=== PATIENT | male | born 1960 | race Caucasian/White ===

== ENCOUNTER 2019-09-11 11:49 | Inpatient (IN) | payer OTHER ==
[~2019-09-11] VITALS: Ht 182.9 cm; Wt 83.2 kg
--- NOTE | 2019-09-11 12:09 | NUR ---
Wound Care Wound Type/Assessment: Pt was new to the W[facility] today, referred from Dr. Abebe's office. Pt walked in using roller walker, sock only covering forefoot, wound visualized and open to air. Manual FELICIANO obtained, showing 0.61, palpable pedal pulse, foot slightly reddened and swollen. Pt stated wound has been present for 1.5 months, after applying lotion to calluses on his feet, and has progressively worsened. Dr. Abebe placed pt on Augmentin on 09/06/19, labs drawn, showing HA1C of 11.2, pt stating this is the first he knew he was Diabetic. Left heel wound is soft eschar and slough covered, wet gangrene, foul odor, small amount of brown, purulent material expressed from below eschar covering, culture obtained after cleaning. Dr. Walton assessed, spoke with pt about hospital admission for IV Abx and surgical debridement, pt agreeable. Wound dressed with 1/4 strength Dakins soaked gauze, covered with ABD and kerlix. After speaking with Dr. Ruffin to admit, pt was transferred to ED for Registration via wheelchair, spoke with pt and mother re: POC. Treatment Recommendations/Plan: Hospital admission for antibiotics and surgical debridement, vascular workup as pt is a 40 year smoker, and 0.6 FELICIANO. Education provided: to pt and mother re: POC and surgical/treatment expectations, both v/u. Spoke with JERALD Rodrigez re: POC. Offloading surface/device: defer weight-bearing status to Vascular Surgeon. Recommended Referrals/Tests: Vascular, ID, Arterial U/S Discharge Recommendations for dressings: pending
--- NOTE | 2019-09-11 12:15 | NUR ---
Arrived to unit by w/c from Wound clinic. Alert and oriented x's 4. Left heel dressing intact with foul smell. Elevated left foot elevated on pillow. Oriented to room and controls. Side rails up x's 2 with call light in reach.
[2019-09-11] MEDS ORDERED: METF500T16 PO (13:58)
[2019-09-11] MEDS ORDERED: AMOX1TAB61 PO (13:58)
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
[2019-09-11 15:00] VITALS: BP 173/92
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
[2019-09-11] MEDS ORDERED: ACETAMINOPHEN 325 MG TABLET. PO PRN (15:30)
[2019-09-11] MEDS ORDERED: LORazepam 0.5 MG TABLET PO PRN (15:30)
[2019-09-11] MEDS ORDERED: DEXTROSE 50% 25 GM / 50ML DISP.SYRIN. IV PRN (15:30)
[2019-09-11] MEDS ORDERED: HYDROmorphone 2 MG/ML VIAL IV PRN (15:30)
[2019-09-11] MEDS ORDERED: DOCUSATE SODIUM 100 MG CAPSULE. PO PRN (15:30)
[2019-09-11] MEDS ORDERED: ZOLPIDEM 5 MG TABLET. PO PRN (15:30)
[2019-09-11] MEDS ORDERED: guaiFENesin ORAL 200 MG/10 ML LIQUID. PO PRN (15:30)
[2019-09-11] MEDS ORDERED: ONDANSETRON PF 4 MG/2 ML VIAL. IV PRN (15:30)
[2019-09-11] MEDS ORDERED: ALBUTEROL SULFATE 2.5 MG/3 ML NEBU. NEB PRN (15:30)
[2019-09-11] MEDS ORDERED: VANCOMYCIN 1 GM in IV DEXTROSE 5% 250 ML IV ONE (15:30)
[2019-09-11 15:45] LABS: BASO # 0.1 x10^3/uL (0.0-0.2); BASO % 1 % (0-3); EOS # 0.3 x10^3/uL (0.0-0.7); EOS % 3 % (0-3); HEMATOCRIT 44.9 % (39.0-53.0); HEMOGLOBIN 15.2 g/dL (13.0-17.5); LYMPH # 2.1 x10^3/uL (1.0-4.8); LYMPH % 21 % (24-48); MEAN CORPUSCULAR HEMOGLOBIN 29 pg (25-35); MEAN CORPUSCULAR HGB CONC 34 g/dL (31-37); MEAN CORPUSCULAR VOLUME 85 fL (79-100); MONO # 0.7 x10^3/uL (0.0-1.1); MONO % 7 % (0-9); NEUT # 6.7 x10^3/uL (1.8-7.7); NEUT % 68 % (31-73); PLATELET COUNT 329 x10^3/uL (140-400); RED BLOOD COUNT 5.26 x10^6/uL (4.30-5.70); RED CELL DISTRIBUTION WIDTH 14.2 % (11.5-14.5); WHITE BLOOD COUNT 9.8 x10^3/uL (4.0-11.0)
[2019-09-11 15:56] LABS: PROTHROMBIN TIME PATIENT 13.1 SEC (11.7-14.0)
[2019-09-11 16:07] LABS: ALBUMIN/GLOBULIN RATIO 0.9 (1.0-1.7); CALCIUM 9.3 mg/dL (8.5-10.1); GFR 76.5; POTASSIUM 4.9 mmol/L (3.5-5.1); TOTAL BILIRUBIN 0.2 mg/dL (0.2-1.0); TOTAL PROTEIN 6.4 g/dL (6.4-8.2)
--- NOTE | 2019-09-11 16:51 | RAD ---
DUPLEX LOWER EXT ARTERIAL LEFT Indication: Gangrene left heel. Pain. Comparison: None. Procedure: Real-time grayscale, color flow Doppler, and Doppler spectral waveform analysis of the arterial system of the lower extremity is performed. Findings: Moderate atheromatous plaque throughout the left lower extremity. Monophasic waveform within the left common femoral and deep femoral arteries. 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 Reconstitution of the distal superficial femoral artery with monophasic waveform. Monophasic waveform within the left popliteal, posterior tibial, anterior tibial and dorsalis pedis arteries. Lower velocity within the left popliteal and posterior tibial arteries. Left peroneal artery not well seen, may relate to technique, slow flow or occlusion. IMPRESSION: 1. 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 CT angiogram can further assess as clinically warranted. 2. Monophasic waveform throughout the left lower extremity, may indicate proximal stenosis. 3. Moderate atheromatous plaque throughout the left lower extremity. Electronically signed by: Vignesh Man DO (09/11/2019 4:47 PM) KEMAL
--- NOTE | 2019-09-11 16:53 | RAD ---
VEIN MAPPING LOWER EXT BILAT History: Preoperative evaluation for bypass. Comparison: None. Discussion: Multiple longitudinal and transverse high resolution real-time images of the superficial venous system of bilateral lower extremity were obtained with color and Doppler sampling. Postoperative changes bilateral greater saphenous veins not well seen. Right lesser saphenous vein proximal measures 2.2 mm, mid 2.7 mm and distal 2.4 mm. Left lesser saphenous vein proximal measures 2.5 mm, mid 2.60 m and distal 2.4 mm. Impression: 1. Preoperative evaluation with measurements of the lesser saphenous veins, as described. 2. Postoperative changes bilateral greater saphenous veins. Electronically signed by: Vignesh Man DO (09/11/2019 4:50 PM) [facility]
[2019-09-11] MEDS: PIPERACILLIN/TAZOBACTAM 3.375 GM in IV NORMAL SALINE 50ML 50 ML IV SCH (16:56)
--- NOTE | 2019-09-11 16:56 | RAD ---
VEIN MAP UPPER EXT BILATERAL History: Preoperative evaluation for bypass Comparison: None. Procedure: Color flow Doppler, Doppler spectral analysis, and 2D images are obtained of the superficial venous system. Findings: Right proximal basilic vein upper arm measures 2.7 mm, mid 2.2 mm and distal 3.3 mm. Right basilic vein at the proximal forearm measures 1.5 mm, mid 0.9 mm and distal 0.9 mm. Right cephalic vein proximal upper arm measures 2 mm, mid 2.1 mm and distal 1.4 mm. Right cephalic vein at the forearm proximally measures 2 mm, mid 1.5 mm and distal 1.7 mm. Left basilic vein upper arm proximally measures 4.4 mm, mid 4.1 mm and distal 3.8 mm. Left basilic vein at the forearm measures 1.6 mm, mid 2.5 mm and distal 2.6 mm. Left cephalic vein proximal upper arm measures 2.9 mm, mid 2.4 mm and distal 2.3 mm. Left cephalic vein at the forearm proximally measures 2.9 mm, mid 3.1 mm and distal 3.2 mm. IMPRESSION: 1. Preoperative evaluation upper extremity superficial venous system with measurements, as described. Electronically signed by: Vignesh Man DO (09/11/2019 4:53 PM) [facility]
[2019-09-11] MEDS: INSULIN LISPRO 300 UNITS/3 ML VIAL. SQ SCH (17:08)
[2019-09-11] MEDS: ENOXAPARIN 40 MG/0.4 ML SYRINGE. SQ SCH (17:49)
[2019-09-11] MEDS: VANCOMYCIN PER PHARMACY MC PRN ×3 (17:51→18:11)
[2019-09-11] MEDS ORDERED: VANCOMYCIN 2 GM in IV NORMAL SALINE 500ML BAG 500 ML IV ONE (18:00)
--- NOTE | 2019-09-11 18:12 | NUR ---
Pharmacy Vancomycin Dosing Note S:Consulted to monitor and dose vancomycin started 09/11/19. O:CHASIDY HUTSON is a 59 year old M with Cellulitis . Height: 6 feet, 0 inches Weight: 76.0 kg [place] Body Weight: Adjusted Body Weight: Dosing Weight: Actual Other Antibiotics: LABS: Last BUN: Last Creatinine: 1.0 Creatinine Clearance: 86 mL/min Last WBC: 9.8 Last Procalcitonin: Tmax (past 24 hours): 98.2 Microbiology: I/O: Drug Levels: Last level: on at Last dose given 09/11/19 at 1800 Vancomycin Dosing: Loading Dose: 2000 mg x1 Dosing Weight: Actual Target Trough: 10-20 A: Based on: WEIGHT AND RENAL FUNCTION, 2GM IV BOLUS GIVEN, P: 1. Begin Vancomycin 1000 mg IV q12h IN THE MORNING 2. Follow up Trough level on 09/13/19 at 0530 3. Pharmacy will continue to monitor, follow and adjust therapy as needed. BETHEL MONIQUE [facility], 09/11/19 0917
[2019-09-11 19:48] VITALS: BP 134/75
[2019-09-11 22:30] VITALS: BP 143/79
[2019-09-12] MEDS: PIPERACILLIN/TAZOBACTAM 3.375 GM in IV NORMAL SALINE 50ML 50 ML IV SCH ×4 (00:20→17:26)
[2019-09-12 02:56] VITALS: BP 143/72
[2019-09-12] MEDS: VANCOMYCIN 1 GM in IV NORMAL SALINE 250ML 250 ML IV SCH ×2 (06:12→17:26)
[2019-09-12] MEDS: INSULIN LISPRO 300 UNITS/3 ML VIAL. SQ SCH ×3 (07:51→17:00)
[2019-09-12 07:55] VITALS: BP 156/86
--- NOTE | 2019-09-12 09:36 | PDOC1 ---
History and Physical Date of Admission Date of Admission DATE: 09/12/19 TIME: 09:35 Identification/Chief Complaint Chief Complaint direct admit from wound clinic left heel wound, nonhealing new diagnosis of diabetes with a hemoglobin A1c of 11.2. vascular studies c/w severe PVD HIGH RISK of limb loss Past Medical History Cardiovascular: HTN, Hyperlipidemia Endocrine: Diabetes Family History Family History Past Medical History Past Medical History Diabetes mellitus Cardiovascular: HTN Past Surgical History Past Surgical History Left lower extremity arterial injury repair at many years ago Current Problem List Problem List Left heel eschar Family History: High Cholestrol, Hypertension Social History Smoke: Quit ALCOHOL: occassional Drugs: None Current Medications Current Medications Current Medications Ondansetron HCl (Zofran) 4 mg PRN Q4HRS PRN IV NAUSEA/VOMITING; Start 09/11/19 at 15:30 Zolpidem Tartrate (Ambien) 5 mg PRN QHS PRN PO INSOMNIA; Start 09/11/19 at 15:30 Acetaminophen (Tylenol) 650 mg PRN Q4HRS PRN PO TEMP OVER 100.4F OR MILD PAIN; Start 09/11/19 at 15:30 Docusate Sodium (Colace) 100 mg PRN BID PRN PO HARD STOOLS; Start 09/11/19 at 15:30 Albuterol Sulfate (Ventolin Neb Soln) 2.5 mg PRN Q4HRS PRN NEB SHORTNESS OF BREATH; Start 09/11/19 at 15:30 Guaifenesin (Robitussin) 200 mg PRN Q4HRS PRN PO COUGH; Start 09/11/19 at 15:30 Lorazepam (Ativan) 0.5 mg PRN Q4HRS PRN PO ANXIETY / AGITATION; Start 09/11/19 at 15:30 Hydromorphone HCl (Dilaudid) 1 mg PRN Q2HRS PRN IV SEVERE PAIN 7-10; Start 09/11/19 at 15:30 Enoxaparin Sodium (Lovenox 40mg Syringe) 40 mg Q24H SQ Last administered on 09/11/19at 17:49; Start 09/11/19 at 17:00 Vancomycin HCl 1 gm/Dextrose 250 ml @ 250 mls/hr 1X ONCE IV ; Start 09/11/19 at 15:30; Stop 09/11/19 at 16:29; Status UNV Vancomycin HCl (Vanco Per Pharmacy) 1 each PRN DAILY PRN MC SEE COMMENTS Last administered on 09/11/19at 18:11; Start 09/11/19 at 15:30 Piperacillin Sod/ Tazobactam Sod 3.375 gm/Sodium Chloride 50 ml @ 100 mls/hr Q6HRS IV Last administered on 09/12/19at 05:13; Start 09/11/19 at 16:00 Insulin Human Lispro (HumaLOG) 0-7 UNITS TIDWMEALS SQ Last administered on 09/11/19at 17:08; Start 09/11/19 at 17:00 Dextrose (Dextrose 50%-Water Syringe) 12.5 gm PRN Q15MIN PRN IV SEE COMMENTS; Start 09/11/19 at 15:30 Vancomycin HCl 2 gm/Sodium Chloride 500 ml @ 250 mls/hr 1X ONCE IV Last administered on 09/11/19at 17:49; Start 09/11/19 at 18:00; Stop 09/11/19 at 19:59; Status DC Vancomycin HCl 1 gm/Sodium Chloride 250 ml @ 250 mls/hr Q12H IV Last administered on 09/12/19at 06:12; Start 09/12/19 at 06:00 Vancomycin HCl (Vancomycin Trough Level) 1 each 1X ONCE MC ; Start 09/13/19 at 05:30; Stop 09/13/19 at 05:31 Active Scripts Active Reported Augmentin 875-125 Tablet (Amoxicillin/Potassium Clav) 1 Each Tablet 1 Tab PO BID 10 Days Metformin Hcl 500 Mg Tablet 500 Mg PO DAILY Allergies Allergies: Coded Allergies: No Known Allergies (Verified Allergy, Unknown, 09/11/19) ROS Review of System 14 PT ROS OTHERWISE WNL General: YES: Fatigue PSYCHOLOGICAL ROS: YES: Anxiety; No: Behavioral Disorder, Concentration difficultie, Decreased libido, Depression, Disorientation, Hallucinations, Hostility, Irritablity, Memory difficulties, Mood Swings, Obsessive thoughts, Physical abuse, Sexual abuse, Sleep disturbances, Suicidal ideation, Other Eyes: Yes Blurry vision; No Decreased vision, No Double vision, No Dry eyes, No Excessive tearing, No Eye Pain, No Itchy Eyes, No Loss of vision, No Photophobia, No Scotomata, No Uses contacts, No Uses glasses, No Other HEENT: No: Heacaches, Visual Changes, Hearing change, Nasal congestion, Nasal discharge, Oral lesions, Sinus pain, Sore Throat, Epistaxis, Sneezing, Snoring, Tinnitus, Vertigo, Vocal changes, Other ALLERGY AND IMMUNOLOGY: No: Hives, Insect Bite Sensitivity, Itchy/Watery Eyes, Nasal Congestion, Post Nasal Drip, Seasonal Allergies, Other Hematological and Lymphatic: No: Bleeding Problems, Blood Clots, Blood Transfusions, Brusing, Night Sweats, Pallor, Swollen Lymph Nodes, Other Breast: No New/Changing Breast Lumps, No Nipple changes, No Nipple discharge, No Other Respiratory: No: Cough, Hemoptysis, Orthopnea, Pleuritic Pain, Shortness of breath, SOB with excertion, Sputum Changes, Stridor, Tachypnea, Wheezing, Other Cardiovascular: No Chest Pain, No Palpitations, No Orthopnea, No Paroxysmal Noc. Dyspnea, No Edema, No Lt Headedness, No Other Gastrointestinal: No Nausea, No Vomiting, No Abdominal Pain, No Diarrhea, No Constipation, No Melena, No Hematochezia, No Other Genitourinary: YES Frequency; No Dysuria, No Incontinence, No Hematuria, No Retention, No Discharge, No Ur gency, No Pain, No Flank Pain, No Other, No , No , No , No , No , No , No Musculoskeletal: Yes Gait Disturbance, Yes Joint Stiffness Neurological: Yes Gait Disturbance; No Behavorial Changes, No Bowel/Bladder ControlChng, No Confusion, No Dizziness, No Headaches, No Impaired Coord/balance, No Memory Loss, No Numbness/Tingling, No Seizures, No Speech Problems, No Tremors, No Visual Changes, No Weakness, No Other Skin: Yes Skin Lesion Changes Physical Exam Physical Exam left Heel ulceration with the greatest degree of soft tissue irregularity extending approximately 9 mm deep to the skin surface. Lungs: Clear to auscultation Heart: Regular rate, Abdomen: Normal bowel sounds, Soft Extremities: No clubbing, No cyanosis Neuro: Normal speech, Strength at 5/5 X4 ext, Normal tone, Cranial nerves 3-12 NL Psych/Mental Status: Mental status NL, Mood NL MUSCULOSKELETAL: No joint tenderness, Abnormal exam of left as above General: Alert, Oriented X3, Cooperative, No acute distress HEENT: Atraumatic, PERRLA, EOMI, Mucous membr. moist/pink Lungs: Clear to auscultation, Normal air movement Heart: RRR, no thrills, no rubs, no gallops Breasts: Not examined Abdomen: Normal bowel sounds, Soft, No tenderness Rectal Exam: not examined PELVIC: Examination not indicated Extremities: No cyanosis Neuro: Normal speech, Sensation intact, Cranial nerves 3-12 NL Psych/Mental Status: Mental status NL, Mood NL Vitals Vitals Vital Signs Date Time Temp Pulse Resp B/P (MAP) Pulse Ox O2 Delivery O2 Flow Rate FiO2 09/12/19 07:55 97.9 63 18 156/86 (109) 97 Nasal Cannula 97.9 Labs Labs Laboratory Tests Test 09/11/19 15:00 09/11/19 16:58 09/11/19 21:00 09/12/19 07:35 White Blood Count 9.8 x10^3/uL (4.0-11.0) Red Blood Count 5.26 x10^6/uL (4.30-5.70) Hemoglobin 15.2 g/dL (13.0-17.5) Hematocrit 44.9 % (39.0-53.0) Mean Corpuscular Volume 85 fL (79-100) Mean Corpuscular Hemoglobin 29 pg (25-35) Mean Corpuscular Hemoglobin Concent 34 g/dL (31-37) Red Cell Distribution Width 14.2 % (11.5-14.5) Platelet Count 329 x10^3/uL (140-400) Neutrophils (%) (Auto) 68 % (31-73) Lymphocytes (%) (Auto) 21 % (24-48) Monocytes (%) (Auto) 7 % (0-9) Eosinophils (%) (Auto) 3 % (0-3) Basophils (%) (Auto) 1 % (0-3) Neutrophils # (Auto) 6.7 x10^3/uL (1.8-7.7) Lymphocytes # (Auto) 2.1 x10^3/uL (1.0-4.8) Monocytes # (Auto) 0.7 x10^3/uL (0.0-1.1) Eosinophils # (Auto) 0.3 x10^3/uL (0.0-0.7) Basophils # (Auto) 0.1 x10^3/uL (0.0-0.2) Erythrocyte Sedimentation Rate 53 (0-15) Prothrombin Time 13.1 SEC (11.7-14.0) Prothromb Time International Ratio 1.0 (0.8-1.1) Activated Partial Thromboplast Time 29 SEC (24-38) Sodium Level 138 mmol/L (136-145) Potassium Level 4.9 mmol/L (3.5-5.1) Chloride Level 102 mmol/L (98-107) Carbon Dioxide Level 27 mmol/L (21-32) Anion Gap 9 (6-14) Blood Urea Nitrogen 21 mg/dL (8-26) Creatinine 1.0 mg/dL (0.7-1.3) Estimated GFR (Cockcroft-Gault) 76.5 BUN/Creatinine Ratio 21 (6-20) Glucose Level 235 mg/dL (70-99) Calcium Level 9.3 mg/dL (8.5-10.1) Total Bilirubin 0.2 mg/dL (0.2-1.0) Aspartate Amino Transf (AST/SGOT) 11 U/L (15-37) Alanine Aminotransferase (ALT/SGPT) 15 U/L (16-63) Alkaline Phosphatase 129 U/L (46-116) Total Protein 6.4 g/dL (6.4-8.2) Albumin 3.0 g/dL (3.4-5.0) Albumin/Globulin Ratio 0.9 (1.0-1.7) Glucose (Fingerstick) 200 mg/dL (70-99) 207 mg/dL (70-99) 195 mg/dL (70-99) Laboratory Tests Test 09/11/19 15:00 09/11/19 16:58 09/11/19 21:00 09/12/19 07:35 White Blood Count 9.8 x10^3/uL (4.0-11.0) Red Blood Count 5.26 x10^6/uL (4.30-5.70) Hemoglobin 15.2 g/dL (13.0-17.5) Hematocrit 44.9 % (39.0-53.0) Mean Corpuscular Volume 85 fL (79-100) Mean Corpuscular Hemoglobin 29 pg (25-35) Mean Corpuscular Hemoglobin Concent 34 g/dL (31-37) Red Cell Distribution Width 14.2 % (11.5-14.5) Platelet Count 329 x10^3/uL (140-400) Neutrophils (%) (Auto) 68 % (31-73) Lymphocytes (%) (Auto) 21 % (24-48) Monocytes (%) (Auto) 7 % (0-9) Eosinophils (%) (Auto) 3 % (0-3) Basophils (%) (Auto) 1 % (0-3) Neutrophils # (Auto) 6.7 x10^3/uL (1.8-7.7) Lymphocytes # (Auto) 2.1 x10^3/uL (1.0-4.8) Monocytes # (Auto) 0.7 x10^3/uL (0.0-1.1) Eosinophils # (Auto) 0.3 x10^3/uL (0.0-0.7) Basophils # (Auto) 0.1 x10^3/uL (0.0-0.2) Erythrocyte Sedimentation Rate 53 (0-15) Prothrombin Time 13.1 SEC (11.7-14.0) Prothromb Time International Ratio 1.0 (0.8-1.1) Activated Partial Thromboplast Time 29 SEC (24-38) Sodium Level 138 mmol/L (136-145) Potassium Level 4.9 mmol/L (3.5-5.1) Chloride Level 102 mmol/L (98-107) Carbon Dioxide Level 27 mmol/L (21-32) Anion Gap 9 (6-14) Blood Urea Nitrogen 21 mg/dL (8-26) Creatinine 1.0 mg/dL (0.7-1.3) Estimated GFR (Cockcroft-Gault) 76.5 BUN/Creatinine Ratio 21 (6-20) Glucose Level 235 mg/dL (70-99) Calcium Level 9.3 mg/dL (8.5-10.1) Total Bilirubin 0.2 mg/dL (0.2-1.0) Aspartate Amino Transf (AST/SGOT) 11 U/L (15-37) Alanine Aminotransferase (ALT/SGPT) 15 U/L (16-63) Alkaline Phosphatase 129 U/L (46-116) Total Protein 6.4 g/dL (6.4-8.2) Albumin 3.0 g/dL (3.4-5.0) Albumin/Globulin Ratio 0.9 (1.0-1.7) Glucose (Fingerstick) 200 mg/dL (70-99) 207 mg/dL (70-99) 195 mg/dL (70-99) Images Images PA and lateral chest. HISTORY: R 23.4, eschar of heel, wheezing, patient states he is a smoker PA and lateral views the chest show the lungs are clear. Heart is normal in size. There is no effusion. There is mild hypertrophic change in the spine. IMPRESSION: 1. No acute chest disease. Electronically signed by: Troy Dao MD (09/11/2019 9:44 AM) [id number] DICTATED and SIGNED BY: TROY DAO MD DATE: 09/11/19 0944 Study: 1. CR FOOT LEFT 3V 2. CR CALCANEUS LEFT Indication: Eschar of heel. Comparison: None. Findings: Calcaneus: Ulceration at the heel with the greatest degree of soft tissue irregularity extending approximately 9 mm deep to the skin surface. The subjacent subcutaneous tissues are increased in density approaching the calcaneus. At the plantar calcaneus along the base of a spur there is mild localized demineralization. No periostitis seen at this location. Foot: Noting the absence of weightbearing, presumed hallux valgus deformity. No acute fracture or aggressive osseous process. Small focus of increased density within the soft tissues plantar and lateral to the second ray proximal phalanx. Somewhat edematous appearance of the dorsal forefoot soft tissues. Impression: 1. Heel ulceration with the greatest degree of soft tissue irregularity extending approximately 9 mm deep to the skin surface. At the base of a plantar calcaneal spur, mild localized demineralization without periostitis. This demineralization is nonspecific but if there is concern for osteomyelitis MRI would be more sensitive. 2. No acute fracture or radiographic findings of osteomyelitis throughout the midfoot or forefoot. 3. Punctate focus of increased density plantar and lateral to the second ray proximal phalanx which could represent a retained radiopaque foreign body. Recommend correlation with direct inspection. 4. Hallux valgus alignment. Electronically signed by: JEWEL GARCIA MD (09/11/2019 9:44 AM) [id number] REASON: gangrene left heel PROCEDURE: DUPLEX LOWER EXT ARTERIAL LEFT DUPLEX LOWER EXT ARTERIAL LEFT Indication: Gangrene left heel. Pain. Comparison: None. Procedure: Real-time grayscale, color flow Doppler, and Doppler spectral waveform analysis of the arterial system of the lower extremity is performed. Findings: Moderate atheromatous plaque throughout the left lower extremity. Monophasic waveform within the left common femoral and deep femoral arteries. 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 Reconstitution of the distal superficial femoral artery with monophasic waveform. Monophasic waveform within the left popliteal, posterior tibial, anterior tibial and dorsalis pedis arteries. Lower velocity within the left popliteal and posterior tibial arteries. Left peroneal artery not well seen, may relate to technique, slow flow or occlusion. IMPRESSION: 1. 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 CT angiogram can further assess as clinically warranted. 2. Monophasic waveform throughout the left lower extremity, may indicate proximal stenosis. 3. Moderate atheromatous plaque throughout the left lower extremity. Electronically signed by: Vignesh Man DO (09/11/2019 4:47 PM) [facility]ERSONOn[facility]ignCHIQUITA DICTATED and SIGNED BY: VIGNESH MAN DO DATE: 09/11/19 1647 VEIN MAPPING LOWER EXT BILAT History: Preoperative evaluation for bypass. Comparison: None. Discussion: Multiple longitudinal and transverse high resolution real-time images of the superficial venous system of bilateral lower extremity were obtained with color and Doppler sampling. Postoperative changes bilateral greater saphenous veins not well seen. Right lesser saphenous vein proximal measures 2.2 mm, mid 2.7 mm and distal 2.4 mm. Left lesser saphenous vein proximal measures 2.5 mm, mid 2.60 m and distal 2.4 mm. Impression: 1. Preoperative evaluation with measurements of the lesser saphenous veins, as described. 2. Postoperative changes bilateral greater saphenous veins. Electronically signed by: Vignesh Man DO (09/11/2019 4:50 PM) [facility]-OriginCHIQUITA DICTATED and SIGNED BY: VIGNESH MAN DO DATE: 09/11/19 1650 VTE Prophylaxis Ordered VTE Prophylaxis Devices: Contraindicated VTE Pharmacological Prophylaxi: Yes Assessment/Plan Assessment/Plan IMPRESSION 1. 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 CT angiogram can further assess as clinically warranted. 2. Monophasic waveform throughout the left lower extremity, may indicate proximal stenosis. 3. 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 Heel ulceration with the greatest degree of soft tissue irregularity extending approximately 9 mm deep to the skin surface. 4. morbid obesity 5. hypertension 6. Diabetes 7. Punctate focus of increased density plantar and lateral to the second ray proximal phalanx which could represent a retained radiopaque foreign body. PLAN ADMIT Vascular surgery consult consult wound care team accuchecks IV VANC, ZOSYN ID consult SS INSULIN DVT prophylaxis EKG at high risk of limb loss 77 MIN pt exam, chart review, > 50% of time spent with exam, chart review, pt care coordination MONICO LEUNG MD September 12, 2019 09:36
[2019-09-12 11:18] VITALS: BP 133/70
--- NOTE | 2019-09-12 12:05 | EKG ---
[facility] [address] [place] [address] Test Date: 2019-09-12 Test Time: 11:53:54 Pat Name: CHASIDY HUTSON Department: Room: [facility] Gender: M Campaign Consultant: : 1960 Requested By: MONICO LEUNG Order Number: [id number] Reading MD: Tien Barahona Measurements Intervals [place] Rate: 58 P: 39 GA: 238 QRS: -75 QRSD: 138 T: 103 QT: 432 QTc: 424 Interpretive Statements SINUS RHYTHM PROLONGED GA INTERVAL ABNORMAL LEFT AXIS DEVIATION RIGHT BUNDLE BRANCH BLOCK ABNORMAL ECG RI6.02 No previous ECG available for comparison Electronically Signed On 09-13-2019 8:23:18 CDT by Tien Barahona
--- NOTE | 2019-09-12 12:09 | PDOC ---
Infectious Disease Note Vital Signs: Vital Signs Vital Signs Date Time Temp Pulse Resp B/P (MAP) Pulse Ox O2 Delivery O2 Flow Rate FiO2 09/12/19 11:18 98.3 56 18 133/70 (91) 97 Nasal Cannula 98.3 Medications: Inpatient Meds: Current Medications Medications (Trade) Dose Ordered Sig/Steven Start Time Stop Time Status Last Admin Dose Admin Acetaminophen (Tylenol) 650 mg PRN Q4HRS PRN 09/11/19 15:30 Albuterol Sulfate (Ventolin Neb Soln) 2.5 mg PRN Q4HRS PRN 09/11/19 15:30 Dextrose (Dextrose 50%-Water Syringe) 12.5 gm PRN Q15MIN PRN 09/11/19 15:30 Docusate Sodium (Colace) 100 mg PRN BID PRN 09/11/19 15:30 Enoxaparin Sodium (Lovenox 40mg Syringe) 40 mg Q24H 09/11/19 17:00 09/11/19 17:49 40 MG Guaifenesin (Robitussin) 200 mg PRN Q4HRS PRN 09/11/19 15:30 Hydromorphone HCl (Dilaudid) 1 mg PRN Q2HRS PRN 09/11/19 15:30 Insulin Human Lispro (HumaLOG) 0-7 UNITS TIDWMEALS 09/11/19 17:00 09/11/19 17:08 3 UNITS Lorazepam (Ativan) 0.5 mg PRN Q4HRS PRN 09/11/19 15:30 Ondansetron HCl (Zofran) 4 mg PRN Q4HRS PRN 09/11/19 15:30 Piperacillin Sod/ Tazobactam Sod 3.375 gm/Sodium Chloride 50 ml @ 100 mls/hr Q6HRS 09/11/19 16:00 09/12/19 05:13 100 MLS/HR Vancomycin HCl (Vanco Per Pharmacy) 1 each PRN DAILY PRN 09/11/19 15:30 09/11/19 18:11 1 EACH Vancomycin HCl (Vancomycin Trough Level) 1 each 1X ONCE 09/13/19 05:30 09/13/19 05:31 Vancomycin HCl 1 gm/Dextrose 250 ml @ 250 mls/hr 1X ONCE 09/11/19 15:30 09/11/19 16:29 UNV Vancomycin HCl 1 gm/Sodium Chloride 250 ml @ 250 mls/hr Q12H 09/12/19 06:00 09/12/19 06:12 250 MLS/HR Vancomycin HCl 2 gm/Sodium Chloride 500 ml @ 250 mls/hr 1X ONCE 09/11/19 18:00 09/11/19 19:59 DC 09/11/19 17:49 250 MLS/HR Zolpidem Tartrate (Ambien) 5 mg PRN QHS PRN 09/11/19 15:30 Labs: Lab Laboratory Tests Test 09/11/19 15:00 09/11/19 16:58 09/11/19 21:00 09/12/19 07:35 White Blood Count 9.8 x10^3/uL (4.0-11.0) Red Blood Count 5.26 x10^6/uL (4.30-5.70) Hemoglobin 15.2 g/dL (13.0-17.5) Hematocrit 44.9 % (39.0-53.0) Mean Corpuscular Volume 85 fL (79-100) Mean Corpuscular Hemoglobin 29 pg (25-35) Mean Corpuscular Hemoglobin Concent 34 g/dL (31-37) Red Cell Distribution Width 14.2 % (11.5-14.5) Platelet Count 329 x10^3/uL (140-400) Neutrophils (%) (Auto) 68 % (31-73) Lymphocytes (%) (Auto) 21 % (24-48) Monocytes (%) (Auto) 7 % (0-9) Eosinophils (%) (Auto) 3 % (0-3) Basophils (%) (Auto) 1 % (0-3) Neutrophils # (Auto) 6.7 x10^3/uL (1.8-7.7) Lymphocytes # (Auto) 2.1 x10^3/uL (1.0-4.8) Monocytes # (Auto) 0.7 x10^3/uL (0.0-1.1) Eosinophils # (Auto) 0.3 x10^3/uL (0.0-0.7) Basophils # (Auto) 0.1 x10^3/uL (0.0-0.2) Erythrocyte Sedimentation Rate 53 (0-15) Prothrombin Time 13.1 SEC (11.7-14.0) Prothromb Time International Ratio 1.0 (0.8-1.1) Activated Partial Thromboplast Time 29 SEC (24-38) Sodium Level 138 mmol/L (136-145) Potassium Level 4.9 mmol/L (3.5-5.1) Chloride Level 102 mmol/L (98-107) Carbon Dioxide Level 27 mmol/L (21-32) Anion Gap 9 (6-14) Blood Urea Nitrogen 21 mg/dL (8-26) Creatinine 1.0 mg/dL (0.7-1.3) Estimated GFR (Cockcroft-Gault) 76.5 BUN/Creatinine Ratio 21 (6-20) Glucose Level 235 mg/dL (70-99) Calcium Level 9.3 mg/dL (8.5-10.1) Total Bilirubin 0.2 mg/dL (0.2-1.0) Aspartate Amino Transf (AST/SGOT) 11 U/L (15-37) Alanine Aminotransferase (ALT/SGPT) 15 U/L (16-63) Alkaline Phosphatase 129 U/L (46-116) Total Protein 6.4 g/dL (6.4-8.2) Albumin 3.0 g/dL (3.4-5.0) Albumin/Globulin Ratio 0.9 (1.0-1.7) Glucose (Fingerstick) 200 mg/dL (70-99) 207 mg/dL (70-99) 195 mg/dL (70-99) Test 09/12/19 11:05 Glucose (Fingerstick) 205 mg/dL (70-99) Objective: Assessment: Pt seen and examined Plan: Plan of Care ID consult dictated [id number] Thank RO Alfonso MD September 12, 2019 12:09
[2019-09-12] MEDS ORDERED: ONDANSETRON PF 4 MG/2 ML VIAL. IVP PRN (12:45)
--- NOTE | 2019-09-12 13:01 | NUR ---
SW following. Discussed with RN, pt having an angiogram today. Pt follows here at the wound clinic, room air, IV abx. Pt's address is for a Silvia Patton (RN advised he lives in assisted living). SW referral for walker and home health. SW will continue to follow for discharge planning and plan of care.
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
[2019-09-12] MEDS ORDERED: IODIXANOL 320 MG/ML 100 ML VIAL. ONE (13:55)
[2019-09-12] MEDS ORDERED: LIDOCAINE 1% Multi-Dose 20 ML VIAL. ONE (13:55)
[2019-09-12 14:23] LABS: BILIRUBIN,URINE NEGATIVE (NEG); CLARITY,URINE CLEAR; COLOR,URINE YELLOW; NITRITE,URINE NEGATIVE (NEG); PH,URINE 5.5 (<5.0-8.0); PROTEIN,URINE 100 mg/dL (NEG-TRACE); UROBILINOGEN,URINE 0.2 mg/dL (0.2 mg/dL)
[2019-09-12] MEDS ORDERED: HEPARIN for IV BOLUS 10,000 UNIT/10 ML VIAL. ONE ×2 (14:25→18:51)
[2019-09-12] MEDS ORDERED: fentaNYL PF VIAL 250 MCG/5 ML VIAL ONE (14:25)
[2019-09-12] MEDS ORDERED: MIDAZOLAM HCL/PF 5 MG/5 ML VIAL. ONE (14:25)
[2019-09-12 14:33] LABS: BACTERIA,URINE 0 /HPF (0-FEW); RBC,URINE OCC /HPF (0-2); WBC,URINE 0 /HPF (0-4)
[2019-09-12] MEDS ORDERED: fentaNYL PF VIAL 250 MCG/5 ML VIAL IV ONE (14:45)
[2019-09-12] MEDS ORDERED: LIDOCAINE 1% Multi-Dose 20 ML VIAL. INJ ONE (14:45)
[2019-09-12] MEDS ORDERED: IODIXANOL 320 MG/ML 100 ML VIAL. IART ONE (14:45)
[2019-09-12] MEDS ORDERED: MIDAZOLAM HCL/PF 5 MG/5 ML VIAL. IV ONE (14:45)
[2019-09-12] MEDS ORDERED: HEPARIN for IV BOLUS 10,000 UNIT/10 ML VIAL. IV ONE ×2 (15:00→17:00)
[2019-09-12] MEDS: VANCOMYCIN PER PHARMACY MC PRN (15:38)
[2019-09-12] MEDS ORDERED: LIDOCAINE 2% PF 5 ML VIAL. ONE (16:20)
[2019-09-12] MEDS ORDERED: PROPOFOL 10 MG/ML (20ML) VIAL. IV ONE (16:20)
[2019-09-12] MEDS ORDERED: PHENYLEPHRINE in 0.9% NACL PF 1 MG/10 ML SYRINGE. IV ONE (16:21)
[2019-09-12] MEDS ORDERED: ONDANSETRON PF 4 MG/2 ML VIAL. ONE (16:21)
[2019-09-12] MEDS ORDERED: ePHEDrine PF IN SALINE 50 MG/10 ML SYRINGE. IV ONE (16:21)
[2019-09-12] MEDS ORDERED: DEXAMETHASONE SOD PHOS 4 MG/ML VIAL ONE (16:21)
[2019-09-12] MEDS ORDERED: IV RINGERS,LACTATED 1000ML 1,000 ML IV SCH (16:22)
[2019-09-12] MEDS ORDERED: fentaNYL PF VIAL 100 MCG/2 ML VIAL ONE ×2 (16:22→20:38)
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
[2019-09-12] MEDS ORDERED: HYDROmorphone 2 MG/ML VIAL IV PRN (16:30)
[2019-09-12] MEDS ORDERED: fentaNYL PF VIAL 100 MCG/2 ML VIAL IV PRN ×2 (16:30)
[2019-09-12] MEDS ORDERED: PROCHLORPERAZINE 10 MG/2 ML VIAL. IV PRN (16:30)
[2019-09-12] MEDS ORDERED: LIDOCAINE 1% PF 2 ML VIAL. ID PRN (16:30)
[2019-09-12] MEDS ORDERED: MORPHINE SULFATE 2 MG/ML VIAL. IV PRN (16:30)
[2019-09-12] MEDS ORDERED: ONDANSETRON PF 4 MG/2 ML VIAL. IV PRN (16:30)
[2019-09-12] MEDS: ENOXAPARIN 40 MG/0.4 ML SYRINGE. SQ SCH (17:00)
[2019-09-12] MEDS ORDERED: HEPARIN SODIUM 5,000 UNIT in IV NORMAL SALINE 500ML BAG 500 ML IRR ONE (17:00)
[2019-09-12] MEDS ORDERED: HEPARIN for SUB-Q USE 5,000 UNIT/ML VIAL. SQ ONE (17:02)
[2019-09-12] MEDS ORDERED: INSULIN LISPRO 100 UNIT/ML 3ML VIAL for OP,RR ONLY. SQ PRN (17:15)
[2019-09-12] MEDS ORDERED: SURGICEL FIBRILLAR 1X2 EACH. ONE ×2 (17:17)
[2019-09-12] MEDS ORDERED: IOHEXOL 300 MG/ML 50 ML VIAL. ONE (17:17)
[2019-09-12] MEDS ORDERED: BUPIVACAINE-EPI 0.25%-1:200000 MPF 30 ML VIAL. ONE (17:17)
[2019-09-12] MEDS ORDERED: GLYCOPYRROLATE 1 MG/5 ML VIAL. ONE (17:44)
[2019-09-12] MEDS ORDERED: ROCURONIUM 100 MG/10 ML VIAL. ONE (18:49)
[2019-09-12] MEDS ORDERED: NEOSTIGMINE METHYLSULFATE 5 MG/5 ML SYRINGE. ONE (20:04)
[2019-09-12] MEDS ORDERED: PROTAMINE 50 MG/5 ML VIAL. IV ONE (20:26)
[2019-09-12] MEDS ORDERED: SEVOFLURANE > 120 MINUTES. IH ONE (20:50)
--- NOTE | 2019-09-12 21:16 | PDOC4 ---
OPERATIVE NOTE Date: Date: September 12, 2019 Pre-Op Diagnosis: Atherosclerosis of [place] artery of left lower extremity with ulceration of the heel Chronic limb threatening ischemia with need for revascularization to prevent major amputation Acute on chronic limb threatening ischemia after angioplasty of left SFA with di ssection Post-Op Diagnosis: Same as above Procedure Performed: 1. Extensive left profunda femoral endarterectomy down to tertiary branches at least 3 cm, separate from normal requirement for lower extremity bypass #2 left femoral to anterior tibial artery bypass with ipsilateral saphenous vein graft #3 left heel debridement 5 cm x 5 cm 25 cm total down to bone excisional type Surgeon: Andry Albarran MD surgeon Montez Regalado MD Pleater Hand surgeon This was a difficult operation with multiple steps, a second attending surgeon was necessary for expediency given acute limb threatening ischemia, adequate outcome etc. Dr. Regalado assisted in vein harvest and arterial exposure working independently for me to speed up the procedure and improve outcomes. there were no residents available for assistance at this hospital Anesthesia Type: General Blood Loss: 200 cc Specimans Obtained: None Findings: High-grade profundofemoral artery stenosis with thrombus within the profunda femoris The thrombus was removed directly and profundofemoral endarterectomy was performed Excellent saphenous vein graft The saphenous vein was kept in its normal orientation and the valves were removed with a valvulotome given the size mismatch in the distal target Complications: None Operative Note: Patient was taken to the operating room placed supine the operating table. The groins were prepped and draped in usual sterile fashion. Proper timeout was performed. Attention was directed to the right groin where there was a previous sheath from angiogram. The sheath was removed over a Bentson wire and the Bentson wire was used to deliver a 6 [place] Angio-Seal device to the right femoral artery access site. This was deployed in the standard fashion with excellent hemostasis and a good pulse distally. Attention was then directed to the left leg where longitudinal incision was made at the left groin by me. This carried out with Bovie cautery and sharp dissection until the femoral sheath was identified. The femoral sheath was opened longitudinally and underlying common femoral artery profunda femoris artery and superficial femoral artery were dissected free from surrounding structures and controlled Vesseloops. While I was doing this Dr. Eric Up performed a harvest of the greater saphenous vein via a longitudinal medial thigh incision. This was done in the standard fashion with tying of branches on the vein side and clipping on the patient's side. The vein was harvested in 1 piece and flushed and prepped on the back table with excellent flow, good quality, and no bleeding from the vein. The left anterior tibial artery was identified by making a longitudinal incision in the left lateral leg just below the knee over the anterior compartment. This carried down through the fascia with the Bovie cautery and then the muscle heads were split in between these identified the anterior tibial artery. Some small overlying vein branches were ligated with clips and divided and an adequate portion of the anterior tibial artery was mobilized and controlled with Vesseloops. The vein harvest incision was now closed with interrupted deep 2 and 3-0 Vicryl sutures followed by skin padma. The patient was systemically heparinized and the common femoral artery was occluded with vascular clamp. The SFA was occluded with Vesseloops. The distal branches of the profunda femoris artery were individually controlled with Vesseloops as we had significant disease in the profunda femoris artery. The common femoral artery was opened longitudinally and then it was obvious that there was a large amount of thrombus at the origin of the profunda femoris. The psoas was removed with pickups and there was a plaque with dissection into the profundus present. A profundofemoral endarterectomy was performed by removing this large bulky plaque with a free endarterectomize Leny. This was carried down to the tertiary branches which were each I everted with excellent endpoints. Some small amount of plaque was removed from the common femoral artery but really this was a separate profunda femoris high-grade stenosis requiring endarterectomy. This is separate from the inflow for the graft for standard bypass. The vein graft was spatulated and piece of the graft was used to perform a profundofemoral patch with a running 6-0 Prolene suture and the graft was then sewn into side fashion onto the common femoral artery and onto the proximal frontal femoris artery using a running 6-0 Prolene suture. After completion of repair forward flow was returned down the profunda there was pulsatile flow through the vein graft. The profunda had an excellent signal with hand-held continuous-wave Doppler. The vein graft was tunneled in a lateral fashion to the anterior tibial artery. It was kept in appropriate orientation and had an excellent palpable pulse. Anterior tibial artery was occluded proximally distally with Vesseloops and an anterior traumas. Then of 11 scalpel and extended Christine angled scissors. I used a 2 Cora catheter to perform an embolectomy of the anterior tibial artery and remove some clot proximally. There was then good backbleeding and inflow from the ALICIA. The vein was spatulated to match the arteriotomy and a standard inside anastomosis was created between the vein and the anterior tibial artery using a running 7-0 Prolene suture. Just prior to completion of the repair the vessels are back spelt, for flushed, irrigated heparinized saline. Repair was completed normal forefoot was returned to the leg. There was an excellent dorsalis pedis signal at the ankle and in the foot. There was an excellent palpable pulse of the vein graft. Protamine was used to reverse the heparin. Excellent hemostasis was ensured to the at the operative field and the wounds were closed. The ALICIA exposure wound was closed with a running nylon suture. The groin was closed with 2 oh deep Vicryl, subdermal 3-0 Vicryl and skin padma. Attention was directed to left heel where scissors and a knife were used to cut away all of the necrotic tissue in the standard excisional debridement technique. This was 5 cm x 5 cm for 25 cm total and was taken down to the calcaneus bone. There was good bleeding at the skin edges. The leg was cleaned and dried and a sterile dressing was placed over the incision. The patient was awakened and escorted to recovery in stable condition. There were no complications, the patient tolerated well throughout, and at the end of the case all sponge, needle, and instrument counts were reported to me as correct x2. NIKKI ALBARRAN MD September 12, 2019 21:16
--- NOTE | 2019-09-12 21:40 | NUR ---
RN received report from PACU and pt. was brought to floor around 0. Pt. is alert and complaining of pain 01/31.
[2019-09-12] MEDS: LACTOBACILLUS RHAMNOSUS GG 1 CAPSULE. PO SCH (22:04)
[2019-09-12] MEDS: ATORVASTATIN CALCIUM 40 MG TABLET. PO SCH (22:04)
[2019-09-12 23:00] VITALS: BP 105/66
[2019-09-13] MEDS: PIPERACILLIN/TAZOBACTAM 3.375 GM in IV NORMAL SALINE 50ML 50 ML IV SCH ×5 (00:58→23:46)
[2019-09-13 03:00] VITALS: BP 142/78
[2019-09-13] MEDS ORDERED: MORPHINE SULFATE 2 MG/ML VIAL. IV PRN (05:30)
[2019-09-13 05:35] LABS: BASO % 0 % (0-3); EOS % 0 % (0-3); HEMOGLOBIN 13.6 g/dL (13.0-17.5); LYMPH # 0.9 x10^3/uL (1.0-4.8); LYMPH % 5 % (24-48); MEAN CORPUSCULAR HEMOGLOBIN 29 pg (25-35); MEAN CORPUSCULAR HGB CONC 33 g/dL (31-37); MEAN CORPUSCULAR VOLUME 86 fL (79-100); MONO # 0.9 x10^3/uL (0.0-1.1); MONO % 5 % (0-9); NEUT # 16.2 x10^3/uL (1.8-7.7); NEUT % 90 % (31-73); PLATELET COUNT 311 x10^3/uL (140-400); RED BLOOD COUNT 4.74 x10^6/uL (4.30-5.70); RED CELL DISTRIBUTION WIDTH 14.3 % (11.5-14.5)
[2019-09-13 06:09] LABS: ALBUMIN 2.4 g/dL (3.4-5.0); ALBUMIN/GLOBULIN RATIO 0.6 (1.0-1.7); CALCIUM 8.7 mg/dL (8.5-10.1); CREATININE 1.3 mg/dL (0.7-1.3); GFR 56.5; TOTAL BILIRUBIN 0.5 mg/dL (0.2-1.0); TOTAL PROTEIN 6.3 g/dL (6.4-8.2)
[2019-09-13 07:00] VITALS: BP 131/70
--- NOTE | 2019-09-13 08:33 | PDOC ---
Infectious Disease Note Subjective: Subjective Patient underwent surgery yesterday Postoperative pain is under control Had nausea and vomiting this a.m. but now resolved Denies fever, shortness of breath, diarrhea, abdominal pain, rash Otherwise as above Vital Signs: Vital Signs Vital Signs Date Time Temp Pulse Resp B/P (MAP) Pulse Ox O2 Delivery O2 Flow Rate FiO2 09/13/19 07:00 98.3 83 18 131/70 (90) 100 Room Air 98.3 09/12/19 22:34 2.0 Physical Exam: PHYSICAL EXAM GENERAL: Alert and oriented x 3 male, lying in bed comfortably, in no acute distress. HEENT: Normocephalic, atraumatic. Poor dentition. No thrush. Oral mucosa moist. NECK: Supple, no JVD. LUNGS: Clear bilaterally. No wheezing. HEART: S1, S2. No gallops or murmurs. ABDOMEN: Soft, nontender, nondistended, no rebound, no guarding. EXTREMITIES: Right lower extremity unremarkale, left lower extremity dressing in place intact. Medications: Inpatient Meds: Current Medications Medications (Trade) Dose Ordered Sig/Steven Start Time Stop Time Status Last Admin Dose Admin Acetaminophen (Tylenol) 650 mg PRN Q4HRS PRN 09/11/19 15:30 Acetaminophen/ Hydrocodone Bitart (Lortab 5/325) 2 tab PRN Q4HRS PRN 09/13/19 05:30 Albuterol Sulfate (Ventolin Neb Soln) 2.5 mg PRN Q4HRS PRN 09/11/19 15:30 Atorvastatin Calcium (Lipitor) 40 mg QHS 09/12/19 22:00 09/12/19 22:04 40 MG Bupivacaine HCl/ Epinephrine Bitart (Sensorcaine-Epi 0.25%-1:[id number] Mpf) 30 ml STK-MED ONCE 09/12/19 17:17 09/12/19 17:17 DC Cefazolin Sodium 1 gm/Sodium Chloride 500 ml @ 500 mls/hr 1X ONCE 09/12/19 17:00 09/12/19 17:59 DC 09/12/19 17:53 Cefazolin Sodium/ Dextrose 50 ml @ 100 mls/hr 1X PREOP ONCE 09/12/19 16:45 09/12/19 17:14 DC 09/12/19 17:23 100 MLS/HR Cellulose (Surgicel Fibrillar 1x2) 1 each STK-MED ONCE 09/12/19 17:17 09/12/19 17:18 DC Dexamethasone Sodium Phosphate (Decadron) 4 mg STK-MED ONCE 09/12/19 16:21 09/12/19 16:21 DC Dextrose (Dextrose 50%-Water Syringe) 12.5 gm PRN Q15MIN PRN 09/11/19 15:30 Docusate Sodium (Colace) 100 mg PRN BID PRN 09/11/19 15:30 Enoxaparin Sodium (Lovenox 40mg Syringe) 40 mg Q24H 09/11/19 17:00 09/11/19 17:49 40 MG Ephedrine Sulfate (ePHEDrine PF IN SALINE SYRINGE) 50 mg STK-MED ONCE 09/12/19 16:21 09/12/19 16:21 DC Fentanyl Citrate (Fentanyl 2ml Vial) 100 mcg STK-MED ONCE 09/12/19 20:38 09/12/19 20:38 DC Fentanyl Citrate (Fentanyl 5ml Vial) 250 mcg 1X ONCE 09/12/19 14:45 09/12/19 14:50 DC 09/12/19 14:45 50 MCG Glycopyrrolate (Robinul) 1 mg STK-MED ONCE 09/12/19 17:44 09/12/19 17:44 DC Guaifenesin (Robitussin) 200 mg PRN Q4HRS PRN 09/11/19 15:30 Heparin Sodium (Porcine) (Heparin Sodium) 10,000 unit STK-MED ONCE 09/12/19 18:51 09/12/19 18:52 DC Heparin Sodium (Porcine) 5000 unit/Sodium Chloride 505 ml @ 505 mls/hr 1X ONCE 09/12/19 17:00 09/12/19 17:59 DC 09/12/19 17:53 Heparin Sodium/ Sodium Chloride (HEPARIN for ARTERIAL LINE FLUSH) 1,000 unit 1X ONCE 09/12/19 16:00 09/12/19 16:01 DC Hydromorphone HCl (Dilaudid) 0.5 mg PRN Q10MIN PRN 09/12/19 16:30 09/12/19 22:00 DC Insulin Human Lispro (HumaLOG VIAL for OP,RR ONLY) 0-10 units PRN Q1HR PRN 09/12/19 17:15 09/13/19 17:14 09/12/19 17:30 4 UNIT Insulin Human Lispro (HumaLOG) 0-7 UNITS TIDWMEALS 09/11/19 17:00 09/11/19 17:08 3 UNITS Iodixanol (Visipaque 320) 100 ml 1X ONCE 09/12/19 14:45 09/12/19 14:50 DC 09/12/19 14:45 146 ML Iohexol (Omnipaque 300 Mg/ml) 50 ml STK-MED ONCE 09/12/19 17:17 09/12/19 17:17 DC Lactobacillus Rhamnosus (Culturelle) 1 cap BID 09/12/19 21:00 09/12/19 22:04 1 CAP Lidocaine HCl (Lidocaine 1% 20ml Vial) 20 ml 1X ONCE 09/12/19 14:45 09/12/19 14:50 DC 09/12/19 14:45 6 ML Lidocaine HCl (Lidocaine Pf 2% Vial) 5 ml STK-MED ONCE 09/12/19 16:20 09/12/19 16:21 DC Lidocaine HCl (Xylocaine-Mpf 1% 2ml Vial) 2 ml PRN 1X PRN 09/12/19 16:30 09/12/19 22:00 DC Lorazepam (Ativan) 0.5 mg PRN Q4HRS PRN 09/11/19 15:30 Midazolam HCl (Versed) 5 mg 1X ONCE 09/12/19 14:45 09/12/19 14:50 DC 09/12/19 14:45 1 MG Morphine Sulfate (Morphine Sulfate) 4 mg PRN Q1HR PRN 09/13/19 05:30 Neostigmine [place] (Neostigmine Methylsulfate) 5 mg STK-MED ONCE 09/12/19 20:04 09/12/19 20:04 DC Ondansetron HCl (Zofran) 4 mg PRN Q6HRS PRN 09/12/19 16:30 09/12/19 22:00 DC Phenylephrine HCl (PHENYLEPHRINE in 0.9% NACL PF) 1 mg STK-MED ONCE 09/12/19 16:21 09/12/19 16:21 DC Piperacillin Sod/ Tazobactam Sod 3.375 gm/Sodium Chloride 50 ml @ 100 mls/hr Q6HRS 09/11/19 16:00 09/13/19 06:24 100 MLS/HR Prochlorperazine Edisylate (Compazine) 5 mg PACU PRN PRN 09/12/19 16:30 09/12/19 22:00 DC Propofol (Diprivan) 200 mg STK-MED ONCE 09/12/19 16:20 09/12/19 16:21 DC Protamine Sulfate (Protamine) 50 mg STK-MED ONCE 09/12/19 20:26 09/12/19 20:27 DC Ringer's Solution 1,000 ml @ 30 mls/hr Q24H 09/12/19 16:22 09/13/19 04:21 DC 09/12/19 16:22 30 MLS/HR Rocuronium [place] (Zemuron) 100 mg STK-MED ONCE 09/12/19 18:49 09/12/19 18:50 DC Sevoflurane (Ultane) 90 ml STK-MED ONCE 09/12/19 20:50 09/12/19 20:51 DC Vancomycin HCl (Vanco Per Pharmacy) 1 each PRN DAILY PRN 09/11/19 15:30 09/12/19 15:38 1 EACH Vancomycin HCl (Vancomycin Trough Level) 1 each 1X ONCE 09/13/19 17:30 09/13/19 17:31 Vancomycin HCl 1 gm/Dextrose 250 ml @ 250 mls/hr 1X ONCE 09/11/19 15:30 09/11/19 16:29 UNV Vancomycin HCl 1 gm/Sodium Chloride 250 ml @ 250 mls/hr Q12H 09/12/19 06:00 09/12/19 06:12 250 MLS/HR Vancomycin HCl 2 gm/Sodium Chloride 500 ml @ 250 mls/hr 1X ONCE 09/11/19 18:00 09/11/19 19:59 DC 09/11/19 17:49 250 MLS/HR Zolpidem Tartrate (Ambien) 5 mg PRN QHS PRN 09/11/19 15:30 Labs: Lab Laboratory Tests Test 09/12/19 11:05 09/12/19 14:10 09/12/19 16:51 09/12/19 21:12 Glucose (Fingerstick) 205 mg/dL (70-99) 189 mg/dL (70-99) 192 mg/dL (70-99) Urine Collection Type Unknown Urine Color Yellow Urine Clarity Clear Urine pH 5.5 (<5.0-8.0) Urine Specific [place] 1.020 (1.000-1.030) Urine Protein 100 mg/dL (NEG-TRACE) Urine Glucose (UA) 500 mg/dL (NEG) Urine Ketones (Stick) Negative mg/dL (NEG) Urine Blood Trace (NEG) Urine Nitrite Negative (NEG) Urine Bilirubin Negative (NEG) Urine Urobilinogen Dipstick 0.2 mg/dL (0.2 mg/dL) Urine Leukocyte Esterase Negative (NEG) Urine RBC Occ /HPF (0-2) Urine WBC 0 /HPF (0-4) Urine Squamous Epithelial Cells None /LPF Urine Bacteria 0 /HPF (0-FEW) Urine Mucus Slight /LPF Test 09/13/19 04:55 09/13/19 04:58 09/13/19 07:42 White Blood Count 18.1 x10^3/uL (4.0-11.0) Red Blood Count 4.74 x10^6/uL (4.30-5.70) Hemoglobin 13.6 g/dL (13.0-17.5) Hematocrit 41.0 % (39.0-53.0) Mean Corpuscular Volume 86 fL (79-100) Mean Corpuscular Hemoglobin 29 pg (25-35) Mean Corpuscular Hemoglobin Concent 33 g/dL (31-37) Red Cell Distribution Width 14.3 % (11.5-14.5) Platelet Count 311 x10^3/uL (140-400) Neutrophils (%) (Auto) 90 % (31-73) Lymphocytes (%) (Auto) 5 % (24-48) Monocytes (%) (Auto) 5 % (0-9) Eosinophils (%) (Auto) 0 % (0-3) Basophils (%) (Auto) 0 % (0-3) Neutrophils # (Auto) 16.2 x10^3/uL (1.8-7.7) Lymphocytes # (Auto) 0.9 x10^3/uL (1.0-4.8) Monocytes # (Auto) 0.9 x10^3/uL (0.0-1.1) Eosinophils # (Auto) 0.0 x10^3/uL (0.0-0.7) Basophils # (Auto) 0.0 x10^3/uL (0.0-0.2) Sodium Level 139 mmol/L (136-145) Potassium Level 4.0 mmol/L (3.5-5.1) Chloride Level 102 mmol/L (98-107) Carbon Dioxide Level 23 mmol/L (21-32) Anion Gap 14 (6-14) Blood Urea Nitrogen 18 mg/dL (8-26) Creatinine 1.3 mg/dL (0.7-1.3) Estimated GFR (Cockcroft-Gault) 56.5 BUN/Creatinine Ratio 14 (6-20) Glucose Level 312 mg/dL (70-99) Calcium Level 8.7 mg/dL (8.5-10.1) Total Bilirubin 0.5 mg/dL (0.2-1.0) Aspartate Amino Transf (AST/SGOT) 15 U/L (15-37) Alanine Aminotransferase (ALT/SGPT) 11 U/L (16-63) Alkaline Phosphatase 90 U/L (46-116) Total Protein 6.3 g/dL (6.4-8.2) Albumin 2.4 g/dL (3.4-5.0) Albumin/Globulin Ratio 0.6 (1.0-1.7) Glucose (Fingerstick) 319 mg/dL (70-99) Objective: Assessment: 1. Left heel necrotic chronic wound infection. 09/11 left heel debridement 5 cm x 5 cm 25 cm total down to bone excisional type 2. Peripheral arterial disease. 09/11 #1 Extensive left profunda femoral endarterectomy down to tertiary branches at least 3 cm, separate from normal requirement for lower extremity bypass #2 left femoral to anterior tibial artery bypass with ipsilateral saphenous vein graft 3. Type 2 diabetes, uncontrolled. 4. Hypertension. 5. Tobaccoism. Plan: Plan of Care 1. Continue IV vancomycin and Zosyn.Monitor renal function Vancomycin dosing per pharmacy protocol 2. Continue supportive care. 3. Follow up labs and cultures. 4. Vascular Surgery and wound team is following. 5. Wound care as directed. Discussed with nursing staff RO VALDEZ MD September 13, 2019 08:33
[2019-09-13] MEDS: LACTOBACILLUS RHAMNOSUS GG 1 CAPSULE. PO SCH ×2 (08:48→21:57)
[2019-09-13] MEDS: HYDROcodone/APAP 5/325MG 1 TAB TABLET PO PRN ×3 (08:49→21:58)
[2019-09-13] MEDS: VANCOMYCIN 1 GM in IV NORMAL SALINE 250ML 250 ML IV SCH ×2 (08:50→18:26)
[2019-09-13] MEDS: INSULIN LISPRO 300 UNITS/3 ML VIAL. SQ SCH ×3 (08:57→17:03)
[2019-09-13 09:16] LABS: % BANDS 5 % (0-9); % LYMPHS 4 % (24-48); % MONOS 2 % (0-10); % SEGS 89 % (35-66)
[2019-09-13 09:17] LABS: PLT ESTIMATE ADEQUATE (ADEQUATE); WHITE BLOOD COUNT 18.1 x10^3/uL (4.0-11.0)
--- NOTE | 2019-09-13 09:28 | NUR ---
IP: Pt is COVID negative.
--- NOTE | 2019-09-13 10:13 | PDOC ---
PROGRESS NOTES History of Present Illness History of Present Illness VTE Prophylaxis Ordered VTE Prophylaxis Devices: Contraindicated VTE Pharmacological Prophylaxi: Yes Assessment/Plan Assessment/Plan IMPRESSION 1. 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 CT angiogram can further assess as clinically warranted. 2. Monophasic waveform throughout the left lower extremity, may indicate proximal stenosis. 3. 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 Heel ulceration with the greatest degree of soft tissue irregularity extending approximately 9 mm deep to the skin surface. 4. morbid obesity 5. hypertension 6. Diabetes 7. Punctate focus of increased density plantar and lateral to the second ray proximal phalanx which could represent a retained radiopaque foreign body. PLAN ADMIT Vascular surgery consult consult wound care team accuchecks IV VANC, ZOSYN ID consult SS INSULIN DVT prophylaxis EKG at high risk of limb loss POD #1 1. Extensive left profunda femoral endarterectomy down to tertiary branches at least 3 cm, 38 MIN pt exam, chart review, > 50% of time spent with exam, chart review, pt care coordination Vitals Vitals Vital Signs Date Time Temp Pulse Resp B/P (MAP) Pulse Ox O2 Delivery O2 Flow Rate FiO2 09/13/19 08:49 100 Room Air 09/13/19 07:00 98.3 83 18 131/70 (90) 98.3 09/12/19 22:34 2.0 Physical Exam General: Alert, Oriented X3, Cooperative, No acute distress Heart: Regular rate, No murmurs Abdomen: Normal bowel sounds, Soft, No tenderness Extremities: No cyanosis Skin: No rashes Labs LABS Images Images PA and lateral chest. HISTORY: R 23.4, eschar of heel, wheezing, patient states he is a smoker PA and lateral views the chest show the lungs are clear. Heart is normal in size. There is no effusion. There is mild hypertrophic change in the spine. IMPRESSION: 1. No acute chest disease. Electronically signed by: Troy Dao MD (09/11/2019 9:44 AM) [id number] DICTATED and SIGNED BY: TROY DAO MD DATE: 09/11/19 0944 Study: 1. CR FOOT LEFT 3V 2. CR CALCANEUS LEFT Indication: Eschar of heel. Comparison: None. Findings: Calcaneus: Ulceration at the heel with the greatest degree of soft tissue irregularity extending approximately 9 mm deep to the skin surface. The subjacent subcutaneous tissues are increased in density approaching the calcaneus. At the plantar calcaneus along the base of a spur there is mild localized demineralization. No periostitis seen at this location. Foot: Noting the absence of weightbearing, presumed hallux valgus deformity. No acute fracture or aggressive osseous process. Small focus of increased density within the soft tissues plantar and lateral to the second ray proximal phalanx. Somewhat edematous appearance of the dorsal forefoot soft tissues. Impression: 1. Heel ulceration with the greatest degree of soft tissue irregularity extending approximately 9 mm deep to the skin surface. At the base of a plantar calcaneal spur, mild localized demineralization without periostitis. This demineralization is nonspecific but if there is concern for osteomyelitis MRI would be more sensitive. 2. No acute fracture or radiographic findings of osteomyelitis throughout the midfoot or forefoot. 3. Punctate focus of increased density plantar and lateral to the second ray proximal phalanx which could represent a retained radiopaque foreign body. Recommend correlation with direct inspection. 4. Hallux valgus alignment. Electronically signed by: JEWEL GARCIA MD (09/11/2019 9:44 AM) [id number] REASON: gangrene left heel PROCEDURE: DUPLEX LOWER EXT ARTERIAL LEFT DUPLEX LOWER EXT ARTERIAL LEFT Indication: Gangrene left heel. Pain. Comparison: None. Procedure: Real-time grayscale, color flow Doppler, and Doppler spectral waveform analysis of the arterial system of the lower extremity is performed. Findings: Moderate atheromatous plaque throughout the left lower extremity. Monophasic waveform within the left common femoral and deep femoral arteries. 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 Reconstitution of the distal superficial femoral artery with monophasic waveform. Monophasic waveform within the left popliteal, posterior tibial, anterior tibial and dorsalis pedis arteries. Lower velocity within the left popliteal and posterior tibial arteries. Left peroneal artery not well seen, may relate to technique, slow flow or occlusion. IMPRESSION: 1. 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 CT angiogram can further assess as clinically warranted. 2. Monophasic waveform throughout the left lower extremity, may indicate proximal stenosis. 3. Moderate atheromatous plaque throughout the left lower extremity. Electronically signed by: Vignesh Man DO (09/11/2019 4:47 PM) [facility] DICTATED and SIGNED BY: VIGNESH MAN DO DATE: 09/11/19 1647 VEIN MAPPING LOWER EXT BILAT History: Preoperative evaluation for bypass. Comparison: None. Discussion: Multiple longitudinal and transverse high resolution real-time images of the superficial venous system of bilateral lower extremity were obtained with color and Doppler sampling. Postoperative changes bilateral greater saphenous veins not well seen. Right lesser saphenous vein proximal measures 2.2 mm, mid 2.7 mm and distal 2.4 mm. Left lesser saphenous vein proximal measures 2.5 mm, mid 2.60 m and distal 2.4 mm. Impression: 1. Preoperative evaluation with measurements of the lesser saphenous veins, as described. 2. Postoperative changes bilateral greater saphenous veins. Electronically signed by: Vignesh Man DO (09/11/2019 4:50 PM) [facility] Laboratory Tests Test 09/12/19 11:05 09/12/19 14:10 09/12/19 16:51 09/12/19 21:12 Glucose (Fingerstick) 205 mg/dL (70-99) 189 mg/dL (70-99) 192 mg/dL (70-99) Urine Collection Type Unknown Urine Color Yellow Urine Clarity Clear Urine pH 5.5 (<5.0-8.0) Urine Specific Fischer 1.020 (1.000-1.030) Urine Protein 100 mg/dL (NEG-TRACE) Urine Glucose (UA) 500 mg/dL (NEG) Urine Ketones (Stick) Negative mg/dL (NEG) Urine Blood Trace (NEG) Urine Nitrite Negative (NEG) Urine Bilirubin Negative (NEG) Urine Urobilinogen Dipstick 0.2 mg/dL (0.2 mg/dL) Urine Leukocyte Esterase Negative (NEG) Urine RBC Occ /HPF (0-2) Urine WBC 0 /HPF (0-4) Urine Squamous Epithelial Cells None /LPF Urine Bacteria 0 /HPF (0-FEW) Urine Mucus Slight /LPF Test 09/13/19 04:55 09/13/19 04:58 09/13/19 07:42 White Blood Count 18.1 x10^3/uL (4.0-11.0) Red Blood Count 4.74 x10^6/uL (4.30-5.70) Hemoglobin 13.6 g/dL (13.0-17.5) Hematocrit 41.0 % (39.0-53.0) Mean Corpuscular Volume 86 fL (79-100) Mean Corpuscular Hemoglobin 29 pg (25-35) Mean Corpuscular Hemoglobin Concent 33 g/dL (31-37) Red Cell Distribution Width 14.3 % (11.5-14.5) Platelet Count 311 x10^3/uL (140-400) Neutrophils (%) (Auto) 90 % (31-73) Lymphocytes (%) (Auto) 5 % (24-48) Monocytes (%) (Auto) 5 % (0-9) Eosinophils (%) (Auto) 0 % (0-3) Basophils (%) (Auto) 0 % (0-3) Neutrophils # (Auto) 16.2 x10^3/uL (1.8-7.7) Lymphocytes # (Auto) 0.9 x10^3/uL (1.0-4.8) Monocytes # (Auto) 0.9 x10^3/uL (0.0-1.1) Eosinophils # (Auto) 0.0 x10^3/uL (0.0-0.7) Basophils # (Auto) 0.0 x10^3/uL (0.0-0.2) Segmented Neutrophils % 89 % (35-66) Band Neutrophils % 5 % (0-9) Lymphocytes % 4 % (24-48) Monocytes % 2 % (0-10) Platelet Estimate Adequate (ADEQUATE) Sodium Level 139 mmol/L (136-145) Potassium Level 4.0 mmol/L (3.5-5.1) Chloride Level 102 mmol/L (98-107) Carbon Dioxide Level 23 mmol/L (21-32) Anion Gap 14 (6-14) Blood Urea Nitrogen 18 mg/dL (8-26) Creatinine 1.3 mg/dL (0.7-1.3) Estimated GFR (Cockcroft-Gault) 56.5 BUN/Creatinine Ratio 14 (6-20) Glucose Level 312 mg/dL (70-99) Calcium Level 8.7 mg/dL (8.5-10.1) Total Bilirubin 0.5 mg/dL (0.2-1.0) Aspartate Amino Transf (AST/SGOT) 15 U/L (15-37) Alanine Aminotransferase (ALT/SGPT) 11 U/L (16-63) Alkaline Phosphatase 90 U/L (46-116) Total Protein 6.3 g/dL (6.4-8.2) Albumin 2.4 g/dL (3.4-5.0) Albumin/Globulin Ratio 0.6 (1.0-1.7) Glucose (Fingerstick) 319 mg/dL (70-99) Comment Review of Relevant I have reviewed the following items najma (where applicable) has been applied. Labs Laboratory Tests Test 09/11/19 15:00 09/11/19 16:00 09/11/19 16:58 09/11/19 21:00 White Blood Count 9.8 x10^3/uL (4.0-11.0) Red Blood Count 5.26 x10^6/uL (4.30-5.70) Hemoglobin 15.2 g/dL (13.0-17.5) Hematocrit 44.9 % (39.0-53.0) Mean Corpuscular Volume 85 fL (79-100) Mean Corpuscular Hemoglobin 29 pg (25-35) Mean Corpuscular Hemoglobin Concent 34 g/dL (31-37) Red Cell Distribution Width 14.2 % (11.5-14.5) Platelet Count 329 x10^3/uL (140-400) Neutrophils (%) (Auto) 68 % (31-73) Lymphocytes (%) (Auto) 21 % (24-48) Monocytes (%) (Auto) 7 % (0-9) Eosinophils (%) (Auto) 3 % (0-3) Basophils (%) (Auto) 1 % (0-3) Neutrophils # (Auto) 6.7 x10^3/uL (1.8-7.7) Lymphocytes # (Auto) 2.1 x10^3/uL (1.0-4.8) Monocytes # (Auto) 0.7 x10^3/uL (0.0-1.1) Eosinophils # (Auto) 0.3 x10^3/uL (0.0-0.7) Basophils # (Auto) 0.1 x10^3/uL (0.0-0.2) Erythrocyte Sedimentation Rate 53 (0-15) Prothrombin Time 13.1 SEC (11.7-14.0) Prothromb Time International Ratio 1.0 (0.8-1.1) Activated Partial Thromboplast Time 29 SEC (24-38) Sodium Level 138 mmol/L (136-145) Potassium Level 4.9 mmol/L (3.5-5.1) Chloride Level 102 mmol/L (98-107) Carbon Dioxide Level 27 mmol/L (21-32) Anion Gap 9 (6-14) Blood Urea Nitrogen 21 mg/dL (8-26) Creatinine 1.0 mg/dL (0.7-1.3) Estimated GFR (Cockcroft-Gault) 76.5 BUN/Creatinine Ratio 21 (6-20) Glucose Level 235 mg/dL (70-99) Calcium Level 9.3 mg/dL (8.5-10.1) Total Bilirubin 0.2 mg/dL (0.2-1.0) Aspartate Amino Transf (AST/SGOT) 11 U/L (15-37) Alanine Aminotransferase (ALT/SGPT) 15 U/L (16-63) Alkaline Phosphatase 129 U/L (46-116) Total Protein 6.4 g/dL (6.4-8.2) Albumin 3.0 g/dL (3.4-5.0) Albumin/Globulin Ratio 0.9 (1.0-1.7) Coronavirus (COVID-19)(PCR) See separate report Glucose (Fingerstick) 200 mg/dL (70-99) 207 mg/dL (70-99) Test 09/12/19 07:35 09/12/19 11:05 09/12/19 14:10 09/12/19 16:51 Glucose (Fingerstick) 195 mg/dL (70-99) 205 mg/dL (70-99) 189 mg/dL (70-99) Urine Collection Type Unknown Urine Color Yellow Urine Clarity Clear Urine pH 5.5 (<5.0-8.0) Urine Specific Fischer 1.020 (1.000-1.030) Urine Protein 100 mg/dL (NEG-TRACE) Urine Glucose (UA) 500 mg/dL (NEG) Urine Ketones (Stick) Negative mg/dL (NEG) Urine Blood Trace (NEG) Urine Nitrite Negative (NEG) Urine Bilirubin Negative (NEG) Urine Urobilinogen Dipstick 0.2 mg/dL (0.2 mg/dL) Urine Leukocyte Esterase Negative (NEG) Urine RBC Occ /HPF (0-2) Urine WBC 0 /HPF (0-4) Urine Squamous Epithelial Cells None /LPF Urine Bacteria 0 /HPF (0-FEW) Urine Mucus Slight /LPF Test 09/12/19 21:12 09/13/19 04:55 09/13/19 04:58 09/13/19 07:42 Glucose (Fingerstick) 192 mg/dL (70-99) 319 mg/dL (70-99) White Blood Count 18.1 x10^3/uL (4.0-11.0) Red Blood Count 4.74 x10^6/uL (4.30-5.70) Hemoglobin 13.6 g/dL (13.0-17.5) Hematocrit 41.0 % (39.0-53.0) Mean Corpuscular Volume 86 fL (79-100) Mean Corpuscular Hemoglobin 29 pg (25-35) Mean Corpuscular Hemoglobin Concent 33 g/dL (31-37) Red Cell Distribution Width 14.3 % (11.5-14.5) Platelet Count 311 x10^3/uL (140-400) Neutrophils (%) (Auto) 90 % (31-73) Lymphocytes (%) (Auto) 5 % (24-48) Monocytes (%) (Auto) 5 % (0-9) Eosinophils (%) (Auto) 0 % (0-3) Basophils (%) (Auto) 0 % (0-3) Neutrophils # (Auto) 16.2 x10^3/uL (1.8-7.7) Lymphocytes # (Auto) 0.9 x10^3/uL (1.0-4.8) Monocytes # (Auto) 0.9 x10^3/uL (0.0-1.1) Eosinophils # (Auto) 0.0 x10^3/uL (0.0-0.7) Basophils # (Auto) 0.0 x10^3/uL (0.0-0.2) Segmented Neutrophils % 89 % (35-66) Band Neutrophils % 5 % (0-9) Lymphocytes % 4 % (24-48) Monocytes % 2 % (0-10) Platelet Estimate Adequate (ADEQUATE) Sodium Level 139 mmol/L (136-145) Potassium Level 4.0 mmol/L (3.5-5.1) Chloride Level 102 mmol/L (98-107) Carbon Dioxide Level 23 mmol/L (21-32) Anion Gap 14 (6-14) Blood Urea Nitrogen 18 mg/dL (8-26) Creatinine 1.3 mg/dL (0.7-1.3) Estimated GFR (Cockcroft-Gault) 56.5 BUN/Creatinine Ratio 14 (6-20) Glucose Level 312 mg/dL (70-99) Calcium Level 8.7 mg/dL (8.5-10.1) Total Bilirubin 0.5 mg/dL (0.2-1.0) Aspartate Amino Transf (AST/SGOT) 15 U/L (15-37) Alanine Aminotransferase (ALT/SGPT) 11 U/L (16-63) Alkaline Phosphatase 90 U/L (46-116) Total Protein 6.3 g/dL (6.4-8.2) Albumin 2.4 g/dL (3.4-5.0) Albumin/Globulin Ratio 0.6 (1.0-1.7) Laboratory Tests Test 09/12/19 11:05 09/12/19 14:10 09/12/19 16:51 09/12/19 21:12 Glucose (Fingerstick) 205 mg/dL (70-99) 189 mg/dL (70-99) 192 mg/dL (70-99) Urine Collection Type Unknown Urine Color Yellow Urine Clarity Clear Urine pH 5.5 (<5.0-8.0) Urine Specific Fischer 1.020 (1.000-1.030) Urine Protein 100 mg/dL (NEG-TRACE) Urine Glucose (UA) 500 mg/dL (NEG) Urine Ketones (Stick) Negative mg/dL (NEG) Urine Blood Trace (NEG) Urine Nitrite Negative (NEG) Urine Bilirubin Negative (NEG) Urine Urobilinogen Dipstick 0.2 mg/dL (0.2 mg/dL) Urine Leukocyte Esterase Negative (NEG) Urine RBC Occ /HPF (0-2) Urine WBC 0 /HPF (0-4) Urine Squamous Epithelial Cells None /LPF Urine Bacteria 0 /HPF (0-FEW) Urine Mucus Slight /LPF Test 09/13/19 04:55 09/13/19 04:58 09/13/19 07:42 White Blood Count 18.1 x10^3/uL (4.0-11.0) Red Blood Count 4.74 x10^6/uL (4.30-5.70) Hemoglobin 13.6 g/dL (13.0-17.5) Hematocrit 41.0 % (39.0-53.0) Mean Corpuscular Volume 86 fL (79-100) Mean Corpuscular Hemoglobin 29 pg (25-35) Mean Corpuscular Hemoglobin Concent 33 g/dL (31-37) Red Cell Distribution Width 14.3 % (11.5-14.5) Platelet Count 311 x10^3/uL (140-400) Neutrophils (%) (Auto) 90 % (31-73) Lymphocytes (%) (Auto) 5 % (24-48) Monocytes (%) (Auto) 5 % (0-9) Eosinophils (%) (Auto) 0 % (0-3) Basophils (%) (Auto) 0 % (0-3) Neutrophils # (Auto) 16.2 x10^3/uL (1.8-7.7) Lymphocytes # (Auto) 0.9 x10^3/uL (1.0-4.8) Monocytes # (Auto) 0.9 x10^3/uL (0.0-1.1) Eosinophils # (Auto) 0.0 x10^3/uL (0.0-0.7) Basophils # (Auto) 0.0 x10^3/uL (0.0-0.2) Segmented Neutrophils % 89 % (35-66) Band Neutrophils % 5 % (0-9) Lymphocytes % 4 % (24-48) Monocytes % 2 % (0-10) Platelet Estimate Adequate (ADEQUATE) Sodium Level 139 mmol/L (136-145) Potassium Level 4.0 mmol/L (3.5-5.1) Chloride Level 102 mmol/L (98-107) Carbon Dioxide Level 23 mmol/L (21-32) Anion Gap 14 (6-14) Blood Urea Nitrogen 18 mg/dL (8-26) Creatinine 1.3 mg/dL (0.7-1.3) Estimated GFR (Cockcroft-Gault) 56.5 BUN/Creatinine Ratio 14 (6-20) Glucose Level 312 mg/dL (70-99) Calcium Level 8.7 mg/dL (8.5-10.1) Total Bilirubin 0.5 mg/dL (0.2-1.0) Aspartate Amino Transf (AST/SGOT) 15 U/L (15-37) Alanine Aminotransferase (ALT/SGPT) 11 U/L (16-63) Alkaline Phosphatase 90 U/L (46-116) Total Protein 6.3 g/dL (6.4-8.2) Albumin 2.4 g/dL (3.4-5.0) Albumin/Globulin Ratio 0.6 (1.0-1.7) Glucose (Fingerstick) 319 mg/dL (70-99) Microbiology 09/11/19 Blood Culture - Preliminary, Resulted NO GROWTH AFTER 1 DAY Medications Current Medications Ondansetron HCl (Zofran) 4 mg PRN Q4HRS PRN IV NAUSEA/VOMITING; Start 09/11/19 at 15:30; Stop 09/12/19 at 15:33; Status DC Zolpidem Tartrate (Ambien) 5 mg PRN QHS PRN PO INSOMNIA; Start 09/11/19 at 15:30 Acetaminophen (Tylenol) 650 mg PRN Q4HRS PRN PO TEMP OVER 100.4F OR MILD PAIN; Start 09/11/19 at 15:30 Docusate Sodium (Colace) 100 mg PRN BID PRN PO HARD STOOLS; Start 09/11/19 at 15:30 Albuterol Sulfate (Ventolin Neb Soln) 2.5 mg PRN Q4HRS PRN NEB SHORTNESS OF BREATH; Start 09/11/19 at 15:30 Guaifenesin (Robitussin) 200 mg PRN Q4HRS PRN PO COUGH; Start 09/11/19 at 15:30 Lorazepam (Ativan) 0.5 mg PRN Q4HRS PRN PO ANXIETY / AGITATION; Start 09/11/19 at 15:30 Hydromorphone HCl (Dilaudid) 1 mg PRN Q2HRS PRN IV SEVERE PAIN 7-10 Last administered on 09/12/19at 22:04; Start 09/11/19 at 15:30 Enoxaparin Sodium (Lovenox 40mg Syringe) 40 mg Q24H SQ Last administered on 09/11/19at 17:49; Start 09/11/19 at 17:00 Vancomycin HCl 1 gm/Dextrose 250 ml @ 250 mls/hr 1X ONCE IV ; Start 09/11/19 at 15:30; Stop 09/11/19 at 16:29; Status UNV Vancomycin HCl (Vanco Per Pharmacy) 1 each PRN DAILY PRN MC SEE COMMENTS Last administered on 09/12/19at 15:38; Start 09/11/19 at 15:30 Piperacillin Sod/ Tazobactam Sod 3.375 gm/Sodium Chloride 50 ml @ 100 mls/hr Q6HRS IV Last administered on 09/13/19at 06:24; Start 09/11/19 at 16:00 Insulin Human Lispro (HumaLOG) 0-7 UNITS TIDWMEALS SQ Last administered on 09/13/19at 08:57; Start 09/11/19 at 17:00 Dextrose (Dextrose 50%-Water Syringe) 12.5 gm PRN Q15MIN PRN IV SEE COMMENTS; Start 09/11/19 at 15:30 Vancomycin HCl 2 gm/Sodium Chloride 500 ml @ 250 mls/hr 1X ONCE IV Last administered on 09/11/19at 17:49; Start 09/11/19 at 18:00; Stop 09/11/19 at 19:59; Status DC Vancomycin HCl 1 gm/Sodium Chloride 250 ml @ 250 mls/hr Q12H IV Last administered on 09/13/19at 08:50; Start 09/12/19 at 06:00 Vancomycin HCl (Vancomycin Trough Level) 1 each 1X ONCE MC ; Start 09/13/19 at 05:30; Stop 09/13/19 at 05:31; Status DC Ondansetron HCl (Zofran) 4 mg PRN Q6HRS PRN IVP NAUSEA/VOMITING; Start 09/12/19 at 12:45 Iodixanol (Visipaque 320) 100 ml STK-MED ONCE .ROUTE ; Start 09/12/19 at 13:55; Stop 09/12/19 at 13:55; Status DC Lidocaine HCl (Lidocaine 1% 20ml Vial) 20 ml STK-MED ONCE .ROUTE ; Start 09/12/19 at 13:55; Stop 09/12/19 at 13:56; Status DC Heparin Sodium/ Sodium Chloride 500 ml @ As Directed STK-MED ONCE .ROUTE ; Start 09/12/19 at 13:55; Stop 09/12/19 at 13:56; Status DC Midazolam HCl (Versed) 5 mg STK-MED ONCE .ROUTE ; Start 09/12/19 at 14:25; Stop 09/12/19 at 14:25; Status DC Fentanyl Citrate (Fentanyl 5ml Vial) 250 mcg STK-MED ONCE .ROUTE ; Start 09/12/19 at 14:25; Stop 09/12/19 at 14:25; Status DC Heparin Sodium (Porcine) (Heparin Sodium) 10,000 unit STK-MED ONCE .ROUTE ; Start 09/12/19 at 14:25; Stop 09/12/19 at 14:25; Status DC Heparin Sodium/ Sodium Chloride (HEPARIN for ARTERIAL LINE FLUSH) 1,000 unit 1X ONCE IART Last administered on 09/12/19at 14:45; Start 09/12/19 at 14:45; Stop 09/12/19 at 14:50; Status DC Heparin Sodium/ Sodium Chloride (HEPARIN for ARTERIAL LINE FLUSH) 1,000 unit 1X ONCE IART Last administered on 09/12/19at 14:45; Start 09/12/19 at 14:45; Stop 09/12/19 at 14:50; Status DC Midazolam HCl (Versed) 5 mg 1X ONCE IV Last administered on 09/12/19at 14:45; Start 09/12/19 at 14:45; Stop 09/12/19 at 14:50; Status DC Fentanyl Citrate (Fentanyl 5ml Vial) 250 mcg 1X ONCE IV Last administered on 09/12/19at 14:45; Start 09/12/19 at 14:45; Stop 09/12/19 at 14:50; Status DC Iodixanol (Visipaque 320) 100 ml 1X ONCE IART Last administered on 09/12/19at 14:45; Start 09/12/19 at 14:45; Stop 09/12/19 at 14:50; Status DC Lidocaine HCl (Lidocaine 1% 20ml Vial) 20 ml 1X ONCE INJ Last administered on 09/12/19at 14:45; Start 09/12/19 at 14:45; Stop 09/12/19 at 14:50; Status DC Heparin Sodium (Porcine) (Heparin Sodium) 5,000 unit 1X ONCE IV Last administered on 09/12/19at 15:00; Start 09/12/19 at 15:00; Stop 09/12/19 at 15:01; Status DC Lactobacillus Rhamnosus (Culturelle) 1 cap BID PO Last administered on 09/13/19at 08:48; Start 09/12/19 at 21:00 Heparin Sodium/ Sodium Chloride 500 ml @ As Directed STK-MED ONCE .ROUTE ; Start 09/12/19 at 15:43; Stop 09/12/19 at 15:43; Status DC Heparin Sodium/ Sodium Chloride (HEPARIN for ARTERIAL LINE FLUSH) 1,000 unit 1X ONCE IART ; Start 09/12/19 at 16:00; Stop 09/12/19 at 16:01; Status DC Propofol (Diprivan) 200 mg STK-MED ONCE IV ; Start 09/12/19 at 16:20; Stop 09/12/19 at 16:21; Status DC Lidocaine HCl (Lidocaine Pf 2% Vial) 5 ml STK-MED ONCE .ROUTE ; Start 09/12/19 at 16:20; Stop 09/12/19 at 16:21; Status DC Dexamethasone Sodium Phosphate (Decadron) 4 mg STK-MED ONCE .ROUTE ; Start 09/12/19 at 16:21; Stop 09/12/19 at 16:21; Status DC Ondansetron HCl (Zofran) 4 mg STK-MED ONCE .ROUTE ; Start 09/12/19 at 16:21; Stop 09/12/19 at 16:21; Status DC Phenylephrine HCl (PHENYLEPHRINE in 0.9% NACL PF) 1 mg STK-MED ONCE IV ; Start 09/12/19 at 16:21; Stop 09/12/19 at 16:21; Status DC Ephedrine Sulfate (ePHEDrine PF IN SALINE SYRINGE) 50 mg STK-MED ONCE IV ; Start 09/12/19 at 16:21; Stop 09/12/19 at 16:21; Status DC Fentanyl Citrate (Fentanyl 2ml Vial) 100 mcg STK-MED ONCE .ROUTE ; Start 09/12/19 at 16:22; Stop 09/12/19 at 16:22; Status DC Ondansetron HCl (Zofran) 4 mg PRN Q6HRS PRN IV NAUSEA/VOMITING; Start 09/12/19 at 16:30; Stop 09/12/19 at 22:00; Status DC Fentanyl Citrate (Fentanyl 2ml Vial) 25 mcg PRN Q5MIN PRN IV MILD PAIN 1-3; Start 09/12/19 at 16:30; Stop 09/12/19 at 22:00; Status DC Fentanyl Citrate (Fentanyl 2ml Vial) 50 mcg PRN Q5MIN PRN IV MODERATE TO SEVERE PAIN; Start 09/12/19 at 16:30; Stop 09/12/19 at 22:10; Status DC Morphine Sulfate (Morphine Sulfate) 1 mg PRN Q10MIN PRN IV SEVERE PAIN 7-10; Start 09/12/19 at 16:30; Stop 09/12/19 at 22:00; Status DC Ringer's Solution 1,000 ml @ 30 mls/hr Q24H IV Last administered on 09/12/19at 16:22; Start 09/12/19 at 16:22; Stop 09/13/19 at 04:21; Status DC Lidocaine HCl (Xylocaine-Mpf 1% 2ml Vial) 2 ml PRN 1X PRN ID PRIOR TO IV START; Start 09/12/19 at 16:30; Stop 09/12/19 at 22:00; Status DC Hydromorphone HCl (Dilaudid) 0.5 mg PRN Q10MIN PRN IV SEV PAIN, Second choice; Start 09/12/19 at 16:30; Stop 09/12/19 at 22:00; Status DC Prochlorperazine Edisylate (Compazine) 5 mg PACU PRN PRN IV NAUSEA, MRX1; Start 09/12/19 at 16:30; Stop 09/12/19 at 22:00; Status DC Heparin Sodium (Porcine) 5000 unit/Sodium Chloride 505 ml @ 505 mls/hr 1X ONCE IRR Last administered on 09/12/19at 17:53; Start 09/12/19 at 17:00; Stop 09/12/19 at 17:59; Status DC Cefazolin Sodium 1 gm/Sodium Chloride 500 ml @ 500 mls/hr 1X ONCE IRR Last administered on 09/12/19at 17:53; Start 09/12/19 at 17:00; Stop 09/12/19 at 17:59; Status DC Cefazolin Sodium/ Dextrose 50 ml @ 100 mls/hr 1X PREOP ONCE IV Last administered on 09/12/19at 17:23; Start 09/12/19 at 16:45; Stop 09/12/19 at 17:14; Status DC Heparin Sodium (Porcine) (Heparin Sodium) 4,000 unit 1X ONCE IV Last administered on 09/12/19at 17:05; Start 09/12/19 at 17:00; Stop 09/12/19 at 17:03; Status DC Heparin Sodium (Porcine) (Heparin Sodium) 5,000 unit STK-MED ONCE SQ ; Start 09/12/19 at 17:02; Stop 09/12/19 at 17:03; Status DC Insulin Human Lispro (HumaLOG VIAL for OP,RR ONLY) 0-10 units PRN Q1HR PRN SQ PER PROTOCOL Last administered on 09/12/19at 17:30; Start 09/12/19 at 17:15; Stop 09/13/19 at 17:14 Iohexol (Omnipaque 300 Mg/ml) 50 ml STK-MED ONCE .ROUTE ; Start 09/12/19 at 17:17; Stop 09/12/19 at 17:17; Status DC Cellulose (Surgicel Fibrillar 1x2) 1 each STK-MED ONCE .ROUTE ; Start 09/12/19 at 17:17; Stop 09/12/19 at 17:17; Status DC Bupivacaine HCl/ Epinephrine Bitart (Sensorcaine-Epi 0.25%-1:[id number] Mpf) 30 ml STK-MED ONCE .ROUTE ; Start 09/12/19 at 17:17; Stop 09/12/19 at 17:17; Status DC Cellulose (Surgicel Fibrillar 1x2) 1 each STK-MED ONCE .ROUTE ; Start 09/12/19 at 17:17; Stop 09/12/19 at 17:18; Status DC Glycopyrrolate (Robinul) 1 mg STK-MED ONCE .ROUTE ; Start 09/12/19 at 17:44; Stop 09/12/19 at 17:44; Status DC Rocuronium Sterling (Zemuron) 100 mg STK-MED ONCE .ROUTE ; Start 09/12/19 at 18:49; Stop 09/12/19 at 18:50; Status DC Heparin Sodium (Porcine) (Heparin Sodium) 10,000 unit STK-MED ONCE .ROUTE ; Start 09/12/19 at 18:51; Stop 09/12/19 at 18:52; Status DC Neostigmine Sterling (Neostigmine Methylsulfate) 5 mg STK-MED ONCE .ROUTE ; Start 09/12/19 at 20:04; Stop 09/12/19 at 20:04; Status DC Protamine Sulfate (Protamine) 50 mg STK-MED ONCE IV ; Start 09/12/19 at 20:26; Stop 09/12/19 at 20:27; Status DC Fentanyl Citrate (Fentanyl 2ml Vial) 100 mcg STK-MED ONCE .ROUTE ; Start 09/12/19 at 20:38; Stop 09/12/19 at 20:38; Status DC Sevoflurane (Ultane) 90 ml STK-MED ONCE IH ; Start 09/12/19 at 20:50; Stop 09/12/19 at 20:51; Status DC Atorvastatin Calcium (Lipitor) 40 mg QHS PO Last administered on 09/12/19at 22:04; Start 09/12/19 at 22:00 Acetaminophen/ Hydrocodone Bitart (Lortab 5/325) 1 tab PRN Q4HRS PRN PO MODERATE PAIN 4-6 Last administered on 09/13/19at 08:49; Start 09/13/19 at 05:30 Acetaminophen/ Hydrocodone Bitart (Lortab 5/325) 2 tab PRN Q4HRS PRN PO SEVERE PAIN 7-10; Start 09/13/19 at 05:30 Morphine Sulfate (Morphine Sulfate) 2 mg PRN Q1HR PRN IV MODERATE PAIN 4-6; Start 09/13/19 at 05:30 Morphine Sulfate (Morphine Sulfate) 4 mg PRN Q1HR PRN IV SEVERE PAIN 7-10; Start 09/13/19 at 05:30 Vancomycin HCl (Vancomycin Trough Level) 1 each 1X ONCE MC ; Start 09/13/19 at 17:30; Stop 09/13/19 at 17:31 Aspirin (Nevaeh Aspirin) 81 mg DAILYWBKFT PO ; Start 09/14/19 at 08:00 Active Scripts Active Reported Augmentin 875-125 Tablet (Amoxicillin/Potassium Clav) 1 Each Tablet 1 Tab PO BID 10 Days Metformin Hcl 500 Mg Tablet 500 Mg PO DAILY Vitals/I & O Vital Sign - Last 24 Hours 09/12/19 09/12/19 09/12/19 09/12/19 11:18 14:45 16:45 20:00 Temp 98.3 98.7 98.3 98.7 Pulse 56 67 Resp 18 14 20 B/P (MAP) 133/70 (91) 186/92 Pulse Ox 97 99 98 O2 Delivery Nasal Cannula Nasal Cannula Room Air Nasal Cannula O2 Flow Rate 2.0 2.0 09/12/19 09/12/19 09/12/19 09/12/19 21:07 21:07 21:20 21:35 Temp 99.0 99.0 99.0 99.0 Pulse 70 68 69 Resp 18 16 16 B/P (MAP) 118/64 125/72 115/77 Pulse Ox 98 97 96 O2 Delivery Mask Simple Mask Nasal Cannula Nasal Cannula O2 Flow Rate 8 8 2 2 09/12/19 09/12/19 09/12/19 09/12/19 21:40 22:04 22:34 23:00 Temp 97.7 97.7 Pulse 73 Resp 18 B/P (MAP) 105/66 (79) Pulse Ox 93 O2 Delivery Nasal Cannula Room Air Nasal Cannula Nasal Cannula O2 Flow Rate 2 2.0 09/13/19 09/13/19 09/13/19 09/13/19 03:00 07:00 08:00 08:49 Temp 97.9 98.3 97.9 98.3 Pulse 76 83 Resp 18 18 B/P (MAP) 142/78 (99) 131/70 (90) Pulse Ox 97 100 100 O2 Delivery Nasal Cannula Room Air Room Air Room Air Intake and Output 09/12/19 09/12/19 09/13/19 14:59 22:59 06:59 Intake Total 0 ml 1710 ml 150 ml Output Total 550 ml 1100 ml 500 ml Balance -550 ml 610 ml -350 ml MONICO LEUNG MD September 13, 2019 10:13
--- NOTE | 2019-09-13 10:22 | PDOC ---
Provider Note Provider Note Vascular S: Patient seen and examined in room with Dr. Regalado Patient resting in bed comfortably, complains of mild left leg incisional pain and left heel pain. Denies nausea or vomiting. Tolerating fluids. O: Awake and alert Vital signs stable, afebrile Heart rate regular Nonlabored respirations Right leg dressing is dry and intact. Toes are warm, capillary refill less than 3 seconds, palpable graft pulse and dorsalis pedis pulse. A/P: Atherosclerosis of [place] artery of left lower extremity with ulceration of the heel Chronic limb threatening ischemia with need for revascularization to prevent major amputation Acute on chronic limb threatening ischemia after angioplasty of left SFA with dissection Lab reviewed: WBC 18.1 Hgb 13.6 Hct 41 Cr 1.3 POD #1 1. Extensive left profunda femoral endarterectomy down to tertiary branches at least 3 cm, separate from normal requirement for lower extremity bypass #2 left femoral to anterior tibial artery bypass with ipsilateral saphenous vein graft #3 left heel debridement 5 cm x 5 cm 25 cm total down to bone excisional type Doing well. Plan for wound VAC placement to heel today. Continue to off-load heel will order rooke boot Antibiotics per infectious disease. Recommend daily Aspirin, continue statin therapy Diabetes management per IM rehabilitation services aide for discharge planning. PT/OT evaluation patient may be toe tip only left leg. BENJY [place]LANDO [employer] CREW[employer]BER September 13, 2019 10:22
[2019-09-13 11:00] VITALS: BP 116/67
--- NOTE | 2019-09-13 11:49 | NUR ---
SW following. Discussed with RN, PT/OT ordered, pt will have wound vac placed, 2 Iv abx. SW will continue to follow for discharge planning.
[2019-09-13 15:00] VITALS: BP 128/71
--- NOTE | 2019-09-13 16:08 | NUR ---
Wound Care Wound Type/Assessment: left heel dfu, pt seen in [facility] on Monday and admitted to [facility] for surgical intervention. Pt had arterial intervention and debridement in OR yesterday with Dr Vu. Heel wound has exposed fat, slough and mild odor. Treatment Recommendations/Plan: vac veraflo placed to eliminate odor, set at 10ml NS soak for 10 min every 4 hours. Will follow up on Monday for next dressing change Education provided:pt educate on vac protocol, PU prevention and POC for follow up after DC Offloading surface/device: none Recommended Referrals/Tests: none Discharge Recommendations for dressings: continue vac
[2019-09-13] MEDS: ENOXAPARIN 40 MG/0.4 ML SYRINGE. SQ SCH (16:57)
[2019-09-13 18:05] LABS: VANC TR 11.7 mcg/mL (10.0-20.0)
[2019-09-13 19:10] VITALS: BP 115/65
[2019-09-13] MEDS: VANCOMYCIN PER PHARMACY MC PRN (19:52)
--- NOTE | 2019-09-13 19:54 | NUR ---
Pharmacy Vancomycin Dosing Note S:Consulted to monitor and dose vancomycin started 09/11/19. O:CHASIDY HUTSON is a 59 year old M with Cellulitis . Height: 6 feet, 0 inches Weight: 165.6 kg [place] Body Weight: 77.60 Adjusted Body Weight: 112.80 Dosing Weight: Actual Other Antibiotics: ZOSYN LABS: Last BUN: 18 Last Creatinine: 1.3 Creatinine Clearance: 96 mL/min Last WBC: 18.1 Last Procalcitonin: Tmax (past 24 hours): 99 Microbiology: 09/12 BCX NGTD I/O: 1859/2149 Drug Levels: Last Trough level: 11.7 on 09/13/19 at 1730 Last dose given 09/13/19 at 0900 Vancomycin Dosing: Loading Dose: 2000 mg x1 Dosing Weight: Actual Target Trough: 10-20 A: Based on: UNKNOWN RELIABILITY OF CURRENT LEVEL DUE TO MISSED DOSE, P: 1. CONTINUE Vancomycin 1000 mg IV q12h 2. Follow up Trough level on 09/15/19 at 0530 3. Pharmacy will continue to monitor, follow and adjust therapy as needed. JIM WAGGONER [facility], 09/[birth year]/191953
[2019-09-13] MEDS: ATORVASTATIN CALCIUM 40 MG TABLET. PO SCH (21:57)
[2019-09-13 23:32] VITALS: BP 137/70
[2019-09-14 03:45] VITALS: BP 118/67
[2019-09-14] MEDS: PIPERACILLIN/TAZOBACTAM 3.375 GM in IV NORMAL SALINE 50ML 50 ML IV SCH ×3 (06:07→17:08)
[2019-09-14] MEDS: HYDROcodone/APAP 5/325MG 1 TAB TABLET PO PRN ×3 (06:10→17:10)
[2019-09-14] MEDS: VANCOMYCIN 1 GM in IV NORMAL SALINE 250ML 250 ML IV SCH ×2 (07:20→18:10)
[2019-09-14 07:30] LABS: CALCIUM 8.2 mg/dL (8.5-10.1); CREATININE 0.9 mg/dL (0.7-1.3); GFR 86.4; POTASSIUM 3.3 mmol/L (3.5-5.1)
[2019-09-14 07:32] LABS: BASO # 0.1 x10^3/uL (0.0-0.2); BASO % 1 % (0-3); EOS # 0.2 x10^3/uL (0.0-0.7); EOS % 2 % (0-3); HEMATOCRIT 36.5 % (39.0-53.0); HEMOGLOBIN 12.2 g/dL (13.0-17.5); LYMPH # 1.5 x10^3/uL (1.0-4.8); LYMPH % 12 % (24-48); MEAN CORPUSCULAR HEMOGLOBIN 29 pg (25-35); MEAN CORPUSCULAR HGB CONC 34 g/dL (31-37); MEAN CORPUSCULAR VOLUME 87 fL (79-100); MONO # 0.9 x10^3/uL (0.0-1.1); MONO % 7 % (0-9); NEUT # 10.1 x10^3/uL (1.8-7.7); NEUT % 79 % (31-73); PLATELET COUNT 297 x10^3/uL (140-400); RED BLOOD COUNT 4.21 x10^6/uL (4.30-5.70); RED CELL DISTRIBUTION WIDTH 14.3 % (11.5-14.5); WHITE BLOOD COUNT 12.8 x10^3/uL (4.0-11.0)
[2019-09-14 07:59] VITALS: BP 139/62
[2019-09-14] MEDS ORDERED: ASPIRIN 325 MG TABLET PO SCH (08:00)
[2019-09-14] MEDS: ASPIRIN ENTERIC COATED 81 MG TABLET.DR. PO SCH (08:19)
[2019-09-14] MEDS: LACTOBACILLUS RHAMNOSUS GG 1 CAPSULE. PO SCH ×2 (08:20→22:07)
[2019-09-14] MEDS: INSULIN LISPRO 300 UNITS/3 ML VIAL. SQ SCH ×3 (08:29→17:22)
--- NOTE | 2019-09-14 10:03 | PDOC ---
Infectious Disease Note Subjective Subjective Up to chair with physical therapy c/o pain No F/C/N/V/D/SOA ROS ROS as mentioned above Vital Sign Vital Signs Vital Signs Date Time Temp Pulse Resp B/P (MAP) Pulse Ox O2 Delivery O2 Flow Rate FiO2 09/14/19 07:59 98.5 77 18 139/62 (87) 94 Room Air 98.5 Physical Exam PHYSICAL EXAM GENERAL: Sitting in the chair, alert in NAD HEENT: Poor dentition. No thrush. Oral mucosa moist. NECK: Supple, no JVD. LUNGS: Clear bilaterally. No wheezing. HEART: S1, S2. No gallops or murmurs. ABDOMEN: Soft, nontender EXTREMITIES: Right lower extremity unremarkable. LLE dressing and Rooke boot in place. There is no discoloration of toes present. SKIN: without rash. [employer]OV[employer] WORKER: Alert and oriented PIV ok Labs Lab Laboratory Tests Test 09/13/19 11:34 09/13/19 16:24 09/13/19 17:30 09/13/19 20:53 Glucose (Fingerstick) 327 mg/dL (70-99) 237 mg/dL (70-99) 139 mg/dL (70-99) Vancomycin Level Trough 11.7 mcg/mL (10.0-20.0) Vancomycin Last Dose Date Unk Vancomycin Last Dose Time Unk Test 09/14/19 06:05 09/14/19 07:52 White Blood Count 12.8 x10^3/uL (4.0-11.0) Red Blood Count 4.21 x10^6/uL (4.30-5.70) Hemoglobin 12.2 g/dL (13.0-17.5) Hematocrit 36.5 % (39.0-53.0) Mean Corpuscular Volume 87 fL (79-100) Mean Corpuscular Hemoglobin 29 pg (25-35) Mean Corpuscular Hemoglobin Concent 34 g/dL (31-37) Red Cell Distribution Width 14.3 % (11.5-14.5) Platelet Count 297 x10^3/uL (140-400) Neutrophils (%) (Auto) 79 % (31-73) Lymphocytes (%) (Auto) 12 % (24-48) Monocytes (%) (Auto) 7 % (0-9) Eosinophils (%) (Auto) 2 % (0-3) Basophils (%) (Auto) 1 % (0-3) Neutrophils # (Auto) 10.1 x10^3/uL (1.8-7.7) Lymphocytes # (Auto) 1.5 x10^3/uL (1.0-4.8) Monocytes # (Auto) 0.9 x10^3/uL (0.0-1.1) Eosinophils # (Auto) 0.2 x10^3/uL (0.0-0.7) Basophils # (Auto) 0.1 x10^3/uL (0.0-0.2) Sodium Level 139 mmol/L (136-145) Potassium Level 3.3 mmol/L (3.5-5.1) Chloride Level 104 mmol/L (98-107) Carbon Dioxide Level 24 mmol/L (21-32) Anion Gap 11 (6-14) Blood Urea Nitrogen 16 mg/dL (8-26) Creatinine 0.9 mg/dL (0.7-1.3) Estimated GFR (Cockcroft-Gault) 86.4 Glucose Level 175 mg/dL (70-99) Calcium Level 8.2 mg/dL (8.5-10.1) Glucose (Fingerstick) 177 mg/dL (70-99) Micro Microbiology 09/11/19 Blood Culture - Preliminary, Resulted NO GROWTH AFTER 2 DAYS Objective Assessment Left heel necrotic chronic wound infection s/p debridement 5 cm x 5 cm 25 cm total down to bone excisional type on 09/11 Peripheral arterial disease. -s/p extensive left profunda femoral endarterectomy down to tertiary branches at least 3 cm, separate from normal requirement for lower extremity bypass, 09/11 -s/p left femoral to anterior tibial artery bypass with ipsilateral saphenous vein graft, 09/11 Leukocytosis - improving Type 2 diabetes, uncontrolled. Hypertension. Tobaccoism. Plan Plan of Care Continue IV vancomycin per pharmacy protocal and Zosyn. Monitor renal function. Trough 11.7 on 09/12. Probiotics Follow up labs and cultures. Vascular Surgery and wound team is following. Wound care as directed. Attending Co-Sign The patient was seen and interviewed as well as examined at the bedside. The chart was reviewed. The case was discussed. Agree with the plan of care. DAVID CHURCH APRN September 14, 2019 10:03 RO VALDEZ MD September 14, 2019 12:35
[2019-09-14] MEDS: VANCOMYCIN PER PHARMACY MC PRN (11:19)
--- NOTE | 2019-09-14 11:19 | PDOC ---
PROGRESS NOTES History of Present Illness History of Present Illness VTE Prophylaxis Ordered VTE Prophylaxis Devices: Contraindicated VTE Pharmacological Prophylaxi: Yes Assessment/Plan Assessment/Plan IMPRESSION 1. 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 CT angiogram can further assess as clinically warranted. 2. Monophasic waveform throughout the left lower extremity, may indicate proximal stenosis. 3. 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 Heel ulceration with the greatest degree of soft tissue irregularity extending approximately 9 mm deep to the skin surface. 4. morbid obesity 5. hypertension 6. Diabetes 7. Punctate focus of increased density plantar and lateral to the second ray proximal phalanx which could represent a retained radiopaque foreign body. PLAN ADMIT Vascular surgery consult consult wound care team accuchecks IV VANC, ZOSYN ID consult SS INSULIN DVT prophylaxis EKG at high risk of limb loss 09/13 incisional pain from the bypass site. POD #2 1. Extensive left profunda femoral endarterectomy down to tertiary branches at least 3 cm, 38 MIN pt exam, chart review, > 50% of time spent with exam, chart review, pt care coordination Vitals Vitals Vital Signs Date Time Temp Pulse Resp B/P (MAP) Pulse Ox O2 Delivery O2 Flow Rate FiO2 09/14/19 07:59 98.5 77 18 139/62 (87) 94 Room Air 98.5 Physical Exam Physical Exam GENERAL: Sitting in the chair, alert in NAD HEENT: Poor dentition. No thrush. Oral mucosa moist. NECK: Supple, no JVD. LUNGS: Clear bilaterally. No wheezing. HEART: S1, S2. No gallops or murmurs. ABDOMEN: Soft, nontender EXTREMITIES: Right lower extremity unremarkable. LLE dressing and Rooke boot in place. There is no discoloration of toes present. SKIN: without rash. 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: Alert and oriented PIV ok General: Alert, Oriented X3, Cooperative, No acute distress Heart: Regular rate, No murmurs Abdomen: Normal bowel sounds, Soft, No tenderness Extremities: No cyanosis Skin: No rashes Labs LABS Laboratory Tests Test 09/13/19 11:34 09/13/19 16:24 09/13/19 17:30 09/13/19 20:53 Glucose (Fingerstick) 327 mg/dL (70-99) 237 mg/dL (70-99) 139 mg/dL (70-99) Vancomycin Level Trough 11.7 mcg/mL (10.0-20.0) Vancomycin Last Dose Date Unk Vancomycin Last Dose Time Unk Test 09/14/19 06:05 09/14/19 07:52 White Blood Count 12.8 x10^3/uL (4.0-11.0) Red Blood Count 4.21 x10^6/uL (4.30-5.70) Hemoglobin 12.2 g/dL (13.0-17.5) Hematocrit 36.5 % (39.0-53.0) Mean Corpuscular Volume 87 fL (79-100) Mean Corpuscular Hemoglobin 29 pg (25-35) Mean Corpuscular Hemoglobin Concent 34 g/dL (31-37) Red Cell Distribution Width 14.3 % (11.5-14.5) Platelet Count 297 x10^3/uL (140-400) Neutrophils (%) (Auto) 79 % (31-73) Lymphocytes (%) (Auto) 12 % (24-48) Monocytes (%) (Auto) 7 % (0-9) Eosinophils (%) (Auto) 2 % (0-3) Basophils (%) (Auto) 1 % (0-3) Neutrophils # (Auto) 10.1 x10^3/uL (1.8-7.7) Lymphocytes # (Auto) 1.5 x10^3/uL (1.0-4.8) Monocytes # (Auto) 0.9 x10^3/uL (0.0-1.1) Eosinophils # (Auto) 0.2 x10^3/uL (0.0-0.7) Basophils # (Auto) 0.1 x10^3/uL (0.0-0.2) Sodium Level 139 mmol/L (136-145) Potassium Level 3.3 mmol/L (3.5-5.1) Chloride Level 104 mmol/L (98-107) Carbon Dioxide Level 24 mmol/L (21-32) Anion Gap 11 (6-14) Blood Urea Nitrogen 16 mg/dL (8-26) Creatinine 0.9 mg/dL (0.7-1.3) Estimated GFR (Cockcroft-Gault) 86.4 Glucose Level 175 mg/dL (70-99) Calcium Level 8.2 mg/dL (8.5-10.1) Glucose (Fingerstick) 177 mg/dL (70-99) Comment Review of Relevant I have reviewed the following items najma (where applicable) has been applied. Labs Laboratory Tests Test 09/12/19 14:10 09/12/19 16:51 09/12/19 21:12 09/13/19 04:55 Urine Collection Type Unknown Urine Color Yellow Urine Clarity Clear Urine pH 5.5 (<5.0-8.0) Urine Specific [place] 1.020 (1.000-1.030) Urine Protein 100 mg/dL (NEG-TRACE) Urine Glucose (UA) 500 mg/dL (NEG) Urine Ketones (Stick) Negative mg/dL (NEG) Urine Blood Trace (NEG) Urine Nitrite Negative (NEG) Urine Bilirubin Negative (NEG) Urine Urobilinogen Dipstick 0.2 mg/dL (0.2 mg/dL) Urine Leukocyte Esterase Negative (NEG) Urine RBC Occ /HPF (0-2) Urine WBC 0 /HPF (0-4) Urine Squamous Epithelial Cells None /LPF Urine Bacteria 0 /HPF (0-FEW) Urine Mucus Slight /LPF Glucose (Fingerstick) 189 mg/dL (70-99) 192 mg/dL (70-99) White Blood Count 18.1 x10^3/uL (4.0-11.0) Red Blood Count 4.74 x10^6/uL (4.30-5.70) Hemoglobin 13.6 g/dL (13.0-17.5) Hematocrit 41.0 % (39.0-53.0) Mean Corpuscular Volume 86 fL (79-100) Mean Corpuscular Hemoglobin 29 pg (25-35) Mean Corpuscular Hemoglobin Concent 33 g/dL (31-37) Red Cell Distribution Width 14.3 % (11.5-14.5) Platelet Count 311 x10^3/uL (140-400) Neutrophils (%) (Auto) 90 % (31-73) Lymphocytes (%) (Auto) 5 % (24-48) Monocytes (%) (Auto) 5 % (0-9) Eosinophils (%) (Auto) 0 % (0-3) Basophils (%) (Auto) 0 % (0-3) Neutrophils # (Auto) 16.2 x10^3/uL (1.8-7.7) Lymphocytes # (Auto) 0.9 x10^3/uL (1.0-4.8) Monocytes # (Auto) 0.9 x10^3/uL (0.0-1.1) Eosinophils # (Auto) 0.0 x10^3/uL (0.0-0.7) Basophils # (Auto) 0.0 x10^3/uL (0.0-0.2) Segmented Neutrophils % 89 % (35-66) Band Neutrophils % 5 % (0-9) Lymphocytes % 4 % (24-48) Monocytes % 2 % (0-10) Platelet Estimate Adequate (ADEQUATE) Test 09/13/19 04:58 09/13/19 07:42 09/13/19 11:34 09/13/19 16:24 Sodium Level 139 mmol/L (136-145) Potassium Level 4.0 mmol/L (3.5-5.1) Chloride Level 102 mmol/L (98-107) Carbon Dioxide Level 23 mmol/L (21-32) Anion Gap 14 (6-14) Blood Urea Nitrogen 18 mg/dL (8-26) Creatinine 1.3 mg/dL (0.7-1.3) Estimated GFR (Cockcroft-Gault) 56.5 BUN/Creatinine Ratio 14 (6-20) Glucose Level 312 mg/dL (70-99) Calcium Level 8.7 mg/dL (8.5-10.1) Total Bilirubin 0.5 mg/dL (0.2-1.0) Aspartate Amino Transf (AST/SGOT) 15 U/L (15-37) Alanine Aminotransferase (ALT/SGPT) 11 U/L (16-63) Alkaline Phosphatase 90 U/L (46-116) Total Protein 6.3 g/dL (6.4-8.2) Albumin 2.4 g/dL (3.4-5.0) Albumin/Globulin Ratio 0.6 (1.0-1.7) Glucose (Fingerstick) 319 mg/dL (70-99) 327 mg/dL (70-99) 237 mg/dL (70-99) Test 09/13/19 17:30 09/13/19 20:53 09/14/19 06:05 09/14/19 07:52 Vancomycin Level Trough 11.7 mcg/mL (10.0-20.0) Vancomycin Last Dose Date Unk Vancomycin Last Dose Time Unk Glucose (Fingerstick) 139 mg/dL (70-99) 177 mg/dL (70-99) White Blood Count 12.8 x10^3/uL (4.0-11.0) Red Blood Count 4.21 x10^6/uL (4.30-5.70) Hemoglobin 12.2 g/dL (13.0-17.5) Hematocrit 36.5 % (39.0-53.0) Mean Corpuscular Volume 87 fL (79-100) Mean Corpuscular Hemoglobin 29 pg (25-35) Mean Corpuscular Hemoglobin Concent 34 g/dL (31-37) Red Cell Distribution Width 14.3 % (11.5-14.5) Platelet Count 297 x10^3/uL (140-400) Neutrophils (%) (Auto) 79 % (31-73) Lymphocytes (%) (Auto) 12 % (24-48) Monocytes (%) (Auto) 7 % (0-9) Eosinophils (%) (Auto) 2 % (0-3) Basophils (%) (Auto) 1 % (0-3) Neutrophils # (Auto) 10.1 x10^3/uL (1.8-7.7) Lymphocytes # (Auto) 1.5 x10^3/uL (1.0-4.8) Monocytes # (Auto) 0.9 x10^3/uL (0.0-1.1) Eosinophils # (Auto) 0.2 x10^3/uL (0.0-0.7) Basophils # (Auto) 0.1 x10^3/uL (0.0-0.2) Sodium Level 139 mmol/L (136-145) Potassium Level 3.3 mmol/L (3.5-5.1) Chloride Level 104 mmol/L (98-107) Carbon Dioxide Level 24 mmol/L (21-32) Anion Gap 11 (6-14) Blood Urea Nitrogen 16 mg/dL (8-26) Creatinine 0.9 mg/dL (0.7-1.3) Estimated GFR (Cockcroft-Gault) 86.4 Glucose Level 175 mg/dL (70-99) Calcium Level 8.2 mg/dL (8.5-10.1) Laboratory Tests Test 09/13/19 11:34 09/13/19 16:24 09/13/19 17:30 09/13/19 20:53 Glucose (Fingerstick) 327 mg/dL (70-99) 237 mg/dL (70-99) 139 mg/dL (70-99) Vancomycin Level Trough 11.7 mcg/mL (10.0-20.0) Vancomycin Last Dose Date Unk Vancomycin Last Dose Time Unk Test 09/14/19 06:05 09/14/19 07:52 White Blood Count 12.8 x10^3/uL (4.0-11.0) Red Blood Count 4.21 x10^6/uL (4.30-5.70) Hemoglobin 12.2 g/dL (13.0-17.5) Hematocrit 36.5 % (39.0-53.0) Mean Corpuscular Volume 87 fL (79-100) Mean Corpuscular Hemoglobin 29 pg (25-35) Mean Corpuscular Hemoglobin Concent 34 g/dL (31-37) Red Cell Distribution Width 14.3 % (11.5-14.5) Platelet Count 297 x10^3/uL (140-400) Neutrophils (%) (Auto) 79 % (31-73) Lymphocytes (%) (Auto) 12 % (24-48) Monocytes (%) (Auto) 7 % (0-9) Eosinophils (%) (Auto) 2 % (0-3) Basophils (%) (Auto) 1 % (0-3) Neutrophils # (Auto) 10.1 x10^3/uL (1.8-7.7) Lymphocytes # (Auto) 1.5 x10^3/uL (1.0-4.8) Monocytes # (Auto) 0.9 x10^3/uL (0.0-1.1) Eosinophils # (Auto) 0.2 x10^3/uL (0.0-0.7) Basophils # (Auto) 0.1 x10^3/uL (0.0-0.2) Sodium Level 139 mmol/L (136-145) Potassium Level 3.3 mmol/L (3.5-5.1) Chloride Level 104 mmol/L (98-107) Carbon Dioxide Level 24 mmol/L (21-32) Anion Gap 11 (6-14) Blood Urea Nitrogen 16 mg/dL (8-26) Creatinine 0.9 mg/dL (0.7-1.3) Estimated GFR (Cockcroft-Gault) 86.4 Glucose Level 175 mg/dL (70-99) Calcium Level 8.2 mg/dL (8.5-10.1) Glucose (Fingerstick) 177 mg/dL (70-99) Microbiology 09/11/19 Blood Culture - Preliminary, Resulted NO GROWTH AFTER 2 DAYS Medications Current Medications Ondansetron HCl (Zofran) 4 mg PRN Q4HRS PRN IV NAUSEA/VOMITING; Start 09/11/19 at 15:30; Stop 09/12/19 at 15:33; Status DC Zolpidem Tartrate (Ambien) 5 mg PRN QHS PRN PO INSOMNIA; Start 09/11/19 at 15:30 Acetaminophen (Tylenol) 650 mg PRN Q4HRS PRN PO TEMP OVER 100.4F OR MILD PAIN; Start 09/11/19 at 15:30 Docusate Sodium (Colace) 100 mg PRN BID PRN PO HARD STOOLS; Start 09/11/19 at 15:30 Albuterol Sulfate (Ventolin Neb Soln) 2.5 mg PRN Q4HRS PRN NEB SHORTNESS OF BREATH; Start 09/11/19 at 15:30 Guaifenesin (Robitussin) 200 mg PRN Q4HRS PRN PO COUGH; Start 09/11/19 at 15:30 Lorazepam (Ativan) 0.5 mg PRN Q4HRS PRN PO ANXIETY / AGITATION; Start 09/11/19 at 15:30 Hydromorphone HCl (Dilaudid) 1 mg PRN Q2HRS PRN IV SEVERE PAIN 7-10 Last administered on 09/12/19at 22:04; Start 09/11/19 at 15:30 Enoxaparin Sodium (Lovenox 40mg Syringe) 40 mg Q24H SQ Last administered on 09/13/19at 16:57; Start 09/11/19 at 17:00 Vancomycin HCl 1 gm/Dextrose 250 ml @ 250 mls/hr 1X ONCE IV ; Start 09/11/19 at 15:30; Stop 09/11/19 at 16:29; Status UNV Vancomycin HCl (Vanco Per Pharmacy) 1 each PRN DAILY PRN MC SEE COMMENTS Last administered on 09/13/19at 19:52; Start 09/11/19 at 15:30 Piperacillin Sod/ Tazobactam Sod 3.375 gm/Sodium Chloride 50 ml @ 100 mls/hr Q6HRS IV Last administered on 09/14/19at 06:07; Start 09/11/19 at 16:00 Insulin Human Lispro (HumaLOG) 0-7 UNITS TIDWMEALS SQ Last administered on 09/14/19at 08:29; Start 09/11/19 at 17:00 Dextrose (Dextrose 50%-Water Syringe) 12.5 gm PRN Q15MIN PRN IV SEE COMMENTS; Start 09/11/19 at 15:30 Vancomycin HCl 2 gm/Sodium Chloride 500 ml @ 250 mls/hr 1X ONCE IV Last administered on 09/11/19at 17:49; Start 09/11/19 at 18:00; Stop 09/11/19 at 19:59; Status DC Vancomycin HCl 1 gm/Sodium Chloride 250 ml @ 250 mls/hr Q12H IV Last administered on 09/14/19at 07:20; Start 09/12/19 at 06:00 Vancomycin HCl (Vancomycin Trough Level) 1 each 1X ONCE MC ; Start 09/13/19 at 05:30; Stop 09/13/19 at 05:31; Status DC Ondansetron HCl (Zofran) 4 mg PRN Q6HRS PRN IVP NAUSEA/VOMITING; Start 09/12/19 at 12:45 Iodixanol (Visipaque 320) 100 ml STK-MED ONCE .ROUTE ; Start 09/12/19 at 13:55; Stop 09/12/19 at 13:55; Status DC Lidocaine HCl (Lidocaine 1% 20ml Vial) 20 ml STK-MED ONCE .ROUTE ; Start 09/12/19 at 13:55; Stop 09/12/19 at 13:56; Status DC Heparin Sodium/ Sodium Chloride 500 ml @ As Directed STK-MED ONCE .ROUTE ; Start 09/12/19 at 13:55; Stop 09/12/19 at 13:56; Status DC Midazolam HCl (Versed) 5 mg STK-MED ONCE .ROUTE ; Start 09/12/19 at 14:25; Stop 09/12/19 at 14:25; Status DC Fentanyl Citrate (Fentanyl 5ml Vial) 250 mcg STK-MED ONCE .ROUTE ; Start 09/12/19 at 14:25; Stop 09/12/19 at 14:25; Status DC Heparin Sodium (Porcine) (Heparin Sodium) 10,000 unit STK-MED ONCE .ROUTE ; Start 09/12/19 at 14:25; Stop 09/12/19 at 14:25; Status DC Heparin Sodium/ Sodium Chloride (HEPARIN for ARTERIAL LINE FLUSH) 1,000 unit 1X ONCE IART Last administered on 09/12/19at 14:45; Start 09/12/19 at 14:45; Stop 09/12/19 at 14:50; Status DC Heparin Sodium/ Sodium Chloride (HEPARIN for ARTERIAL LINE FLUSH) 1,000 unit 1X ONCE IART Last administered on 09/12/19at 14:45; Start 09/12/19 at 14:45; Stop 09/12/19 at 14:50; Status DC Midazolam HCl (Versed) 5 mg 1X ONCE IV Last administered on 09/12/19at 14:45; Start 09/12/19 at 14:45; Stop 09/12/19 at 14:50; Status DC Fentanyl Citrate (Fentanyl 5ml Vial) 250 mcg 1X ONCE IV Last administered on 09/12/19at 14:45; Start 09/12/19 at 14:45; Stop 09/12/19 at 14:50; Status DC Iodixanol (Visipaque 320) 100 ml 1X ONCE IART Last administered on 09/12/19at 14:45; Start 09/12/19 at 14:45; Stop 09/12/19 at 14:50; Status DC Lidocaine HCl (Lidocaine 1% 20ml Vial) 20 ml 1X ONCE INJ Last administered on 09/12/19at 14:45; Start 09/12/19 at 14:45; Stop 09/12/19 at 14:50; Status DC Heparin Sodium (Porcine) (Heparin Sodium) 5,000 unit 1X ONCE IV Last administered on 09/12/19at 15:00; Start 09/12/19 at 15:00; Stop 09/12/19 at 15:01; Status DC Lactobacillus Rhamnosus (Culturelle) 1 cap BID PO Last administered on 09/14/19at 08:20; Start 09/12/19 at 21:00 Heparin Sodium/ Sodium Chloride 500 ml @ As Directed STK-MED ONCE .ROUTE ; Start 09/12/19 at 15:43; Stop 09/12/19 at 15:43; Status DC Heparin Sodium/ Sodium Chloride (HEPARIN for ARTERIAL LINE FLUSH) 1,000 unit 1X ONCE IART ; Start 09/12/19 at 16:00; Stop 09/12/19 at 16:01; Status DC Propofol (Diprivan) 200 mg STK-MED ONCE IV ; Start 09/12/19 at 16:20; Stop 09/12/19 at 16:21; Status DC Lidocaine HCl (Lidocaine Pf 2% Vial) 5 ml STK-MED ONCE .ROUTE ; Start 09/12/19 at 16:20; Stop 09/12/19 at 16:21; Status DC Dexamethasone Sodium Phosphate (Decadron) 4 mg STK-MED ONCE .ROUTE ; Start 09/12/19 at 16:21; Stop 09/12/19 at 16:21; Status DC Ondansetron HCl (Zofran) 4 mg STK-MED ONCE .ROUTE ; Start 09/12/19 at 16:21; Stop 09/12/19 at 16:21; Status DC Phenylephrine HCl (PHENYLEPHRINE in 0.9% NACL PF) 1 mg STK-MED ONCE IV ; Start 09/12/19 at 16:21; Stop 09/12/19 at 16:21; Status DC Ephedrine Sulfate (ePHEDrine PF IN SALINE SYRINGE) 50 mg STK-MED ONCE IV ; Start 09/12/19 at 16:21; Stop 09/12/19 at 16:21; Status DC Fentanyl Citrate (Fentanyl 2ml Vial) 100 mcg STK-MED ONCE .ROUTE ; Start 09/12/19 at 16:22; Stop 09/12/19 at 16:22; Status DC Ondansetron HCl (Zofran) 4 mg PRN Q6HRS PRN IV NAUSEA/VOMITING; Start 09/12/19 at 16:30; Stop 09/12/19 at 22:00; Status DC Fentanyl Citrate (Fentanyl 2ml Vial) 25 mcg PRN Q5MIN PRN IV MILD PAIN 1-3; Start 09/12/19 at 16:30; Stop 09/12/19 at 22:00; Status DC Fentanyl Citrate (Fentanyl 2ml Vial) 50 mcg PRN Q5MIN PRN IV MODERATE TO SEVERE PAIN; Start 09/12/19 at 16:30; Stop 09/12/19 at 22:10; Status DC Morphine Sulfate (Morphine Sulfate) 1 mg PRN Q10MIN PRN IV SEVERE PAIN 7-10; Start 09/12/19 at 16:30; Stop 09/12/19 at 22:00; Status DC Ringer's Solution 1,000 ml @ 30 mls/hr Q24H IV Last administered on 09/12/19at 16:22; Start 09/12/19 at 16:22; Stop 09/13/19 at 04:21; Status DC Lidocaine HCl (Xylocaine-Mpf 1% 2ml Vial) 2 ml PRN 1X PRN ID PRIOR TO IV START; Start 09/12/19 at 16:30; Stop 09/12/19 at 22:00; Status DC Hydromorphone HCl (Dilaudid) 0.5 mg PRN Q10MIN PRN IV SEV PAIN, Second choice; Start 09/12/19 at 16:30; Stop 09/12/19 at 22:00; Status DC Prochlorperazine Edisylate (Compazine) 5 mg PACU PRN PRN IV NAUSEA, MRX1; Start 09/12/19 at 16:30; Stop 09/12/19 at 22:00; Status DC Heparin Sodium (Porcine) 5000 unit/Sodium Chloride 505 ml @ 505 mls/hr 1X ONCE IRR Last administered on 09/12/19at 17:53; Start 09/12/19 at 17:00; Stop 09/12/19 at 17:59; Status DC Cefazolin Sodium 1 gm/Sodium Chloride 500 ml @ 500 mls/hr 1X ONCE IRR Last administered on 09/12/19at 17:53; Start 09/12/19 at 17:00; Stop 09/12/19 at 17:59; Status DC Cefazolin Sodium/ Dextrose 50 ml @ 100 mls/hr 1X PREOP ONCE IV Last administered on 09/12/19at 17:23; Start 09/12/19 at 16:45; Stop 09/12/19 at 17:14; Status DC Heparin Sodium (Porcine) (Heparin Sodium) 4,000 unit 1X ONCE IV Last administered on 09/12/19at 17:05; Start 09/12/19 at 17:00; Stop 09/12/19 at 17:03; Status DC Heparin Sodium (Porcine) (Heparin Sodium) 5,000 unit STK-MED ONCE SQ ; Start 09/12/19 at 17:02; Stop 09/12/19 at 17:03; Status DC Insulin Human Lispro (HumaLOG VIAL for OP,RR ONLY) 0-10 units PRN Q1HR PRN SQ PER PROTOCOL Last administered on 09/12/19at 17:30; Start 09/12/19 at 17:15; Stop 09/13/19 at 17:14; Status DC Iohexol (Omnipaque 300 Mg/ml) 50 ml STK-MED ONCE .ROUTE ; Start 09/12/19 at 17:17; Stop 09/12/19 at 17:17; Status DC Cellulose (Surgicel Fibrillar 1x2) 1 each STK-MED ONCE .ROUTE ; Start 09/12/19 at 17:17; Stop 09/12/19 at 17:17; Status DC Bupivacaine HCl/ Epinephrine Bitart (Sensorcaine-Epi 0.25%-1:611961 Mpf) 30 ml STK-MED ONCE .ROUTE ; Start 09/12/19 at 17:17; Stop 09/12/19 at 17:17; Status DC Cellulose (Surgicel Fibrillar 1x2) 1 each STK-MED ONCE .ROUTE ; Start 09/12/19 at 17:17; Stop 09/12/19 at 17:18; Status DC Glycopyrrolate (Robinul) 1 mg STK-MED ONCE .ROUTE ; Start 09/12/19 at 17:44; Stop 09/12/19 at 17:44; Status DC Rocuronium Nelson (Zemuron) 100 mg STK-MED ONCE .ROUTE ; Start 09/12/19 at 18:49; Stop 09/12/19 at 18:50; Status DC Heparin Sodium (Porcine) (Heparin Sodium) 10,000 unit STK-MED ONCE .ROUTE ; Start 09/12/19 at 18:51; Stop 09/12/19 at 18:52; Status DC Neostigmine Nelson (Neostigmine Methylsulfate) 5 mg STK-MED ONCE .ROUTE ; Start 09/12/19 at 20:04; Stop 09/12/19 at 20:04; Status DC Protamine Sulfate (Protamine) 50 mg STK-MED ONCE IV ; Start 09/12/19 at 20:26; Stop 09/12/19 at 20:27; Status DC Fentanyl Citrate (Fentanyl 2ml Vial) 100 mcg STK-MED ONCE .ROUTE ; Start 09/12/19 at 20:38; Stop 09/12/19 at 20:38; Status DC Sevoflurane (Ultane) 90 ml STK-MED ONCE IH ; Start 09/12/19 at 20:50; Stop 09/12/19 at 20:51; Status DC Atorvastatin Calcium (Lipitor) 40 mg QHS PO Last administered on 09/13/19at 21:57; Start 09/12/19 at 22:00 Acetaminophen/ Hydrocodone Bitart (Lortab 5/325) 1 tab PRN Q4HRS PRN PO MODERATE PAIN 4-6 Last administered on 09/13/19at 08:49; Start 09/13/19 at 05:30 Acetaminophen/ Hydrocodone Bitart (Lortab 5/325) 2 tab PRN Q4HRS PRN PO SEVERE PAIN 7-10 Last administered on 09/14/19at 06:10; Start 09/13/19 at 05:30 Morphine Sulfate (Morphine Sulfate) 2 mg PRN Q1HR PRN IV MODERATE PAIN 4-6; Start 09/13/19 at 05:30 Morphine Sulfate (Morphine Sulfate) 4 mg PRN Q1HR PRN IV SEVERE PAIN 7-10; Start 09/13/19 at 05:30 Vancomycin HCl (Vancomycin Trough Level) 1 each 1X ONCE MC Last administered on 09/13/19at 17:30; Start 09/13/19 at 17:30; Stop 09/13/19 at 17:31; Status DC Aspirin (Nevaeh Aspirin) 81 mg DAILYWBKFT PO ; Start 09/14/19 at 08:00; Stop 09/14/19 at 07:57; Status DC Vancomycin HCl (Vancomycin Trough Level) 1 each 1X ONCE MC ; Start 09/15/19 at 05:30; Stop 09/15/19 at 05:31 Aspirin (Ecotrin) 81 mg DAILYWBKFT PO Last administered on 09/14/19at 08:19; Start 09/14/19 at 08:00 Active Scripts Active Reported Augmentin 875-125 Tablet (Amoxicillin/Potassium Clav) 1 Each Tablet 1 Tab PO BID 10 Days Metformin Hcl 500 Mg Tablet 500 Mg PO DAILY Vitals/I & O Vital Sign - Last 24 Hours 09/13/19 09/13/19 09/13/19 09/13/19 14:17 15:00 15:19 19:10 Temp 98.4 98.0 98.4 98.0 Pulse 72 66 Resp 17 21 B/P (MAP) 128/71 (90) 115/65 (82) Pulse Ox 97 97 97 97 O2 Delivery Room Air Room Air Room Air Room Air 09/13/19 09/13/19 09/13/19 09/13/19 20:00 21:58 23:00 23:32 Temp 98.1 98.1 Pulse 72 Resp 21 B/P (MAP) 137/70 (92) Pulse Ox 96 O2 Delivery Room Air Room Air Room Air Room Air 09/14/19 09/14/19 09/14/19 09/14/19 03:45 06:10 07:10 07:59 Temp 98.4 98.5 98.4 98.5 Pulse 69 77 Resp 20 18 18 B/P (MAP) 118/67 (84) 139/62 (87) Pulse Ox 98 94 94 O2 Delivery Room Air Room Air Room Air Room Air Intake and Output 09/13/19 09/13/19 09/14/19 15:00 23:00 07:00 Intake Total 200 ml Output Total 100 ml 150 ml Balance -100 ml 50 ml MONICO LEUNG MD September 14, 2019 11:19
--- NOTE | 2019-09-14 11:38 | PDOC ---
SURGICAL PROGRESS NOTE Subjective Patient was seen and examined and overall is doing well. He is having incisional pain from the bypass site. He has been out of bed sitting in a chair but did minimal ambulation with physical therapy. Vital Signs Vital Signs Date Time Temp Pulse Resp B/P (MAP) Pulse Ox O2 Delivery O2 Flow Rate FiO2 09/14/19 07:59 98.5 77 18 139/62 (87) 94 Room Air 98.5 I&O Intake and Output 09/14/19 07:00 Intake Total 200 ml Output Total 250 ml Balance -50 ml Intake Oral 200 ml Output Urine Total 250 ml General: Alert, Oriented X3, Cooperative HEENT: Atraumatic Lungs: Clear to auscultation, Normal air movement Heart: Regular rate, Normal S1, Normal S2 Abdomen: Normal bowel sounds, Soft, No tenderness Extremities: No clubbing, No cyanosis (Palpable bypass graft pulse) Labs Laboratory Tests Test 09/12/19 14:10 09/12/19 16:51 09/12/19 21:12 09/13/19 04:55 Urine Collection Type Unknown Urine Color Yellow Urine Clarity Clear Urine pH 5.5 (<5.0-8.0) Urine Specific [place] 1.020 (1.000-1.030) Urine Protein 100 mg/dL (NEG-TRACE) Urine Glucose (UA) 500 mg/dL (NEG) Urine Ketones (Stick) Negative mg/dL (NEG) Urine Blood Trace (NEG) Urine Nitrite Negative (NEG) Urine Bilirubin Negative (NEG) Urine Urobilinogen Dipstick 0.2 mg/dL (0.2 mg/dL) Urine Leukocyte Esterase Negative (NEG) Urine RBC Occ /HPF (0-2) Urine WBC 0 /HPF (0-4) Urine Squamous Epithelial Cells None /LPF Urine Bacteria 0 /HPF (0-FEW) Urine Mucus Slight /LPF Glucose (Fingerstick) 189 mg/dL (70-99) 192 mg/dL (70-99) White Blood Count 18.1 x10^3/uL (4.0-11.0) Red Blood Count 4.74 x10^6/uL (4.30-5.70) Hemoglobin 13.6 g/dL (13.0-17.5) Hematocrit 41.0 % (39.0-53.0) Mean Corpuscular Volume 86 fL (79-100) Mean Corpuscular Hemoglobin 29 pg (25-35) Mean Corpuscular Hemoglobin Concent 33 g/dL (31-37) Red Cell Distribution Width 14.3 % (11.5-14.5) Platelet Count 311 x10^3/uL (140-400) Neutrophils (%) (Auto) 90 % (31-73) Lymphocytes (%) (Auto) 5 % (24-48) Monocytes (%) (Auto) 5 % (0-9) Eosinophils (%) (Auto) 0 % (0-3) Basophils (%) (Auto) 0 % (0-3) Neutrophils # (Auto) 16.2 x10^3/uL (1.8-7.7) Lymphocytes # (Auto) 0.9 x10^3/uL (1.0-4.8) Monocytes # (Auto) 0.9 x10^3/uL (0.0-1.1) Eosinophils # (Auto) 0.0 x10^3/uL (0.0-0.7) Basophils # (Auto) 0.0 x10^3/uL (0.0-0.2) Segmented Neutrophils % 89 % (35-66) Band Neutrophils % 5 % (0-9) Lymphocytes % 4 % (24-48) Monocytes % 2 % (0-10) Platelet Estimate Adequate (ADEQUATE) Test 09/13/19 04:58 09/13/19 07:42 09/13/19 11:34 09/13/19 16:24 Sodium Level 139 mmol/L (136-145) Potassium Level 4.0 mmol/L (3.5-5.1) Chloride Level 102 mmol/L (98-107) Carbon Dioxide Level 23 mmol/L (21-32) Anion Gap 14 (6-14) Blood Urea Nitrogen 18 mg/dL (8-26) Creatinine 1.3 mg/dL (0.7-1.3) Estimated GFR (Cockcroft-Gault) 56.5 BUN/Creatinine Ratio 14 (6-20) Glucose Level 312 mg/dL (70-99) Calcium Level 8.7 mg/dL (8.5-10.1) Total Bilirubin 0.5 mg/dL (0.2-1.0) Aspartate Amino Transf (AST/SGOT) 15 U/L (15-37) Alanine Aminotransferase (ALT/SGPT) 11 U/L (16-63) Alkaline Phosphatase 90 U/L (46-116) Total Protein 6.3 g/dL (6.4-8.2) Albumin 2.4 g/dL (3.4-5.0) Albumin/Globulin Ratio 0.6 (1.0-1.7) Glucose (Fingerstick) 319 mg/dL (70-99) 327 mg/dL (70-99) 237 mg/dL (70-99) Test 09/13/19 17:30 09/13/19 20:53 09/14/19 06:05 09/14/19 07:52 Vancomycin Level Trough 11.7 mcg/mL (10.0-20.0) Vancomycin Last Dose Date Unk Vancomycin Last Dose Time Unk Glucose (Fingerstick) 139 mg/dL (70-99) 177 mg/dL (70-99) White Blood Count 12.8 x10^3/uL (4.0-11.0) Red Blood Count 4.21 x10^6/uL (4.30-5.70) Hemoglobin 12.2 g/dL (13.0-17.5) Hematocrit 36.5 % (39.0-53.0) Mean Corpuscular Volume 87 fL (79-100) Mean Corpuscular Hemoglobin 29 pg (25-35) Mean Corpuscular Hemoglobin Concent 34 g/dL (31-37) Red Cell Distribution Width 14.3 % (11.5-14.5) Platelet Count 297 x10^3/uL (140-400) Neutrophils (%) (Auto) 79 % (31-73) Lymphocytes (%) (Auto) 12 % (24-48) Monocytes (%) (Auto) 7 % (0-9) Eosinophils (%) (Auto) 2 % (0-3) Basophils (%) (Auto) 1 % (0-3) Neutrophils # (Auto) 10.1 x10^3/uL (1.8-7.7) Lymphocytes # (Auto) 1.5 x10^3/uL (1.0-4.8) Monocytes # (Auto) 0.9 x10^3/uL (0.0-1.1) Eosinophils # (Auto) 0.2 x10^3/uL (0.0-0.7) Basophils # (Auto) 0.1 x10^3/uL (0.0-0.2) Sodium Level 139 mmol/L (136-145) Potassium Level 3.3 mmol/L (3.5-5.1) Chloride Level 104 mmol/L (98-107) Carbon Dioxide Level 24 mmol/L (21-32) Anion Gap 11 (6-14) Blood Urea Nitrogen 16 mg/dL (8-26) Creatinine 0.9 mg/dL (0.7-1.3) Estimated GFR (Cockcroft-Gault) 86.4 Glucose Level 175 mg/dL (70-99) Calcium Level 8.2 mg/dL (8.5-10.1) Test 09/14/19 11:26 Glucose (Fingerstick) 197 mg/dL (70-99) Laboratory Tests Test 09/13/19 11:34 09/13/19 16:24 09/13/19 17:30 09/13/19 20:53 Glucose (Fingerstick) 327 mg/dL (70-99) 237 mg/dL (70-99) 139 mg/dL (70-99) Vancomycin Level Trough 11.7 mcg/mL (10.0-20.0) Vancomycin Last Dose Date Unk Vancomycin Last Dose Time Unk Test 09/14/19 06:05 09/14/19 07:52 09/14/19 11:26 White Blood Count 12.8 x10^3/uL (4.0-11.0) Red Blood Count 4.21 x10^6/uL (4.30-5.70) Hemoglobin 12.2 g/dL (13.0-17.5) Hematocrit 36.5 % (39.0-53.0) Mean Corpuscular Volume 87 fL (79-100) Mean Corpuscular Hemoglobin 29 pg (25-35) Mean Corpuscular Hemoglobin Concent 34 g/dL (31-37) Red Cell Distribution Width 14.3 % (11.5-14.5) Platelet Count 297 x10^3/uL (140-400) Neutrophils (%) (Auto) 79 % (31-73) Lymphocytes (%) (Auto) 12 % (24-48) Monocytes (%) (Auto) 7 % (0-9) Eosinophils (%) (Auto) 2 % (0-3) Basophils (%) (Auto) 1 % (0-3) Neutrophils # (Auto) 10.1 x10^3/uL (1.8-7.7) Lymphocytes # (Auto) 1.5 x10^3/uL (1.0-4.8) Monocytes # (Auto) 0.9 x10^3/uL (0.0-1.1) Eosinophils # (Auto) 0.2 x10^3/uL (0.0-0.7) Basophils # (Auto) 0.1 x10^3/uL (0.0-0.2) Sodium Level 139 mmol/L (136-145) Potassium Level 3.3 mmol/L (3.5-5.1) Chloride Level 104 mmol/L (98-107) Carbon Dioxide Level 24 mmol/L (21-32) Anion Gap 11 (6-14) Blood Urea Nitrogen 16 mg/dL (8-26) Creatinine 0.9 mg/dL (0.7-1.3) Estimated GFR (Cockcroft-Gault) 86.4 Glucose Level 175 mg/dL (70-99) Calcium Level 8.2 mg/dL (8.5-10.1) Glucose (Fingerstick) 177 mg/dL (70-99) 197 mg/dL (70-99) Assessment/Plan Atherosclerosis with ulceration left lower extremity--patient's bypass is doing well and he has negative pressure VAC on the left foot. Continue to work with physical and Occupational Therapy. Pain management as needed. Tate Hooper DO, TATE CRYSTAL DO September 14, 2019 11:37
[2019-09-14 11:59] VITALS: BP 90/51
[2019-09-14 15:59] VITALS: BP 131/72
[2019-09-14] MEDS: DOCUSATE SODIUM 100 MG CAPSULE. PO SCH ×2 (17:09→21:00)
[2019-09-14] MEDS: ENOXAPARIN 40 MG/0.4 ML SYRINGE. SQ SCH (17:11)
[2019-09-14 19:00] VITALS: BP 142/71
[2019-09-14] MEDS: ATORVASTATIN CALCIUM 40 MG TABLET. PO SCH (22:07)
[2019-09-14 23:00] VITALS: BP 145/71
[2019-09-15] MEDS: PIPERACILLIN/TAZOBACTAM 3.375 GM in IV NORMAL SALINE 50ML 50 ML IV SCH ×4 (00:50→17:13)
[2019-09-15 03:00] VITALS: BP 157/77
[2019-09-15 07:59] VITALS: BP 156/85
[2019-09-15 08:21] LABS: VANC TR 13.1 mcg/mL (10.0-20.0)
[2019-09-15] MEDS: LACTOBACILLUS RHAMNOSUS GG 1 CAPSULE. PO SCH ×2 (08:26→21:16)
[2019-09-15] MEDS: ASPIRIN ENTERIC COATED 81 MG TABLET.DR. PO SCH (08:26)
[2019-09-15] MEDS: DOCUSATE SODIUM 100 MG CAPSULE. PO SCH ×2 (08:26→21:16)
[2019-09-15] MEDS: VANCOMYCIN 1 GM in IV NORMAL SALINE 250ML 250 ML IV SCH ×2 (08:27→18:22)
[2019-09-15] MEDS: VANCOMYCIN PER PHARMACY MC PRN (08:31)
--- NOTE | 2019-09-15 08:31 | NUR ---
Pharmacy Vancomycin Dosing Note S: Consulted to monitor and dose vancomycin started 09/11/19. O: CHASIDY HUTSON is a 59 year old M with cellulitis. Other Antibiotics: ZOSYN 3.375G IV Q6HRS LABS: Last BUN: 16 Last Creatinine: 0.9 Creatinine Clearance: > 100 mL/min Last WBC: 12.8 Last Procalcitonin: Tmax (past 24 hours): 99.1 Microbiology: BLOOD CX (09/10): NO GROWTH I/O: 950/1095 (2 voids) Drug Levels: Last Trough level: 13.1 on 09/15/19 at 0530 Last dose given 09/14/19 at 1810 Vancomycin Dosing: Dosing Weight: Actual Target Trough: 10-20 A: Patient is receiving vancomycin 1000 mg IV q12hrs. A trough of 13.1 mcg/ml is within goal range. Renal function remains stable. P: 1. Continue Vancomycin 1000 mg IV q12h 2. Follow up trough in 5 - 7 days if therapy persists 3. Pharmacy will continue to monitor, follow and adjust therapy as needed. KAMI HOLLAND [facility], 09/15/19 [id number]
[2019-09-15] MEDS: INSULIN LISPRO 300 UNITS/3 ML VIAL. SQ SCH ×3 (08:32→17:18)
--- NOTE | 2019-09-15 10:01 | PDOC ---
Infectious Disease Note Subjective Subjective Feeling much better today, pain better controlled Ambulated some earlier Denies F/C/N/V/D/SOA ROS ROS as above Vital Sign Vital Signs Vital Signs Date Time Temp Pulse Resp B/P (MAP) Pulse Ox O2 Delivery O2 Flow Rate FiO2 09/15/19 07:59 98.5 77 16 156/85 (108) 97 Room Air 98.5 Physical Exam PHYSICAL EXAM GENERAL: Lying down, alert, smiling HEENT: Poor dentition. No thrush. Oral mucosa moist. NECK: Supple, no JVD. LUNGS: Clear bilaterally. No wheezing. HEART: S1, S2. No gallops or murmurs. ABDOMEN: Soft, nontender EXTREMITIES: Right lower extremity unremarkable. LLE dressingg/Rooke boot and wound vac in place. There is no discoloration of toes present. SKIN: without rash. INSIDE FINISHER: Alert and oriented x 3. PIV ok Labs Lab Laboratory Tests Test 09/14/19 11:26 09/14/19 17:16 09/14/19 20:42 09/15/19 05:30 Glucose (Fingerstick) 197 mg/dL (70-99) 231 mg/dL (70-99) 223 mg/dL (70-99) Vancomycin Level Trough 13.1 mcg/mL (10.0-20.0) Vancomycin Last Dose Date 09/14/2019 Vancomycin Last Dose Time 1800 Test 09/15/19 07:40 Glucose (Fingerstick) 224 mg/dL (70-99) Micro Microbiology 09/11/19 Blood Culture - Preliminary, Resulted NO GROWTH AFTER 3 DAYS Objective Assessment Left heel necrotic chronic wound infection s/p debridement 5 cm x 5 cm 25 cm total down to bone excisional type on 09/11. no cultures Peripheral arterial disease. -s/p extensive left profunda femoral endarterectomy down to tertiary branches at least 3 cm, separate from normal requirement for lower extremity bypass, 09/11 -s/p left femoral to anterior tibial artery bypass with ipsilateral saphenous vein graft, 09/11 Leukocytosis - improving Type 2 diabetes, uncontrolled. Hypertension. Tobaccoism. Plan Plan of Care Continue IV vancomycin per pharmacy protocal and Zosyn. Monitor renal function. Trough 13.1 on 09/14. Probiotics Follow up labs and cultures. Vascular Surgery and wound team are following. Wound care as directed. Attending Co-Sign The patient was seen and examined at the bedside. The chart was reviewed. The case was discussed with DIRECTOR BEHAVIORAL HEALTH. Agree with the plan of care. Intraoperative cultures not available DAVID CHURCH APRN September 15, 2019 10:01 RO VALDEZ MD September 15, 2019 12:17
--- NOTE | 2019-09-15 10:28 | PDOC ---
PROGRESS NOTES History of Present Illness History of Present Illness VTE Prophylaxis Ordered VTE Prophylaxis Devices: Contraindicated VTE Pharmacological Prophylaxi: Yes Assessment/Plan Assessment/Plan IMPRESSION 1. 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 CT angiogram can further assess as clinically warranted. 2. Monophasic waveform throughout the left lower extremity, may indicate proximal stenosis. 3. 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 Heel ulceration with the greatest degree of soft tissue irregularity extending approximately 9 mm deep to the skin surface. 4. morbid obesity 5. hypertension 6. Diabetes 7. Punctate focus of increased density plantar and lateral to the second ray proximal phalanx which could represent a retained radiopaque foreign body. PLAN ADMIT Vascular surgery consult consult wound care team accuchecks IV VANC, ZOSYN ID consult SS INSULIN DVT prophylaxis EKG at high risk of limb loss 09/14 incisional pain from the bypass site. POD #3 1. Extensive left profunda femoral endarterectomy down to tertiary branches at least 3 cm, 37 MIN pt exam, chart review, > 50% of time spent with exam, chart review, pt care coordination Vitals Vitals Vital Signs Date Time Temp Pulse Resp B/P (MAP) Pulse Ox O2 Delivery O2 Flow Rate FiO2 09/15/19 07:59 98.5 77 16 156/85 (108) 97 Room Air 98.5 Physical Exam Physical Exam GENERAL: Lying down, alert, smiling HEENT: Poor dentition. No thrush. Oral mucosa moist. NECK: Supple, no JVD. LUNGS: Clear bilaterally. No wheezing. HEART: S1, S2. No gallops or murmurs. ABDOMEN: Soft, nontender EXTREMITIES: Right lower extremity unremarkable. LLE dressingg/Rooke boot and wound vac in place. There is no discoloration of toes present. SKIN: without rash. LOSS PREVENTION INVESTIGATOR: Alert and oriented x 3. PIV ok General: Alert, Oriented X3, Cooperative Heart: Regular rate, Normal S1, Normal S2 Abdomen: Normal bowel sounds, Soft, No tenderness Extremities: No clubbing, No cyanosis (Palpable bypass graft pulse) Skin: No rashes Labs LABS HERBERTH ASHER MD, MICHAEL M MD ORDERED: BCULT Procedure Result BLOOD CULTURE Preliminary NO GROWTH AFTER 3 DAYS Laboratory Tests Test 09/14/19 11:26 09/14/19 17:16 09/14/19 20:42 09/15/19 05:30 Glucose (Fingerstick) 197 mg/dL (70-99) 231 mg/dL (70-99) 223 mg/dL (70-99) Vancomycin Level Trough 13.1 mcg/mL (10.0-20.0) Vancomycin Last Dose Date 09/14/2019 Vancomycin Last Dose Time 1800 Test 09/15/19 07:40 Glucose (Fingerstick) 224 mg/dL (70-99) Comment Review of Relevant I have reviewed the following items najma (where applicable) has been applied. Labs Laboratory Tests Test 09/13/19 11:34 09/13/19 16:24 09/13/19 17:30 09/13/19 20:53 Glucose (Fingerstick) 327 mg/dL (70-99) 237 mg/dL (70-99) 139 mg/dL (70-99) Vancomycin Level Trough 11.7 mcg/mL (10.0-20.0) Vancomycin Last Dose Date Unk Vancomycin Last Dose Time Unk Test 09/14/19 06:05 09/14/19 07:52 09/14/19 11:26 09/14/19 17:16 White Blood Count 12.8 x10^3/uL (4.0-11.0) Red Blood Count 4.21 x10^6/uL (4.30-5.70) Hemoglobin 12.2 g/dL (13.0-17.5) Hematocrit 36.5 % (39.0-53.0) Mean Corpuscular Volume 87 fL (79-100) Mean Corpuscular Hemoglobin 29 pg (25-35) Mean Corpuscular Hemoglobin Concent 34 g/dL (31-37) Red Cell Distribution Width 14.3 % (11.5-14.5) Platelet Count 297 x10^3/uL (140-400) Neutrophils (%) (Auto) 79 % (31-73) Lymphocytes (%) (Auto) 12 % (24-48) Monocytes (%) (Auto) 7 % (0-9) Eosinophils (%) (Auto) 2 % (0-3) Basophils (%) (Auto) 1 % (0-3) Neutrophils # (Auto) 10.1 x10^3/uL (1.8-7.7) Lymphocytes # (Auto) 1.5 x10^3/uL (1.0-4.8) Monocytes # (Auto) 0.9 x10^3/uL (0.0-1.1) Eosinophils # (Auto) 0.2 x10^3/uL (0.0-0.7) Basophils # (Auto) 0.1 x10^3/uL (0.0-0.2) Sodium Level 139 mmol/L (136-145) Potassium Level 3.3 mmol/L (3.5-5.1) Chloride Level 104 mmol/L (98-107) Carbon Dioxide Level 24 mmol/L (21-32) Anion Gap 11 (6-14) Blood Urea Nitrogen 16 mg/dL (8-26) Creatinine 0.9 mg/dL (0.7-1.3) Estimated GFR (Cockcroft-Gault) 86.4 Glucose Level 175 mg/dL (70-99) Calcium Level 8.2 mg/dL (8.5-10.1) Glucose (Fingerstick) 177 mg/dL (70-99) 197 mg/dL (70-99) 231 mg/dL (70-99) Test 09/14/19 20:42 09/15/19 05:30 09/15/19 07:40 Glucose (Fingerstick) 223 mg/dL (70-99) 224 mg/dL (70-99) Vancomycin Level Trough 13.1 mcg/mL (10.0-20.0) Vancomycin Last Dose Date 09/14/2019 Vancomycin Last Dose Time 1800 Laboratory Tests Test 09/14/19 11:26 09/14/19 17:16 09/14/19 20:42 09/15/19 05:30 Glucose (Fingerstick) 197 mg/dL (70-99) 231 mg/dL (70-99) 223 mg/dL (70-99) Vancomycin Level Trough 13.1 mcg/mL (10.0-20.0) Vancomycin Last Dose Date 09/14/2019 Vancomycin Last Dose Time 1800 Test 09/15/19 07:40 Glucose (Fingerstick) 224 mg/dL (70-99) Microbiology 09/11/19 Blood Culture - Preliminary, Resulted NO GROWTH AFTER 3 DAYS Medications Current Medications Ondansetron HCl (Zofran) 4 mg PRN Q4HRS PRN IV NAUSEA/VOMITING; Start 09/11/19 at 15:30; Stop 09/12/19 at 15:33; Status DC Zolpidem Tartrate (Ambien) 5 mg PRN QHS PRN PO INSOMNIA; Start 09/11/19 at 15:30 Acetaminophen (Tylenol) 650 mg PRN Q4HRS PRN PO TEMP OVER 100.4F OR MILD PAIN; Start 09/11/19 at 15:30 Docusate Sodium (Colace) 100 mg PRN BID PRN PO HARD STOOLS; Start 09/11/19 at 15:30 Albuterol Sulfate (Ventolin Neb Soln) 2.5 mg PRN Q4HRS PRN NEB SHORTNESS OF BREATH; Start 09/11/19 at 15:30 Guaifenesin (Robitussin) 200 mg PRN Q4HRS PRN PO COUGH; Start 09/11/19 at 15:30 Lorazepam (Ativan) 0.5 mg PRN Q4HRS PRN PO ANXIETY / AGITATION; Start 09/11/19 at 15:30 Hydromorphone HCl (Dilaudid) 1 mg PRN Q2HRS PRN IV SEVERE PAIN 7-10 Last administered on 09/12/19at 22:04; Start 09/11/19 at 15:30 Enoxaparin Sodium (Lovenox 40mg Syringe) 40 mg Q24H SQ Last administered on at 17:11; Start 09/11/19 at 17:00 Vancomycin HCl 1 gm/Dextrose 250 ml @ 250 mls/hr 1X ONCE IV ; Start 09/11/19 at 15:30; Stop 09/11/19 at 16:29; Status UNV Vancomycin HCl (Vanco Per Pharmacy) 1 each PRN DAILY PRN MC SEE COMMENTS Last administered on 09/15/19at 08:31; Start 09/11/19 at 15:30 Piperacillin Sod/ Tazobactam Sod 3.375 gm/Sodium Chloride 50 ml @ 100 mls/hr Q6HRS IV Last administered on 09/15/19at 06:00; Start 09/11/19 at 16:00 Insulin Human Lispro (HumaLOG) 0-7 UNITS TIDWMEALS SQ Last administered on 09/15/19at 08:32; Start 09/11/19 at 17:00 Dextrose (Dextrose 50%-Water Syringe) 12.5 gm PRN Q15MIN PRN IV SEE COMMENTS; Start 09/11/19 at 15:30 Vancomycin HCl 2 gm/Sodium Chloride 500 ml @ 250 mls/hr 1X ONCE IV Last administered on 09/11/19at 17:49; Start 09/11/19 at 18:00; Stop 09/11/19 at 19:59; Status DC Vancomycin HCl 1 gm/Sodium Chloride 250 ml @ 250 mls/hr Q12H IV Last administered on 09/15/19at 08:27; Start 09/12/19 at 06:00 Vancomycin HCl (Vancomycin Trough Level) 1 each 1X ONCE MC ; Start 09/13/19 at 05:30; Stop 09/13/19 at 05:31; Status DC Ondansetron HCl (Zofran) 4 mg PRN Q6HRS PRN IVP NAUSEA/VOMITING; Start 09/12/19 at 12:45 Iodixanol (Visipaque 320) 100 ml STK-MED ONCE .ROUTE ; Start 09/12/19 at 13:55; Stop 09/12/19 at 13:55; Status DC Lidocaine HCl (Lidocaine 1% 20ml Vial) 20 ml STK-MED ONCE .ROUTE ; Start 09/12/19 at 13:55; Stop 09/12/19 at 13:56; Status DC Heparin Sodium/ Sodium Chloride 500 ml @ As Directed STK-MED ONCE .ROUTE ; Start 09/12/19 at 13:55; Stop 09/12/19 at 13:56; Status DC Midazolam HCl (Versed) 5 mg STK-MED ONCE .ROUTE ; Start 09/12/19 at 14:25; Stop 09/12/19 at 14:25; Status DC Fentanyl Citrate (Fentanyl 5ml Vial) 250 mcg STK-MED ONCE .ROUTE ; Start 09/12/19 at 14:25; Stop 09/12/19 at 14:25; Status DC Heparin Sodium (Porcine) (Heparin Sodium) 10,000 unit STK-MED ONCE .ROUTE ; Start 09/12/19 at 14:25; Stop 09/12/19 at 14:25; Status DC Heparin Sodium/ Sodium Chloride (HEPARIN for ARTERIAL LINE FLUSH) 1,000 unit 1X ONCE IART Last administered on 09/12/19at 14:45; Start 09/12/19 at 14:45; Stop 09/12/19 at 14:50; Status DC Heparin Sodium/ Sodium Chloride (HEPARIN for ARTERIAL LINE FLUSH) 1,000 unit 1X ONCE IART Last administered on 09/12/19at 14:45; Start 09/12/19 at 14:45; Stop 09/12/19 at 14:50; Status DC Midazolam HCl (Versed) 5 mg 1X ONCE IV Last administered on 09/12/19at 14:45; Start 09/12/19 at 14:45; Stop 09/12/19 at 14:50; Status DC Fentanyl Citrate (Fentanyl 5ml Vial) 250 mcg 1X ONCE IV Last administered on 09/12/19at 14:45; Start 09/12/19 at 14:45; Stop 09/12/19 at 14:50; Status DC Iodixanol (Visipaque 320) 100 ml 1X ONCE IART Last administered on 09/12/19at 14:45; Start 09/12/19 at 14:45; Stop 09/12/19 at 14:50; Status DC Lidocaine HCl (Lidocaine 1% 20ml Vial) 20 ml 1X ONCE INJ Last administered on 09/12/19at 14:45; Start 09/12/19 at 14:45; Stop 09/12/19 at 14:50; Status DC Heparin Sodium (Porcine) (Heparin Sodium) 5,000 unit 1X ONCE IV Last administered on 09/12/19at 15:00; Start 09/12/19 at 15:00; Stop 09/12/19 at 15:01; Status DC Lactobacillus Rhamnosus (Culturelle) 1 cap BID PO Last administered on 09/15/19at 08:26; Start 09/12/19 at 21:00 Heparin Sodium/ Sodium Chloride 500 ml @ As Directed STK-MED ONCE .ROUTE ; Start 09/12/19 at 15:43; Stop 09/12/19 at 15:43; Status DC Heparin Sodium/ Sodium Chloride (HEPARIN for ARTERIAL LINE FLUSH) 1,000 unit 1X ONCE IART ; Start 09/12/19 at 16:00; Stop 09/12/19 at 16:01; Status DC Propofol (Diprivan) 200 mg STK-MED ONCE IV ; Start 09/12/19 at 16:20; Stop 09/12/19 at 16:21; Status DC Lidocaine HCl (Lidocaine Pf 2% Vial) 5 ml STK-MED ONCE .ROUTE ; Start 09/12/19 at 16:20; Stop 09/12/19 at 16:21; Status DC Dexamethasone Sodium Phosphate (Decadron) 4 mg STK-MED ONCE .ROUTE ; Start 09/12/19 at 16:21; Stop 09/12/19 at 16:21; Status DC Ondansetron HCl (Zofran) 4 mg STK-MED ONCE .ROUTE ; Start 09/12/19 at 16:21; Stop 09/12/19 at 16:21; Status DC Phenylephrine HCl (PHENYLEPHRINE in 0.9% NACL PF) 1 mg STK-MED ONCE IV ; Start 09/12/19 at 16:21; Stop 09/12/19 at 16:21; Status DC Ephedrine Sulfate (ePHEDrine PF IN SALINE SYRINGE) 50 mg STK-MED ONCE IV ; Start 09/12/19 at 16:21; Stop 09/12/19 at 16:21; Status DC Fentanyl Citrate (Fentanyl 2ml Vial) 100 mcg STK-MED ONCE .ROUTE ; Start 09/12/19 at 16:22; Stop 09/12/19 at 16:22; Status DC Ondansetron HCl (Zofran) 4 mg PRN Q6HRS PRN IV NAUSEA/VOMITING; Start 09/12/19 at 16:30; Stop 09/12/19 at 22:00; Status DC Fentanyl Citrate (Fentanyl 2ml Vial) 25 mcg PRN Q5MIN PRN IV MILD PAIN 1-3; Start 09/12/19 at 16:30; Stop 09/12/19 at 22:00; Status DC Fentanyl Citrate (Fentanyl 2ml Vial) 50 mcg PRN Q5MIN PRN IV MODERATE TO SEVERE PAIN; Start 09/12/19 at 16:30; Stop 09/12/19 at 22:10; Status DC Morphine Sulfate (Morphine Sulfate) 1 mg PRN Q10MIN PRN IV SEVERE PAIN 7-10; Start 09/12/19 at 16:30; Stop 09/12/19 at 22:00; Status DC Ringer's Solution 1,000 ml @ 30 mls/hr Q24H IV Last administered on 09/12/19at 16:22; Start 09/12/19 at 16:22; Stop 09/13/19 at 04:21; Status DC Lidocaine HCl (Xylocaine-Mpf 1% 2ml Vial) 2 ml PRN 1X PRN ID PRIOR TO IV START; Start 09/12/19 at 16:30; Stop 09/12/19 at 22:00; Status DC Hydromorphone HCl (Dilaudid) 0.5 mg PRN Q10MIN PRN IV SEV PAIN, Second choice; Start 09/12/19 at 16:30; Stop 09/12/19 at 22:00; Status DC Prochlorperazine Edisylate (Compazine) 5 mg PACU PRN PRN IV NAUSEA, MRX1; Start 09/12/19 at 16:30; Stop 09/12/19 at 22:00; Status DC Heparin Sodium (Porcine) 5000 unit/Sodium Chloride 505 ml @ 505 mls/hr 1X ONCE IRR Last administered on 09/12/19at 17:53; Start 09/12/19 at 17:00; Stop 09/12/19 at 17:59; Status DC Cefazolin Sodium 1 gm/Sodium Chloride 500 ml @ 500 mls/hr 1X ONCE IRR Last administered on 09/12/19at 17:53; Start 09/12/19 at 17:00; Stop 09/12/19 at 17:59; Status DC Cefazolin Sodium/ Dextrose 50 ml @ 100 mls/hr 1X PREOP ONCE IV Last administered on 09/12/19at 17:23; Start 09/12/19 at 16:45; Stop 09/12/19 at 17:14; Status DC Heparin Sodium (Porcine) (Heparin Sodium) 4,000 unit 1X ONCE IV Last administered on 09/12/19at 17:05; Start 09/12/19 at 17:00; Stop 09/12/19 at 17:03; Status DC Heparin Sodium (Porcine) (Heparin Sodium) 5,000 unit STK-MED ONCE SQ ; Start 09/12/19 at 17:02; Stop 09/12/19 at 17:03; Status DC Insulin Human Lispro (HumaLOG VIAL for OP,RR ONLY) 0-10 units PRN Q1HR PRN SQ PER PROTOCOL Last administered on 09/12/19at 17:30; Start 09/12/19 at 17:15; Stop 09/13/19 at 17:14; Status DC Iohexol (Omnipaque 300 Mg/ml) 50 ml STK-MED ONCE .ROUTE ; Start 09/12/19 at 17:17; Stop 09/12/19 at 17:17; Status DC Cellulose (Surgicel Fibrillar 1x2) 1 each STK-MED ONCE .ROUTE ; Start 09/12/19 at 17:17; Stop 09/12/19 at 17:17; Status DC Bupivacaine HCl/ Epinephrine Bitart (Sensorcaine-Epi 0.25%-1:939803 Mpf) 30 ml STK-MED ONCE .ROUTE ; Start 09/12/19 at 17:17; Stop 09/12/19 at 17:17; Status DC Cellulose (Surgicel Fibrillar 1x2) 1 each STK-MED ONCE .ROUTE ; Start 09/12/19 at 17:17; Stop 09/12/19 at 17:18; Status DC Glycopyrrolate (Robinul) 1 mg STK-MED ONCE .ROUTE ; Start 09/12/19 at 17:44; Stop 09/12/19 at 17:44; Status DC Rocuronium [place] (Zemuron) 100 mg STK-MED ONCE .ROUTE ; Start 09/12/19 at 1 8:49; Stop 09/12/19 at 18:50; Status DC Heparin Sodium (Porcine) (Heparin Sodium) 10,000 unit STK-MED ONCE .ROUTE ; Start 09/12/19 at 18:51; Stop 09/12/19 at 18:52; Status DC Neostigmine [place] (Neostigmine Methylsulfate) 5 mg STK-MED ONCE .ROUTE ; Sta rt 09/12/19 at 20:04; Stop 09/12/19 at 20:04; Status DC Protamine Sulfate (Protamine) 50 mg STK-MED ONCE IV ; Start 09/12/19 at 20:26; Stop 09/12/19 at 20:27; Status DC Fentanyl Citrate (Fentanyl 2ml Vial) 100 mcg STK-MED ONCE .ROUTE ; Start 09/12/19 at 20:38; Stop 09/12/19 at 20:38; Status DC Sevoflurane (Ultane) 90 ml STK-MED ONCE IH ; Start 09/12/19 at 20:50; Stop 09/12/19 at 20:51; Status DC Atorvastatin Calcium (Lipitor) 40 mg QHS PO Last administered on 09/14/19at 22:07; Start 09/12/19 at 22:00 Acetaminophen/ Hydrocodone Bitart (Lortab 5/325) 1 tab PRN Q4HRS PRN PO MODERATE PAIN 4-6 Last administered on 09/13/19at 08:49; Start 09/13/19 at 05:30 Acetaminophen/ Hydrocodone Bitart (Lortab 5/325) 2 tab PRN Q4HRS PRN PO SEVERE PAIN 7-10 Last administered on 09/14/19at 17:10; Start 09/13/19 at 05:30 Morphine Sulfate (Morphine Sulfate) 2 mg PRN Q1HR PRN IV MODERATE PAIN 4-6; Start 09/13/19 at 05:30 Morphine Sulfate (Morphine Sulfate) 4 mg PRN Q1HR PRN IV SEVERE PAIN 7-10; Start 09/13/19 at 05:30 Vancomycin HCl (Vancomycin Trough Level) 1 each 1X ONCE MC Last administered on 09/13/19at 17:30; Start 09/13/19 at 17:30; Stop 09/13/19 at 17:31; Status DC Aspirin (Nevaeh Aspirin) 81 mg DAILYWBKFT PO ; Start 09/14/19 at 08:00; Stop 09/14/19 at 07:57; Status DC Vancomycin HCl (Vancomycin Trough Level) 1 each 1X ONCE MC Last administered on 09/15/19at 05:30; Start 09/15/19 at 05:30; Stop 09/15/19 at 05:31; Status DC Aspirin (Ecotrin) 81 mg DAILYWBKFT PO Last administered on 09/15/19at 08:26; Start 09/14/19 at 08:00 Docusate Sodium (Colace) 100 mg BID PO Last administered on 09/14/19at 17:09; Start 09/14/19 at 14:30 Active Scripts Active Reported Augmentin 875-125 Tablet (Amoxicillin/Potassium Clav) 1 Each Tablet 1 Tab PO BID 10 Days Metformin Hcl 500 Mg Tablet 500 Mg PO DAILY Vitals/I & O Vital Sign - Last 24 Hours 09/14/19 09/14/19 09/14/19 09/14/19 11:59 12:18 13:18 15:59 Temp 97.9 98.6 97.9 98.6 Pulse 68 82 Resp 18 20 18 18 B/P (MAP) 90/51 (64) 131/72 (91) Pulse Ox 97 94 94 96 O2 Delivery Room Air Room Air Room Air Room Air 09/14/19 09/14/19 09/14/19 09/14/19 17:10 18:10 19:00 19:40 Temp 98.4 98.4 Pulse 74 Resp 20 18 18 B/P (MAP) 142/71 (94) Pulse Ox 96 96 97 O2 Delivery Room Air Room Air Room Air Room Air 09/14/19 09/15/19 09/15/19 09/15/19 23:00 03:00 07:30 07:59 Temp 99.1 98.7 98.5 99.1 98.7 98.5 Pulse 75 84 77 Resp 18 18 16 B/P (MAP) 145/71 (95) 157/77 (103) 156/85 (108) Pulse Ox 96 96 97 O2 Delivery Room Air Room Air Room Air Room Air Intake and Output 09/14/19 09/14/19 09/15/19 15:00 23:00 07:00 Intake Total 400 ml 550 ml Output Total 200 ml 620 ml 275 ml Balance 200 ml -70 ml -275 ml MONICO LEUNG MD September 15, 2019 10:28
[2019-09-15 11:23] VITALS: BP 138/65
[2019-09-15] MEDS: HYDROcodone/APAP 5/325MG 1 TAB TABLET PO PRN ×2 (12:00→21:22)
[2019-09-15 15:59] VITALS: BP 133/63
[2019-09-15] MEDS: ENOXAPARIN 40 MG/0.4 ML SYRINGE. SQ SCH (17:13)
[2019-09-15 19:00] VITALS: BP 133/68
[2019-09-15] MEDS: ATORVASTATIN CALCIUM 40 MG TABLET. PO SCH (21:16)
[2019-09-15 23:00] VITALS: BP 142/73
[2019-09-16] MEDS: PIPERACILLIN/TAZOBACTAM 3.375 GM in IV NORMAL SALINE 50ML 50 ML IV SCH ×4 (00:07→16:28)
[2019-09-16 03:04] VITALS: BP 129/84
[2019-09-16 04:33] LABS: BASO # 0.1 x10^3/uL (0.0-0.2); BASO % 1 % (0-3); EOS # 0.4 x10^3/uL (0.0-0.7); EOS % 4 % (0-3); HEMATOCRIT 31.8 % (39.0-53.0); HEMOGLOBIN 10.9 g/dL (13.0-17.5); LYMPH # 1.6 x10^3/uL (1.0-4.8); LYMPH % 18 % (24-48); MEAN CORPUSCULAR HEMOGLOBIN 30 pg (25-35); MEAN CORPUSCULAR HGB CONC 34 g/dL (31-37); MEAN CORPUSCULAR VOLUME 86 fL (79-100); MONO # 0.6 x10^3/uL (0.0-1.1); MONO % 7 % (0-9); NEUT # 6.2 x10^3/uL (1.8-7.7); NEUT % 70 % (31-73); PLATELET COUNT 293 x10^3/uL (140-400); RED CELL DISTRIBUTION WIDTH 13.9 % (11.5-14.5); WHITE BLOOD COUNT 8.9 x10^3/uL (4.0-11.0)
[2019-09-16 05:59] LABS: ALBUMIN 1.9 g/dL (3.4-5.0); ALBUMIN/GLOBULIN RATIO 0.5 (1.0-1.7); CALCIUM 8.1 mg/dL (8.5-10.1); CREATININE 1.1 mg/dL (0.7-1.3); GFR 68.5; POTASSIUM 3.1 mmol/L (3.5-5.1); TOTAL BILIRUBIN 0.4 mg/dL (0.2-1.0); TOTAL PROTEIN 5.4 g/dL (6.4-8.2)
[2019-09-16] MEDS: VANCOMYCIN 1 GM in IV NORMAL SALINE 250ML 250 ML IV SCH ×2 (06:10→16:49)
[2019-09-16 07:00] VITALS: BP 155/77
--- NOTE | 2019-09-16 08:13 | PDOC ---
Infectious Disease Note Subjective: Subjective Feeling much better today, pain better controlled Undergoing PT and OT Denies F/C/N/V/D/SOA Vital Signs: Vital Signs Vital Signs Date Time Temp Pulse Resp B/P (MAP) Pulse Ox O2 Delivery O2 Flow Rate FiO2 09/16/19 07:22 Room Air 09/16/19 03:04 98.3 64 20 129/84 (99) 97 98.3 Physical Exam: PHYSICAL EXAM GENERAL: Lying down, alert, smiling HEENT: Poor dentition. No thrush. Oral mucosa moist. NECK: Supple, no JVD. LUNGS: Clear bilaterally. No wheezing. HEART: S1, S2. No gallops or murmurs. ABDOMEN: Soft, nontender EXTREMITIES: Right lower extremity unremarkable. LLE dressingg/Rooke boot and wound vac in place. There is no discoloration of toes present. SKIN: without rash. THERAPIST SPEECH: Alert and oriented x 3. PIV ok Medications: Inpatient Meds: Current Medications Medications (Trade) Dose Ordered Sig/Steven Start Time Stop Time Status Last Admin Dose Admin Acetaminophen (Tylenol) 650 mg PRN Q4HRS PRN 09/11/19 15:30 Acetaminophen/ Hydrocodone Bitart (Lortab 5/325) 2 tab PRN Q4HRS PRN 09/13/19 05:30 09/15/19 21:22 2 TAB Albuterol Sulfate (Ventolin Neb Soln) 2.5 mg PRN Q4HRS PRN 09/11/19 15:30 Aspirin (Nevaeh Aspirin) 81 mg DAILYWBKFT 09/14/19 08:00 09/14/19 07:57 DC Aspirin (Ecotrin) 81 mg DAILYWBKFT 09/14/19 08:00 09/15/19 08:26 81 MG Atorvastatin Calcium (Lipitor) 40 mg QHS 09/12/19 22:00 09/15/19 21:16 40 MG Bupivacaine HCl/ Epinephrine Bitart (Sensorcaine-Epi 0.25%-1:650273 Mpf) 30 ml STK-MED ONCE 09/12/19 17:17 09/12/19 17:17 DC Cefazolin Sodium 1 gm/Sodium Chloride 500 ml @ 500 mls/hr 1X ONCE 09/12/19 17:00 09/12/19 17:59 DC 09/12/19 17:53 Cefazolin Sodium/ Dextrose 50 ml @ 100 mls/hr 1X PREOP ONCE 09/12/19 16:45 09/12/19 17:14 DC 09/12/19 17:23 100 MLS/HR Cellulose (Surgicel Fibrillar 1x2) 1 each STK-MED ONCE 09/12/19 17:17 09/12/19 17:18 DC Dexamethasone Sodium Phosphate (Decadron) 4 mg STK-MED ONCE 09/12/19 16:21 09/12/19 16:21 DC Dextrose (Dextrose 50%-Water Syringe) 12.5 gm PRN Q15MIN PRN 09/11/19 15:30 Docusate Sodium (Colace) 100 mg BID 09/14/19 14:30 09/15/19 21:16 100 MG Enoxaparin Sodium (Lovenox 40mg Syringe) 40 mg Q24H 09/11/19 17:00 09/15/19 17:13 40 MG Ephedrine Sulfate (ePHEDrine PF IN SALINE SYRINGE) 50 mg STK-MED ONCE 09/12/19 16:21 09/12/19 16:21 DC Fentanyl Citrate (Fentanyl 2ml Vial) 100 mcg STK-MED ONCE 09/12/19 20:38 09/12/19 20:38 DC Fentanyl Citrate (Fentanyl 5ml Vial) 250 mcg 1X ONCE 09/12/19 14:45 09/12/19 14:50 DC 09/12/19 14:45 50 MCG Glycopyrrolate (Robinul) 1 mg STK-MED ONCE 09/12/19 17:44 09/12/19 17:44 DC Guaifenesin (Robitussin) 200 mg PRN Q4HRS PRN 09/11/19 15:30 Heparin Sodium (Porcine) (Heparin Sodium) 10,000 unit STK-MED ONCE 09/12/19 18:51 09/12/19 18:52 DC Heparin Sodium (Porcine) 5000 unit/Sodium Chloride 505 ml @ 505 mls/hr 1X ONCE 09/12/19 17:00 09/12/19 17:59 DC 09/12/19 17:53 Heparin Sodium/ Sodium Chloride (HEPARIN for ARTERIAL LINE FLUSH) 1,000 unit 1X ONCE 09/12/19 16:00 09/12/19 16:01 DC Hydromorphone HCl (Dilaudid) 0.5 mg PRN Q10MIN PRN 09/12/19 16:30 09/12/19 22:00 DC Insulin Human Lispro (HumaLOG VIAL for OP,RR ONLY) 0-10 units PRN Q1HR PRN 09/12/19 17:15 09/13/19 17:14 DC 09/12/19 17:30 4 UNIT Insulin Human Lispro (HumaLOG) 0-7 UNITS TIDWMEALS 09/11/19 17:00 09/15/19 17:18 6 UNITS Iodixanol (Visipaque 320) 100 ml 1X ONCE 09/12/19 14:45 09/12/19 14:50 DC 09/12/19 14:45 146 ML Iohexol (Omnipaque 300 Mg/ml) 50 ml STK-MED ONCE 09/12/19 17:17 09/12/19 17:17 DC Lactobacillus Rhamnosus (Culturelle) 1 cap BID 09/12/19 21:00 09/15/19 21:16 1 CAP Lidocaine HCl (Lidocaine 1% 20ml Vial) 20 ml 1X ONCE 09/12/19 14:45 09/12/19 14:50 DC 09/12/19 14:45 6 ML Lidocaine HCl (Lidocaine Pf 2% Vial) 5 ml STK-MED ONCE 09/12/19 16:20 09/12/19 16:21 DC Lidocaine HCl (Xylocaine-Mpf 1% 2ml Vial) 2 ml PRN 1X PRN 09/12/19 16:30 09/12/19 22:00 DC Lorazepam (Ativan) 0.5 mg PRN Q4HRS PRN 09/11/19 15:30 Midazolam HCl (Versed) 5 mg 1X ONCE 09/12/19 14:45 09/12/19 14:50 DC 09/12/19 14:45 1 MG Morphine Sulfate (Morphine Sulfate) 4 mg PRN Q1HR PRN 09/13/19 05:30 Neostigmine [place] (Neostigmine Methylsulfate) 5 mg STK-MED ONCE 09/12/19 20:04 09/12/19 20:04 DC Ondansetron HCl (Zofran) 4 mg PRN Q6HRS PRN 09/12/19 16:30 09/12/19 22:00 DC Phenylephrine HCl (PHENYLEPHRINE in 0.9% NACL PF) 1 mg STK-MED ONCE 09/12/19 16:21 09/12/19 16:21 DC Piperacillin Sod/ Tazobactam Sod 3.375 gm/Sodium Chloride 50 ml @ 100 mls/hr Q6HRS 09/11/19 16:00 09/16/19 05:25 100 MLS/HR Prochlorperazine Edisylate (Compazine) 5 mg PACU PRN PRN 09/12/19 16:30 09/12/19 22:00 DC Propofol (Diprivan) 200 mg STK-MED ONCE 09/12/19 16:20 09/12/19 16:21 DC Protamine Sulfate (Protamine) 50 mg STK-MED ONCE 09/12/19 20:26 09/12/19 20:27 DC Ringer's Solution 1,000 ml @ 30 mls/hr Q24H 09/12/19 16:22 09/13/19 04:21 DC 09/12/19 16:22 30 MLS/HR Rocuronium [place] (Zemuron) 100 mg STK-MED ONCE 09/12/19 18:49 09/12/19 18:50 DC Sevoflurane (Ultane) 90 ml STK-MED ONCE 09/12/19 20:50 09/12/19 20:51 DC Vancomycin HCl (Vanco Per Pharmacy) 1 each PRN DAILY PRN 09/11/19 15:30 09/15/19 08:31 1 EACH Vancomycin HCl (Vancomycin Trough Level) 1 each 1X ONCE 09/15/19 05:30 09/15/19 05:31 DC 09/15/19 05:30 1 EACH Vancomycin HCl 1 gm/Dextrose 250 ml @ 250 mls/hr 1X ONCE 09/11/19 15:30 09/11/19 16:29 UNV Vancomycin HCl 1 gm/Sodium Chloride 250 ml @ 250 mls/hr Q12H 09/12/19 06:00 09/16/19 06:10 250 MLS/HR Vancomycin HCl 2 gm/Sodium Chloride 500 ml @ 250 mls/hr 1X ONCE 09/11/19 18:00 09/11/19 19:59 DC 09/11/19 17:49 250 MLS/HR Zolpidem Tartrate (Ambien) 5 mg PRN QHS PRN 09/11/19 15:30 Labs: Lab Laboratory Tests Test 09/15/19 11:53 09/15/19 16:48 09/15/19 20:42 09/16/19 04:05 Glucose (Fingerstick) 253 mg/dL (70-99) 264 mg/dL (70-99) 266 mg/dL (70-99) White Blood Count 8.9 x10^3/uL (4.0-11.0) Red Blood Count 3.70 x10^6/uL (4.30-5.70) Hemoglobin 10.9 g/dL (13.0-17.5) Hematocrit 31.8 % (39.0-53.0) Mean Corpuscular Volume 86 fL (79-100) Mean Corpuscular Hemoglobin 30 pg (25-35) Mean Corpuscular Hemoglobin Concent 34 g/dL (31-37) Red Cell Distribution Width 13.9 % (11.5-14.5) Platelet Count 293 x10^3/uL (140-400) Neutrophils (%) (Auto) 70 % (31-73) Lymphocytes (%) (Auto) 18 % (24-48) Monocytes (%) (Auto) 7 % (0-9) Eosinophils (%) (Auto) 4 % (0-3) Basophils (%) (Auto) 1 % (0-3) Neutrophils # (Auto) 6.2 x10^3/uL (1.8-7.7) Lymphocytes # (Auto) 1.6 x10^3/uL (1.0-4.8) Monocytes # (Auto) 0.6 x10^3/uL (0.0-1.1) Eosinophils # (Auto) 0.4 x10^3/uL (0.0-0.7) Basophils # (Auto) 0.1 x10^3/uL (0.0-0.2) Erythrocyte Sedimentation Rate 98 (0-15) Sodium Level 138 mmol/L (136-145) Potassium Level 3.1 mmol/L (3.5-5.1) Chloride Level 104 mmol/L (98-107) Carbon Dioxide Level 28 mmol/L (21-32) Anion Gap 6 (6-14) Blood Urea Nitrogen 11 mg/dL (8-26) Creatinine 1.1 mg/dL (0.7-1.3) Estimated GFR (Cockcroft-Gault) 68.5 BUN/Creatinine Ratio 10 (6-20) Glucose Level 271 mg/dL (70-99) Calcium Level 8.1 mg/dL (8.5-10.1) Total Bilirubin 0.4 mg/dL (0.2-1.0) Aspartate Amino Transf (AST/SGOT) 17 U/L (15-37) Alanine Aminotransferase (ALT/SGPT) 17 U/L (16-63) Alkaline Phosphatase 85 U/L (46-116) Total Protein 5.4 g/dL (6.4-8.2) Albumin 1.9 g/dL (3.4-5.0) Albumin/Globulin Ratio 0.5 (1.0-1.7) Test 09/16/19 07:22 Glucose (Fingerstick) 251 mg/dL (70-99) Objective: Assessment: 1. Left heel necrotic chronic wound infection. 09/11 left heel debridement 5 cm x 5 cm 25 cm total down to bone excisional type 2. Peripheral arterial disease. 09/11 #1 Extensive left profunda femoral endarterectomy down to tertiary branches at least 3 cm, separate from normal requirement for lower extremity bypass #2 left femoral to anterior tibial artery bypass with ipsilateral saphenous vein graft 3. Type 2 diabetes, uncontrolled. 4. Hypertension. 5. Tobaccoism. Plan: Plan of Care Continue IV vancomycin per pharmacy protocal and Zosyn. Monitor renal function. Trough 13.1 on 09/14. ESR 98 Creat around 1.1 Optimal diabetes control Probiotics Follow up labs and cultures. Vascular Surgery and wound team are following. Wound care as directed. RO VALDEZ MD September 16, 2019 08:13
[2019-09-16] MEDS: LACTOBACILLUS RHAMNOSUS GG 1 CAPSULE. PO SCH ×2 (08:20→21:44)
[2019-09-16] MEDS: ASPIRIN ENTERIC COATED 81 MG TABLET.DR. PO SCH (08:21)
[2019-09-16] MEDS: DOCUSATE SODIUM 100 MG CAPSULE. PO SCH ×3 (08:21→21:44)
[2019-09-16] MEDS: INSULIN LISPRO 300 UNITS/3 ML VIAL. SQ SCH ×3 (08:25→16:50)
[2019-09-16] MEDS: HYDROcodone/APAP 5/325MG 1 TAB TABLET PO PRN (08:42)
[2019-09-16 11:00] VITALS: BP 185/68
--- NOTE | 2019-09-16 11:49 | PDOC ---
PROGRESS NOTES History of Present Illness History of Present Illness VTE Prophylaxis Ordered VTE Prophylaxis Devices: Contraindicated VTE Pharmacological Prophylaxi: Yes Assessment/Plan Assessment/Plan IMPRESSION 1. 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 CT angiogram can further assess as clinically warranted. 2. Monophasic waveform throughout the left lower extremity, may indicate proximal stenosis. 3. 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 Heel ulceration with the greatest degree of soft tissue irregularity extending approximately 9 mm deep to the skin surface. 4. morbid obesity 5. hypertension 6. Diabetes 7. Punctate focus of increased density plantar and lateral to the second ray proximal phalanx which could represent a retained radiopaque foreign body. PLAN ADMIT Vascular surgery consult consult wound care team accuchecks IV VANC, ZOSYN ID consult SS INSULIN DVT prophylaxis EKG at high risk of limb loss 09/14 incisional pain from the bypass site. POD #4 1. Extensive left profunda femoral endarterectomy down to tertiary branches at least 3 cm, 27 MIN pt exam, chart review, > 50% of time spent with exam, chart review, pt care coordination Vitals Vitals Vital Signs Date Time Temp Pulse Resp B/P (MAP) Pulse Ox O2 Delivery O2 Flow Rate FiO2 09/16/19 11:00 98.1 55 18 185/68 (107) 99 Room Air 98.1 Physical Exam Physical Exam GENERAL: Lying down, alert, smiling HEENT: Poor dentition. No thrush. Oral mucosa moist. NECK: Supple, no JVD. LUNGS: Clear bilaterally. No wheezing. HEART: S1, S2. No gallops or murmurs. ABDOMEN: Soft, nontender EXTREMITIES: Right lower extremity unremarkable. LLE dressingg/Rooke boot and wound vac in place. There is no discoloration of toes present. SKIN: without rash. QUALITY ASSOCIATE: Alert and oriented x 3. PIV ok General: Alert, Oriented X3, Cooperative, No acute distress Heart: Regular rate, Normal S1, Normal S2 Abdomen: Normal bowel sounds, Soft, No tenderness Extremities: No clubbing, No cyanosis (Palpable bypass graft pulse) Skin: No rashes Labs LABS Laboratory Tests Test 09/15/19 11:53 09/15/19 16:48 09/15/19 20:42 09/16/19 04:05 Glucose (Fingerstick) 253 mg/dL (70-99) 264 mg/dL (70-99) 266 mg/dL (70-99) White Blood Count 8.9 x10^3/uL (4.0-11.0) Red Blood Count 3.70 x10^6/uL (4.30-5.70) Hemoglobin 10.9 g/dL (13.0-17.5) Hematocrit 31.8 % (39.0-53.0) Mean Corpuscular Volume 86 fL (79-100) Mean Corpuscular Hemoglobin 30 pg (25-35) Mean Corpuscular Hemoglobin Concent 34 g/dL (31-37) Red Cell Distribution Width 13.9 % (11.5-14.5) Platelet Count 293 x10^3/uL (140-400) Neutrophils (%) (Auto) 70 % (31-73) Lymphocytes (%) (Auto) 18 % (24-48) Monocytes (%) (Auto) 7 % (0-9) Eosinophils (%) (Auto) 4 % (0-3) Basophils (%) (Auto) 1 % (0-3) Neutrophils # (Auto) 6.2 x10^3/uL (1.8-7.7) Lymphocytes # (Auto) 1.6 x10^3/uL (1.0-4.8) Monocytes # (Auto) 0.6 x10^3/uL (0.0-1.1) Eosinophils # (Auto) 0.4 x10^3/uL (0.0-0.7) Basophils # (Auto) 0.1 x10^3/uL (0.0-0.2) Erythrocyte Sedimentation Rate 98 (0-15) Sodium Level 138 mmol/L (136-145) Potassium Level 3.1 mmol/L (3.5-5.1) Chloride Level 104 mmol/L (98-107) Carbon Dioxide Level 28 mmol/L (21-32) Anion Gap 6 (6-14) Blood Urea Nitrogen 11 mg/dL (8-26) Creatinine 1.1 mg/dL (0.7-1.3) Estimated GFR (Cockcroft-Gault) 68.5 BUN/Creatinine Ratio 10 (6-20) Glucose Level 271 mg/dL (70-99) Calcium Level 8.1 mg/dL (8.5-10.1) Total Bilirubin 0.4 mg/dL (0.2-1.0) Aspartate Amino Transf (AST/SGOT) 17 U/L (15-37) Alanine Aminotransferase (ALT/SGPT) 17 U/L (16-63) Alkaline Phosphatase 85 U/L (46-116) Total Protein 5.4 g/dL (6.4-8.2) Albumin 1.9 g/dL (3.4-5.0) Albumin/Globulin Ratio 0.5 (1.0-1.7) Test 09/16/19 07:22 09/16/19 11:42 Glucose (Fingerstick) 251 mg/dL (70-99) 237 mg/dL (70-99) Comment Review of Relevant I have reviewed the following items najam (where applicable) has been applied. Labs Laboratory Tests Test 09/14/19 17:16 09/14/19 20:42 09/15/19 05:30 09/15/19 07:40 Glucose (Fingerstick) 231 mg/dL (70-99) 223 mg/dL (70-99) 224 mg/dL (70-99) Vancomycin Level Trough 13.1 mcg/mL (10.0-20.0) Vancomycin Last Dose Date 09/14/2019 Vancomycin Last Dose Time 1800 Test 09/15/19 11:53 09/15/19 16:48 09/15/19 20:42 09/16/19 04:05 Glucose (Fingerstick) 253 mg/dL (70-99) 264 mg/dL (70-99) 266 mg/dL (70-99) White Blood Count 8.9 x10^3/uL (4.0-11.0) Red Blood Count 3.70 x10^6/uL (4.30-5.70) Hemoglobin 10.9 g/dL (13.0-17.5) Hematocrit 31.8 % (39.0-53.0) Mean Corpuscular Volume 86 fL (79-100) Mean Corpuscular Hemoglobin 30 pg (25-35) Mean Corpuscular Hemoglobin Concent 34 g/dL (31-37) Red Cell Distribution Width 13.9 % (11.5-14.5) Platelet Count 293 x10^3/uL (140-400) Neutrophils (%) (Auto) 70 % (31-73) Lymphocytes (%) (Auto) 18 % (24-48) Monocytes (%) (Auto) 7 % (0-9) Eosinophils (%) (Auto) 4 % (0-3) Basophils (%) (Auto) 1 % (0-3) Neutrophils # (Auto) 6.2 x10^3/uL (1.8-7.7) Lymphocytes # (Auto) 1.6 x10^3/uL (1.0-4.8) Monocytes # (Auto) 0.6 x10^3/uL (0.0-1.1) Eosinophils # (Auto) 0.4 x10^3/uL (0.0-0.7) Basophils # (Auto) 0.1 x10^3/uL (0.0-0.2) Erythrocyte Sedimentation Rate 98 (0-15) Sodium Level 138 mmol/L (136-145) Potassium Level 3.1 mmol/L (3.5-5.1) Chloride Level 104 mmol/L (98-107) Carbon Dioxide Level 28 mmol/L (21-32) Anion Gap 6 (6-14) Blood Urea Nitrogen 11 mg/dL (8-26) Creatinine 1.1 mg/dL (0.7-1.3) Estimated GFR (Cockcroft-Gault) 68.5 BUN/Creatinine Ratio 10 (6-20) Glucose Level 271 mg/dL (70-99) Calcium Level 8.1 mg/dL (8.5-10.1) Total Bilirubin 0.4 mg/dL (0.2-1.0) Aspartate Amino Transf (AST/SGOT) 17 U/L (15-37) Alanine Aminotransferase (ALT/SGPT) 17 U/L (16-63) Alkaline Phosphatase 85 U/L (46-116) Total Protein 5.4 g/dL (6.4-8.2) Albumin 1.9 g/dL (3.4-5.0) Albumin/Globulin Ratio 0.5 (1.0-1.7) Test 09/16/19 07:22 09/16/19 11:42 Glucose (Fingerstick) 251 mg/dL (70-99) 237 mg/dL (70-99) Laboratory Tests Test 09/15/19 11:53 09/15/19 16:48 09/15/19 20:42 09/16/19 04:05 Glucose (Fingerstick) 253 mg/dL (70-99) 264 mg/dL (70-99) 266 mg/dL (70-99) White Blood Count 8.9 x10^3/uL (4.0-11.0) Red Blood Count 3.70 x10^6/uL (4.30-5.70) Hemoglobin 10.9 g/dL (13.0-17.5) Hematocrit 31.8 % (39.0-53.0) Mean Corpuscular Volume 86 fL (79-100) Mean Corpuscular Hemoglobin 30 pg (25-35) Mean Corpuscular Hemoglobin Concent 34 g/dL (31-37) Red Cell Distribution Width 13.9 % (11.5-14.5) Platelet Count 293 x10^3/uL (140-400) Neutrophils (%) (Auto) 70 % (31-73) Lymphocytes (%) (Auto) 18 % (24-48) Monocytes (%) (Auto) 7 % (0-9) Eosinophils (%) (Auto) 4 % (0-3) Basophils (%) (Auto) 1 % (0-3) Neutrophils # (Auto) 6.2 x10^3/uL (1.8-7.7) Lymphocytes # (Auto) 1.6 x10^3/uL (1.0-4.8) Monocytes # (Auto) 0.6 x10^3/uL (0.0-1.1) Eosinophils # (Auto) 0.4 x10^3/uL (0.0-0.7) Basophils # (Auto) 0.1 x10^3/uL (0.0-0.2) Erythrocyte Sedimentation Rate 98 (0-15) Sodium Level 138 mmol/L (136-145) Potassium Level 3.1 mmol/L (3.5-5.1) Chloride Level 104 mmol/L (98-107) Carbon Dioxide Level 28 mmol/L (21-32) Anion Gap 6 (6-14) Blood Urea Nitrogen 11 mg/dL (8-26) Creatinine 1.1 mg/dL (0.7-1.3) Estimated GFR (Cockcroft-Gault) 68.5 BUN/Creatinine Ratio 10 (6-20) Glucose Level 271 mg/dL (70-99) Calcium Level 8.1 mg/dL (8.5-10.1) Total Bilirubin 0.4 mg/dL (0.2-1.0) Aspartate Amino Transf (AST/SGOT) 17 U/L (15-37) Alanine Aminotransferase (ALT/SGPT) 17 U/L (16-63) Alkaline Phosphatase 85 U/L (46-116) Total Protein 5.4 g/dL (6.4-8.2) Albumin 1.9 g/dL (3.4-5.0) Albumin/Globulin Ratio 0.5 (1.0-1.7) Test 09/16/19 07:22 09/16/19 11:42 Glucose (Fingerstick) 251 mg/dL (70-99) 237 mg/dL (70-99) Microbiology 09/11/19 Blood Culture - Preliminary, Resulted NO GROWTH AFTER 4 DAYS Medications Current Medications Ondansetron HCl (Zofran) 4 mg PRN Q4HRS PRN IV NAUSEA/VOMITING; Start 09/11/19 at 15:30; Stop 09/12/19 at 15:33; Status DC Zolpidem Tartrate (Ambien) 5 mg PRN QHS PRN PO INSOMNIA; Start 09/11/19 at 15:30 Acetaminophen (Tylenol) 650 mg PRN Q4HRS PRN PO TEMP OVER 100.4F OR MILD PAIN; Start 09/11/19 at 15:30 Docusate Sodium (Colace) 100 mg PRN BID PRN PO HARD STOOLS; Start 09/11/19 at 15:30 Albuterol Sulfate (Ventolin Neb Soln) 2.5 mg PRN Q4HRS PRN NEB SHORTNESS OF BREATH; Start 09/11/19 at 15:30 Guaifenesin (Robitussin) 200 mg PRN Q4HRS PRN PO COUGH; Start 09/11/19 at 15:30 Lorazepam (Ativan) 0.5 mg PRN Q4HRS PRN PO ANXIETY / AGITATION; Start 09/11/19 at 15:30 Hydromorphone HCl (Dilaudid) 1 mg PRN Q2HRS PRN IV SEVERE PAIN 7-10- 2ND CHOICE Last administered on 09/12/19at 22:04; Start 09/11/19 at 15:30 Enoxaparin Sodium (Lovenox 40mg Syringe) 40 mg Q24H SQ Last administered on 09/15/19at 17:13; Start 09/11/19 at 17:00 Vancomycin HCl 1 gm/Dextrose 250 ml @ 250 mls/hr 1X ONCE IV ; Start 09/11/19 at 15:30; Stop 09/11/19 at 16:29; Status UNV Vancomycin HCl (Vanco Per Pharmacy) 1 each PRN DAILY PRN MC SEE COMMENTS Last administered on 09/15/19at 08:31; Start 09/11/19 at 15:30 Piperacillin Sod/ Tazobactam Sod 3.375 gm/Sodium Chloride 50 ml @ 100 mls/hr Q6HRS IV Last administered on 09/16/19at 05:25; Start 09/11/19 at 16:00 Insulin Human Lispro (HumaLOG) 0-7 UNITS TIDWMEALS SQ Last administered on 09/16/19at 08:25; Start 09/11/19 at 17:00 Dextrose (Dextrose 50%-Water Syringe) 12.5 gm PRN Q15MIN PRN IV SEE COMMENTS; Start 09/11/19 at 15:30 Vancomycin HCl 2 gm/Sodium Chloride 500 ml @ 250 mls/hr 1X ONCE IV Last administered on 09/11/19at 17:49; Start 09/11/19 at 18:00; Stop 09/11/19 at 19:59; Status DC Vancomycin HCl 1 gm/Sodium Chloride 250 ml @ 250 mls/hr Q12H IV Last administered on 09/16/19at 06:10; Start 09/12/19 at 06:00 Vancomycin HCl (Vancomycin Trough Level) 1 each 1X ONCE MC ; Start 09/13/19 at 05:30; Stop 09/13/19 at 05:31; Status DC Ondansetron HCl (Zofran) 4 mg PRN Q6HRS PRN IVP NAUSEA/VOMITING; Start 09/12/19 at 12:45 Iodixanol (Visipaque 320) 100 ml STK-MED ONCE .ROUTE ; Start 09/12/19 at 13:55; Stop 09/12/19 at 13:55; Status DC Lidocaine HCl (Lidocaine 1% 20ml Vial) 20 ml STK-MED ONCE .ROUTE ; Start 09/12/19 at 13:55; Stop 09/12/19 at 13:56; Status DC Heparin Sodium/ Sodium Chloride 500 ml @ As Directed STK-MED ONCE .ROUTE ; Start 09/12/19 at 13:55; Stop 09/12/19 at 13:56; Status DC Midazolam HCl (Versed) 5 mg STK-MED ONCE .ROUTE ; Start 09/12/19 at 14:25; Stop 09/12/19 at 14:25; Status DC Fentanyl Citrate (Fentanyl 5ml Vial) 250 mcg STK-MED ONCE .ROUTE ; Start 09/12/19 at 14:25; Stop 09/12/19 at 14:25; Status DC Heparin Sodium (Porcine) (Heparin Sodium) 10,000 unit STK-MED ONCE .ROUTE ; Start 09/12/19 at 14:25; Stop 09/12/19 at 14:25; Status DC Heparin Sodium/ Sodium Chloride (HEPARIN for ARTERIAL LINE FLUSH) 1,000 unit 1X ONCE IART Last administered on 09/12/19at 14:45; Start 09/12/19 at 14:45; Stop 09/12/19 at 14:50; Status DC Heparin Sodium/ Sodium Chloride (HEPARIN for ARTERIAL LINE FLUSH) 1,000 unit 1X ONCE IART Last administered on 09/12/19at 14:45; Start 09/12/19 at 14:45; Stop 09/12/19 at 14:50; Status DC Midazolam HCl (Versed) 5 mg 1X ONCE IV Last administered on 09/12/19at 14:45; Start 09/12/19 at 14:45; Stop 09/12/19 at 14:50; Status DC Fentanyl Citrate (Fentanyl 5ml Vial) 250 mcg 1X ONCE IV Last administered on 09/12/19at 14:45; Start 09/12/19 at 14:45; Stop 09/12/19 at 14:50; Status DC Iodixanol (Visipaque 320) 100 ml 1X ONCE IART Last administered on 09/12/19at 14:45; Start 09/12/19 at 14:45; Stop 09/12/19 at 14:50; Status DC Lidocaine HCl (Lidocaine 1% 20ml Vial) 20 ml 1X ONCE INJ Last administered on 09/12/19at 14:45; Start 09/12/19 at 14:45; Stop 09/12/19 at 14:50; Status DC Heparin Sodium (Porcine) (Heparin Sodium) 5,000 unit 1X ONCE IV Last administered on 09/12/19at 15:00; Start 09/12/19 at 15:00; Stop 09/12/19 at 15:01; Status DC Lactobacillus Rhamnosus (Culturelle) 1 cap BID PO Last administered on 09/16/19at 08:20; Start 09/12/19 at 21:00 Heparin Sodium/ Sodium Chloride 500 ml @ As Directed STK-MED ONCE .ROUTE ; Start 09/12/19 at 15:43; Stop 09/12/19 at 15:43; Status DC Heparin Sodium/ Sodium Chloride (HEPARIN for ARTERIAL LINE FLUSH) 1,000 unit 1X ONCE IART ; Start 09/12/19 at 16:00; Stop 09/12/19 at 16:01; Status DC Propofol (Diprivan) 200 mg STK-MED ONCE IV ; Start 09/12/19 at 16:20; Stop 09/12/19 at 16:21; Status DC Lidocaine HCl (Lidocaine Pf 2% Vial) 5 ml STK-MED ONCE .ROUTE ; Start 09/12/19 at 16:20; Stop 09/12/19 at 16:21; Status DC Dexamethasone Sodium Phosphate (Decadron) 4 mg STK-MED ONCE .ROUTE ; Start 09/12/19 at 16:21; Stop 09/12/19 at 16:21; Status DC Ondansetron HCl (Zofran) 4 mg STK-MED ONCE .ROUTE ; Start 09/12/19 at 16:21; Stop 09/12/19 at 16:21; Status DC Phenylephrine HCl (PHENYLEPHRINE in 0.9% NACL PF) 1 mg STK-MED ONCE IV ; Start 09/12/19 at 16:21; Stop 09/12/19 at 16:21; Status DC Ephedrine Sulfate (ePHEDrine PF IN SALINE SYRINGE) 50 mg STK-MED ONCE IV ; Start 09/12/19 at 16:21; Stop 09/12/19 at 16:21; Status DC Fentanyl Citrate (Fentanyl 2ml Vial) 100 mcg STK-MED ONCE .ROUTE ; Start 09/12/19 at 16:22; Stop 09/12/19 at 16:22; Status DC Ondansetron HCl (Zofran) 4 mg PRN Q6HRS PRN IV NAUSEA/VOMITING; Start 09/12/19 at 16:30; Stop 09/12/19 at 22:00; Status DC Fentanyl Citrate (Fentanyl 2ml Vial) 25 mcg PRN Q5MIN PRN IV MILD PAIN 1-3; Start 09/12/19 at 16:30; Stop 09/12/19 at 22:00; Status DC Fentanyl Citrate (Fentanyl 2ml Vial) 50 mcg PRN Q5MIN PRN IV MODERATE TO SEVERE PAIN; Start 09/12/19 at 16:30; Stop 09/12/19 at 22:10; Status DC Morphine Sulfate (Morphine Sulfate) 1 mg PRN Q10MIN PRN IV SEVERE PAIN 7-10; Start 09/12/19 at 16:30; Stop 09/12/19 at 22:00; Status DC Ringer's Solution 1,000 ml @ 30 mls/hr Q24H IV Last administered on 09/12/19at 16:22; Start 09/12/19 at 16:22; Stop 09/13/19 at 04:21; Status DC Lidocaine HCl (Xylocaine-Mpf 1% 2ml Vial) 2 ml PRN 1X PRN ID PRIOR TO IV START; Start 09/12/19 at 16:30; Stop 09/12/19 at 22:00; Status DC Hydromorphone HCl (Dilaudid) 0.5 mg PRN Q10MIN PRN IV SEV PAIN, Second choice; Start 09/12/19 at 16:30; Stop 09/12/19 at 22:00; Status DC Prochlorperazine Edisylate (Compazine) 5 mg PACU PRN PRN IV NAUSEA, MRX1; Start 09/12/19 at 16:30; Stop 09/12/19 at 22:00; Status DC Heparin Sodium (Porcine) 5000 unit/Sodium Chloride 505 ml @ 505 mls/hr 1X ONCE IRR Last administered on 09/12/19at 17:53; Start 09/12/19 at 17:00; Stop 09/12/19 at 17:59; Status DC Cefazolin Sodium 1 gm/Sodium Chloride 500 ml @ 500 mls/hr 1X ONCE IRR Last administered on 09/12/19at 17:53; Start 09/12/19 at 17:00; Stop 09/12/19 at 17:59; Status DC Cefazolin Sodium/ Dextrose 50 ml @ 100 mls/hr 1X PREOP ONCE IV Last admi nistered on 09/12/19at 17:23; Start 09/12/19 at 16:45; Stop 09/12/19 at 17:14; Status DC Heparin Sodium (Porcine) (Heparin Sodium) 4,000 unit 1X ONCE IV Last administered on 09/12/19at 17:05; Start 09/12/19 at 17:00; Stop 09/12/19 at 17:03; Status DC Heparin Sodium (Porcine) (Heparin Sodium) 5,000 unit STK-MED ONCE SQ ; Start 09/12/19 at 17:02; Stop 09/12/19 at 17:03; Status DC Insulin Human Lispro (HumaLOG VIAL for OP,RR ONLY) 0-10 units PRN Q1HR PRN SQ PER PROTOCOL Last administered on 09/12/19at 17:30; Start 09/12/19 at 17:15; Stop 09/13/19 at 17:14; Status DC Iohexol (Omnipaque 300 Mg/ml) 50 ml STK-MED ONCE .ROUTE ; Start 09/12/19 at 17:17; Stop 09/12/19 at 17:17; Status DC Cellulose (Surgicel Fibrillar 1x2) 1 each STK-MED ONCE .ROUTE ; Start 09/12/19 at 17:17; Stop 09/12/19 at 17:17; Status DC Bupivacaine HCl/ Epinephrine Bitart (Sensorcaine-Epi 0.25%-1:[id number] Mpf) 30 ml S TK-MED ONCE .ROUTE ; Start 09/12/19 at 17:17; Stop 09/12/19 at 17:17; Status DC Cellulose (Surgicel Fibrillar 1x2) 1 each STK-MED ONCE .ROUTE ; Start 09/12/19 at 17:17; Stop 09/12/19 at 17:18; Status DC Glycopyrrolate (Robinul) 1 mg STK-MED ONCE .ROUTE ; Start 09/12/19 at 17:44; Stop 09/12/19 at 17:44; Status DC Rocuronium [place] (Zemuron) 100 mg STK-MED ONCE .ROUTE ; Start 09/12/19 at 18:49; Stop 09/12/19 at 18:50; Status DC Heparin Sodium (Porcine) (Heparin Sodium) 10,000 unit STK-MED ONCE .ROUTE ; Start 09/12/19 at 18:51; Stop 09/12/19 at 18:52; Status DC Neostigmine [place] (Neostigmine Methylsulfate) 5 mg STK-MED ONCE .ROUTE ; Start 09/12/19 at 20:04; Stop 09/12/19 at 20:04; Status DC Protamine Sulfate (Protamine) 50 mg STK-MED ONCE IV ; Start 09/12/19 at 20:26; Stop 09/12/19 at 20:27; Status DC Fentanyl Citrate (Fentanyl 2ml Vial) 100 mcg STK-MED ONCE .ROUTE ; Start at 20:38; Stop 09/12/19 at 20:38; Status DC Sevoflurane (Ultane) 90 ml STK-MED ONCE IH ; Start 09/12/19 at 20:50; Stop at 20:51; Status DC Atorvastatin Calcium (Lipitor) 40 mg QHS PO Last administered on 09/15/19at 21:16; Start 09/12/19 at 22:00 Acetaminophen/ Hydrocodone Bitart (Lortab 5/325) 1 tab PRN Q4HRS PRN PO MODERATE PAIN 4-6 Last administered on 09/16/19at 08:42; Start 09/13/19 at 05:30 Acetaminophen/ Hydrocodone Bitart (Lortab 5/325) 2 tab PRN Q4HRS PRN PO SEVERE PAIN 7-10 Last administered on 09/15/19at 21:22; Start 09/13/19 at 05:30 Morphine Sulfate (Morphine Sulfate) 2 mg PRN Q1HR PRN IV MODERATE PAIN 4-6; Start 09/13/19 at 05:30 Morphine Sulfate (Morphine Sulfate) 4 mg PRN Q1HR PRN IV SEVERE PAIN 7-10; Start 09/13/19 at 05:30 Vancomycin HCl (Vancomycin Trough Level) 1 each 1X ONCE MC Last administered on 09/13/19at 17:30; Start 09/13/19 at 17:30; Stop 09/13/19 at 17:31; Status DC Aspirin ([place] Aspirin) 81 mg DAILYWBKFT PO ; Start 09/14/19 at 08:00; Stop 09/14/19 at 07:57; Status DC Vancomycin HCl (Vancomycin Trough Level) 1 each 1X ONCE MC Last administered on 09/15/19at 05:30; Start 09/15/19 at 05:30; Stop 09/15/19 at 05:31; Status DC Aspirin (Ecotrin) 81 mg DAILYWBKFT PO Last administered on 09/16/19at 08:21; Start 09/14/19 at 08:00 Docusate Sodium (Colace) 100 mg BID PO Last administered on 09/15/19at 21:16; Start 09/14/19 at 14:30 Active Scripts Active Reported Augmentin 875-125 Tablet (Amoxicillin/Potassium Clav) 1 Each Tablet 1 Tab PO BID 10 Days Metformin Hcl 500 Mg Tablet 500 Mg PO DAILY Vitals/I & O Vital Sign - Last 24 Hours 09/15/19 09/15/19 09/15/19 09/15/19 12:00 13:40 15:59 19:00 Temp 99.1 97.9 99.1 97.9 Pulse 60 67 Resp 18 20 B/P (MAP) 133/63 (86) 133/68 (89) Pulse Ox 97 95 O2 Delivery Room Air Room Air Room Air Room Air 09/15/19 09/15/19 09/15/19 09/15/19 19:50 21:22 22:22 23:00 Temp 98.7 98.7 Pulse 58 Resp 20 20 20 B/P (MAP) 142/73 (96) Pulse Ox 92 O2 Delivery Room Air Room Air Room Air Room Air 09/16/19 09/16/19 09/16/19 09/16/19 03:04 07:00 07:22 11:00 Temp 98.3 98.0 98.1 98.3 98.0 98.1 Pulse 64 59 55 Resp 20 18 18 B/P (MAP) 129/84 (99) 155/77 (103) 185/68 (107) Pulse Ox 97 96 99 O2 Delivery Room Air Room Air Room Air Room Air Intake and Output 09/15/19 09/15/19 09/16/19 15:00 23:00 07:00 Intake Total 360 ml Output Total 200 ml Balance 360 ml -200 ml MONICO LEUNG MD September 16, 2019 11:49
--- NOTE | 2019-09-16 11:58 | PDOC ---
SURGICAL PROGRESS NOTE Subjective Patient was seen and examined at the bedside today and is doing very well. His pain is under good control. Vital Signs Vital Signs Date Time Temp Pulse Resp B/P (MAP) Pulse Ox O2 Delivery O2 Flow Rate FiO2 09/16/19 11:00 98.1 55 18 185/68 (107) 99 Room Air 98.1 I&O Intake and Output 09/16/19 07:00 Intake Total 360 ml Output Total 200 ml Balance 160 ml Intake Oral 360 ml Output Urine Total 200 ml # Voids 1 General: Alert Lungs: Clear to auscultation, Normal air movement Heart: Regular rate Abdomen: Soft, No tenderness Extremities: Other (Excellent bypass graft pulse in the left lower extremity, left lower extremity surgical wounds are clean and intact.) Labs Laboratory Tests Test 09/14/19 17:16 09/14/19 20:42 09/15/19 05:30 09/15/19 07:40 Glucose (Fingerstick) 231 mg/dL (70-99) 223 mg/dL (70-99) 224 mg/dL (70-99) Vancomycin Level Trough 13.1 mcg/mL (10.0-20.0) Vancomycin Last Dose Date 09/14/2019 Vancomycin Last Dose Time 1800 Test 09/15/19 11:53 09/15/19 16:48 09/15/19 20:42 09/16/19 04:05 Glucose (Fingerstick) 253 mg/dL (70-99) 264 mg/dL (70-99) 266 mg/dL (70-99) White Blood Count 8.9 x10^3/uL (4.0-11.0) Red Blood Count 3.70 x10^6/uL (4.30-5.70) Hemoglobin 10.9 g/dL (13.0-17.5) Hematocrit 31.8 % (39.0-53.0) Mean Corpuscular Volume 86 fL (79-100) Mean Corpuscular Hemoglobin 30 pg (25-35) Mean Corpuscular Hemoglobin Concent 34 g/dL (31-37) Red Cell Distribution Width 13.9 % (11.5-14.5) Platelet Count 293 x10^3/uL (140-400) Neutrophils (%) (Auto) 70 % (31-73) Lymphocytes (%) (Auto) 18 % (24-48) Monocytes (%) (Auto) 7 % (0-9) Eosinophils (%) (Auto) 4 % (0-3) Basophils (%) (Auto) 1 % (0-3) Neutrophils # (Auto) 6.2 x10^3/uL (1.8-7.7) Lymphocytes # (Auto) 1.6 x10^3/uL (1.0-4.8) Monocytes # (Auto) 0.6 x10^3/uL (0.0-1.1) Eosinophils # (Auto) 0.4 x10^3/uL (0.0-0.7) Basophils # (Auto) 0.1 x10^3/uL (0.0-0.2) Erythrocyte Sedimentation Rate 98 (0-15) Sodium Level 138 mmol/L (136-145) Potassium Level 3.1 mmol/L (3.5-5.1) Chloride Level 104 mmol/L (98-107) Carbon Dioxide Level 28 mmol/L (21-32) Anion Gap 6 (6-14) Blood Urea Nitrogen 11 mg/dL (8-26) Creatinine 1.1 mg/dL (0.7-1.3) Estimated GFR (Cockcroft-Gault) 68.5 BUN/Creatinine Ratio 10 (6-20) Glucose Level 271 mg/dL (70-99) Calcium Level 8.1 mg/dL (8.5-10.1) Total Bilirubin 0.4 mg/dL (0.2-1.0) Aspartate Amino Transf (AST/SGOT) 17 U/L (15-37) Alanine Aminotransferase (ALT/SGPT) 17 U/L (16-63) Alkaline Phosphatase 85 U/L (46-116) Total Protein 5.4 g/dL (6.4-8.2) Albumin 1.9 g/dL (3.4-5.0) Albumin/Globulin Ratio 0.5 (1.0-1.7) Test 09/16/19 07:22 09/16/19 11:42 Glucose (Fingerstick) 251 mg/dL (70-99) 237 mg/dL (70-99) Laboratory Tests Test 09/15/19 16:48 09/15/19 20:42 09/16/19 04:05 09/16/19 07:22 Glucose (Fingerstick) 264 mg/dL (70-99) 266 mg/dL (70-99) 251 mg/dL (70-99) White Blood Count 8.9 x10^3/uL (4.0-11.0) Red Blood Count 3.70 x10^6/uL (4.30-5.70) Hemoglobin 10.9 g/dL (13.0-17.5) Hematocrit 31.8 % (39.0-53.0) Mean Corpuscular Volume 86 fL (79-100) Mean Corpuscular Hemoglobin 30 pg (25-35) Mean Corpuscular Hemoglobin Concent 34 g/dL (31-37) Red Cell Distribution Width 13.9 % (11.5-14.5) Platelet Count 293 x10^3/uL (140-400) Neutrophils (%) (Auto) 70 % (31-73) Lymphocytes (%) (Auto) 18 % (24-48) Monocytes (%) (Auto) 7 % (0-9) Eosinophils (%) (Auto) 4 % (0-3) Basophils (%) (Auto) 1 % (0-3) Neutrophils # (Auto) 6.2 x10^3/uL (1.8-7.7) Lymphocytes # (Auto) 1.6 x10^3/uL (1.0-4.8) Monocytes # (Auto) 0.6 x10^3/uL (0.0-1.1) Eosinophils # (Auto) 0.4 x10^3/uL (0.0-0.7) Basophils # (Auto) 0.1 x10^3/uL (0.0-0.2) Erythrocyte Sedimentation Rate 98 (0-15) Sodium Level 138 mmol/L (136-145) Potassium Level 3.1 mmol/L (3.5-5.1) Chloride Level 104 mmol/L (98-107) Carbon Dioxide Level 28 mmol/L (21-32) Anion Gap 6 (6-14) Blood Urea Nitrogen 11 mg/dL (8-26) Creatinine 1.1 mg/dL (0.7-1.3) Estimated GFR (Cockcroft-Gault) 68.5 BUN/Creatinine Ratio 10 (6-20) Glucose Level 271 mg/dL (70-99) Calcium Level 8.1 mg/dL (8.5-10.1) Total Bilirubin 0.4 mg/dL (0.2-1.0) Aspartate Amino Transf (AST/SGOT) 17 U/L (15-37) Alanine Aminotransferase (ALT/SGPT) 17 U/L (16-63) Alkaline Phosphatase 85 U/L (46-116) Total Protein 5.4 g/dL (6.4-8.2) Albumin 1.9 g/dL (3.4-5.0) Albumin/Globulin Ratio 0.5 (1.0-1.7) Test 09/16/19 11:42 Glucose (Fingerstick) 237 mg/dL (70-99) Assessment/Plan 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 He will have a wound VAC change tomorrow. The patient can be discharged to rehab facility with [facility] wound VAC therapy. He will follow-up in our office in 2 to 3 weeks for suture removal. TATE ARREOLA DO September 16, 2019 11:58
[2019-09-16 15:00] VITALS: BP 141/63
--- NOTE | 2019-09-16 16:01 | NUR ---
original surgical dressing to left leg was removed by surgeon and left open to the air. padma intact. rook boot remains in place
[2019-09-16] MEDS: ENOXAPARIN 40 MG/0.4 ML SYRINGE. SQ SCH (16:28)
[2019-09-16 19:00] VITALS: BP 155/78
[2019-09-16] MEDS: ATORVASTATIN CALCIUM 40 MG TABLET. PO SCH (21:44)
[2019-09-16 23:00] VITALS: BP 149/72
[2019-09-17] MEDS: HYDROcodone/APAP 5/325MG 1 TAB TABLET PO PRN (01:16)
[2019-09-17] MEDS: PIPERACILLIN/TAZOBACTAM 3.375 GM in IV NORMAL SALINE 50ML 50 ML IV SCH ×4 (01:17→17:11)
[2019-09-17 03:00] VITALS: BP 141/67
[2019-09-17 07:00] VITALS: BP 159/80
[2019-09-17] MEDS: VANCOMYCIN 1 GM in IV NORMAL SALINE 250ML 250 ML IV SCH (07:15)
[2019-09-17] MEDS: ASPIRIN ENTERIC COATED 81 MG TABLET.DR. PO SCH (08:21)
[2019-09-17] MEDS: LACTOBACILLUS RHAMNOSUS GG 1 CAPSULE. PO SCH ×2 (08:21→22:03)
[2019-09-17] MEDS: DOCUSATE SODIUM 100 MG CAPSULE. PO SCH ×2 (08:21→21:00)
[2019-09-17] MEDS: INSULIN LISPRO 300 UNITS/3 ML VIAL. SQ SCH ×3 (08:27→17:20)
--- NOTE | 2019-09-17 09:47 | PDOC ---
Infectious Disease Note Subjective: Subjective Patient without complaints Denies F/C/N/V/D/SOA Vital Signs: Vital Signs Vital Signs Date Time Temp Pulse Resp B/P (MAP) Pulse Ox O2 Delivery O2 Flow Rate FiO2 09/17/19 07:00 98.0 68 17 159/80 (106) 91 Room Air 98.0 Physical Exam: PHYSICAL EXAM GENERAL: Lying down, alert, smiling HEENT: Poor dentition. No thrush. Oral mucosa moist. NECK: Supple, no JVD. LUNGS: Clear bilaterally. No wheezing. HEART: S1, S2. No gallops or murmurs. ABDOMEN: Soft, nontender EXTREMITIES: Right lower extremity unremarkable. LLE dressing taken down, large left heel wound with exposed bone, lateral edges slightly necrotic, no purulence Sutures with incision left lower extremity intact, surrounding redness or drainage SKIN: without rash. RESIN FILTERER: Alert and oriented x 3. PIV ok Medications: Inpatient Meds: Current Medications Medications (Trade) Dose Ordered Sig/Steven Start Time Stop Time Status Last Admin Dose Admin Acetaminophen (Tylenol) 650 mg PRN Q4HRS PRN 09/11/19 15:30 Acetaminophen/ Hydrocodone Bitart (Lortab 5/325) 2 tab PRN Q4HRS PRN 09/13/19 05:30 09/17/19 01:16 2 TAB Albuterol Sulfate (Ventolin Neb Soln) 2.5 mg PRN Q4HRS PRN 09/11/19 15:30 Aspirin (Nevaeh Aspirin) 81 mg DAILYWBKFT 09/14/19 08:00 09/14/19 07:57 DC Aspirin (Ecotrin) 81 mg DAILYWBKFT 09/14/19 08:00 09/17/19 08:21 81 MG Atorvastatin Calcium (Lipitor) 40 mg QHS 09/12/19 22:00 09/16/19 21:44 40 MG Bupivacaine HCl/ Epinephrine Bitart (Sensorcaine-Epi 0.25%-1:[id number] Mpf) 30 ml STK-MED ONCE 09/12/19 17:17 09/12/19 17:17 DC Cefazolin Sodium 1 gm/Sodium Chloride 500 ml @ 500 mls/hr 1X ONCE 09/12/19 17:00 09/12/19 17:59 DC 09/12/19 17:53 Cefazolin Sodium/ Dextrose 50 ml @ 100 mls/hr 1X PREOP ONCE 09/12/19 16:45 09/12/19 17:14 DC 09/12/19 17:23 100 MLS/HR Cellulose (Surgicel Fibrillar 1x2) 1 each STK-MED ONCE 09/12/19 17:17 09/12/19 17:18 DC Dexamethasone Sodium Phosphate (Decadron) 4 mg STK-MED ONCE 09/12/19 16:21 09/12/19 16:21 DC Dextrose (Dextrose 50%-Water Syringe) 12.5 gm PRN Q15MIN PRN 09/11/19 15:30 Docusate Sodium (Colace) 100 mg BID 09/14/19 14:30 09/17/19 08:21 100 MG Enoxaparin Sodium (Lovenox 40mg Syringe) 40 mg Q24H 09/11/19 17:00 09/16/19 16:28 40 MG Ephedrine Sulfate (ePHEDrine PF IN SALINE SYRINGE) 50 mg STK-MED ONCE 09/12/19 16:21 09/12/19 16:21 DC Fentanyl Citrate (Fentanyl 2ml Vial) 100 mcg STK-MED ONCE 09/12/19 20:38 09/12/19 20:38 DC Fentanyl Citrate (Fentanyl 5ml Vial) 250 mcg 1X ONCE 09/12/19 14:45 09/12/19 14:50 DC 09/12/19 14:45 50 MCG Glycopyrrolate (Robinul) 1 mg STK-MED ONCE 09/12/19 17:44 09/12/19 17:44 DC Guaifenesin (Robitussin) 200 mg PRN Q4HRS PRN 09/11/19 15:30 Heparin Sodium (Porcine) (Heparin Sodium) 10,000 unit STK-MED ONCE 09/12/19 18:51 09/12/19 18:52 DC Heparin Sodium (Porcine) 5000 unit/Sodium Chloride 505 ml @ 505 mls/hr 1X ONCE 09/12/19 17:00 09/12/19 17:59 DC 09/12/19 17:53 Heparin Sodium/ Sodium Chloride (HEPARIN for ARTERIAL LINE FLUSH) 1,000 unit 1X ONCE 09/12/19 16:00 09/12/19 16:01 DC Hydromorphone HCl (Dilaudid) 0.5 mg PRN Q10MIN PRN 09/12/19 16:30 09/12/19 22:00 DC Insulin Human Lispro (HumaLOG VIAL for OP,RR ONLY) 0-10 units PRN Q1HR PRN 09/12/19 17:15 09/13/19 17:14 DC 09/12/19 17:30 4 UNIT Insulin Human Lispro (HumaLOG) 0-7 UNITS TIDWMEALS 09/11/19 17:00 09/17/19 08:27 4 UNITS Iodixanol (Visipaque 320) 100 ml 1X ONCE 09/12/19 14:45 09/12/19 14:50 DC 09/12/19 14:45 146 ML Iohexol (Omnipaque 300 Mg/ml) 50 ml STK-MED ONCE 09/12/19 17:17 09/12/19 17:17 DC Lactobacillus Rhamnosus (Culturelle) 1 cap BID 09/12/19 21:00 09/17/19 08:21 1 CAP Lidocaine HCl (Lidocaine 1% 20ml Vial) 20 ml 1X ONCE 09/12/19 14:45 09/12/19 14:50 DC 09/12/19 14:45 6 ML Lidocaine HCl (Lidocaine Pf 2% Vial) 5 ml STK-MED ONCE 09/12/19 16:20 09/12/19 16:21 DC Lidocaine HCl (Xylocaine-Mpf 1% 2ml Vial) 2 ml PRN 1X PRN 09/12/19 16:30 09/12/19 22:00 DC Lorazepam (Ativan) 0.5 mg PRN Q4HRS PRN 09/11/19 15:30 Midazolam HCl (Versed) 5 mg 1X ONCE 09/12/19 14:45 09/12/19 14:50 DC 09/12/19 14:45 1 MG Morphine Sulfate (Morphine Sulfate) 4 mg PRN Q1HR PRN 09/13/19 05:30 Neostigmine Hindman (Neostigmine Methylsulfate) 5 mg STK-MED ONCE 09/12/19 20:04 09/12/19 20:04 DC Ondansetron HCl (Zofran) 4 mg PRN Q6HRS PRN 09/12/19 16:30 09/12/19 22:00 DC Phenylephrine HCl (PHENYLEPHRINE in 0.9% NACL PF) 1 mg STK-MED ONCE 09/12/19 16:21 09/12/19 16:21 DC Piperacillin Sod/ Tazobactam Sod 3.375 gm/Sodium Chloride 50 ml @ 100 mls/hr Q6HRS 09/11/19 16:00 09/17/19 06:05 100 MLS/HR Prochlorperazine Edisylate (Compazine) 5 mg PACU PRN PRN 09/12/19 16:30 09/12/19 22:00 DC Propofol (Diprivan) 200 mg STK-MED ONCE 09/12/19 16:20 09/12/19 16:21 DC Protamine Sulfate (Protamine) 50 mg STK-MED ONCE 09/12/19 20:26 09/12/19 20:27 DC Ringer's Solution 1,000 ml @ 30 mls/hr Q24H 09/12/19 16:22 09/13/19 04:21 DC 09/12/19 16:22 30 MLS/HR Rocuronium Hindman (Zemuron) 100 mg STK-MED ONCE 09/12/19 18:49 09/12/19 18:50 DC Sevoflurane (Ultane) 90 ml STK-MED ONCE 09/12/19 20:50 09/12/19 20:51 DC Vancomycin HCl (Vanco Per Pharmacy) 1 each PRN DAILY PRN 09/11/19 15:30 09/15/19 08:31 1 EACH Vancomycin HCl (Vancomycin Trough Level) 1 each 1X ONCE 09/15/19 05:30 09/15/19 05:31 DC 09/15/19 05:30 1 EACH Vancomycin HCl 1 gm/Dextrose 250 ml @ 250 mls/hr 1X ONCE 09/11/19 15:30 09/11/19 16:29 UNV Vancomycin HCl 1 gm/Sodium Chloride 250 ml @ 250 mls/hr Q12H 09/12/19 06:00 09/17/19 07:15 250 MLS/HR Vancomycin HCl 2 gm/Sodium Chloride 500 ml @ 250 mls/hr 1X ONCE 09/11/19 18:00 09/11/19 19:59 DC 09/11/19 17:49 250 MLS/HR Zolpidem Tartrate (Ambien) 5 mg PRN QHS PRN 09/11/19 15:30 Labs: Lab Laboratory Tests Test 09/16/19 11:42 09/16/19 16:28 09/16/19 20:05 09/17/19 07:43 Glucose (Fingerstick) 237 mg/dL (70-99) 264 mg/dL (70-99) 216 mg/dL (70-99) 213 mg/dL (70-99) Objective: Assessment: 1. Left heel necrotic chronic wound infection.Calcaneal OM 09/11 left heel debridement 5 cm x 5 cm 25 cm total down to bone excisional type No intraoperative cultures available 2. Peripheral arterial disease. 09/11 #1 Extensive left profunda femoral endarterectomy down to tertiary branches at least 3 cm, separate from normal requirement for lower extremity bypass #2 left femoral to anterior tibial artery bypass with ipsilateral saphenous vein graft 3. Type 2 diabetes, uncontrolled. 4. Hypertension. 5. Tobaccoism. Plan: Plan of Care Continue IV vancomycin per pharmacy protocal and Zosyn. Monitor renal function. Trough 13.1 on 09/14. ESR 98 Creat around 1.1 Labs today We will transition IV vancomycin to daptomycin when ready for discharge and IV Invanz Needs PICC line Probiotics Optimal diabetes control Wound /Vac as directed Offload Discussed with nursing staff RO VALDEZ MD September 17, 2019 09:47
[2019-09-17 10:18] LABS: BASO # 0.1 x10^3/uL (0.0-0.2); BASO % 1 % (0-3); EOS # 0.4 x10^3/uL (0.0-0.7); EOS % 4 % (0-3); HEMATOCRIT 33.3 % (39.0-53.0); HEMOGLOBIN 11.4 g/dL (13.0-17.5); LYMPH # 1.4 x10^3/uL (1.0-4.8); LYMPH % 13 % (24-48); MEAN CORPUSCULAR HEMOGLOBIN 30 pg (25-35); MEAN CORPUSCULAR HGB CONC 34 g/dL (31-37); MEAN CORPUSCULAR VOLUME 86 fL (79-100); MONO # 0.7 x10^3/uL (0.0-1.1); MONO % 7 % (0-9); NEUT # 7.9 x10^3/uL (1.8-7.7); NEUT % 75 % (31-73); PLATELET COUNT 340 x10^3/uL (140-400); RED BLOOD COUNT 3.87 x10^6/uL (4.30-5.70); WHITE BLOOD COUNT 10.5 x10^3/uL (4.0-11.0)
[2019-09-17 10:33] LABS: ALBUMIN 1.9 g/dL (3.4-5.0); ALBUMIN/GLOBULIN RATIO 0.5 (1.0-1.7); GFR 76.5; POTASSIUM 3.5 mmol/L (3.5-5.1); TOTAL BILIRUBIN 0.4 mg/dL (0.2-1.0); TOTAL PROTEIN 5.6 g/dL (6.4-8.2)
[2019-09-17 11:00] VITALS: BP 154/82
--- NOTE | 2019-09-17 11:15 | PDOC ---
PROGRESS NOTES History of Present Illness History of Present Illness VTE Prophylaxis Ordered VTE Prophylaxis Devices: Contraindicated VTE Pharmacological Prophylaxi: Yes Assessment/Plan Assessment/Plan IMPRESSION 1. 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 CT angiogram can further assess as clinically warranted. 2. Monophasic waveform throughout the left lower extremity, may indicate proximal stenosis. 3. 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 Heel ulceration with the greatest degree of soft tissue irregularity extending approximately 9 mm deep to the skin surface. 4. morbid obesity 5. hypertension 6. Diabetes 7. Punctate focus of increased density plantar and lateral to the second ray proximal phalanx which could represent a retained radiopaque foreign body. PLAN ADMIT Vascular surgery consult consult wound care team accuchecks Continue IV vancomycin per pharmacy protocal and Zosyn. ID consult SS INSULIN DVT prophylaxis EKG at high risk of limb loss 09/14 incisional pain from the bypass site. POD #5 1. Extensive left profunda femoral endarterectomy down to tertiary branches at least 3 cm, 29 MIN pt exam, chart review, > 50% of time spent with exam, chart review, pt care coordination Vitals Vitals Vital Signs Date Time Temp Pulse Resp B/P (MAP) Pulse Ox O2 Delivery O2 Flow Rate FiO2 09/17/19 07:00 98.0 68 17 159/80 (106) 91 Room Air 98.0 Physical Exam Physical Exam GENERAL: Lying down, alert, smiling HEENT: Poor dentition. No thrush. Oral mucosa moist. NECK: Supple, no JVD. LUNGS: Clear bilaterally. No wheezing. HEART: S1, S2. No gallops or murmurs. ABDOMEN: Soft, nontender EXTREMITIES: Right lower extremity unremarkable. LLE dressing taken down, large left heel wound with exposed bone, lateral edges slightly necrotic, no purulence Sutures with incision left lower extremity intact, surrounding redness or drainage SKIN: without rash. 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 PIV ok General: Alert, Oriented X3, Cooperative, No acute distress Heart: Regular rate Abdomen: Soft, No tenderness Extremities: Other (Excellent bypass graft pulse in the left lower extremity, left lower extremity surgical wounds are clean and intact.) Skin: No rashes Labs LABS Laboratory Tests Test 09/16/19 11:42 09/16/19 16:28 09/16/19 20:05 09/17/19 07:43 Glucose (Fingerstick) 237 mg/dL (70-99) 264 mg/dL (70-99) 216 mg/dL (70-99) 213 mg/dL (70-99) Test 09/17/19 10:00 09/17/19 11:11 White Blood Count 10.5 x10^3/uL (4.0-11.0) Red Blood Count 3.87 x10^6/uL (4.30-5.70) Hemoglobin 11.4 g/dL (13.0-17.5) Hematocrit 33.3 % (39.0-53.0) Mean Corpuscular Volume 86 fL (79-100) Mean Corpuscular Hemoglobin 30 pg (25-35) Mean Corpuscular Hemoglobin Concent 34 g/dL (31-37) Red Cell Distribution Width 14.0 % (11.5-14.5) Platelet Count 340 x10^3/uL (140-400) Neutrophils (%) (Auto) 75 % (31-73) Lymphocytes (%) (Auto) 13 % (24-48) Monocytes (%) (Auto) 7 % (0-9) Eosinophils (%) (Auto) 4 % (0-3) Basophils (%) (Auto) 1 % (0-3) Neutrophils # (Auto) 7.9 x10^3/uL (1.8-7.7) Lymphocytes # (Auto) 1.4 x10^3/uL (1.0-4.8) Monocytes # (Auto) 0.7 x10^3/uL (0.0-1.1) Eosinophils # (Auto) 0.4 x10^3/uL (0.0-0.7) Basophils # (Auto) 0.1 x10^3/uL (0.0-0.2) Sodium Level 140 mmol/L (136-145) Potassium Level 3.5 mmol/L (3.5-5.1) Chloride Level 104 mmol/L (98-107) Carbon Dioxide Level 30 mmol/L (21-32) Anion Gap 6 (6-14) Blood Urea Nitrogen 10 mg/dL (8-26) Creatinine 1.0 mg/dL (0.7-1.3) Estimated GFR (Cockcroft-Gault) 76.5 BUN/Creatinine Ratio 10 (6-20) Glucose Level 212 mg/dL (70-99) Calcium Level 8.0 mg/dL (8.5-10.1) Total Bilirubin 0.4 mg/dL (0.2-1.0) Aspartate Amino Transf (AST/SGOT) 18 U/L (15-37) Alanine Aminotransferase (ALT/SGPT) 20 U/L (16-63) Alkaline Phosphatase 84 U/L (46-116) Creatine Kinase 61 U/L (39-308) Total Protein 5.6 g/dL (6.4-8.2) Albumin 1.9 g/dL (3.4-5.0) Albumin/Globulin Ratio 0.5 (1.0-1.7) Glucose (Fingerstick) 194 mg/dL (70-99) Comment Review of Relevant I have reviewed the following items najma (where applicable) has been applied. Labs Laboratory Tests Test 09/15/19 11:53 09/15/19 16:48 09/15/19 20:42 09/16/19 04:05 Glucose (Fingerstick) 253 mg/dL (70-99) 264 mg/dL (70-99) 266 mg/dL (70-99) White Blood Count 8.9 x10^3/uL (4.0-11.0) Red Blood Count 3.70 x10^6/uL (4.30-5.70) Hemoglobin 10.9 g/dL (13.0-17.5) Hematocrit 31.8 % (39.0-53.0) Mean Corpuscular Volume 86 fL (79-100) Mean Corpuscular Hemoglobin 30 pg (25-35) Mean Corpuscular Hemoglobin Concent 34 g/dL (31-37) Red Cell Distribution Width 13.9 % (11.5-14.5) Platelet Count 293 x10^3/uL (140-400) Neutrophils (%) (Auto) 70 % (31-73) Lymphocytes (%) (Auto) 18 % (24-48) Monocytes (%) (Auto) 7 % (0-9) Eosinophils (%) (Auto) 4 % (0-3) Basophils (%) (Auto) 1 % (0-3) Neutrophils # (Auto) 6.2 x10^3/uL (1.8-7.7) Lymphocytes # (Auto) 1.6 x10^3/uL (1.0-4.8) Monocytes # (Auto) 0.6 x10^3/uL (0.0-1.1) Eosinophils # (Auto) 0.4 x10^3/uL (0.0-0.7) Basophils # (Auto) 0.1 x10^3/uL (0.0-0.2) Erythrocyte Sedimentation Rate 98 (0-15) Sodium Level 138 mmol/L (136-145) Potassium Level 3.1 mmol/L (3.5-5.1) Chloride Level 104 mmol/L (98-107) Carbon Dioxide Level 28 mmol/L (21-32) Anion Gap 6 (6-14) Blood Urea Nitrogen 11 mg/dL (8-26) Creatinine 1.1 mg/dL (0.7-1.3) Estimated GFR (Cockcroft-Gault) 68.5 BUN/Creatinine Ratio 10 (6-20) Glucose Level 271 mg/dL (70-99) Calcium Level 8.1 mg/dL (8.5-10.1) Total Bilirubin 0.4 mg/dL (0.2-1.0) Aspartate Amino Transf (AST/SGOT) 17 U/L (15-37) Alanine Aminotransferase (ALT/SGPT) 17 U/L (16-63) Alkaline Phosphatase 85 U/L (46-116) Total Protein 5.4 g/dL (6.4-8.2) Albumin 1.9 g/dL (3.4-5.0) Albumin/Globulin Ratio 0.5 (1.0-1.7) Test 09/16/19 07:22 09/16/19 11:42 09/16/19 16:28 09/16/19 20:05 Glucose (Fingerstick) 251 mg/dL (70-99) 237 mg/dL (70-99) 264 mg/dL (70-99) 216 mg/dL (70-99) Test 09/17/19 07:43 09/17/19 10:00 09/17/19 11:11 Glucose (Fingerstick) 213 mg/dL (70-99) 194 mg/dL (70-99) White Blood Count 10.5 x10^3/uL (4.0-11.0) Red Blood Count 3.87 x10^6/uL (4.30-5.70) Hemoglobin 11.4 g/dL (13.0-17.5) Hematocrit 33.3 % (39.0-53.0) Mean Corpuscular Volume 86 fL (79-100) Mean Corpuscular Hemoglobin 30 pg (25-35) Mean Corpuscular Hemoglobin Concent 34 g/dL (31-37) Red Cell Distribution Width 14.0 % (11.5-14.5) Platelet Count 340 x10^3/uL (140-400) Neutrophils (%) (Auto) 75 % (31-73) Lymphocytes (%) (Auto) 13 % (24-48) Monocytes (%) (Auto) 7 % (0-9) Eosinophils (%) (Auto) 4 % (0-3) Basophils (%) (Auto) 1 % (0-3) Neutrophils # (Auto) 7.9 x10^3/uL (1.8-7.7) Lymphocytes # (Auto) 1.4 x10^3/uL (1.0-4.8) Monocytes # (Auto) 0.7 x10^3/uL (0.0-1.1) Eosinophils # (Auto) 0.4 x10^3/uL (0.0-0.7) Basophils # (Auto) 0.1 x10^3/uL (0.0-0.2) Sodium Level 140 mmol/L (136-145) Potassium Level 3.5 mmol/L (3.5-5.1) Chloride Level 104 mmol/L (98-107) Carbon Dioxide Level 30 mmol/L (21-32) Anion Gap 6 (6-14) Blood Urea Nitrogen 10 mg/dL (8-26) Creatinine 1.0 mg/dL (0.7-1.3) Estimated GFR (Cockcroft-Gault) 76.5 BUN/Creatinine Ratio 10 (6-20) Glucose Level 212 mg/dL (70-99) Calcium Level 8.0 mg/dL (8.5-10.1) Total Bilirubin 0.4 mg/dL (0.2-1.0) Aspartate Amino Transf (AST/SGOT) 18 U/L (15-37) Alanine Aminotransferase (ALT/SGPT) 20 U/L (16-63) Alkaline Phosphatase 84 U/L (46-116) Creatine Kinase 61 U/L (39-308) Total Protein 5.6 g/dL (6.4-8.2) Albumin 1.9 g/dL (3.4-5.0) Albumin/Globulin Ratio 0.5 (1.0-1.7) Laboratory Tests Test 09/16/19 11:42 09/16/19 16:28 09/16/19 20:05 09/17/19 07:43 Glucose (Fingerstick) 237 mg/dL (70-99) 264 mg/dL (70-99) 216 mg/dL (70-99) 213 mg/dL (70-99) Test 09/17/19 10:00 09/17/19 11:11 White Blood Count 10.5 x10^3/uL (4.0-11.0) Red Blood Count 3.87 x10^6/uL (4.30-5.70) Hemoglobin 11.4 g/dL (13.0-17.5) Hematocrit 33.3 % (39.0-53.0) Mean Corpuscular Volume 86 fL (79-100) Mean Corpuscular Hemoglobin 30 pg (25-35) Mean Corpuscular Hemoglobin Concent 34 g/dL (31-37) Red Cell Distribution Width 14.0 % (11.5-14.5) Platelet Count 340 x10^3/uL (140-400) Neutrophils (%) (Auto) 75 % (31-73) Lymphocytes (%) (Auto) 13 % (24-48) Monocytes (%) (Auto) 7 % (0-9) Eosinophils (%) (Auto) 4 % (0-3) Basophils (%) (Auto) 1 % (0-3) Neutrophils # (Auto) 7.9 x10^3/uL (1.8-7.7) Lymphocytes # (Auto) 1.4 x10^3/uL (1.0-4.8) Monocytes # (Auto) 0.7 x10^3/uL (0.0-1.1) Eosinophils # (Auto) 0.4 x10^3/uL (0.0-0.7) Basophils # (Auto) 0.1 x10^3/uL (0.0-0.2) Sodium Level 140 mmol/L (136-145) Potassium Level 3.5 mmol/L (3.5-5.1) Chloride Level 104 mmol/L (98-107) Carbon Dioxide Level 30 mmol/L (21-32) Anion Gap 6 (6-14) Blood Urea Nitrogen 10 mg/dL (8-26) Creatinine 1.0 mg/dL (0.7-1.3) Estimated GFR (Cockcroft-Gault) 76.5 BUN/Creatinine Ratio 10 (6-20) Glucose Level 212 mg/dL (70-99) Calcium Level 8.0 mg/dL (8.5-10.1) Total Bilirubin 0.4 mg/dL (0.2-1.0) Aspartate Amino Transf (AST/SGOT) 18 U/L (15-37) Alanine Aminotransferase (ALT/SGPT) 20 U/L (16-63) Alkaline Phosphatase 84 U/L (46-116) Creatine Kinase 61 U/L (39-308) Total Protein 5.6 g/dL (6.4-8.2) Albumin 1.9 g/dL (3.4-5.0) Albumin/Globulin Ratio 0.5 (1.0-1.7) Glucose (Fingerstick) 194 mg/dL (70-99) Microbiology 09/11/19 Blood Culture - Final, Complete NO GROWTH AFTER 5 DAYS Medications Current Medications Ondansetron HCl (Zofran) 4 mg PRN Q4HRS PRN IV NAUSEA/VOMITING; Start 09/11/19 at 15:30; Stop 09/12/19 at 15:33; Status DC Zolpidem Tartrate (Ambien) 5 mg PRN QHS PRN PO INSOMNIA; Start 09/11/19 at 15:30 Acetaminophen (Tylenol) 650 mg PRN Q4HRS PRN PO TEMP OVER 100.4F OR MILD PAIN; Start 09/11/19 at 15:30 Docusate Sodium (Colace) 100 mg PRN BID PRN PO HARD STOOLS; Start 09/11/19 at 15:30 Albuterol Sulfate (Ventolin Neb Soln) 2.5 mg PRN Q4HRS PRN NEB SHORTNESS OF BREATH; Start 09/11/19 at 15:30 Guaifenesin (Robitussin) 200 mg PRN Q4HRS PRN PO COUGH; Start 09/11/19 at 15:30 Lorazepam (Ativan) 0.5 mg PRN Q4HRS PRN PO ANXIETY / AGITATION; Start 09/11/19 at 15:30 Hydromorphone HCl (Dilaudid) 1 mg PRN Q2HRS PRN IV SEVERE PAIN 7-10- 2ND CHOICE Last administered on 09/12/19at 22:04; Start 09/11/19 at 15:30 Enoxaparin Sodium (Lovenox 40mg Syringe) 40 mg Q24H SQ Last administered on 09/16/19at 16:28; Start 09/11/19 at 17:00 Vancomycin HCl 1 gm/Dextrose 250 ml @ 250 mls/hr 1X ONCE IV ; Start 09/11/19 at 15:30; Stop 09/11/19 at 16:29; Status UNV Vancomycin HCl (Vanco Per Pharmacy) 1 each PRN DAILY PRN MC SEE COMMENTS Last administered on 09/15/19at 08:31; Start 09/11/19 at 15:30 Piperacillin Sod/ Tazobactam Sod 3.375 gm/Sodium Chloride 50 ml @ 100 mls/hr Q6HRS IV Last administered on 09/17/19at 06:05; Start 09/11/19 at 16:00 Insulin Human Lispro (HumaLOG) 0-7 UNITS TIDWMEALS SQ Last administered on 09/17/19at 08:27; Start 09/11/19 at 17:00 Dextrose (Dextrose 50%-Water Syringe) 12.5 gm PRN Q15MIN PRN IV SEE COMMENTS; Start 09/11/19 at 15:30 Vancomycin HCl 2 gm/Sodium Chloride 500 ml @ 250 mls/hr 1X ONCE IV Last administered on 09/11/19at 17:49; Start 09/11/19 at 18:00; Stop 09/11/19 at 19:59; Status DC Vancomycin HCl 1 gm/Sodium Chloride 250 ml @ 250 mls/hr Q12H IV Last administered on 09/17/19at 07:15; Start 09/12/19 at 06:00 Vancomycin HCl (Vancomycin Trough Level) 1 each 1X ONCE MC ; Start 09/13/19 at 05:30; Stop 09/13/19 at 05:31; Status DC Ondansetron HCl (Zofran) 4 mg PRN Q6HRS PRN IVP NAUSEA/VOMITING; Start 09/12/19 at 12:45 Iodixanol (Visipaque 320) 100 ml STK-MED ONCE .ROUTE ; Start 09/12/19 at 13:55; Stop 09/12/19 at 13:55; Status DC Lidocaine HCl (Lidocaine 1% 20ml Vial) 20 ml STK-MED ONCE .ROUTE ; Start 09/12/19 at 13:55; Stop 09/12/19 at 13:56; Status DC Heparin Sodium/ Sodium Chloride 500 ml @ As Directed STK-MED ONCE .ROUTE ; Start 09/12/19 at 13:55; Stop 09/12/19 at 13:56; Status DC Midazolam HCl (Versed) 5 mg STK-MED ONCE .ROUTE ; Start 09/12/19 at 14:25; Stop 09/12/19 at 14:25; Status DC Fentanyl Citrate (Fentanyl 5ml Vial) 250 mcg STK-MED ONCE .ROUTE ; Start 09/12/19 at 14:25; Stop 09/12/19 at 14:25; Status DC Heparin Sodium (Porcine) (Heparin Sodium) 10,000 unit STK-MED ONCE .ROUTE ; Start 09/12/19 at 14:25; Stop 09/12/19 at 14:25; Status DC Heparin Sodium/ Sodium Chloride (HEPARIN for ARTERIAL LINE FLUSH) 1,000 unit 1X ONCE IART Last administered on 09/12/19at 14:45; Start 09/12/19 at 14:45; Stop 09/12/19 at 14:50; Status DC Heparin Sodium/ Sodium Chloride (HEPARIN for ARTERIAL LINE FLUSH) 1,000 unit 1X ONCE IART Last administered on 09/12/19at 14:45; Start 09/12/19 at 14:45; Stop 09/12/19 at 14:50; Status DC Midazolam HCl (Versed) 5 mg 1X ONCE IV Last administered on 09/12/19at 14:45; Start 09/12/19 at 14:45; Stop 09/12/19 at 14:50; Status DC Fentanyl Citrate (Fentanyl 5ml Vial) 250 mcg 1X ONCE IV Last administered on 09/12/19at 14:45; Start 09/12/19 at 14:45; Stop 09/12/19 at 14:50; Status DC Iodixanol (Visipaque 320) 100 ml 1X ONCE IART Last administered on 09/12/19at 14:45; Start 09/12/19 at 14:45; Stop 09/12/19 at 14:50; Status DC Lidocaine HCl (Lidocaine 1% 20ml Vial) 20 ml 1X ONCE INJ Last administered on 09/12/19at 14:45; Start 09/12/19 at 14:45; Stop 09/12/19 at 14:50; Status DC Heparin Sodium (Porcine) (Heparin Sodium) 5,000 unit 1X ONCE IV Last administered on 09/12/19at 15:00; Start 09/12/19 at 15:00; Stop 09/12/19 at 15:01; Status DC Lactobacillus Rhamnosus (Culturelle) 1 cap BID PO Last administered on 09/17/19at 08:21; Start 09/12/19 at 21:00 Heparin Sodium/ Sodium Chloride 500 ml @ As Directed STK-MED ONCE .ROUTE ; Start 09/12/19 at 15:43; Stop 09/12/19 at 15:43; Status DC Heparin Sodium/ Sodium Chloride (HEPARIN for ARTERIAL LINE FLUSH) 1,000 unit 1X ONCE IART ; Start 09/12/19 at 16:00; Stop 09/12/19 at 16:01; Status DC Propofol (Diprivan) 200 mg STK-MED ONCE IV ; Start 09/12/19 at 16:20; Stop 09/12/19 at 16:21; Status DC Lidocaine HCl (Lidocaine Pf 2% Vial) 5 ml STK-MED ONCE .ROUTE ; Start 09/12/19 at 16:20; Stop 09/12/19 at 16:21; Status DC Dexamethasone Sodium Phosphate (Decadron) 4 mg STK-MED ONCE .ROUTE ; Start 09/12/19 at 16:21; Stop 09/12/19 at 16:21; Status DC Ondansetron HCl (Zofran) 4 mg STK-MED ONCE .ROUTE ; Start 09/12/19 at 16:21; Stop 09/12/19 at 16:21; Status DC Phenylephrine HCl (PHENYLEPHRINE in 0.9% NACL PF) 1 mg STK-MED ONCE IV ; Start 09/12/19 at 16:21; Stop 09/12/19 at 16:21; Status DC Ephedrine Sulfate (ePHEDrine PF IN SALINE SYRINGE) 50 mg STK-MED ONCE IV ; Start 09/12/19 at 16:21; Stop 09/12/19 at 16:21; Status DC Fentanyl Citrate (Fentanyl 2ml Vial) 100 mcg STK-MED ONCE .ROUTE ; Start 09/12/19 at 16:22; Stop 09/12/19 at 16:22; Status DC Ondansetron HCl (Zofran) 4 mg PRN Q6HRS PRN IV NAUSEA/VOMITING; Start 09/12/19 at 16:30; Stop 09/12/19 at 22:00; Status DC Fentanyl Citrate (Fentanyl 2ml Vial) 25 mcg PRN Q5MIN PRN IV MILD PAIN 1-3; Start 09/12/19 at 16:30; Stop 09/12/19 at 22:00; Status DC Fentanyl Citrate (Fentanyl 2ml Vial) 50 mcg PRN Q5MIN PRN IV MODERATE TO SEVERE PAIN; Start 09/12/19 at 16:30; Stop 09/12/19 at 22:10; Status DC Morphine Sulfate (Morphine Sulfate) 1 mg PRN Q10MIN PRN IV SEVERE PAIN 7-10; Start 09/12/19 at 16:30; Stop 09/12/19 at 22:00; Status DC Ringer's Solution 1,000 ml @ 30 mls/hr Q24H IV Last administered on 09/12/19at 16:22; Start 09/12/19 at 16:22; Stop 09/13/19 at 04:21; Status DC Lidocaine HCl (Xylocaine-Mpf 1% 2ml Vial) 2 ml PRN 1X PRN ID PRIOR TO IV START; Start 09/12/19 at 16:30; Stop 09/12/19 at 22:00; Status DC Hydromorphone HCl (Dilaudid) 0.5 mg PRN Q10MIN PRN IV SEV PAIN, Second choice; Start 09/12/19 at 16:30; Stop 09/12/19 at 22:00; Status DC Prochlorperazine Edisylate (Compazine) 5 mg PACU PRN PRN IV NAUSEA, MRX1; Start 09/12/19 at 16:30; Stop 09/12/19 at 22:00; Status DC Heparin Sodium (Porcine) 5000 unit/Sodium Chloride 505 ml @ 505 mls/hr 1X ONCE IRR Last administered on 09/12/19at 17:53; Start 09/12/19 at 17:00; Stop 09/12/19 at 17:59; Status DC Cefazolin Sodium 1 gm/Sodium Chloride 500 ml @ 500 mls/hr 1X ONCE IRR Last administered on 09/12/19at 17:53; Start 09/12/19 at 17:00; Stop 09/12/19 at 17:59; Status DC Cefazolin Sodium/ Dextrose 50 ml @ 100 mls/hr 1X PREOP ONCE IV Last administered on 09/12/19at 17:23; Start 09/12/19 at 16:45; Stop 09/12/19 at 17:14; Status DC Heparin Sodium (Porcine) (Heparin Sodium) 4,000 unit 1X ONCE IV Last administered on 09/12/19at 17:05; Start 09/12/19 at 17:00; Stop 09/12/19 at 17:03; Status DC Heparin Sodium (Porcine) (Heparin Sodium) 5,000 unit STK-MED ONCE SQ ; Start 09/12/19 at 17:02; Stop 09/12/19 at 17:03; Status DC Insulin Human Lispro (HumaLOG VIAL for OP,RR ONLY) 0-10 units PRN Q1HR PRN SQ PER PROTOCOL Last administered on 09/12/19at 17:30; Start 09/12/19 at 17:15; Stop 09/13/19 at 17:14; Status DC Iohexol (Omnipaque 300 Mg/ml) 50 ml STK-MED ONCE .ROUTE ; Start 09/12/19 at 17:17; Stop 09/12/19 at 17:17; Status DC Cellulose (Surgicel Fibrillar 1x2) 1 each STK-MED ONCE .ROUTE ; Start 09/12/19 at 17:17; Stop 09/12/19 at 17:17; Status DC Bupivacaine HCl/ Epinephrine Bitart (Sensorcaine-Epi 0.25%-1:710962 Mpf) 30 ml STK-MED ONCE .ROUTE ; Start 09/12/19 at 17:17; Stop 09/12/19 at 17:17; Status DC Cellulose (Surgicel Fibrillar 1x2) 1 each STK-MED ONCE .ROUTE ; Start 09/12/19 at 17:17; Stop 09/12/19 at 17:18; Status DC Glycopyrrolate (Robinul) 1 mg STK-MED ONCE .ROUTE ; Start 09/12/19 at 17:44; Stop 09/12/19 at 17:44; Status DC Rocuronium Superior (Zemuron) 100 mg STK-MED ONCE .ROUTE ; Start 09/12/19 at 18:49; Stop 09/12/19 at 18:50; Status DC Heparin Sodium (Porcine) (Heparin Sodium) 10,000 unit STK-MED ONCE .ROUTE ; Start 09/12/19 at 18:51; Stop 09/12/19 at 18:52; Status DC Neostigmine Superior (Neostigmine Methylsulfate) 5 mg STK-MED ONCE .ROUTE ; Start 09/12/19 at 20:04; Stop 09/12/19 at 20:04; Status DC Protamine Sulfate (Protamine) 50 mg STK-MED ONCE IV ; Start 09/12/19 at 20:26; Stop 09/12/19 at 20:27; Status DC Fentanyl Citrate (Fentanyl 2ml Vial) 100 mcg STK-MED ONCE .ROUTE ; Start 09/12/19 at 20:38; Stop 09/12/19 at 20:38; Status DC Sevoflurane (Ultane) 90 ml STK-MED ONCE IH ; Start 09/12/19 at 20:50; Stop 09/12/19 at 20:51; Status DC Atorvastatin Calcium (Lipitor) 40 mg QHS PO Last administered on 09/16/19at 21:44; Start 09/12/19 at 22:00 Acetaminophen/ Hydrocodone Bitart (Lortab 5/325) 1 tab PRN Q4HRS PRN PO MODERATE PAIN 4-6 Last administered on 09/16/19at 08:42; Start 09/13/19 at 05:30 Acetaminophen/ Hydrocodone Bitart (Lortab 5/325) 2 tab PRN Q4HRS PRN PO SEVERE PAIN 7-10 Last administered on 09/17/19at 01:16; Start 09/13/19 at 05:30 Morphine Sulfate (Morphine Sulfate) 2 mg PRN Q1HR PRN IV MODERATE PAIN 4-6; Start 09/13/19 at 05:30 Morphine Sulfate (Morphine Sulfate) 4 mg PRN Q1HR PRN IV SEVERE PAIN 7-10; Start 09/13/19 at 05:30 Vancomycin HCl (Vancomycin Trough Level) 1 each 1X ONCE MC Last administered on 09/13/19at 17:30; Start 09/13/19 at 17:30; Stop 09/13/19 at 17:31; Status DC Aspirin (Nevaeh Aspirin) 81 mg DAILYWBKFT PO ; Start 09/14/19 at 08:00; Stop 09/14/19 at 07:57; Status DC Vancomycin HCl (Vancomycin Trough Level) 1 each 1X ONCE MC Last administered on 09/15/19at 05:30; Start 09/15/19 at 05:30; Stop 09/15/19 at 05:31; Status DC Aspirin (Ecotrin) 81 mg DAILYWBKFT PO Last administered on 09/17/19at 08:21; Start 09/14/19 at 08:00 Docusate Sodium (Colace) 100 mg BID PO Last administered on 09/17/19at 08:21; Start 09/14/19 at 14:30 Active Scripts Active Reported Augmentin 875-125 Tablet (Amoxicillin/Potassium Clav) 1 Each Tablet 1 Tab PO BID 10 Days Metformin Hcl 500 Mg Tablet 500 Mg PO DAILY Vitals/I & O Vital Sign - Last 24 Hours 09/16/19 09/16/19 09/16/19 09/16/19 15:00 19:00 20:00 23:00 Temp 98.0 98.3 99.3 98.0 98.3 99.3 Pulse 67 68 74 Resp 18 18 18 B/P (MAP) 141/63 (89) 155/78 (103) 149/72 (97) Pulse Ox 97 95 90 O2 Delivery Room Air Room Air Room Air Room Air 09/17/19 09/17/19 03:00 07:00 Temp 98.4 98.0 98.4 98.0 Pulse 63 68 Resp 18 17 B/P (MAP) 141/67 (91) 159/80 (106) Pulse Ox 95 91 O2 Delivery Room Air Room Air Intake and Output 09/16/19 09/16/19 09/17/19 14:59 22:59 06:59 Intake Total 300 ml 250 ml 50 ml Output Total 425 ml Balance 300 ml 250 ml -375 ml MONICO LEUNG MD September 17, 2019 11:15
[2019-09-17] MEDS: DAPTOmycin (GENERIC) IVPB 500 MG in IV NORMAL SALINE 50ML 50 ML IV SCH (13:20)
[2019-09-17] MEDS: MORPHINE SULFATE 4 MG/ML VIAL. IV PRN (14:04)
--- NOTE | 2019-09-17 14:51 | PDOC ---
PROGRESS NOTES Subjective Subjective He denies left leg and foot pain except at night when he is trying to sleep. He denies chest pain, shortness of breath, fever, chills. Objective Objective Vital Signs Date Time Temp Pulse Resp B/P (MAP) Pulse Ox O2 Delivery O2 Flow Rate FiO2 09/17/19 13:57 97 Room Air 09/17/19 11:00 98.7 63 18 154/82 (106) 98.7 09/12/19 22:34 2.0 Intake and Output 09/17/19 07:00 Intake Total 600 ml Output Total 425 ml Balance 175 ml Intake Oral 300 ml IV Total 300 ml Output Urine Total 425 ml # Voids 4 Physical Exam Physical Exam His left heel wound has nice granulation tissue forming. His left leg incisions have padma intact, without surrounding redness, edema or drainage. He has a 2+ left femoral pulse. He has an excellent left lateral leg bypass graft pulse and palpable pedal pulses. Heart: Regular rate General: Alert, Cooperative, No acute distress Assessment Assessment POD #5 1. Extensive left profunda femoral endarterectomy down to tertiary branches at least 3 cm, separate from normal requirement for lower extremity bypass #2 left femoral to anterior tibial artery bypass with ipsilateral saphenous vein graft #3 left heel debridement 5 cm x 5 cm 25 cm total down to bone excisional type Doing well. Continue left heel Wound Vac therapy. Continue to off-load heel will order rooke boot Antibiotics per infectious disease. Recommend daily Aspirin, continue statin therapy Diabetes management per IM convention services manager for discharge planning. PT/OT evaluation patient may be toe tip only left leg. May discharge from a vascular surgery standpoint when discharge planning for wound vac and wound care is complete, Comment Review of Relevant I have reviewed the following items najma (where applicable) has been applied. Labs Laboratory Tests Test 09/15/19 16:48 09/15/19 20:42 09/16/19 04:05 09/16/19 07:22 Glucose (Fingerstick) 264 mg/dL (70-99) 266 mg/dL (70-99) 251 mg/dL (70-99) White Blood Count 8.9 x10^3/uL (4.0-11.0) Red Blood Count 3.70 x10^6/uL (4.30-5.70) Hemoglobin 10.9 g/dL (13.0-17.5) Hematocrit 31.8 % (39.0-53.0) Mean Corpuscular Volume 86 fL (79-100) Mean Corpuscular Hemoglobin 30 pg (25-35) Mean Corpuscular Hemoglobin Concent 34 g/dL (31-37) Red Cell Distribution Width 13.9 % (11.5-14.5) Platelet Count 293 x10^3/uL (140-400) Neutrophils (%) (Auto) 70 % (31-73) Lymphocytes (%) (Auto) 18 % (24-48) Monocytes (%) (Auto) 7 % (0-9) Eosinophils (%) (Auto) 4 % (0-3) Basophils (%) (Auto) 1 % (0-3) Neutrophils # (Auto) 6.2 x10^3/uL (1.8-7.7) Lymphocytes # (Auto) 1.6 x10^3/uL (1.0-4.8) Monocytes # (Auto) 0.6 x10^3/uL (0.0-1.1) Eosinophils # (Auto) 0.4 x10^3/uL (0.0-0.7) Basophils # (Auto) 0.1 x10^3/uL (0.0-0.2) Erythrocyte Sedimentation Rate 98 (0-15) Sodium Level 138 mmol/L (136-145) Potassium Level 3.1 mmol/L (3.5-5.1) Chloride Level 104 mmol/L (98-107) Carbon Dioxide Level 28 mmol/L (21-32) Anion Gap 6 (6-14) Blood Urea Nitrogen 11 mg/dL (8-26) Creatinine 1.1 mg/dL (0.7-1.3) Estimated GFR (Cockcroft-Gault) 68.5 BUN/Creatinine Ratio 10 (6-20) Glucose Level 271 mg/dL (70-99) Calcium Level 8.1 mg/dL (8.5-10.1) Total Bilirubin 0.4 mg/dL (0.2-1.0) Aspartate Amino Transf (AST/SGOT) 17 U/L (15-37) Alanine Aminotransferase (ALT/SGPT) 17 U/L (16-63) Alkaline Phosphatase 85 U/L (46-116) Total Protein 5.4 g/dL (6.4-8.2) Albumin 1.9 g/dL (3.4-5.0) Albumin/Globulin Ratio 0.5 (1.0-1.7) Test 09/16/19 11:42 09/16/19 16:28 09/16/19 20:05 09/17/19 07:43 Glucose (Fingerstick) 237 mg/dL (70-99) 264 mg/dL (70-99) 216 mg/dL (70-99) 213 mg/dL (70-99) Test 09/17/19 10:00 09/17/19 11:11 White Blood Count 10.5 x10^3/uL (4.0-11.0) Red Blood Count 3.87 x10^6/uL (4.30-5.70) Hemoglobin 11.4 g/dL (13.0-17.5) Hematocrit 33.3 % (39.0-53.0) Mean Corpuscular Volume 86 fL (79-100) Mean Corpuscular Hemoglobin 30 pg (25-35) Mean Corpuscular Hemoglobin Concent 34 g/dL (31-37) Red Cell Distribution Width 14.0 % (11.5-14.5) Platelet Count 340 x10^3/uL (140-400) Neutrophils (%) (Auto) 75 % (31-73) Lymphocytes (%) (Auto) 13 % (24-48) Monocytes (%) (Auto) 7 % (0-9) Eosinophils (%) (Auto) 4 % (0-3) Basophils (%) (Auto) 1 % (0-3) Neutrophils # (Auto) 7.9 x10^3/uL (1.8-7.7) Lymphocytes # (Auto) 1.4 x10^3/uL (1.0-4.8) Monocytes # (Auto) 0.7 x10^3/uL (0.0-1.1) Eosinophils # (Auto) 0.4 x10^3/uL (0.0-0.7) Basophils # (Auto) 0.1 x10^3/uL (0.0-0.2) Erythrocyte Sedimentation Rate 91 (0-15) Sodium Level 140 mmol/L (136-145) Potassium Level 3.5 mmol/L (3.5-5.1) Chloride Level 104 mmol/L (98-107) Carbon Dioxide Level 30 mmol/L (21-32) Anion Gap 6 (6-14) Blood Urea Nitrogen 10 mg/dL (8-26) Creatinine 1.0 mg/dL (0.7-1.3) Estimated GFR (Cockcroft-Gault) 76.5 BUN/Creatinine Ratio 10 (6-20) Glucose Level 212 mg/dL (70-99) Calcium Level 8.0 mg/dL (8.5-10.1) Total Bilirubin 0.4 mg/dL (0.2-1.0) Aspartate Amino Transf (AST/SGOT) 18 U/L (15-37) Alanine Aminotransferase (ALT/SGPT) 20 U/L (16-63) Alkaline Phosphatase 84 U/L (46-116) Creatine Kinase 61 U/L (39-308) Total Protein 5.6 g/dL (6.4-8.2) Albumin 1.9 g/dL (3.4-5.0) Albumin/Globulin Ratio 0.5 (1.0-1.7) Glucose (Fingerstick) 194 mg/dL (70-99) Laboratory Tests Test 09/16/19 16:28 09/16/19 20:05 09/17/19 07:43 09/17/19 10:00 Glucose (Fingerstick) 264 mg/dL (70-99) 216 mg/dL (70-99) 213 mg/dL (70-99) White Blood Count 10.5 x10^3/uL (4.0-11.0) Red Blood Count 3.87 x10^6/uL (4.30-5.70) Hemoglobin 11.4 g/dL (13.0-17.5) Hematocrit 33.3 % (39.0-53.0) Mean Corpuscular Volume 86 fL (79-100) Mean Corpuscular Hemoglobin 30 pg (25-35) Mean Corpuscular Hemoglobin Concent 34 g/dL (31-37) Red Cell Distribution Width 14.0 % (11.5-14.5) Platelet Count 340 x10^3/uL (140-400) Neutrophils (%) (Auto) 75 % (31-73) Lymphocytes (%) (Auto) 13 % (24-48) Monocytes (%) (Auto) 7 % (0-9) Eosinophils (%) (Auto) 4 % (0-3) Basophils (%) (Auto) 1 % (0-3) Neutrophils # (Auto) 7.9 x10^3/uL (1.8-7.7) Lymphocytes # (Auto) 1.4 x10^3/uL (1.0-4.8) Monocytes # (Auto) 0.7 x10^3/uL (0.0-1.1) Eosinophils # (Auto) 0.4 x10^3/uL (0.0-0.7) Basophils # (Auto) 0.1 x10^3/uL (0.0-0.2) Erythrocyte Sedimentation Rate 91 (0-15) Sodium Level 140 mmol/L (136-145) Potassium Level 3.5 mmol/L (3.5-5.1) Chloride Level 104 mmol/L (98-107) Carbon Dioxide Level 30 mmol/L (21-32) Anion Gap 6 (6-14) Blood Urea Nitrogen 10 mg/dL (8-26) Creatinine 1.0 mg/dL (0.7-1.3) Estimated GFR (Cockcroft-Gault) 76.5 BUN/Creatinine Ratio 10 (6-20) Glucose Level 212 mg/dL (70-99) Calcium Level 8.0 mg/dL (8.5-10.1) Total Bilirubin 0.4 mg/dL (0.2-1.0) Aspartate Amino Transf (AST/SGOT) 18 U/L (15-37) Alanine Aminotransferase (ALT/SGPT) 20 U/L (16-63) Alkaline Phosphatase 84 U/L (46-116) Creatine Kinase 61 U/L (39-308) Total Protein 5.6 g/dL (6.4-8.2) Albumin 1.9 g/dL (3.4-5.0) Albumin/Globulin Ratio 0.5 (1.0-1.7) Test 09/17/19 11:11 Glucose (Fingerstick) 194 mg/dL (70-99) Microbiology 09/11/19 Blood Culture - Final, Complete NO GROWTH AFTER 5 DAYS Medications Current Medications Ondansetron HCl (Zofran) 4 mg PRN Q4HRS PRN IV NAUSEA/VOMITING; Start 09/11/19 at 15:30; Stop 09/12/19 at 15:33; Status DC Zolpidem Tartrate (Ambien) 5 mg PRN QHS PRN PO INSOMNIA; Start 09/11/19 at 15:30 Acetaminophen (Tylenol) 650 mg PRN Q4HRS PRN PO TEMP OVER 100.4F OR MILD PAIN; Start 09/11/19 at 15:30 Docusate Sodium (Colace) 100 mg PRN BID PRN PO HARD STOOLS; Start 09/11/19 at 15:30 Albuterol Sulfate (Ventolin Neb Soln) 2.5 mg PRN Q4HRS PRN NEB SHORTNESS OF BREATH; Start 09/11/19 at 15:30 Guaifenesin (Robitussin) 200 mg PRN Q4HRS PRN PO COUGH; Start 09/11/19 at 15:30 Lorazepam (Ativan) 0.5 mg PRN Q4HRS PRN PO ANXIETY / AGITATION; Start 09/11/19 at 15:30 Hydromorphone HCl (Dilaudid) 1 mg PRN Q2HRS PRN IV SEVERE PAIN 7-10- 2ND CHOICE Last administered on 09/12/19at 22:04; Start 09/11/19 at 15:30 Enoxaparin Sodium (Lovenox 40mg Syringe) 40 mg Q24H SQ Last administered on 09/16/19at 16:28; Start 09/11/19 at 17:00 Vancomycin HCl 1 gm/Dextrose 250 ml @ 250 mls/hr 1X ONCE IV ; Start 09/11/19 at 15:30; Stop 09/11/19 at 16:29; Status UNV Vancomycin HCl (Vanco Per Pharmacy) 1 each PRN DAILY PRN MC SEE COMMENTS Last administered on 09/15/19at 08:31; Start 09/11/19 at 15:30; Stop 09/17/19 at 11:49; Status DC Piperacillin Sod/ Tazobactam Sod 3.375 gm/Sodium Chloride 50 ml @ 100 mls/hr Q6HRS IV Last administered on 09/17/19at 06:05; Start 09/11/19 at 16:00 Insulin Human Lispro (HumaLOG) 0-7 UNITS TIDWMEALS SQ Last administered on 09/17/19at 12:21; Start 09/11/19 at 17:00 Dextrose (Dextrose 50%-Water Syringe) 12.5 gm PRN Q15MIN PRN IV SEE COMMENTS; Start 09/11/19 at 15:30 Vancomycin HCl 2 gm/Sodium Chloride 500 ml @ 250 mls/hr 1X ONCE IV Last administered on 09/11/19at 17:49; Start 09/11/19 at 18:00; Stop 09/11/19 at 19:5 9; Status DC Vancomycin HCl 1 gm/Sodium Chloride 250 ml @ 250 mls/hr Q12H IV Last administered on 09/17/19at 07:15; Start 09/12/19 at 06:00; Stop 09/17/19 at 11:47; Status DC Vancomycin HCl (Vancomycin Trough Level) 1 each 1X ONCE MC ; Start 09/13/19 at 05:30; Stop 09/13/19 at 05:31; Status DC Ondansetron HCl (Zofran) 4 mg PRN Q6HRS PRN IVP NAUSEA/VOMITING; Start 09/12/19 at 12:45 Iodixanol (Visipaque 320) 100 ml STK-MED ONCE .ROUTE ; Start 09/12/19 at 13:55; Stop 09/12/19 at 13:55; Status DC Lidocaine HCl (Lidocaine 1% 20ml Vial) 20 ml STK-MED ONCE .ROUTE ; Start 09/12/19 at 13:55; Stop 09/12/19 at 13:56; Status DC Heparin Sodium/ Sodium Chloride 500 ml @ As Directed STK-MED ONCE .ROUTE ; Start 09/12/19 at 13:55; Stop 09/12/19 at 13:56; Status DC Midazolam HCl (Versed) 5 mg STK-MED ONCE .ROUTE ; Start 09/12/19 at 14:25; Stop 09/12/19 at 14:25; Status DC Fentanyl Citrate (Fentanyl 5ml Vial) 250 mcg STK-MED ONCE .ROUTE ; Start 09/12/19 at 14:25; Stop 09/12/19 at 14:25; Status DC Heparin Sodium (Porcine) (Heparin Sodium) 10,000 unit STK-MED ONCE .ROUTE ; Start 09/12/19 at 14:25; Stop 09/12/19 at 14:25; Status DC Heparin Sodium/ Sodium Chloride (HEPARIN for ARTERIAL LINE FLUSH) 1,000 unit 1X ONCE IART Last administered on 09/12/19at 14:45; Start 09/12/19 at 14:45; Stop 09/12/19 at 14:50; Status DC Heparin Sodium/ Sodium Chloride (HEPARIN for ARTERIAL LINE FLUSH) 1,000 unit 1X ONCE IART Last administered on 09/12/19at 14:45; Start 09/12/19 at 14:45; Stop 09/12/19 at 14:50; Status DC Midazolam HCl (Versed) 5 mg 1X ONCE IV Last administered on 09/12/19at 14:45; Start 09/12/19 at 14:45; Stop 09/12/19 at 14:50; Status DC Fentanyl Citrate (Fentanyl 5ml Vial) 250 mcg 1X ONCE IV Last administered on 09/12/19at 14:45; Start 09/12/19 at 14:45; Stop 09/12/19 at 14:50; Status DC Iodixanol (Visipaque 320) 100 ml 1X ONCE IART Last administered on 09/12/19at 14:45; Start 09/12/19 at 14:45; Stop 09/12/19 at 14:50; Status DC Lidocaine HCl (Lidocaine 1% 20ml Vial) 20 ml 1X ONCE INJ Last administered on 09/12/19at 14:45; Start 09/12/19 at 14:45; Stop 09/12/19 at 14:50; Status DC Heparin Sodium (Porcine) (Heparin Sodium) 5,000 unit 1X ONCE IV Last administered on 09/12/19at 15:00; Start 09/12/19 at 15:00; Stop 09/12/19 at 15:01; Status DC Lactobacillus Rhamnosus (Culturelle) 1 cap BID PO Last administered on 09/17/19at 08:21; Start 09/12/19 at 21:00 Heparin Sodium/ Sodium Chloride 500 ml @ As Directed STK-MED ONCE .ROUTE ; Start 09/12/19 at 15:43; Stop 09/12/19 at 15:43; Status DC Heparin Sodium/ Sodium Chloride (HEPARIN for ARTERIAL LINE FLUSH) 1,000 unit 1X ONCE IART ; Start 09/12/19 at 16:00; Stop 09/12/19 at 16:01; Status DC Propofol (Diprivan) 200 mg STK-MED ONCE IV ; Start 09/12/19 at 16:20; Stop 09/12/19 at 16:21; Status DC Lidocaine HCl (Lidocaine Pf 2% Vial) 5 ml STK-MED ONCE .ROUTE ; Start 09/12/19 at 16:20; Stop 09/12/19 at 16:21; Status DC Dexamethasone Sodium Phosphate (Decadron) 4 mg STK-MED ONCE .ROUTE ; Start 09/12/19 at 16:21; Stop 09/12/19 at 16:21; Status DC Ondansetron HCl (Zofran) 4 mg STK-MED ONCE .ROUTE ; Start 09/12/19 at 16:21; Stop 09/12/19 at 16:21; Status DC Phenylephrine HCl (PHENYLEPHRINE in 0.9% NACL PF) 1 mg STK-MED ONCE IV ; Start 09/12/19 at 16:21; Stop 09/12/19 at 16:21; Status DC Ephedrine Sulfate (ePHEDrine PF IN SALINE SYRINGE) 50 mg STK-MED ONCE IV ; Start 09/12/19 at 16:21; Stop 09/12/19 at 16:21; Status DC Fentanyl Citrate (Fentanyl 2ml Vial) 100 mcg STK-MED ONCE .ROUTE ; Start 09/12/19 at 16:22; Stop 09/12/19 at 16:22; Status DC Ondansetron HCl (Zofran) 4 mg PRN Q6HRS PRN IV NAUSEA/VOMITING; Start 09/12/19 at 16:30; Stop 09/12/19 at 22:00; Status DC Fentanyl Citrate (Fentanyl 2ml Vial) 25 mcg PRN Q5MIN PRN IV MILD PAIN 1-3; Start 09/12/19 at 16:30; Stop 09/12/19 at 22:00; Status DC Fentanyl Citrate (Fentanyl 2ml Vial) 50 mcg PRN Q5MIN PRN IV MODERATE TO SEVERE PAIN; Start 09/12/19 at 16:30; Stop 09/12/19 at 22:10; Status DC Morphine Sulfate (Morphine Sulfate) 1 mg PRN Q10MIN PRN IV SEVERE PAIN 7-10; Start 09/12/19 at 16:30; Stop 09/12/19 at 22:00; Status DC Ringer's Solution 1,000 ml @ 30 mls/hr Q24H IV Last administered on 09/12/19at 16:22; Start 09/12/19 at 16:22; Stop 09/13/19 at 04:21; Status DC Lidocaine HCl (Xylocaine-Mpf 1% 2ml Vial) 2 ml PRN 1X PRN ID PRIOR TO IV START; Start 09/12/19 at 16:30; Stop 09/12/19 at 22:00; Status DC Hydromorphone HCl (Dilaudid) 0.5 mg PRN Q10MIN PRN IV SEV PAIN, Second choice; Start 09/12/19 at 16:30; Stop 09/12/19 at 22:00; Status DC Prochlorperazine Edisylate (Compazine) 5 mg PACU PRN PRN IV NAUSEA, MRX1; Start 09/12/19 at 16:30; Stop 09/12/19 at 22:00; Status DC Heparin Sodium (Porcine) 5000 unit/Sodium Chloride 505 ml @ 505 mls/hr 1X ONCE IRR Last administered on 09/12/19at 17:53; Start 09/12/19 at 17:00; Stop 09/12/19 at 17:59; Status DC Cefazolin Sodium 1 gm/Sodium Chloride 500 ml @ 500 mls/hr 1X ONCE IRR Last administered on 09/12/19at 17:53; Start 09/12/19 at 17:00; Stop 09/12/19 at 17:59; Status DC Cefazolin Sodium/ Dextrose 50 ml @ 100 mls/hr 1X PREOP ONCE IV Last administered on 09/12/19at 17:23; Start 09/12/19 at 16:45; Stop 09/12/19 at 17:14; Status DC Heparin Sodium (Porcine) (Heparin Sodium) 4,000 unit 1X ONCE IV Last administered on 09/12/19at 17:05; Start 09/12/19 at 17:00; Stop 09/12/19 at 17:03; Status DC Heparin Sodium (Porcine) (Heparin Sodium) 5,000 unit STK-MED ONCE SQ ; Start 09/12/19 at 17:02; Stop 09/12/19 at 17:03; Status DC Insulin Human Lispro (HumaLOG VIAL for OP,RR ONLY) 0-10 units PRN Q1HR PRN SQ PER PROTOCOL Last administered on 09/12/19at 17:30; Start 09/12/19 at 17:15; St op 09/13/19 at 17:14; Status DC Iohexol (Omnipaque 300 Mg/ml) 50 ml STK-MED ONCE .ROUTE ; Start 09/12/19 at 17:17; Stop 09/12/19 at 17:17; Status DC Cellulose (Surgicel Fibrillar 1x2) 1 each STK-MED ONCE .ROUTE ; Start 09/12/19 at 17:17; Stop 09/12/19 at 17:17; Status DC Bupivacaine HCl/ Epinephrine Bitart (Sensorcaine-Epi 0.25%-1:431926 Mpf) 30 ml STK-MED ONCE .ROUTE ; Start 09/12/19 at 17:17; Stop 09/12/19 at 17:17; Status DC Cellulose (Surgicel Fibrillar 1x2) 1 each STK-MED ONCE .ROUTE ; Start 09/12/19 at 17:17; Stop 09/12/19 at 17:18; Status DC Glycopyrrolate (Robinul) 1 mg STK-MED ONCE .ROUTE ; Start 09/12/19 at 17:44; Stop 09/12/19 at 17:44; Status DC Rocuronium [place] (Zemuron) 100 mg STK-MED ONCE .ROUTE ; Start 09/12/19 at 18:49; Stop 09/12/19 at 18:50; Status DC Heparin Sodium (Porcine) (Heparin Sodium) 10,000 unit STK-MED ONCE .ROUTE ; Start 09/12/19 at 18:51; Stop 09/12/19 at 18:52; Status DC Neostigmine [place] (Neostigmine Methylsulfate) 5 mg STK-MED ONCE .ROUTE ; Start 09/12/19 at 20:04; Stop 09/12/19 at 20:04; Status DC Protamine Sulfate (Protamine) 50 mg STK-MED ONCE IV ; Start 09/12/19 at 20:26; Stop 09/12/19 at 20:27; Status DC Fentanyl Citrate (Fentanyl 2ml Vial) 100 mcg STK-MED ONCE .ROUTE ; Start 09/12/19 at 20:38; Stop 09/12/19 at 20:38; Status DC Sevoflurane (Ultane) 90 ml STK-MED ONCE IH ; Start 09/12/19 at 20:50; Stop 09/12/19 at 20:51; Status DC Atorvastatin Calcium (Lipitor) 40 mg QHS PO Last administered on 09/16/19at 21:44; Start 09/12/19 at 22:00 Acetaminophen/ Hydrocodone Bitart (Lortab 5/325) 1 tab PRN Q4HRS PRN PO MODERATE PAIN 4-6 Last administered on 09/16/19at 08:42; Start 09/13/19 at 05:30 Acetaminophen/ Hydrocodone Bitart (Lortab 5/325) 2 tab PRN Q4HRS PRN PO SEVERE PAIN 7-10 Last administered on 09/17/19at 01:16; Start 09/13/19 at 05:30 Morphine Sulfate (Morphine Sulfate) 2 mg PRN Q1HR PRN IV MODERATE PAIN 4-6; Start 09/13/19 at 05:30 Morphine Sulfate (Morphine Sulfate) 4 mg PRN Q1HR PRN IV SEVERE PAIN 7-10 Last administered on 09/17/19at 14:04; Start 09/13/19 at 05:30 Vancomycin HCl (Vancomycin Trough Level) 1 each 1X ONCE MC Last administered on 09/13/19at 17:30; Start 09/13/19 at 17:30; Stop 09/13/19 at 17:31; Status DC Aspirin (Nevaeh Aspirin) 81 mg DAILYWBKFT PO ; Start 09/14/19 at 08:00; Stop 09/14/19 at 07:57; Status DC Vancomycin HCl (Vancomycin Trough Level) 1 each 1X ONCE MC Last administered on 09/15/19at 05:30; Start 09/15/19 at 05:30; Stop 09/15/19 at 05:31; Status DC Aspirin (Ecotrin) 81 mg DAILYWBKFT PO Last administered on 09/17/19at 08:21; St art 09/14/19 at 08:00 Docusate Sodium (Colace) 100 mg BID PO Last administered on 09/17/19at 08:21; Start 09/14/19 at 14:30 Daptomycin 500 mg/ Sodium Chloride 50 ml @ 100 mls/hr Q24H IV Last administered on 09/17/19at 13:20; Start 09/17/19 at 14:00 Active Scripts Active Reported Augmentin 875-125 Tablet (Amoxicillin/Potassium Clav) 1 Each Tablet 1 Tab PO BID 10 Days Metformin Hcl 500 Mg Tablet 500 Mg PO DAILY Vitals/I & O Vital Sign - Last 24 Hours 09/16/19 09/16/19 09/16/19 09/16/19 15:00 19:00 20:00 23:00 Temp 98.0 98.3 99.3 98.0 98.3 99.3 Pulse 67 68 74 Resp 18 18 18 B/P (MAP) 141/63 (89) 155/78 (103) 149/72 (97) Pulse Ox 97 95 90 O2 Delivery Room Air Room Air Room Air Room Air 09/17/19 09/17/19 09/17/19 09/17/19 03:00 07:00 08:20 11:00 Temp 98.4 98.0 98.7 98.4 98.0 98.7 Pulse 63 68 63 Resp 18 17 18 B/P (MAP) 141/67 (91) 159/80 (106) 154/82 (106) Pulse Ox 95 91 95 O2 Delivery Room Air Room Air Room Air Room Air 09/17/19 13:57 Pulse Ox 97 O2 Delivery Room Air Intake and Output 09/16/19 09/16/19 09/17/19 15:00 23:00 07:00 Intake Total 300 ml 250 ml 50 ml Output Total 425 ml Balance 300 ml 250 ml -375 ml BRANDEN CAMPUZANO APRN September 17, 2019 14:51
[2019-09-17 15:00] VITALS: BP 147/76
--- NOTE | 2019-09-17 16:00 | NUR ---
Wound Care Wound Type/Assessment: left heel DFU pt seen in [facility] on Monday and admitted to [facility] for surgical intervention. Pt had arterial intervention and debridement in OR last week with Dr Vu. L heel wound is very clean, well granulated, wound edges and periwound with macerated callus and minimal slough, no underlying structures exposed. Treatment Recommendations/Plan: Vac Veraflo placed to help continue to granulate wound bed, ostomy ring to periwound, set at 10ml NS soak for 5 min every 4 hours. Will follow up on Monday for next dressing change. Education provided:pt educated on vac protocol, PU prevention and POC for follow up after d/c. Offloading surface/device: pillows to float heels, Rooke boot to left leg, defer offloading shoe and weightbearing status to Vascular. Recommended Referrals/Tests: none Discharge Recommendations for dressings: continue vac at SNU or d/c home. Will apply for home vac in case pt decides to go home instead of SNU.
--- NOTE | 2019-09-17 16:03 | NUR ---
SS following for discharge planning. SS reviewed pt chart. Pt is from home and is currently on room air. PT/OT recommended senior care unit. Pt has wound care and IV antibiotics. SS met with pt to discuss senior care unit and discharge planning. Pt not agreeable to senior care unit referral at this time. Pt requested that SS come back another day to discuss. SS will continue to follow for discharge planning.
[2019-09-17] MEDS: ENOXAPARIN 40 MG/0.4 ML SYRINGE. SQ SCH (17:17)
[2019-09-17 19:20] VITALS: BP 133/82
[2019-09-17] MEDS: ATORVASTATIN CALCIUM 40 MG TABLET. PO SCH (22:03)
[2019-09-17 23:10] VITALS: BP 157/76
[2019-09-18] MEDS: PIPERACILLIN/TAZOBACTAM 3.375 GM in IV NORMAL SALINE 50ML 50 ML IV SCH ×4 (00:17→16:56)
[2019-09-18 03:23] VITALS: BP 136/76
[2019-09-18 07:00] VITALS: BP 169/84
[2019-09-18] MEDS: LACTOBACILLUS RHAMNOSUS GG 1 CAPSULE. PO SCH ×2 (08:16→21:13)
[2019-09-18] MEDS: DOCUSATE SODIUM 100 MG CAPSULE. PO SCH ×2 (08:17→21:00)
[2019-09-18] MEDS: ASPIRIN ENTERIC COATED 81 MG TABLET.DR. PO SCH (08:17)
[2019-09-18] MEDS: INSULIN LISPRO 300 UNITS/3 ML VIAL. SQ SCH ×3 (08:18→16:57)
--- NOTE | 2019-09-18 10:20 | PDOC ---
Infectious Disease Note Subjective: Subjective Patient without complaints Denies F/C/N/V/D/SOA Vital Signs: Vital Signs Vital Signs Date Time Temp Pulse Resp B/P (MAP) Pulse Ox O2 Delivery O2 Flow Rate FiO2 09/18/19 07:55 Room Air 09/18/19 07:00 98.0 73 16 169/84 (112) 90 98.0 Physical Exam: PHYSICAL EXAM GENERAL: Lying down, alert, smiling HEENT: Poor dentition. No thrush. Oral mucosa moist. NECK: Supple, no JVD. LUNGS: Clear bilaterally. No wheezing. HEART: S1, S2. No gallops or murmurs. ABDOMEN: Soft, nontender EXTREMITIES: Right lower extremity unremarkable. LLE dressing taken down, large left heel wound with exposed bone, lateral edges slightly necrotic, no purulence Sutures with incision left lower extremity intact, surrounding redness or drainage SKIN: without rash. 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 PIV ok Medications: Inpatient Meds: Current Medications Medications (Trade) Dose Ordered Sig/Steven Start Time Stop Time Status Last Admin Dose Admin Acetaminophen (Tylenol) 650 mg PRN Q4HRS PRN 09/11/19 15:30 Acetaminophen/ Hydrocodone Bitart (Lortab 5/325) 2 tab PRN Q4HRS PRN 09/13/19 05:30 09/17/19 01:16 2 TAB Albuterol Sulfate (Ventolin Neb Soln) 2.5 mg PRN Q4HRS PRN 09/11/19 15:30 Aspirin (Nevaeh Aspirin) 81 mg DAILYWBKFT 09/14/19 08:00 09/14/19 07:57 DC Aspirin (Ecotrin) 81 mg DAILYWBKFT 09/14/19 08:00 09/18/19 08:17 81 MG Atorvastatin Calcium (Lipitor) 40 mg QHS 09/12/19 22:00 09/17/19 22:03 40 MG Bupivacaine HCl/ Epinephrine Bitart (Sensorcaine-Epi 0.25%-1:480856 Mpf) 30 ml STK-MED ONCE 09/12/19 17:17 09/12/19 17:17 DC Cefazolin Sodium 1 gm/Sodium Chloride 500 ml @ 500 mls/hr 1X ONCE 09/12/19 17:00 09/12/19 17:59 DC 09/12/19 17:53 Cefazolin Sodium/ Dextrose 50 ml @ 100 mls/hr 1X PREOP ONCE 09/12/19 16:45 09/12/19 17:14 DC 09/12/19 17:23 100 MLS/HR Cellulose (Surgicel Fibrillar 1x2) 1 each STK-MED ONCE 09/12/19 17:17 09/12/19 17:18 DC Daptomycin 500 mg/ Sodium Chloride 50 ml @ 100 mls/hr Q24H 09/17/19 14:00 09/17/19 13:20 100 MLS/HR Dexamethasone Sodium Phosphate (Decadron) 4 mg STK-MED ONCE 09/12/19 16:21 09/12/19 16:21 DC Dextrose (Dextrose 50%-Water Syringe) 12.5 gm PRN Q15MIN PRN 09/11/19 15:30 Docusate Sodium (Colace) 100 mg BID 09/14/19 14:30 09/18/19 08:17 100 MG Enoxaparin Sodium (Lovenox 40mg Syringe) 40 mg Q24H 09/11/19 17:00 09/17/19 17:17 40 MG Ephedrine Sulfate (ePHEDrine PF IN SALINE SYRINGE) 50 mg STK-MED ONCE 09/12/19 16:21 09/12/19 16:21 DC Fentanyl Citrate (Fentanyl 2ml Vial) 100 mcg STK-MED ONCE 09/12/19 20:38 09/12/19 20:38 DC Fentanyl Citrate (Fentanyl 5ml Vial) 250 mcg 1X ONCE 09/12/19 14:45 09/12/19 14:50 DC 09/12/19 14:45 50 MCG Glycopyrrolate (Robinul) 1 mg STK-MED ONCE 09/12/19 17:44 09/12/19 17:44 DC Guaifenesin (Robitussin) 200 mg PRN Q4HRS PRN 09/11/19 15:30 Heparin Sodium (Porcine) (Heparin Sodium) 10,000 unit STK-MED ONCE 09/12/19 18:51 09/12/19 18:52 DC Heparin Sodium (Porcine) 5000 unit/Sodium Chloride 505 ml @ 505 mls/hr 1X ONCE 09/12/19 17:00 09/12/19 17:59 DC 09/12/19 17:53 Heparin Sodium/ Sodium Chloride (HEPARIN for ARTERIAL LINE FLUSH) 1,000 unit 1X ONCE 09/12/19 16:00 09/12/19 16:01 DC Hydromorphone HCl (Dilaudid) 0.5 mg PRN Q10MIN PRN 09/12/19 16:30 09/12/19 22:00 DC Insulin Human Lispro (HumaLOG VIAL for OP,RR ONLY) 0-10 units PRN Q1HR PRN 09/12/19 17:15 09/13/19 17:14 DC 09/12/19 17:30 4 UNIT Insulin Human Lispro (HumaLOG) 0-7 UNITS TIDWMEALS 09/11/19 17:00 09/18/19 08:18 6 UNITS Iodixanol (Visipaque 320) 100 ml 1X ONCE 09/12/19 14:45 09/12/19 14:50 DC 09/12/19 14:45 146 ML Iohexol (Omnipaque 300 Mg/ml) 50 ml STK-MED ONCE 09/12/19 17:17 09/12/19 17:17 DC Lactobacillus Rhamnosus (Culturelle) 1 cap BID 09/12/19 21:00 09/18/19 08:16 1 CAP Lidocaine HCl (Lidocaine 1% 20ml Vial) 20 ml 1X ONCE 09/12/19 14:45 09/12/19 14:50 DC 09/12/19 14:45 6 ML Lidocaine HCl (Lidocaine Pf 2% Vial) 5 ml STK-MED ONCE 09/12/19 16:20 09/12/19 16:21 DC Lidocaine HCl (Xylocaine-Mpf 1% 2ml Vial) 2 ml PRN 1X PRN 09/12/19 16:30 09/12/19 22:00 DC Lorazepam (Ativan) 0.5 mg PRN Q4HRS PRN 09/11/19 15:30 Midazolam HCl (Versed) 5 mg 1X ONCE 09/12/19 14:45 09/12/19 14:50 DC 09/12/19 14:45 1 MG Morphine Sulfate (Morphine Sulfate) 4 mg PRN Q1HR PRN 09/13/19 05:30 09/17/19 14:04 4 MG Neostigmine Mck[place]rick (Neostigmine Methylsulfate) 5 mg STK-MED ONCE 09/12/19 20:04 09/12/19 20:04 DC Ondansetron HCl (Zofran) 4 mg PRN Q6HRS PRN 09/12/19 16:30 09/12/19 22:00 DC Phenylephrine HCl (PHENYLEPHRINE in 0.9% NACL PF) 1 mg STK-MED ONCE 09/12/19 16:21 09/12/19 16:21 DC Piperacillin Sod/ Tazobactam Sod 3.375 gm/Sodium Chloride 50 ml @ 100 mls/hr Q6HRS 09/11/19 16:00 09/18/19 05:37 100 MLS/HR Prochlorperazine Edisylate (Compazine) 5 mg PACU PRN PRN 09/12/19 16:30 09/12/19 22:00 DC Propofol (Diprivan) 200 mg STK-MED ONCE 09/12/19 16:20 09/12/19 16:21 DC Protamine Sulfate (Protamine) 50 mg STK-MED ONCE 09/12/19 20:26 09/12/19 20:27 DC Ringer's Solution 1,000 ml @ 30 mls/hr Q24H 09/12/19 16:22 09/13/19 04:21 DC 09/12/19 16:22 30 MLS/HR Rocuronium [place]ck[place]rick (Zemuron) 100 mg STK-MED ONCE 09/12/19 18:49 09/12/19 18:50 DC Sevoflurane (Ultane) 90 ml STK-MED ONCE 09/12/19 20:50 09/12/19 20:51 DC Vancomycin HCl (Vanco Per Pharmacy) 1 each PRN DAILY PRN 09/11/19 15:30 09/17/19 11:49 DC 09/15/19 08:31 1 EACH Vancomycin HCl (Vancomycin Trough Level) 1 each 1X ONCE 09/15/19 05:30 09/15/19 05:31 DC 09/15/19 05:30 1 EACH Vancomycin HCl 1 gm/Dextrose 250 ml @ 250 mls/hr 1X ONCE 09/11/19 15:30 09/11/19 16:29 UNV Vancomycin HCl 1 gm/Sodium Chloride 250 ml @ 250 mls/hr Q12H 09/12/19 06:00 09/17/19 11:47 DC 09/17/19 07:15 250 MLS/HR Vancomycin HCl 2 gm/Sodium Chloride 500 ml @ 250 mls/hr 1X ONCE 09/11/19 18:00 09/11/19 19:59 DC 09/11/19 17:49 250 MLS/HR Zolpidem Tartrate (Ambien) 5 mg PRN QHS PRN 09/11/19 15:30 Labs: Lab Laboratory Tests Test 09/17/19 11:11 09/17/19 21:11 09/18/19 08:16 Glucose (Fingerstick) 194 mg/dL (70-99) 215 mg/dL (70-99) 288 mg/dL (70-99) Objective: Assessment: 1. Large left calcaneal osteomyelitis 09/11 left heel debridement 5 cm x 5 cm 25 cm total down to bone excisional type No intraoperative cultures available Blood culture negative ESR 95 2. Peripheral arterial disease. 09/11 #1 Extensive left profunda femoral endarterectomy down to tertiary branches at least 3 cm, separate from normal requirement for lower extremity bypass #2 left femoral to anterior tibial artery bypass with ipsilateral saphenous vein graft 3. Type 2 diabetes, uncontrolled. 4. Hypertension. 5. Tobaccoism. Plan: Plan of Care Continue daptomycin and Zosyn Prescription in chart ESR 98 PICC line Probiotics Optimal diabetes control Wound /Vac as directed Offload Social work to assist with discharge planning to rehab Discussed with nursing staff RO VALDEZ MD September 18, 2019 10:19
--- NOTE | 2019-09-18 10:48 | PDOC ---
PROGRESS NOTES History of Present Illness History of Present Illness VTE Prophylaxis Ordered VTE Prophylaxis Devices: Contraindicated VTE Pharmacological Prophylaxi: Yes Assessment/Plan Assessment/Plan IMPRESSION pod # 5 1. 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 CT angiogram can further assess as clinically warranted. 2. Monophasic waveform throughout the left lower extremity, may indicate proximal stenosis. 3. 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 Heel ulceration with the greatest degree of soft tissue irregularity extending approximately 9 mm deep to the skin surface. 4. morbid obesity 5. hypertension 6. Diabetes 7. Punctate focus of increased density plantar and lateral to the second ray proximal phalanx which could represent a retained radiopaque foreign body. PLAN ADMIT Vascular surgery consult consult wound care team accuchecks Continue IV daptomycin , Zosyn. ID consult SS INSULIN DVT prophylaxis EKG at risk of limb loss 09/17 less incisional pain from the bypass site. planning home health needs picc placed POD #5 1. Extensive left profunda femoral endarterectomy down to tertiary branches at least 3 cm, 28 MIN pt exam, chart review, > 50% of time spent with exam, chart review, pt care coordination Vitals Vitals Vital Signs Date Time Temp Pulse Resp B/P (MAP) Pulse Ox O2 Delivery O2 Flow Rate FiO2 09/18/19 07:55 Room Air 09/18/19 07:00 98.0 73 16 169/84 (112) 90 98.0 Physical Exam Physical Exam GENERAL: Lying down, alert, smiling HEENT: Poor dentition. No thrush. Oral mucosa moist. NECK: Supple, no JVD. LUNGS: Clear bilaterally. No wheezing. HEART: S1, S2. No gallops or murmurs. ABDOMEN: Soft, nontender EXTREMITIES: Right lower extremity unremarkable. LLE dressing taken down, large left heel wound with exposed bone, lateral edges slightly necrotic, no purulence Sutures with incision left lower extremity intact, surrounding redness or drainage SKIN: without rash. 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 PIV ok General: Alert, Cooperative, No acute distress Heart: Regular rate Abdomen: Soft, No tenderness Extremities: Other (Excellent bypass graft pulse in the left lower extremity, left lower extremity surgical wounds are clean and intact.) Skin: No rashes Labs LABS Laboratory Tests Test 09/17/19 11:11 09/17/19 21:11 09/18/19 08:16 Glucose (Fingerstick) 194 mg/dL (70-99) 215 mg/dL (70-99) 288 mg/dL (70-99) Comment Review of Relevant I have reviewed the following items najma (where applicable) has been applied. Labs Laboratory Tests Test 09/16/19 11:42 09/16/19 16:28 09/16/19 20:05 09/17/19 07:43 Glucose (Fingerstick) 237 mg/dL (70-99) 264 mg/dL (70-99) 216 mg/dL (70-99) 213 mg/dL (70-99) Test 09/17/19 10:00 09/17/19 11:11 09/17/19 21:11 09/18/19 08:16 White Blood Count 10.5 x10^3/uL (4.0-11.0) Red Blood Count 3.87 x10^6/uL (4.30-5.70) Hemoglobin 11.4 g/dL (13.0-17.5) Hematocrit 33.3 % (39.0-53.0) Mean Corpuscular Volume 86 fL (79-100) Mean Corpuscular Hemoglobin 30 pg (25-35) Mean Corpuscular Hemoglobin Concent 34 g/dL (31-37) Red Cell Distribution Width 14.0 % (11.5-14.5) Platelet Count 340 x10^3/uL (140-400) Neutrophils (%) (Auto) 75 % (31-73) Lymphocytes (%) (Auto) 13 % (24-48) Monocytes (%) (Auto) 7 % (0-9) Eosinophils (%) (Auto) 4 % (0-3) Basophils (%) (Auto) 1 % (0-3) Neutrophils # (Auto) 7.9 x10^3/uL (1.8-7.7) Lymphocytes # (Auto) 1.4 x10^3/uL (1.0-4.8) Monocytes # (Auto) 0.7 x10^3/uL (0.0-1.1) Eosinophils # (Auto) 0.4 x10^3/uL (0.0-0.7) Basophils # (Auto) 0.1 x10^3/uL (0.0-0.2) Erythrocyte Sedimentation Rate 91 (0-15) Sodium Level 140 mmol/L (136-145) Potassium Level 3.5 mmol/L (3.5-5.1) Chloride Level 104 mmol/L (98-107) Carbon Dioxide Level 30 mmol/L (21-32) Anion Gap 6 (6-14) Blood Urea Nitrogen 10 mg/dL (8-26) Creatinine 1.0 mg/dL (0.7-1.3) Estimated GFR (Cockcroft-Gault) 76.5 BUN/Creatinine Ratio 10 (6-20) Glucose Level 212 mg/dL (70-99) Calcium Level 8.0 mg/dL (8.5-10.1) Total Bilirubin 0.4 mg/dL (0.2-1.0) Aspartate Amino Transf (AST/SGOT) 18 U/L (15-37) Alanine Aminotransferase (ALT/SGPT) 20 U/L (16-63) Alkaline Phosphatase 84 U/L (46-116) Creatine Kinase 61 U/L (39-308) Total Protein 5.6 g/dL (6.4-8.2) Albumin 1.9 g/dL (3.4-5.0) Albumin/Globulin Ratio 0.5 (1.0-1.7) Glucose (Fingerstick) 194 mg/dL (70-99) 215 mg/dL (70-99) 288 mg/dL (70-99) Laboratory Tests Test 09/17/19 11:11 09/17/19 21:11 09/18/19 08:16 Glucose (Fingerstick) 194 mg/dL (70-99) 215 mg/dL (70-99) 288 mg/dL (70-99) Microbiology 09/11/19 Blood Culture - Final, Complete NO GROWTH AFTER 5 DAYS Medications Current Medications Ondansetron HCl (Zofran) 4 mg PRN Q4HRS PRN IV NAUSEA/VOMITING; Start 09/11/19 at 15:30; Stop 09/12/19 at 15:33; Status DC Zolpidem Tartrate (Ambien) 5 mg PRN QHS PRN PO INSOMNIA; Start 09/11/19 at 15:30 Acetaminophen (Tylenol) 650 mg PRN Q4HRS PRN PO TEMP OVER 100.4F OR MILD PAIN; Start 09/11/19 at 15:30 Docusate Sodium (Colace) 100 mg PRN BID PRN PO HARD STOOLS; Start 09/11/19 at 15:30 Albuterol Sulfate (Ventolin Neb Soln) 2.5 mg PRN Q4HRS PRN NEB SHORTNESS OF BREATH; Start 09/11/19 at 15:30 Guaifenesin (Robitussin) 200 mg PRN Q4HRS PRN PO COUGH; Start 09/11/19 at 15:30 Lorazepam (Ativan) 0.5 mg PRN Q4HRS PRN PO ANXIETY / AGITATION; Start 09/11/19 at 15:30 Hydromorphone HCl (Dilaudid) 1 mg PRN Q2HRS PRN IV SEVERE PAIN 7-10- 2ND CHOICE Last administered on 09/12/19at 22:04; Start 09/11/19 at 15:30 Enoxaparin Sodium (Lovenox 40mg Syringe) 40 mg Q24H SQ Last administered on 09/17/19at 17:17; Start 09/11/19 at 17:00 Vancomycin HCl 1 gm/Dextrose 250 ml @ 250 mls/hr 1X ONCE IV ; Start 09/11/19 at 15:30; Stop 09/11/19 at 16:29; Status UNV Vancomycin HCl (Vanco Per Pharmacy) 1 each PRN DAILY PRN MC SEE COMMENTS Last administered on 09/15/19at 08:31; Start 09/11/19 at 15:30; Stop 09/17/19 at 11:49; Status DC Piperacillin Sod/ Tazobactam Sod 3.375 gm/Sodium Chloride 50 ml @ 100 mls/hr Q6HRS IV Last administered on 09/18/19at 05:37; Start 09/11/19 at 16:00 Insulin Human Lispro (HumaLOG) 0-7 UNITS TIDWMEALS SQ Last administered on 09/18/19at 08:18; Start 09/11/19 at 17:00 Dextrose (Dextrose 50%-Water Syringe) 12.5 gm PRN Q15MIN PRN IV SEE COMMENTS; Start 09/11/19 at 15:30 Vancomycin HCl 2 gm/Sodium Chloride 500 ml @ 250 mls/hr 1X ONCE IV Last administered on 09/11/19at 17:49; Start 09/11/19 at 18:00; Stop 09/11/19 at 19:59; Status DC Vancomycin HCl 1 gm/Sodium Chloride 250 ml @ 250 mls/hr Q12H IV Last administered on 09/17/19at 07:15; Start 09/12/19 at 06:00; Stop 09/17/19 at 11:47; Status DC Vancomycin HCl (Vancomycin Trough Level) 1 each 1X ONCE MC ; Start 09/13/19 at 05:30; Stop 09/13/19 at 05:31; Status DC Ondansetron HCl (Zofran) 4 mg PRN Q6HRS PRN IVP NAUSEA/VOMITING; Start 09/12/19 at 12:45 Iodixanol (Visipaque 320) 100 ml STK-MED ONCE .ROUTE ; Start 09/12/19 at 13:55; Stop 09/12/19 at 13:55; Status DC Lidocaine HCl (Lidocaine 1% 20ml Vial) 20 ml STK-MED ONCE .ROUTE ; Start 09/12/19 at 13:55; Stop 09/12/19 at 13:56; Status DC Heparin Sodium/ Sodium Chloride 500 ml @ As Directed STK-MED ONCE .ROUTE ; Start 09/12/19 at 13:55; Stop 09/12/19 at 13:56; Status DC Midazolam HCl (Versed) 5 mg STK-MED ONCE .ROUTE ; Start 09/12/19 at 14:25; Stop 09/12/19 at 14:25; Status DC Fentanyl Citrate (Fentanyl 5ml Vial) 250 mcg STK-MED ONCE .ROUTE ; Start 09/12/19 at 14:25; Stop 09/12/19 at 14:25; Status DC Heparin Sodium (Porcine) (Heparin Sodium) 10,000 unit STK-MED ONCE .ROUTE ; Start 09/12/19 at 14:25; Stop 09/12/19 at 14:25; Status DC Heparin Sodium/ Sodium Chloride (HEPARIN for ARTERIAL LINE FLUSH) 1,000 unit 1X ONCE IART Last administered on 09/12/19at 14:45; Start 09/12/19 at 14:45; Stop 09/12/19 at 14:50; Status DC Heparin Sodium/ Sodium Chloride (HEPARIN for ARTERIAL LINE FLUSH) 1,000 unit 1X ONCE IART Last administered on 09/12/19at 14:45; Start 09/12/19 at 14:45; Stop 09/12/19 at 14:50; Status DC Midazolam HCl (Versed) 5 mg 1X ONCE IV Last administered on 09/12/19at 14:45; Start 09/12/19 at 14:45; Stop 09/12/19 at 14:50; Status DC Fentanyl Citrate (Fentanyl 5ml Vial) 250 mcg 1X ONCE IV Last administered on 09/12/19at 14:45; Start 09/12/19 at 14:45; Stop 09/12/19 at 14:50; Status DC Iodixanol (Visipaque 320) 100 ml 1X ONCE IART Last administered on 09/12/19at 14:45; Start 09/12/19 at 14:45; Stop 09/12/19 at 14:50; Status DC Lidocaine HCl (Lidocaine 1% 20ml Vial) 20 ml 1X ONCE INJ Last administered on 09/12/19at 14:45; Start 09/12/19 at 14:45; Stop 09/12/19 at 14:50; Status DC Heparin Sodium (Porcine) (Heparin Sodium) 5,000 unit 1X ONCE IV Last administered on 09/12/19at 15:00; Start 09/12/19 at 15:00; Stop 09/12/19 at 15:01; Status DC Lactobacillus Rhamnosus (Culturelle) 1 cap BID PO Last administered on 09/18/19at 08:16; Start 09/12/19 at 21:00 Heparin Sodium/ Sodium Chloride 500 ml @ As Directed STK-MED ONCE .ROUTE ; Start 09/12/19 at 15:43; Stop 09/12/19 at 15:43; Status DC Heparin Sodium/ Sodium Chloride (HEPARIN for ARTERIAL LINE FLUSH) 1,000 unit 1X ONCE IART ; Start 09/12/19 at 16:00; Stop 09/12/19 at 16:01; Status DC Propofol (Diprivan) 200 mg STK-MED ONCE IV ; Start 09/12/19 at 16:20; Stop 09/12/19 at 16:21; Status DC Lidocaine HCl (Lidocaine Pf 2% Vial) 5 ml STK-MED ONCE .ROUTE ; Start 09/12/19 at 16:20; Stop 09/12/19 at 16:21; Status DC Dexamethasone Sodium Phosphate (Decadron) 4 mg STK-MED ONCE .ROUTE ; Start 09/12/19 at 16:21; Stop 09/12/19 at 16:21; Status DC Ondansetron HCl (Zofran) 4 mg STK-MED ONCE .ROUTE ; Start 09/12/19 at 16:21; Stop 09/12/19 at 16:21; Status DC Phenylephrine HCl (PHENYLEPHRINE in 0.9% NACL PF) 1 mg STK-MED ONCE IV ; Start 09/12/19 at 16:21; Stop 09/12/19 at 16:21; Status DC Ephedrine Sulfate (ePHEDrine PF IN SALINE SYRINGE) 50 mg STK-MED ONCE IV ; Start 09/12/19 at 16:21; Stop 09/12/19 at 16:21; Status DC Fentanyl Citrate (Fentanyl 2ml Vial) 100 mcg STK-MED ONCE .ROUTE ; Start 09/12/19 at 16:22; Stop 09/12/19 at 16:22; Status DC Ondansetron HCl (Zofran) 4 mg PRN Q6HRS PRN IV NAUSEA/VOMITING; Start 09/12/19 at 16:30; Stop 09/12/19 at 22:00; Status DC Fentanyl Citrate (Fentanyl 2ml Vial) 25 mcg PRN Q5MIN PRN IV MILD PAIN 1-3; Start 09/12/19 at 16:30; Stop 09/12/19 at 22:00; Status DC Fentanyl Citrate (Fentanyl 2ml Vial) 50 mcg PRN Q5MIN PRN IV MODERATE TO SEVERE PAIN; Start 09/12/19 at 16:30; Stop 09/12/19 at 22:10; Status DC Morphine Sulfate (Morphine Sulfate) 1 mg PRN Q10MIN PRN IV SEVERE PAIN 7-10; Start 09/12/19 at 16:30; Stop 09/12/19 at 22:00; Status DC Ringer's Solution 1,000 ml @ 30 mls/hr Q24H IV Last administered on 09/12/19at 16:22; Start 09/12/19 at 16:22; Stop 09/13/19 at 04:21; Status DC Lidocaine HCl (Xylocaine-Mpf 1% 2ml Vial) 2 ml PRN 1X PRN ID PRIOR TO IV START; Start 09/12/19 at 16:30; Stop 09/12/19 at 22:00; Status DC Hydromorphone HCl (Dilaudid) 0.5 mg PRN Q10MIN PRN IV SEV PAIN, Second choice; Start 09/12/19 at 16:30; Stop 09/12/19 at 22:00; Status DC Prochlorperazine Edisylate (Compazine) 5 mg PACU PRN PRN IV NAUSEA, MRX1; Start 09/12/19 at 16:30; Stop 09/12/19 at 22:00; Status DC Heparin Sodium (Porcine) 5000 unit/Sodium Chloride 505 ml @ 505 mls/hr 1X ONCE IRR Last administered on 09/12/19at 17:53; Start 09/12/19 at 17:00; Stop 09/12/19 at 17:59; Status DC Cefazolin Sodium 1 gm/Sodium Chloride 500 ml @ 500 mls/hr 1X ONCE IRR Last administered on 09/12/19at 17:53; Start 09/12/19 at 17:00; Stop 09/12/19 at 17:59; Status DC Cefazolin Sodium/ Dextrose 50 ml @ 100 mls/hr 1X PREOP ONCE IV Last administered on 09/12/19at 17:23; Start 09/12/19 at 16:45; Stop 09/12/19 at 17:14; Status DC Heparin Sodium (Porcine) (Heparin Sodium) 4,000 unit 1X ONCE IV Last administered on 09/12/19at 17:05; Start 09/12/19 at 17:00; Stop 09/12/19 at 17:03; Status DC Heparin Sodium (Porcine) (Heparin Sodium) 5,000 unit STK-MED ONCE SQ ; Start 09/12/19 at 17:02; Stop 09/12/19 at 17:03; Status DC Insulin Human Lispro (HumaLOG VIAL for OP,RR ONLY) 0-10 units PRN Q1HR PRN SQ PER PROTOCOL Last administered on 09/12/19at 17:30; Start 09/12/19 at 17:15; Stop 09/13/19 at 17:14; Status DC Iohexol (Omnipaque 300 Mg/ml) 50 ml STK-MED ONCE .ROUTE ; Start 09/12/19 at 17:17; Stop 09/12/19 at 17:17; Status DC Cellulose (Surgicel Fibrillar 1x2) 1 each STK-MED ONCE .ROUTE ; Start 09/12/19 at 17:17; Stop 09/12/19 at 17:17; Status DC Bupivacaine HCl/ Epinephrine Bitart (Sensorcaine-Epi 0.25%-1:138109 Mpf) 30 ml STK-MED ONCE .ROUTE ; Start 09/12/19 at 17:17; Stop 09/12/19 at 17:17; Status DC Cellulose (Surgicel Fibrillar 1x2) 1 each STK-MED ONCE .ROUTE ; Start 09/12/19 at 17:17; Stop 09/12/19 at 17:18; Status DC Glycopyrrolate (Robinul) 1 mg STK-MED ONCE .ROUTE ; Start 09/12/19 at 17:44; Stop 09/12/19 at 17:44; Status DC Rocuronium Hudson (Zemuron) 100 mg STK-MED ONCE .ROUTE ; Start 09/12/19 at 18:49; Stop 09/12/19 at 18:50; Status DC Heparin Sodium (Porcine) (Heparin Sodium) 10,000 unit STK-MED ONCE .ROUTE ; Start 09/12/19 at 18:51; Stop 09/12/19 at 18:52; Status DC Neostigmine Hudson (Neostigmine Methylsulfate) 5 mg STK-MED ONCE .ROUTE ; Start 09/12/19 at 20:04; Stop 09/12/19 at 20:04; Status DC Protamine Sulfate (Protamine) 50 mg STK-MED ONCE IV ; Start 09/12/19 at 20:26; Stop 09/12/19 at 20:27; Status DC Fentanyl Citrate (Fentanyl 2ml Vial) 100 mcg STK-MED ONCE .ROUTE ; Start 09/12/19 at 20:38; Stop 09/12/19 at 20:38; Status DC Sevoflurane (Ultane) 90 ml STK-MED ONCE IH ; Start 09/12/19 at 20:50; Stop 09/12/19 at 20:51; Status DC Atorvastatin Calcium (Lipitor) 40 mg QHS PO Last administered on 09/17/19at 22:03; Start 09/12/19 at 22:00 Acetaminophen/ Hydrocodone Bitart (Lortab 5/325) 1 tab PRN Q4HRS PRN PO MODERATE PAIN 4-6 Last administered on 09/16/19at 08:42; Start 09/13/19 at 05:30 Acetaminophen/ Hydrocodone Bitart (Lortab 5/325) 2 tab PRN Q4HRS PRN PO SEVERE PAIN 7-10 Last administered on 09/17/19at 01:16; Start 09/13/19 at 05:30 Morphine Sulfate (Morphine Sulfate) 2 mg PRN Q1HR PRN IV MODERATE PAIN 4-6; Start 09/13/19 at 05:30 Morphine Sulfate (Morphine Sulfate) 4 mg PRN Q1HR PRN IV SEVERE PAIN 7-10 Last administered on 09/17/19at 14:04; Start 09/13/19 at 05:30 Vancomycin HCl (Vancomycin Trough Level) 1 each 1X ONCE MC Last administered on 09/13/19at 17:30; Start 09/13/19 at 17:30; Stop 09/13/19 at 17:31; Status DC Aspirin (Nevaeh Aspirin) 81 mg DAILYWBKFT PO ; Start 09/14/19 at 08:00; Stop 09/14/19 at 07:57; Status DC Vancomycin HCl (Vancomycin Trough Level) 1 each 1X ONCE MC Last administered on 09/15/19at 05:30; Start 09/15/19 at 05:30; Stop 09/15/19 at 05:31; Status DC Aspirin (Ecotrin) 81 mg DAILYWBKFT PO Last administered on 09/18/19at 08:17; Start 09/14/19 at 08:00 Docusate Sodium (Colace) 100 mg BID PO Last administered on 09/18/19at 08:17; Start 09/14/19 at 14:30 Daptomycin 500 mg/ Sodium Chloride 50 ml @ 100 mls/hr Q24H IV Last administered on 09/17/19at 13:20; Start 09/17/19 at 14:00 Active Scripts Active Reported Augmentin 875-125 Tablet (Amoxicillin/Potassium Clav) 1 Each Tablet 1 Tab PO BID 10 Days Metformin Hcl 500 Mg Tablet 500 Mg PO DAILY Vitals/I & O Vital Sign - Last 24 Hours 09/17/19 09/17/19 09/17/19 09/17/19 11:00 13:57 15:00 19:20 Temp 98.7 98.8 98.9 98.7 98.8 98.9 Pulse 63 64 73 Resp 18 18 18 B/P (MAP) 154/82 (106) 147/76 (99) 133/82 (99) Pulse Ox 95 97 95 94 O2 Delivery Room Air Room Air Room Air Room Air 09/17/19 09/17/19 09/18/19 09/18/19 20:00 23:10 03:23 07:00 Temp 99.0 98.7 98.0 99.0 98.7 98.0 Pulse 69 72 73 Resp 18 18 16 B/P (MAP) 157/76 (103) 136/76 (96) 169/84 (112) Pulse Ox 93 94 90 O2 Delivery Room Air Room Air Room Air Room Air 09/18/19 07:55 O2 Delivery Room Air Intake and Output 09/17/19 09/17/19 09/18/19 15:00 23:00 07:00 Intake Total 350 ml Output Total 850 ml Balance -850 ml 350 ml MONICO LEUNG MD September 18, 2019 10:48
[2019-09-18 11:01] VITALS: BP 176/88
[2019-09-18] MEDS: HYDROcodone/APAP 5/325MG 1 TAB TABLET PO PRN ×2 (11:40→16:19)
--- NOTE | 2019-09-18 13:44 | NUR ---
SS following up with discharge planning. SS reviewed pt chart. Pt is currently receiving wound care and IV Daptomycin. Pt continuing to decline senior care unit at this time. SS discussed home healthcare with pt. Pt considering home healthcare. SS will continue to follow for discharge planning.
[2019-09-18] MEDS: DAPTOmycin (GENERIC) IVPB 500 MG in IV NORMAL SALINE 50ML 50 ML IV SCH (13:50)
[2019-09-18 15:00] VITALS: BP 168/84
[2019-09-18] MEDS: ENOXAPARIN 40 MG/0.4 ML SYRINGE. SQ SCH (16:55)
[2019-09-18 19:35] VITALS: BP 135/74
[2019-09-18] MEDS: ATORVASTATIN CALCIUM 40 MG TABLET. PO SCH (21:13)
[2019-09-18 22:36] VITALS: BP 153/78
[2019-09-19] MEDS: PIPERACILLIN/TAZOBACTAM 3.375 GM in IV NORMAL SALINE 50ML 50 ML IV SCH ×5 (00:22→23:44)
[2019-09-19] MEDS: HYDROcodone/APAP 5/325MG 1 TAB TABLET PO PRN ×3 (00:23→23:43)
[2019-09-19 02:49] VITALS: BP 135/68
[2019-09-19 07:00] VITALS: BP 169/86
[2019-09-19] MEDS: DOCUSATE SODIUM 100 MG CAPSULE. PO SCH ×2 (08:00→21:45)
[2019-09-19] MEDS: LACTOBACILLUS RHAMNOSUS GG 1 CAPSULE. PO SCH ×2 (08:00→21:45)
[2019-09-19] MEDS: INSULIN LISPRO 300 UNITS/3 ML VIAL. SQ SCH ×3 (08:03→17:33)
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
--- NOTE | 2019-09-19 09:35 | PDOC ---
Provider Note Provider Note Pt without complaints VSS, afebrile excellent graft pulse lateral leg. Wound vac in place f/u in clinic for staple removal. KENY BOBO II, MD September 19, 2019 09:35
--- NOTE | 2019-09-19 10:05 | PDOC ---
Infectious Disease Note Subjective: Subjective Patient without complaints Denies fever, nausea, vomiting, shortness of breath, diarrhea, abdominal pain, rash Otherwise as above Vital Signs: Vital Signs Vital Signs Date Time Temp Pulse Resp B/P (MAP) Pulse Ox O2 Delivery O2 Flow Rate FiO2 09/19/19 07:40 Room Air 09/19/19 07:00 98.0 74 20 169/86 (113) 92 98.0 Physical Exam: PHYSICAL EXAM GENERAL: Lying down, alert, smiling HEENT: Poor dentition. No thrush. Oral mucosa moist. NECK: Supple, no JVD. LUNGS: Clear bilaterally. No wheezing. HEART: S1, S2. No gallops or murmurs. ABDOMEN: Soft, nontender EXTREMITIES: Right lower extremity unremarkable. LLE dressing taken down, large left heel wound with exposed bone, lateral edges slightly necrotic, no purulence Sutures with incision left lower extremity intact, surrounding redness or drainage SKIN: without rash. 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 PIV ok Medications: Inpatient Meds: Current Medications Medications (Trade) Dose Ordered Sig/Steven Start Time Stop Time Status Last Admin Dose Admin Acetaminophen (Tylenol) 650 mg PRN Q4HRS PRN 09/11/19 15:30 Acetaminophen/ Hydrocodone Bitart (Lortab 5/325) 2 tab PRN Q4HRS PRN 09/13/19 05:30 09/19/19 00:23 2 TAB Albuterol Sulfate (Ventolin Neb Soln) 2.5 mg PRN Q4HRS PRN 09/11/19 15:30 Aspirin (Nevaeh Aspirin) 81 mg DAILYWBKFT 09/14/19 08:00 09/14/19 07:57 DC Aspirin (Ecotrin) 81 mg DAILYWBKFT 09/14/19 08:00 09/18/19 08:17 81 MG Atorvastatin Calcium (Lipitor) 40 mg QHS 09/12/19 22:00 09/18/19 21:13 40 MG Bupivacaine HCl/ Epinephrine Bitart (Sensorcaine-Epi 0.25%-1:507707 Mpf) 30 ml STK-MED ONCE 09/12/19 17:17 09/12/19 17:17 DC Cefazolin Sodium 1 gm/Sodium Chloride 500 ml @ 500 mls/hr 1X ONCE 09/12/19 17:00 09/12/19 17:59 DC 09/12/19 17:53 Cefazolin Sodium/ Dextrose 50 ml @ 100 mls/hr 1X PREOP ONCE 09/12/19 16:45 09/12/19 17:14 DC 09/12/19 17:23 100 MLS/HR Cellulose (Surgicel Fibrillar 1x2) 1 each STK-MED ONCE 09/12/19 17:17 09/12/19 17:18 DC Daptomycin 500 mg/ Sodium Chloride 50 ml @ 100 mls/hr Q24H 09/17/19 14:00 09/18/19 13:50 100 MLS/HR Dexamethasone Sodium Phosphate (Decadron) 4 mg STK-MED ONCE 09/12/19 16:21 09/12/19 16:21 DC Dextrose (Dextrose 50%-Water Syringe) 12.5 gm PRN Q15MIN PRN 09/11/19 15:30 Docusate Sodium (Colace) 100 mg BID 09/14/19 14:30 09/19/19 08:00 100 MG Enoxaparin Sodium (Lovenox 40mg Syringe) 40 mg Q24H 09/11/19 17:00 09/18/19 16:55 40 MG Ephedrine Sulfate (ePHEDrine PF IN SALINE SYRINGE) 50 mg STK-MED ONCE 09/12/19 16:21 09/12/19 16:21 DC Fentanyl Citrate (Fentanyl 2ml Vial) 100 mcg STK-MED ONCE 09/12/19 20:38 09/12/19 20:38 DC Fentanyl Citrate (Fentanyl 5ml Vial) 250 mcg 1X ONCE 09/12/19 14:45 09/12/19 14:50 DC 09/12/19 14:45 50 MCG Glycopyrrolate (Robinul) 1 mg STK-MED ONCE 09/12/19 17:44 09/12/19 17:44 DC Guaifenesin (Robitussin) 200 mg PRN Q4HRS PRN 09/11/19 15:30 Heparin Sodium (Porcine) (Heparin Sodium) 10,000 unit STK-MED ONCE 09/12/19 18:51 09/12/19 18:52 DC Heparin Sodium (Porcine) 5000 unit/Sodium Chloride 505 ml @ 505 mls/hr 1X ONCE 09/12/19 17:00 09/12/19 17:59 DC 09/12/19 17:53 Heparin Sodium/ Sodium Chloride (HEPARIN for ARTERIAL LINE FLUSH) 1,000 unit 1X ONCE 09/12/19 16:00 09/12/19 16:01 DC Hydromorphone HCl (Dilaudid) 0.5 mg PRN Q10MIN PRN 09/12/19 16:30 09/12/19 22:00 DC Insulin Human Lispro (HumaLOG VIAL for OP,RR ONLY) 0-10 units PRN Q1HR PRN 09/12/19 17:15 09/13/19 17:14 DC 09/12/19 17:30 4 UNIT Insulin Human Lispro (HumaLOG) 0-7 UNITS TIDWMEALS 09/11/19 17:00 09/19/19 08:03 3 UNITS Iodixanol (Visipaque 320) 100 ml 1X ONCE 09/12/19 14:45 09/12/19 14:50 DC 09/12/19 14:45 146 ML Iohexol (Omnipaque 300 Mg/ml) 50 ml STK-MED ONCE 09/12/19 17:17 09/12/19 17:17 DC Lactobacillus Rhamnosus (Culturelle) 1 cap BID 09/12/19 21:00 09/19/19 08:00 1 CAP Lidocaine HCl (Lidocaine 1% 20ml Vial) 20 ml 1X ONCE 09/12/19 14:45 09/12/19 14:50 DC 09/12/19 14:45 6 ML Lidocaine HCl (Lidocaine Pf 2% Vial) 5 ml STK-MED ONCE 09/12/19 16:20 09/12/19 16:21 DC Lidocaine HCl (Xylocaine-Mpf 1% 2ml Vial) 2 ml PRN 1X PRN 09/12/19 16:30 09/12/19 22:00 DC Lorazepam (Ativan) 0.5 mg PRN Q4HRS PRN 09/11/19 15:30 Midazolam HCl (Versed) 5 mg 1X ONCE 09/12/19 14:45 09/12/19 14:50 DC 09/12/19 14:45 1 MG Morphine Sulfate (Morphine Sulfate) 4 mg PRN Q1HR PRN 09/13/19 05:30 09/17/19 14:04 4 MG Neostigmine [place] (Neostigmine Methylsulfate) 5 mg STK-MED ONCE 09/12/19 20:04 5/21/20 20:04 DC Ondansetron HCl (Zofran) 4 mg PRN Q6HRS PRN 09/12/19 16:30 09/12/19 22:00 DC Phenylephrine HCl (PHENYLEPHRINE in 0.9% NACL PF) 1 mg STK-MED ONCE 09/12/19 16:21 09/12/19 16:21 DC Piperacillin Sod/ Tazobactam Sod 3.375 gm/Sodium Chloride 50 ml @ 100 mls/hr Q6HRS 09/11/19 16:00 09/19/19 05:39 100 MLS/HR Prochlorperazine Edisylate (Compazine) 5 mg PACU PRN PRN 09/12/19 16:30 09/12/19 22:00 DC Propofol (Diprivan) 200 mg STK-MED ONCE 09/12/19 16:20 09/12/19 16:21 DC Protamine Sulfate (Protamine) 50 mg STK-MED ONCE 09/12/19 20:26 09/12/19 20:27 DC Ringer's Solution 1,000 ml @ 30 mls/hr Q24H 09/12/19 16:22 09/13/19 04:21 DC 09/12/19 16:22 30 MLS/HR Rocuronium [place] (Zemuron) 100 mg STK-MED ONCE 09/12/19 18:49 09/12/19 18:50 DC Sevoflurane (Ultane) 90 ml STK-MED ONCE 09/12/19 20:50 09/12/19 20:51 DC Vancomycin HCl (Vanco Per Pharmacy) 1 each PRN DAILY PRN 09/11/19 15:30 09/17/19 11:49 DC 09/15/19 08:31 1 EACH Vancomycin HCl (Vancomycin Trough Level) 1 each 1X ONCE 09/15/19 05:30 09/15/19 05:31 DC 09/15/19 05:30 1 EACH Vancomycin HCl 1 gm/Dextrose 250 ml @ 250 mls/hr 1X ONCE 09/11/19 15:30 09/11/19 16:29 UNV Vancomycin HCl 1 gm/Sodium Chloride 250 ml @ 250 mls/hr Q12H 09/12/19 06:00 09/17/19 11:47 DC 09/17/19 07:15 250 MLS/HR Vancomycin HCl 2 gm/Sodium Chloride 500 ml @ 250 mls/hr 1X ONCE 09/11/19 18:00 09/11/19 19:59 DC 09/11/19 17:49 250 MLS/HR Zolpidem Tartrate (Ambien) 5 mg PRN QHS PRN 09/11/19 15:30 Labs: Lab Laboratory Tests Test 09/18/19 11:40 09/18/19 16:27 09/18/19 20:59 09/19/19 04:07 Glucose (Fingerstick) 211 mg/dL (70-99) 242 mg/dL (70-99) 196 mg/dL (70-99) Creatine Kinase 43 U/L (39-308) Test 09/19/19 07:15 Glucose (Fingerstick) 185 mg/dL (70-99) Objective: Assessment: 1. Large left calcaneal osteomyelitis 09/11 left heel debridement 5 cm x 5 cm 25 cm total down to bone excisional type No intraoperative cultures available Blood culture negative ESR 95 2. Peripheral arterial disease. 09/11 #1 Extensive left profunda femoral endarterectomy down to tertiary branches at least 3 cm, separate from normal requirement for lower extremity bypass #2 left femoral to anterior tibial artery bypass with ipsilateral saphenous vein graft 3. Type 2 diabetes, uncontrolled. 4. Hypertension. 5. Tobaccoism. Plan: Plan of Care PICC line placement today continue daptomycin and Zosyn Prescription in chart ESR 98 Probiotics Optimal diabetes control Wound /Vac as directed Offload PICC liner roll changer and complications discussed Side effects of antibiotics discussed Probiotics Q. Monday labs CBC/BUN/creatinine/CPK/ESR/CRP. Fax results to [phone] Follow-up with me in ID clinic in 2 weeks, October 01 at 3:45 PM , phone [phone] Wound/VAC care per vascular/orthopedics Social work to assist with discharge planning to rehab Discussed with nursing staff RO VALDEZ MD September 19, 2019 10:05
[2019-09-19 11:00] VITALS: BP 172/92
[2019-09-19] MEDS ORDERED: LIDOCAINE WITH 8.4% SOD BICARB 3 ML DISP.SYRIN. ONE (11:15)
--- NOTE | 2019-09-19 11:25 | NUR ---
Anxious about getting PICC line. Requested pain pill prior to going to IR. Lortab po given.
[2019-09-19] MEDS ORDERED: LIDOCAINE WITH 8.4% SOD BICARB 3 ML DISP.SYRIN. INJ ONE (11:30)
--- NOTE | 2019-09-19 12:10 | NUR ---
Returned from IR by bed. No c/o at this time. "Better than I thought it would be". Limb alert placed and sign placed above the bed.
[2019-09-19] MEDS: ASPIRIN ENTERIC COATED 81 MG TABLET.DR. PO SCH (12:23)
[2019-09-19] MEDS: DAPTOmycin (GENERIC) IVPB 500 MG in IV NORMAL SALINE 50ML 50 ML IV SCH (14:20)
[2019-09-19 15:00] VITALS: BP 170/90
--- NOTE | 2019-09-19 15:32 | NUR ---
SS following up with discharge planning. SS reviewed pt chart and discussed with pt RN. PT/OT recommending fdc unit. Pt has PICC Line and Wound Vac. Pt is agreeable to fdc unit. Pt requested [facility]. [facility] not in network with [facility]. Pt agreeable to [facility], ; fax [phone]. SS phoned and faxed referral to [facility]. SS will await acceptance decision and continue to follow for discharge planning.
[2019-09-19] MEDS: ENOXAPARIN 40 MG/0.4 ML SYRINGE. SQ SCH (17:25)
[2019-09-19 19:20] VITALS: BP 149/81
[2019-09-19] MEDS: ATORVASTATIN CALCIUM 40 MG TABLET. PO SCH (21:45)
[2019-09-19 23:50] VITALS: BP 169/79
[2019-09-20 03:21] VITALS: BP 162/73
[2019-09-20 04:32] LABS: BASO # 0.1 x10^3/uL (0.0-0.2); BASO % 1 % (0-3); EOS # 0.4 x10^3/uL (0.0-0.7); EOS % 4 % (0-3); HEMATOCRIT 31.1 % (39.0-53.0); HEMOGLOBIN 10.6 g/dL (13.0-17.5); LYMPH # 2.1 x10^3/uL (1.0-4.8); LYMPH % 19 % (24-48); MEAN CORPUSCULAR HEMOGLOBIN 29 pg (25-35); MEAN CORPUSCULAR HGB CONC 34 g/dL (31-37); MEAN CORPUSCULAR VOLUME 85 fL (79-100); MONO # 0.9 x10^3/uL (0.0-1.1); MONO % 8 % (0-9); NEUT # 7.6 x10^3/uL (1.8-7.7); NEUT % 68 % (31-73); PLATELET COUNT 380 x10^3/uL (140-400); RED BLOOD COUNT 3.65 x10^6/uL (4.30-5.70); RED CELL DISTRIBUTION WIDTH 13.7 % (11.5-14.5); WHITE BLOOD COUNT 11.1 x10^3/uL (4.0-11.0)
[2019-09-20 05:04] LABS: CREATININE 1.1 mg/dL (0.7-1.3); GFR 68.5; POTASSIUM 3.2 mmol/L (3.5-5.1)
[2019-09-20] MEDS: PIPERACILLIN/TAZOBACTAM 3.375 GM in IV NORMAL SALINE 50ML 50 ML IV SCH ×3 (05:24→17:17)
[2019-09-20 07:00] VITALS: BP 181/94
--- NOTE | 2019-09-20 07:48 | RAD ---
Exam: Fluoroscopic and ultrasound guided right percutaneous inserted central venous catheter placement 09/20/2019 5:44 AM .Indication: IV ANTIBIOTICS/SINGLE LUMEN Technique: Informed oral and written consent were obtained. The right upper extremity was prepped and draped using sterile barrier technique. All elements of maximal sterile barrier technique including the use of a cap, mask, sterile gown, sterile gloves, large sterile sheet, appropriate hand hygiene, and 2% chlorhexidine for cutaneous antisepsis (or acceptable alternative antiseptic per current guidelines) were followed for this procedure.. Real-time ultrasound demonstrated a patent right basilic vein which was prepped and draped in usual sterile fashion. 1% lidocaine used for local anesthesia. Using real-time ultrasound guidance the access needle percutaneously punctured the selected right basilic vein. Reference ultrasound images were saved to the medical record. A guidewire was advanced through the needle to the cavoatrial junction, and a peel-away sheath placed. The catheter was cut to length and inserted through the peel-away sheath such that its tip is at the cavoatrial junction. The wire and sheath were removed, and the catheter secured in place, and a sterile dressing was applied. Catheter was found to flush and aspirate normally. No immediate complications are identified. FLUORO TIME: 0.2 DOSE AREA PRODUCT: 1 Gycm2 Impression: Ultrasound and fluoroscopically guided placement of a right upper extremity PICC line.
[2019-09-20] MEDS: INSULIN LISPRO 300 UNITS/3 ML VIAL. SQ SCH ×3 (08:00→17:28)
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
[2019-09-20] MEDS ORDERED: POTASSIUM CHLORIDE 20 MEQ TABLET.ER. PO ONE (08:30)
[2019-09-20] MEDS: ASPIRIN ENTERIC COATED 81 MG TABLET.DR. PO SCH (08:31)
[2019-09-20] MEDS: LACTOBACILLUS RHAMNOSUS GG 1 CAPSULE. PO SCH ×2 (08:32→23:01)
[2019-09-20] MEDS: DOCUSATE SODIUM 100 MG CAPSULE. PO SCH ×2 (08:32→23:01)
[2019-09-20] MEDS: POTASSIUM CHLORIDE 10MEQ 100 ML IV SCH ×2 (08:48→10:00)
--- NOTE | 2019-09-20 10:13 | PDOC ---
Infectious Disease Note Subjective: Subjective Patient without complaints Denies fever, nausea, vomiting, shortness of breath, diarrhea, abdominal pain, rash Otherwise as above Vital Signs: Vital Signs Vital Signs Date Time Temp Pulse Resp B/P (MAP) Pulse Ox O2 Delivery O2 Flow Rate FiO2 09/20/19 07:00 97.7 70 18 181/94 (123) 92 Room Air 97.7 09/20/19 00:43 2.0 Physical Exam: PHYSICAL EXAM GENERAL: Alert oriented X3 HEENT: Poor dentition. No thrush. Oral mucosa moist. NECK: Supple, no JVD. LUNGS: Clear bilaterally. No wheezing. HEART: S1, S2. No gallops or murmurs. ABDOMEN: Soft, nontender EXTREMITIES: Right lower extremity unremarkable. LLE dressing taken down, large left heel wound with exposed bone, lateral edges slightly necrotic, no purulence Sutures with incision left lower extremity intact, surrounding redness or drainage SKIN: without rash. 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 looks clean Medications: Inpatient Meds: Current Medications Medications (Trade) Dose Ordered Sig/Steven Start Time Stop Time Status Last Admin Dose Admin Acetaminophen (Tylenol) 650 mg PRN Q4HRS PRN 09/11/19 15:30 Acetaminophen/ Hydrocodone Bitart (Lortab 5/325) 2 tab PRN Q4HRS PRN 09/13/19 05:30 09/19/19 23:43 2 TAB Albuterol Sulfate (Ventolin Neb Soln) 2.5 mg PRN Q4HRS PRN 09/11/19 15:30 Aspirin (Nevaeh Aspirin) 81 mg DAILYWBKFT 09/14/19 08:00 09/14/19 07:57 DC Aspirin (Ecotrin) 81 mg DAILYWBKFT 09/14/19 08:00 09/20/19 08:31 81 MG Atorvastatin Calcium (Lipitor) 40 mg QHS 09/12/19 22:00 09/19/19 21:45 40 MG Bupivacaine HCl/ Epinephrine Bitart (Sensorcaine-Epi 0.25%-1:358236 Mpf) 30 ml STK-MED ONCE 09/12/19 17:17 09/12/19 17:17 DC Cefazolin Sodium 1 gm/Sodium Chloride 500 ml @ 500 mls/hr 1X ONCE 09/12/19 17:00 09/12/19 17:59 DC 09/12/19 17:53 Cefazolin Sodium/ Dextrose 50 ml @ 100 mls/hr 1X PREOP ONCE 09/12/19 16:45 09/12/19 17:14 DC 09/12/19 17:23 100 MLS/HR Cellulose (Surgicel Fibrillar 1x2) 1 each STK-MED ONCE 09/12/19 17:17 09/12/19 17:18 DC Daptomycin 500 mg/ Sodium Chloride 50 ml @ 100 mls/hr Q24H 09/17/19 14:00 09/19/19 14:20 100 MLS/HR Dexamethasone Sodium Phosphate (Decadron) 4 mg STK-MED ONCE 09/12/19 16:21 09/12/19 16:21 DC Dextrose (Dextrose 50%-Water Syringe) 12.5 gm PRN Q15MIN PRN 09/11/19 15:30 Docusate Sodium (Colace) 100 mg BID 09/14/19 14:30 09/20/19 08:32 100 MG Enoxaparin Sodium (Lovenox 40mg Syringe) 40 mg Q24H 09/11/19 17:00 09/19/19 17:25 40 MG Ephedrine Sulfate (ePHEDrine PF IN SALINE SYRINGE) 50 mg STK-MED ONCE 09/12/19 16:21 09/12/19 16:21 DC Fentanyl Citrate (Fentanyl 2ml Vial) 100 mcg STK-MED ONCE 09/12/19 20:38 09/12/19 20:38 DC Fentanyl Citrate (Fentanyl 5ml Vial) 250 mcg 1X ONCE 09/12/19 14:45 09/12/19 14:50 DC 09/12/19 14:45 50 MCG Glycopyrrolate (Robinul) 1 mg STK-MED ONCE 09/12/19 17:44 09/12/19 17:44 DC Guaifenesin (Robitussin) 200 mg PRN Q4HRS PRN 09/11/19 15:30 Heparin Sodium (Porcine) (Heparin Sodium) 10,000 unit STK-MED ONCE 09/12/19 18:51 09/12/19 18:52 DC Heparin Sodium (Porcine) 5000 unit/Sodium Chloride 505 ml @ 505 mls/hr 1X ONCE 09/12/19 17:00 09/12/19 17:59 DC 09/12/19 17:53 Heparin Sodium/ Sodium Chloride (HEPARIN for ARTERIAL LINE FLUSH) 1,000 unit 1X ONCE 09/12/19 16:00 09/12/19 16:01 DC Hydromorphone HCl (Dilaudid) 0.5 mg PRN Q10MIN PRN 09/12/19 16:30 09/12/19 22:00 DC Insulin Human Lispro (HumaLOG VIAL for OP,RR ONLY) 0-10 units PRN Q1HR PRN 09/12/19 17:15 09/13/19 17:14 DC 09/12/19 17:30 4 UNIT Insulin Human Lispro (HumaLOG) 0-7 UNITS TIDWMEALS 09/11/19 17:00 09/19/19 17:33 4 UNITS Iodixanol (Visipaque 320) 100 ml 1X ONCE 09/12/19 14:45 09/12/19 14:50 DC 09/12/19 14:45 146 ML Iohexol (Omnipaque 300 Mg/ml) 50 ml STK-MED ONCE 09/12/19 17:17 09/12/19 17:17 DC Lactobacillus Rhamnosus (Culturelle) 1 cap BID 09/12/19 21:00 09/20/19 08:32 1 CAP Lidocaine HCl (Buffered Lidocaine 1%) 6 ml 1X ONCE 09/19/19 11:30 09/19/19 11:31 DC Lidocaine HCl (Lidocaine 1% 20ml Vial) 20 ml 1X ONCE 09/12/19 14:45 09/12/19 14:50 DC 09/12/19 14:45 6 ML Lidocaine HCl (Lidocaine Pf 2% Vial) 5 ml STK-MED ONCE 09/12/19 16:20 09/12/19 16:21 DC Lidocaine HCl (Xylocaine-Mpf 1% 2ml Vial) 2 ml PRN 1X PRN 09/12/19 16:30 09/12/19 22:00 DC Lorazepam (Ativan) 0.5 mg PRN Q4HRS PRN 09/11/19 15:30 Midazolam HCl (Versed) 5 mg 1X ONCE 09/12/19 14:45 09/12/19 14:50 DC 09/12/19 14:45 1 MG Morphine Sulfate (Morphine Sulfate) 4 mg PRN Q1HR PRN 09/13/19 05:30 09/17/19 14:04 4 MG Neostigmine Selma (Neostigmine Methylsulfate) 5 mg STK-MED ONCE 09/12/19 20:04 09/12/19 20:04 DC Ondansetron HCl (Zofran) 4 mg PRN Q6HRS PRN 09/12/19 16:30 09/12/19 22:00 DC Phenylephrine HCl (PHENYLEPHRINE in 0.9% NACL PF) 1 mg STK-MED ONCE 09/12/19 16:21 09/12/19 16:21 DC Piperacillin Sod/ Tazobactam Sod 3.375 gm/Sodium Chloride 50 ml @ 100 mls/hr Q6HRS 09/11/19 16:00 09/20/19 05:24 100 MLS/HR Potassium Chloride/Water 100 ml @ 100 mls/hr Q1H 09/20/19 08:30 09/20/19 10:29 09/20/19 10:00 100 MLS/HR Potassium Chloride (Klor-Con) 40 meq 1X ONCE 09/20/19 08:30 09/20/19 08:31 DC 09/20/19 08:44 40 MEQ Prochlorperazine Edisylate (Compazine) 5 mg PACU PRN PRN 09/12/19 16:30 09/12/19 22:00 DC Propofol (Diprivan) 200 mg STK-MED ONCE 09/12/19 16:20 09/12/19 16:21 DC Protamine Sulfate (Protamine) 50 mg STK-MED ONCE 09/12/19 20:26 09/12/19 20:27 DC Ringer's Solution 1,000 ml @ 30 mls/hr Q24H 09/12/19 16:22 09/13/19 04:21 DC 09/12/19 16:22 30 MLS/HR Rocuronium Selma (Zemuron) 100 mg STK-MED ONCE 09/12/19 18:49 09/12/19 18:50 DC Sevoflurane (Ultane) 90 ml STK-MED ONCE 09/12/19 20:50 09/12/19 20:51 DC Vancomycin HCl (Vanco Per Pharmacy) 1 each PRN DAILY PRN 09/11/19 15:30 09/17/19 11:49 DC 09/15/19 08:31 1 EACH Vancomycin HCl (Vancomycin Trough Level) 1 each 1X ONCE 09/15/19 05:30 09/15/19 05:31 DC 09/15/19 05:30 1 EACH Vancomycin HCl 1 gm/Dextrose 250 ml @ 250 mls/hr 1X ONCE 09/11/19 15:30 09/11/19 16:29 UNV Vancomycin HCl 1 gm/Sodium Chloride 250 ml @ 250 mls/hr Q12H 09/12/19 06:00 09/17/19 11:47 DC 09/17/19 07:15 250 MLS/HR Vancomycin HCl 2 gm/Sodium Chloride 500 ml @ 250 mls/hr 1X ONCE 09/11/19 18:00 09/11/19 19:59 DC 09/11/19 17:49 250 MLS/HR Zolpidem Tartrate (Ambien) 5 mg PRN QHS PRN 09/11/19 15:30 Labs: Lab Laboratory Tests Test 09/19/19 12:21 09/19/19 16:25 09/19/19 21:27 09/20/19 04:05 Glucose (Fingerstick) 159 mg/dL (70-99) 208 mg/dL (70-99) 146 mg/dL (70-99) White Blood Count 11.1 x10^3/uL (4.0-11.0) Red Blood Count 3.65 x10^6/uL (4.30-5.70) Hemoglobin 10.6 g/dL (13.0-17.5) Hematocrit 31.1 % (39.0-53.0) Mean Corpuscular Volume 85 fL (79-100) Mean Corpuscular Hemoglobin 29 pg (25-35) Mean Corpuscular Hemoglobin Concent 34 g/dL (31-37) Red Cell Distribution Width 13.7 % (11.5-14.5) Platelet Count 380 x10^3/uL (140-400) Neutrophils (%) (Auto) 68 % (31-73) Lymphocytes (%) (Auto) 19 % (24-48) Monocytes (%) (Auto) 8 % (0-9) Eosinophils (%) (Auto) 4 % (0-3) Basophils (%) (Auto) 1 % (0-3) Neutrophils # (Auto) 7.6 x10^3/uL (1.8-7.7) Lymphocytes # (Auto) 2.1 x10^3/uL (1.0-4.8) Monocytes # (Auto) 0.9 x10^3/uL (0.0-1.1) Eosinophils # (Auto) 0.4 x10^3/uL (0.0-0.7) Basophils # (Auto) 0.1 x10^3/uL (0.0-0.2) Sodium Level 140 mmol/L (136-145) Potassium Level 3.2 mmol/L (3.5-5.1) Chloride Level 103 mmol/L (98-107) Carbon Dioxide Level 29 mmol/L (21-32) Anion Gap 8 (6-14) Blood Urea Nitrogen 16 mg/dL (8-26) Creatinine 1.1 mg/dL (0.7-1.3) Estimated GFR (Cockcroft-Gault) 68.5 Glucose Level 139 mg/dL (70-99) Calcium Level 8.0 mg/dL (8.5-10.1) Magnesium Level 1.8 mg/dL (1.8-2.4) Test 09/20/19 07:34 Glucose (Fingerstick) 136 mg/dL (70-99) Objective: Assessment: 1. Large left calcaneal osteomyelitis 09/11 left heel debridement 5 cm x 5 cm 25 cm total down to bone excisional type No intraoperative cultures available Blood culture negative ESR 95 2. Peripheral arterial disease. 09/11 #1 Extensive left profunda femoral endarterectomy down to tertiary branches at least 3 cm, separate from normal requirement for lower extremity bypass #2 left femoral to anterior tibial artery bypass with ipsilateral saphenous vein graft 3. Type 2 diabetes, uncontrolled. 4. Hypertension. 5. Tobaccoism. Plan: Plan of Care continue daptomycin and Zosyn Prescription in chart ESR 98 Probiotics Optimal diabetes control Wound /Vac as directed Offload PICC linen checker and complications discussed Side effects of antibiotics discussed Probiotics Q. Monday labs CBC/BUN/creatinine/CPK/ESR/CRP. Fax results to [phone] Follow-up with me in ID clinic in 2 weeks, October 01 at 3:45 PM , phone [phone] Wound/VAC care per vascular/orthopedics Social work to assist with discharge planning Discussed with nursing staff RO VALDEZ MD September 20, 2019 10:13
[2019-09-20 10:55] VITALS: BP 173/85
--- NOTE | 2019-09-20 11:46 | NUR ---
SS following up with discharge planning. SS reviewed pt chart and discussed with pt RN. Pt accepted at [facility] but script received for Dapto and Zosyn and [facility] cannot do Dapto. Physician and Dr. Arnold spoke with [facility]. Referrals were phoned and faxed this morning to [facility], ; fax [phone], [facility], ; fax [phone], and [facility], ; fax [phone]. [facility] contacted SS and DON spoke with Dr. Angulo. [facility] reporting that they can do the IV Dapto and Zosyn. [facility] submitting for insurance authorization. SS was notified that they can take pt on 09/21/2019 as long as insurance approves. Potential transport scheduled to [facility] at 1100 on 09/21/2019. SS will continue to follow for discharge planning.
--- NOTE | 2019-09-20 14:06 | PDOC ---
Provider Note Provider Note This is a 59-year-old gentleman who is now post op day# 8 Extensive left profunda femoral endarterectomy down to tertiary branches at least 3 cm, separate from normal requirement for lower extremity bypass, left femoral to anterior tibial artery bypass with ipsilateral saphenous vein graft and left heel debridement 5 cm x 5 cm 25 cm total down to bone excisional type He states he is supposed to be going to a skilled facility "across from [facility]". He thought he was going to be discharged today but believes that he will be going tomorrow. He denies any chest pain or shortness of breath. He denies fever and chills. He denies significant left leg pain. He is alert and oriented, sitting on the bedside He has an easily palpable left lateral bypass graft pulse. His incisions are clean, dry and without redness, edema or drainage. He has a wound VAC in place on his left foot. Assessment: 59-year-old doing well status post left leg bypass surgery with an excellent bypass graft pulse and a wound VAC in place on his left foot. Plan: Continue aspirin and atorvastatin daily. Continue wound care to left foot with wound VAC therapy. Continue antibiotics per infectious disease. Follow-up in office as scheduled for staple removal. Please call [phone] to obtain appointment time and direction. BRANDEN CAMPUZANO APRN September 20, 2019 14:06
--- NOTE | 2019-09-20 14:39 | NUR ---
Wound Care Wound Type/Assessment: left heel DFU, s/p arterial intervention and debridement in OR last week with Dr Vu. L heel wound is very clean, well granulated, wound edges and periwound with macerated callus and minimal slough and eschar, no underlying structures exposed. Wound bed much tar heat exchanger cleaner and granulated than at vac change earlier this week. Pt is leaving tomorrow to SNU, and since vac was due to be changed today, vac dressing was removed, d/c photo and measurements taken at this time. Wound cleaned, redressed with Xeroform gauze, ABD and kerlix, reapplied Rooke boot. Bypass incisions well approximated, padma intact, incisions cleaned with chloroprep swabs and left JAIRO. Treatment Recommendations/Plan: Continue wound vac and accepting facility until wound is to surface and has decreased in size. Education provided:pt educated on vac protocol, PU prevention and POC for follow up after d/c, pt v/u. Offloading surface/device: pillows to float heels, Rooke boot to left leg, defer offloading shoe and weightbearing status to Vascular. Recommended Referrals/Tests: none Discharge Recommendations for dressings: continue vac at SNU or d/c home. Home vac approved, pt responsibility would be $17/day, in the event that pt decides to go home instead of SNU. Consignment vac taken to [facility] for cleaning.
[2019-09-20] MEDS ORDERED: PIPE3.377 IV (14:41)
[2019-09-20] MEDS ORDERED: LACT1CAP19 PO (14:42)
[2019-09-20] MEDS ORDERED: DAPT350V IV (14:42)
[2019-09-20] MEDS ORDERED: ATOR40TA59 PO (14:42)
[2019-09-20] MEDS ORDERED: ACET325T9 PO (14:42)
[2019-09-20] MEDS ORDERED: DOCU-153 PO (14:42)
[2019-09-20] MEDS ORDERED: INSU100I11 SQ (14:42)
[2019-09-20] MEDS ORDERED: HYDR-2761 PO (14:42)
[2019-09-20] MEDS ORDERED: ASPI-612 PO (14:42)
--- NOTE | 2019-09-20 14:44 | SNU/HH DC ---
DISCHARGE ORDERS DISCHARGE INFORMATION: DISCHARGE DATE: September 20, 2019 FINAL DIAGNOSIS Osteomyelitis left heel CONDITION ON DISCHARGE: Stable CODE STATUS: Code Status: Full [facility]: SNF STAY <30 DAYS: Yes POST DISCHARGE ORDERS: ACTIVITY ORDERS: Resume previous activity WEIGHT BEARING STATUS: Partial weight bearing DIET AFTER DISCHARGE: ADA CHECKS AFTER DISCHARGE: CHECKS AFTER DISCHARGE: Check blood press - daily, Check blood sugar, ac/hs, Check your Temp as needed FOLLOW-UP: Additional Instructions: Q. Monday labs CBC/BUN/creatinine/CPK/ESR/CRP. Fax results to [phone] Follow-up with me in ID clinic in 2 weeks, October 01 at 3:45 PM , phone [phone] TREATMENT/EQUIPMENT ORDERS: INFUSION EQUIPMENT NEEDED: PICC Line RESPIRATORY EQUIPMENT NEEDED: Oxygen Physical Therapy For: Evalulation/Treatment Occupational Therapy For: Evaluation/Treatment DISCHARGE MEDICATIONS: Home Meds Active Scripts Docusate Sodium (DOK) 100 Mg Capsule, 100 MG PO BID for Constipation for 30 Days, #60 CAP Prov:REJI RITCHIE MD 09/20/19 Lactobacillus Rhamnosus Gg (CULTURELLE) 1 Each Cap.sprink, 1 CAP PO BID for Diarrhea for 30 Days, #60 CAP Prov:REJI RITCHIE MD 09/20/19 Insulin Lispro (HUMALOG) 100 Unit/1 Ml Insuln.pen, 0 UNITS SQ TIDWMEALS for DM2 for 30 Days, #30 EACH Prov:REJI RITCHIE MD 09/20/19 Acetaminophen (TYLENOL) 325 Mg Tablet, 650 MG PO PRN Q4HRS PRN for TEMP OVER 100.4F OR MILD PAIN for 30 Days, #120 TAB Prov:REJI RITCHIE MD 09/20/19 Hydrocodone Bit/Acetaminophen (HYDROCODONE-APAP 5-325 ) 1 Tab Tablet, 1 TAB PO PRN Q4HRS PRN for MODERATE PAIN 4-6 for 6 Days, #15 TAB Prov:REJI RITCHIE MD 09/20/19 Aspirin (ASPIRIN EC) 81 Mg Tablet.dr, 81 MG PO DAILYWBKFT for PAD for 30 Days, #30 TAB.SR Prov:REJI RITCHIE MD 09/20/19 Atorvastatin Calcium (ATORVASTATIN CALCIUM) 40 Mg Tablet, 40 MG PO QHS for HLD for 30 Days, #30 TAB Prov:REJI RITCHIE MD 09/20/19 Daptomycin (Daptomycin) 350 Mg Vial, 350 MG IV DAILY for Osteomyelitis for 42 Days, #42 EACH Prov:REJI RITCHIE MD 09/20/19 Zbaqllncddfr-Lsvk-Dbumphob,Iso (ZOSYN 3.375 GM PRE MIX-BAG) 3.375 Gm/50 Ml Froz.piggy, 3.375 GM IV Q8HRS for Osteomyelitis for 42 Days, #126 EACH Prov:REJI RITCHIE MD 09/20/19 Reported Medications Metformin Hcl (METFORMIN HCL) 500 Mg Tablet, 500 MG PO DAILY for ANTI-DIABETIC, TAB 0 Refills 09/11/19 Discontinued Reported Medications Amoxicillin/Potassium Clav (AUGMENTIN 875-125 TABLET) 1 Each Tablet, 1 TAB PO BID for infection for 10 Days, #20 TAB 0 Refills 09/11/19 REJI RITCHIE MD September 20, 2019 14:44
[2019-09-20] MEDS ORDERED: MAGNESIUM SULFATE 2GM 50 ML IV ONE (14:45)
[2019-09-20] MEDS: DAPTOmycin (GENERIC) IVPB 500 MG in IV NORMAL SALINE 50ML 50 ML IV SCH (14:46)
[2019-09-20] MEDS: HYDROcodone/APAP 5/325MG 1 TAB TABLET PO PRN ×2 (14:48→23:02)
[2019-09-20 15:11] VITALS: BP 167/87
--- NOTE | 2019-09-20 15:42 | NUR ---
SS following up with discharge planning. SS received notification from [facility] that they do not have insurance authorization at this time. [facility] reported that they will have to plan to take pt 09/23/2019, due to not having insurance authorization yet. Pt's RN notified.
[2019-09-20] MEDS: ENOXAPARIN 40 MG/0.4 ML SYRINGE. SQ SCH (17:17)
--- NOTE | 2019-09-20 18:00 | NUR ---
Wound care removed wound vac today to get pt ready to discharge tomorrow. Anxious about discharge. Rather stay here but understand the reasoning for it. No c/o at this time. Cont. monitor.
[2019-09-20 19:15] VITALS: BP 144/69
[2019-09-20] MEDS: ATORVASTATIN CALCIUM 40 MG TABLET. PO SCH (23:01)
[2019-09-20 23:17] VITALS: BP 140/73
[2019-09-21] MEDS: PIPERACILLIN/TAZOBACTAM 3.375 GM in IV NORMAL SALINE 50ML 50 ML IV SCH ×5 (00:16→23:46)
[2019-09-21 03:35] VITALS: BP 139/71
[2019-09-21 04:33] LABS: BASO # 0.1 x10^3/uL (0.0-0.2); BASO % 1 % (0-3); EOS # 0.6 x10^3/uL (0.0-0.7); EOS % 6 % (0-3); HEMATOCRIT 33.2 % (39.0-53.0); HEMOGLOBIN 11.4 g/dL (13.0-17.5); LYMPH # 2.2 x10^3/uL (1.0-4.8); LYMPH % 23 % (24-48); MEAN CORPUSCULAR HEMOGLOBIN 29 pg (25-35); MEAN CORPUSCULAR HGB CONC 34 g/dL (31-37); MEAN CORPUSCULAR VOLUME 86 fL (79-100); MONO # 0.7 x10^3/uL (0.0-1.1); MONO % 8 % (0-9); NEUT % 62 % (31-73); PLATELET COUNT 426 x10^3/uL (140-400); RED BLOOD COUNT 3.88 x10^6/uL (4.30-5.70); WHITE BLOOD COUNT 9.7 x10^3/uL (4.0-11.0)
[2019-09-21 04:54] LABS: CALCIUM 8.4 mg/dL (8.5-10.1); CREATININE 1.3 mg/dL (0.7-1.3); GFR 56.5; POTASSIUM 3.6 mmol/L (3.5-5.1)
[2019-09-21 07:43] VITALS: BP 153/66
[2019-09-21] MEDS: INSULIN LISPRO 300 UNITS/3 ML VIAL. SQ SCH ×3 (08:00→17:00)
[2019-09-21] MEDS ORDERED: POTASSIUM CHLORIDE 20 MEQ TABLET.ER. PO ONE (08:15)
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
[2019-09-21] MEDS ORDERED: IV NORMAL SALINE 500ML BAG 500 ML IV ONE (08:30)
[2019-09-21] MEDS: DOCUSATE SODIUM 100 MG CAPSULE. PO SCH ×2 (09:27→21:22)
[2019-09-21] MEDS: LACTOBACILLUS RHAMNOSUS GG 1 CAPSULE. PO SCH ×2 (09:27→21:22)
[2019-09-21] MEDS: ASPIRIN ENTERIC COATED 81 MG TABLET.DR. PO SCH (09:27)
[2019-09-21 11:32] VITALS: BP 148/66
--- NOTE | 2019-09-21 11:55 | PDOC ---
Infectious Disease Note Subjective Subjective Pain controlled at the moment Denies F/C/N/V/D/SOA ROS ROS as mentioned above Vital Sign Vital Signs Vital Signs Date Time Temp Pulse Resp B/P (MAP) Pulse Ox O2 Delivery O2 Flow Rate FiO2 09/21/19 11:32 98.1 62 18 148/66 (93) 97 Room Air 98.1 09/20/19 20:00 2.0 Physical Exam PHYSICAL EXAM GENERAL: Propped up in bed, alert, appears comfortable HEENT: Oral cavity clear, poor dentition, no thrush. NECK: Supple LUNGS: Clear bilaterally. HEART: S1, S2. ABDOMEN: Soft, nontender, bowel sounds present EXTREMITIES: Right lower extremity unremarkable. LLE incisions well-approx, w/ sutures, no redness/drainage. Foot wound is bandaged, toes are pink and ROOKE boot in place. SKIN: without rash. 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, oriented, grossly nonfocal PICC line looks clean Labs Lab Laboratory Tests Test 09/20/19 16:51 09/20/19 20:46 09/21/19 03:45 09/21/19 07:37 Glucose (Fingerstick) 168 mg/dL (70-99) 132 mg/dL (70-99) 134 mg/dL (70-99) White Blood Count 9.7 x10^3/uL (4.0-11.0) Red Blood Count 3.88 x10^6/uL (4.30-5.70) Hemoglobin 11.4 g/dL (13.0-17.5) Hematocrit 33.2 % (39.0-53.0) Mean Corpuscular Volume 86 fL (79-100) Mean Corpuscular Hemoglobin 29 pg (25-35) Mean Corpuscular Hemoglobin Concent 34 g/dL (31-37) Red Cell Distribution Width 14.0 % (11.5-14.5) Platelet Count 426 x10^3/uL (140-400) Neutrophils (%) (Auto) 62 % (31-73) Lymphocytes (%) (Auto) 23 % (24-48) Monocytes (%) (Auto) 8 % (0-9) Eosinophils (%) (Auto) 6 % (0-3) Basophils (%) (Auto) 1 % (0-3) Neutrophils # (Auto) 6.0 x10^3/uL (1.8-7.7) Lymphocytes # (Auto) 2.2 x10^3/uL (1.0-4.8) Monocytes # (Auto) 0.7 x10^3/uL (0.0-1.1) Eosinophils # (Auto) 0.6 x10^3/uL (0.0-0.7) Basophils # (Auto) 0.1 x10^3/uL (0.0-0.2) Sodium Level 140 mmol/L (136-145) Potassium Level 3.6 mmol/L (3.5-5.1) Chloride Level 103 mmol/L (98-107) Carbon Dioxide Level 31 mmol/L (21-32) Anion Gap 6 (6-14) Blood Urea Nitrogen 18 mg/dL (8-26) Creatinine 1.3 mg/dL (0.7-1.3) Estimated GFR (Cockcroft-Gault) 56.5 Glucose Level 126 mg/dL (70-99) Calcium Level 8.4 mg/dL (8.5-10.1) Micro Microbiology 09/11/19 Blood Culture - Preliminary, Resulted NO GROWTH AFTER 5 DAYS Objective Assessment Left heel necrotic chronic wound infection s/p debridement down to bone excisional type on 09/11. no intra-op cultures available. Last ESR 91 Peripheral arterial disease. -s/p extensive left profunda femoral endarterectomy down to tertiary branches at least 3 cm, separate from normal requirement for lower extremity bypass, 09/11 -s/p left femoral to anterior tibial artery bypass with ipsilateral saphenous vein graft, 09/11 Leukocytosis - improved Type 2 diabetes, uncontrolled. Hypertension. Tobaccoism. 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 Monday labs CBC/BUN/creatinine/CPK/ESR/CRP. Fax results to [phone] Follow-up with me in ID clinic in 2 weeks, October 01 at 3:45 PM , phone [phone] Wound/VAC care per vascular/orthopedics Social work to assist with discharge planning D/w nursing Attending Co-Sign The patient was seen and interviewed as well as examined at the bedside. The chart was reviewed. The case was discussed. Agree with the plan of care. DAVID CHURCH APRN September 21, 2019 11:55 TORRES VALDEZ MD September 21, 2019 12:44
[2019-09-21] MEDS: MORPHINE SULFATE 4 MG/ML VIAL. IV PRN ×2 (13:58→18:17)
[2019-09-21] MEDS: DAPTOmycin (GENERIC) IVPB 500 MG in IV NORMAL SALINE 50ML 50 ML IV SCH (13:59)
[2019-09-21 15:33] VITALS: BP 174/72
[2019-09-21] MEDS: ENOXAPARIN 40 MG/0.4 ML SYRINGE. SQ SCH (18:16)
[2019-09-21 19:00] VITALS: BP 129/78
[2019-09-21] MEDS: ATORVASTATIN CALCIUM 40 MG TABLET. PO SCH (21:22)
[2019-09-21 23:00] VITALS: BP 158/87
[2019-09-22 03:00] VITALS: BP 148/77
[2019-09-22] MEDS: PIPERACILLIN/TAZOBACTAM 3.375 GM in IV NORMAL SALINE 50ML 50 ML IV SCH ×3 (05:51→17:39)
[2019-09-22 07:00] VITALS: BP 158/79
[2019-09-22] MEDS: INSULIN LISPRO 300 UNITS/3 ML VIAL. SQ SCH ×3 (07:39→17:00)
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
[2019-09-22] MEDS: LACTOBACILLUS RHAMNOSUS GG 1 CAPSULE. PO SCH ×2 (08:31→21:20)
[2019-09-22] MEDS: DOCUSATE SODIUM 100 MG CAPSULE. PO SCH ×2 (08:31→21:20)
[2019-09-22] MEDS: ASPIRIN ENTERIC COATED 81 MG TABLET.DR. PO SCH (08:31)
[2019-09-22] MEDS: HYDROcodone/APAP 5/325MG 1 TAB TABLET PO PRN ×2 (08:32→21:25)
--- NOTE | 2019-09-22 10:08 | PDOC ---
Infectious Disease Note Subjective Subjective Comfortable Denies F/C/N/V/D/SOA/pain ROS ROS as mentioned above Vital Sign Vital Signs Vital Signs Date Time Temp Pulse Resp B/P (MAP) Pulse Ox O2 Delivery O2 Flow Rate FiO2 09/22/19 09:37 12 Room Air 09/22/19 07:30 2.0 09/22/19 07:00 98.0 57 158/79 (105) 97 98.0 Physical Exam PHYSICAL EXAM GENERAL: Propped up in bed, alert, watching TV HEENT: Oral cavity clear, poor dentition, no thrush. NECK: Supple LUNGS: Clear bilaterally. HEART: S1, S2. ABDOMEN: Soft, nontender, bowel sounds present EXTREMITIES: Right lower extremity unremarkable. LLE incisions well-approx, w/ sutures, no redness/drainage. Foot wound is bandaged, toes are pink and ROOKE boot in place. SKIN: without rash. 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 no intra-op cultures available. Last ESR 91 Peripheral arterial disease. -s/p extensive left profunda femoral endarterectomy down to tertiary branches at least 3 cm, separate from normal requirement for lower extremity bypass, 09/11 -s/p left femoral to anterior tibial artery bypass with ipsilateral saphenous vein graft, 09/11 Leukocytosis - improved Type 2 diabetes, uncontrolled. Hypertension. Tobaccoism. Plan Plan of Care Anticipating discharge to rehab soon Continue Daptomycin and Zosyn Prescription in chart Probiotics Optimal diabetes control Offload PICC milliner helper and complications discussed Side effects of antibiotics discussed Q. Monday labs CBC/BUN/creatinine/CPK/ESR/CRP. Fax results to [phone] Follow-up with me in ID clinic in 2 weeks, October 01 at 3:45 PM , phone [phone] Wound/VAC care per vascular/orthopedics Social work to assist with discharge planning D/w nursing Attending Co-Sign The patient was seen and interviewed as well as examined at the bedside. The chart was reviewed. The case was discussed. Agree with the plan of care. DAVID CHURCH APRN September 22, 2019 10:08 TORRES VALDEZ MD September 22, 2019 12:05
[2019-09-22 11:00] VITALS: BP 150/68
--- NOTE | 2019-09-22 12:18 | NUR ---
Wound picture taken; dressing changed at 1130 hours.
[2019-09-22] MEDS: DAPTOmycin (GENERIC) IVPB 500 MG in IV NORMAL SALINE 50ML 50 ML IV SCH (14:42)
[2019-09-22 15:00] VITALS: BP 159/84
[2019-09-22] MEDS: ENOXAPARIN 40 MG/0.4 ML SYRINGE. SQ SCH (16:38)
[2019-09-22] MEDS: MORPHINE SULFATE 4 MG/ML VIAL. IV PRN (16:39)
[2019-09-22 19:00] VITALS: BP 170/89
[2019-09-22] MEDS: ATORVASTATIN CALCIUM 40 MG TABLET. PO SCH (21:21)
[2019-09-22 23:00] VITALS: BP 147/76
[2019-09-23 03:00] VITALS: BP 161/80
[2019-09-23] MEDS: PIPERACILLIN/TAZOBACTAM 3.375 GM in IV NORMAL SALINE 50ML 50 ML IV SCH ×3 (06:21)
[2019-09-23 07:00] VITALS: BP 172/66
[2019-09-23] MEDS: INSULIN LISPRO 300 UNITS/3 ML VIAL. SQ SCH (07:44)
--- NOTE | 2019-09-23 09:05 | NUR ---
SW following. Discussed with RN, pt discharging to [facility] today at 1100. SW faxed discharge paperwork and scripts. No further SW needs. RN notified.
--- NOTE | 2019-09-23 09:24 | PDOC ---
Infectious Disease Note Subjective Subjective Comfortable Denies F/C/N/V/D/SOA/pain Vital Sign Vital Signs Vital Signs Date Time Temp Pulse Resp B/P (MAP) Pulse Ox O2 Delivery O2 Flow Rate FiO2 09/23/19 07:00 98.3 63 17 172/66 (101) 95 Room Air 98.3 09/22/19 22:25 2.0 Physical Exam PHYSICAL EXAM GENERAL: Propped up in bed, alert, watching TV HEENT: Oral cavity clear, poor dentition, no thrush. NECK: Supple LUNGS: Clear bilaterally. HEART: S1, S2. ABDOMEN: Soft, nontender, bowel sounds present EXTREMITIES: Right lower extremity unremarkable. LLE incisions well-approx, w/ sutures, no redness/drainage. Foot wound is bandaged, toes are pink and ROOKE boot in place. SKIN: without rash. 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 no intra-op cultures available. Last ESR 91 Peripheral arterial disease. -s/p extensive left profunda femoral endarterectomy down to tertiary branches at least 3 cm, separate from normal requirement for lower extremity bypass, 09/11 -s/p left femoral to anterior tibial artery bypass with ipsilateral saphenous vein graft, 09/11 Leukocytosis - improved Type 2 diabetes, uncontrolled. Hypertension. Tobaccoism. 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 Monday labs CBC/BUN/creatinine/CPK/ESR/CRP. Fax results to [phone] Follow-up with me in ID clinic in 2 weeks, October 01 at 3:45 PM , phone [phone] Wound/VAC care per vascular/orthopedics Social work to assist with discharge planning D/w nursing TORRES VALDEZ MD Sep 23, 2019 09:24
[2019-09-23] MEDS: LACTOBACILLUS RHAMNOSUS GG 1 CAPSULE. PO SCH (09:41)
[2019-09-23] MEDS: ASPIRIN ENTERIC COATED 81 MG TABLET.DR. PO SCH (09:41)
[2019-09-23] MEDS: DOCUSATE SODIUM 100 MG CAPSULE. PO SCH (09:41)
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
--- NOTE | 2019-09-23 11:37 | NUR ---
Discharge Note: CHASIDY HUTSON W4 [place] Discharge instructions and discharge home medications reviewed with Other facility and a copy given. All questions have been answered and understanding verbalized. The following instructions and handouts were given: patient visit report, medication information, education. Lines and drains: PICC line clean, dry, and intact. Patient [facility] to facility [facility] via transportation service. Patient left unit awake, in stable condition, with all personal belongings. Report was called to SUGAR Dinero at [place].
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
== END 2019-09-23 11:15 | DRG 628 ==
LOC: 4 NORTH 11:49
PROVIDERS: ADMIT Internal Medicine; ATTEND Internal Medicine
PROC: 04CL0ZZ Extirpation of Matter from Left Femoral Artery, Open Approach (ICD-10-PCS; 2019-09-12)
PROC: 041L09Q Bypass Left Femoral Artery to Lower Extremity Artery with Autologous Venous Tissue, Open Approach (ICD-10-PCS; 2019-09-12)
PROC: 047L3ZZ Dilation of Left Femoral Artery, Percutaneous Approach (ICD-10-PCS; 2019-09-12)
PROC: B41D1ZZ Fluoroscopy of Aorta and Bilateral Lower Extremity Arteries using Low Osmolar Contrast (ICD-10-PCS; 2019-09-12)
PROC: 0QBM0ZZ Excision of Left Tarsal, Open Approach (ICD-10-PCS; principal; 2019-09-12 17:00)
PROC: 02HV33Z Insertion of Infusion Device into Superior Vena Cava, Percutaneous Approach (ICD-10-PCS; 2019-09-20)
PROC: B5181ZA Fluoroscopy of Superior Vena Cava using Low Osmolar Contrast, Guidance (ICD-10-PCS; 2019-09-20)
PROC: B548ZZA Ultrasonography of Superior Vena Cava, Guidance (ICD-10-PCS; 2019-09-20)
DX: E11.69 Type 2 diabetes mellitus with other specified complication (principal); E43 Unspecified severe protein-calorie malnutrition; E11.52 Type 2 diabetes mellitus with diabetic peripheral angiopathy with gangrene; L97.429 Non-pressure chronic ulcer of left heel and midfoot with unspecified severity; M86.8X7 Other osteomyelitis, ankle and foot; I74.3 Embolism and thrombosis of arteries of the lower extremities; I70.244 Atherosclerosis of native arteries of left leg with ulceration of heel and midfoot; E11.621 Type 2 diabetes mellitus with foot ulcer; D72.829 Elevated white blood cell count, unspecified; E11.628 Type 2 diabetes mellitus with other skin complications; E11.65 Type 2 diabetes mellitus with hyperglycemia; E66.01 Morbid (severe) obesity due to excess calories; E78.5 Hyperlipidemia, unspecified; F17.200 Nicotine dependence, unspecified, uncomplicated; I10 Essential (primary) hypertension; L08.9 Local infection of the skin and subcutaneous tissue, unspecified; L97.509 Non-pressure chronic ulcer of other part of unspecified foot with unspecified severity; M20.10 Hallux valgus (acquired), unspecified foot; M77.30 Calcaneal spur, unspecified foot; Z82.49 Family history of ischemic heart disease and other diseases of the circulatory system; S71.132A Puncture wound without foreign body, left thigh, initial encounter; W34.00XA Accidental discharge from unspecified firearms or gun, initial encounter; Z79.4 Long term (current) use of insulin; Z20.828 Contact with and (suspected) exposure to other viral communicable diseases
CPT/HCPCS: 36415; 36573; 37224; 75625; 75716; 76937; 77001; 80048; 80053; 80202; 81001; 82550; 82962; 83735; 85007; 85025; 85610; 85651; 85730; 86850; 86900; 86901; 87040; 87641; 93005; 93926; 93970; 94760; 99152; 99153; 99406; A7015; C1713; C1725; C1751; C1757; C1760; C1769; C1892; C1894; J0690; J0878; J1100; J1170; J1644; J1650; J1815; J2250; J2270; J2370; J2405; J2543; J2704; J2710; J2720; J3010; J3370; J3475; J3480; J3490; J7040; J7050; J7120; Q9967; 97110-GO; 97110-GP; 97116-GP; 97530-GO; 97530-GP; 97535-GO; C1771; G0378; J7030; U0003-CS

== ENCOUNTER → 2019-09-11 | Outpatient (CLI) | payer OTHER ==
[~2019-09-11] MED LIST: AMOX1TAB61 PO; METF500T16 PO
--- NOTE | 2019-09-11 09:46 | RAD ---
PA and lateral chest. HISTORY: R 23.4, eschar of heel, wheezing, patient states he is a smoker PA and lateral views the chest show the lungs are clear. Heart is normal in size. There is no effusion. There is mild hypertrophic change in the spine. IMPRESSION: 1. No acute chest disease. Electronically signed by: Troy Dao MD (09/11/2019 9:44 AM) [id number]
--- NOTE | 2019-09-11 09:46 | RAD ---
Study: 1. CR FOOT LEFT 3V 2. CR CALCANEUS LEFT Indication: Eschar of heel. Comparison: None. Findings: Calcaneus: Ulceration at the heel with the greatest degree of soft tissue irregularity extending approximately 9 mm deep to the skin surface. The subjacent subcutaneous tissues are increased in density approaching the calcaneus. At the plantar calcaneus along the base of a spur there is mild localized demineralization. No periostitis seen at this location. Foot: Noting the absence of weightbearing, presumed hallux valgus deformity. No acute fracture or aggressive osseous process. Small focus of increased density within the soft tissues plantar and lateral to the second ray proximal phalanx. Somewhat edematous appearance of the dorsal forefoot soft tissues. Impression: 1. Heel ulceration with the greatest degree of soft tissue irregularity extending approximately 9 mm deep to the skin surface. At the base of a plantar calcaneal spur, mild localized demineralization without periostitis. This demineralization is nonspecific but if there is concern for osteomyelitis MRI would be more sensitive. 2. No acute fracture or radiographic findings of osteomyelitis throughout the midfoot or forefoot. 3. Punctate focus of increased density plantar and lateral to the second ray proximal phalanx which could represent a retained radiopaque foreign body. Recommend correlation with direct inspection. 4. Hallux valgus alignment. Electronically signed by: JEWEL GARCIA MD (09/11/2019 9:44 AM) [id number]
== END | disposition home or self-care (01) ==
LOC: RAD 08:33
PROVIDERS: ATTEND Family Medicine
DX: L97.429 Non-pressure chronic ulcer of left heel and midfoot with unspecified severity (principal); M77.32 Calcaneal spur, left foot; M20.12 Hallux valgus (acquired), left foot; R06.2 Wheezing
CPT/HCPCS: 71046; 73630; 73650

== ENCOUNTER 2020-04-21 06:47 | Outpatient (CLI) | payer OTHER ==
[~2020-04-21] VITALS: Ht 182.9 cm; Wt 72.6 kg
[2020-04-21] VITALS (16 sets, daily range): BP systolic 97–172; BP diastolic 53–86
[~2020-04-21 06:47] MED LIST changes: +ACET325T9 PO; +ASPI-886 PO; +ATOR40TA59 PO; +DAPT350V IV; +DOCU-153 PO; +HYDR-2761 PO; +INSU100I11 SQ; +LACT1CAP19 PO; +PIPE3.377 IV
[2020-04-21] MEDS ORDERED: LISI10TA2 PO (07:37)
[2020-04-21] MEDS ORDERED: IODIXANOL 320 MG/ML 100 ML VIAL. ONE (07:57)
[2020-04-21] MEDS ORDERED: HEPARIN for ARTERIAL LINE 1,500 ML ONE (07:57)
[2020-04-21] MEDS ORDERED: LIDOCAINE WITH 8.4% SOD BICARB 3 ML DISP.SYRIN. ONE (07:57)
[2020-04-21 07:58] LABS: BASO # 0.1 x10^3/uL (0.0-0.2); BASO % 1 % (0-3); EOS % 10 % (0-3); HEMATOCRIT 40.4 % (39.0-53.0); HEMOGLOBIN 13.7 g/dL (13.0-17.5); LYMPH # 2.3 x10^3/uL (1.0-4.8); LYMPH % 23 % (24-48); MEAN CORPUSCULAR HEMOGLOBIN 32 pg (25-35); MEAN CORPUSCULAR HGB CONC 34 g/dL (31-37); MEAN CORPUSCULAR VOLUME 93 fL (79-100); MONO # 0.5 x10^3/uL (0.0-1.1); MONO % 5 % (0-9); NEUT # 6.2 x10^3/uL (1.8-7.7); NEUT % 62 % (31-73); PLATELET COUNT 311 x10^3/uL (140-400); RED BLOOD COUNT 4.35 x10^6/uL (4.30-5.70); RED CELL DISTRIBUTION WIDTH 13.7 % (11.5-14.5)
[2020-04-21 08:11] LABS: CALCIUM 9.8 mg/dL (8.5-10.1); GFR 76.2; POTASSIUM 4.7 mmol/L (3.5-5.1)
--- NOTE | 2020-04-21 08:24 | PDOC ---
MODERATE SEDATION ASSESSMENT RISKS/ALTERNATIVES Risks/Alternatives Risks and alternatives of this type of sedation and procedure discussed with: RISK/ALTERNATIVES: Patient H & P ON CHART H & P H & P on chart and reviewed for co-morbid conditions and appropriate labs. H&P ON CHART: Yes STATUS PREG STATUS ASSESSED: Yes MEDS/ALLERGIES REVIEWED Meds/Allergies Reviewed Medications and Allergies including time and route of recently administered narcotics and sedatives. MEDS/ALLERGIES REVIEWED: Yes ASA RATING ASA RATING: II AIRWAY ASSESSMENT Airway Assessment Airway patency, oral function limitations, presence of caps, crowns, dentures, partials, and ability to extend neck assessed. AIRWAY ASSESSMENT: Yes MALLAMPATI SCORE MALLAMPATI SCORE: II PRE-SEDATION ASSESSMENT PRE-SEDATION ASSESSMENT: Yes OVIDIO GRIGGS MD Apr 21, 2020 08:24
[2020-04-21] MEDS ORDERED: HEPARIN for IV BOLUS 10,000 UNIT/10 ML VIAL. ONE (08:31)
[2020-04-21] MEDS ORDERED: MIDAZOLAM HCL/PF 2 MG/2 ML VIAL. ONE (08:31)
[2020-04-21] MEDS ORDERED: fentaNYL PF VIAL 100 MCG/2 ML VIAL ONE (08:31)
[2020-04-21] MEDS ORDERED: CONTRAST GIVEN. MC PRN (08:45)
[2020-04-21] MEDS ORDERED: MIDAZOLAM HCL/PF 2 MG/2 ML VIAL. IV ONE (08:45)
[2020-04-21] MEDS ORDERED: IODIXANOL 320 MG/ML 100 ML VIAL. IART ONE (08:45)
[2020-04-21] MEDS ORDERED: fentaNYL PF VIAL 100 MCG/2 ML VIAL IV ONE (08:45)
[2020-04-21] MEDS ORDERED: LIDOCAINE WITH 8.4% SOD BICARB 3 ML DISP.SYRIN. IJ ONE (08:45)
[2020-04-21] MEDS ORDERED: HEPARIN for IV BOLUS 10,000 UNIT/10 ML VIAL. IV ONE (09:15)
--- NOTE | 2020-04-21 11:00 | NUR ---
Patient's mother, Angelica, unable to remember cell phone number. Patient does not know her number, either. He does not have personal cell phone. 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 Notified of results of procedure and escorted to exit. Refused wheelchair. Used personal walker to ambulate to car. RN made sure she successfully made it to her vehicle. Patient made aware of situation.
[2020-04-21 11:01] LABS: PROTHROMBIN TIME PATIENT 12.9 SEC (11.7-14.0)
--- NOTE | 2020-04-21 11:27 | PDOC ---
Exam Restaurant Shift Supervisor Restaurant Shift Supervisor Elvira Windows Migration Technician Windows Migration Technician Daxa Pre-Procedure Diagnosis Pre-Procedure Diagnosis PVD. Right Heel wound Post-Procedure Diagnosis Post-Procedure Diagnosis Same Occlusion right PT, AT peroneal origins. Failed endovascular recannilization Procedure Performed Procedure Performed ANgiography attempted endovascular repair Estimated Blood Loss EBL: 20 Specimens Specimans none Drain/Tubes Drains/Tubes None Condition of Patient Condition of Patient Stable Disposition Disposition TO recovery area Expect DC OVIDIO GRIGGS MD Apr 21, 2020 11:26
--- NOTE | 2020-04-21 12:40 | NUR ---
Patient sitting at 30 degrees. Lunch ordered. Patient stated pain is at tolerable level. Will continue to assess groin site.
--- NOTE | 2020-04-21 13:59 | RAD ---
04/21/2020 11:42 AM Procedure: 1. Pelvic angiogram 2. Right lower extremity angiogram 3. Attempted but unsuccessful endovascular recanalization of chronically anterior tibial and peroneal arteries Clinical Indication: Right lower extremity pain. Severe peripheral vascular disease. Healing wound, poorly healing Discussion: Discussion: The procedure was explained in its entirety to the patient or the patients designated packaging sales representative by a member of the treatment team, including a discussion of the risks, benefits and commonly accepted alternatives to the procedure, as well as the expected consequences of no therapy whatsoever. Discussion of the risks included, but was not limited to, those that are most frequent and those that are rare but possibly severe or life-threatening, as well as the possibility of unforeseen complications. All elements of maximal sterile barrier technique including the use of a cap, mask, sterile gown, sterile gloves, large sterile sheet, appropriate hand hygiene, and 2% chlorhexidine for cutaneous antisepsis (or acceptable alternative antiseptic per current guidelines) were followed for this procedure. Total fluoroscopy time: 24.3 min Dose area product: 61 Gycm2 The procedures performed under conscious sedation including continuous cardiopulmonary monitoring via dedicated sedation nurse. [id number] sedation time: 98 minutes Patient was brought to fluoroscopy suite placed in the supine position. A timeout procedure was performed. The left groin was prepped and draped using sterile barrier technique as described above. 1% lidocaine was administered for local anesthesia. Left common femoral artery was evaluated by ultrasound and found to be patent. Postoperative ectasia noted. Using a combination of fluoroscopic and ultrasound guidance left common femoral artery was accessed using micropuncture technique. Reference ultrasound and fluoroscopic images were saved the medical record. 5 Marshallese sheath was placed. A catheter was advanced into the abdominal aorta. Pelvic angiogram's were obtained demonstrating diffuse irregularity of vessels without flow-limiting stenosis involving the aorta, common iliac arteries, or external iliac arteries. The catheter was then repositioned in the right common femoral artery. Angiograms of the right lower extremity were performed. The right profunda artery is grossly patent. There is diffuse irregularity throughout all visualized arteries of the right lower extremity. There is no flow-limiting stenosis involving the right SFA. There is mild stenosis of involving the [id number] popliteal artery, not felt to be flow limiting. . The [id number] popliteal artery is patent. There is mild ectasia of the distalmost popliteal artery. There is occlusion of the proximal anterior tibial artery and tibial peroneal trunk. There is reconstitution of the anterior tibial artery and peroneal artery approximately 5 to 10 cm beyond their occlusion. The anterior tibial artery extends into the dorsalis pedis artery which is small but appears to be patent. The peroneal artery gives collaterals to the posterior tibial artery, which is very small and irregular. This is the dominant blood supply to the heel. Significant lateral plantar artery was not visualized. Given presence of nonhealing, heel wound attempts were made to recanalize the occluded peroneal artery. This is ultimately unsuccessful. Similarly, attempts were made to recanalize the anterior tibial artery which were unsuccessful. Several important collaterals which reconstitute these arteries were felt to be threatened by a more aggressive endovascular approach which could result in acute critical limb ischemia. Given the limited distal flow, patient may benefit from a femoral popliteal to peroneal bypass. Angiography of the puncture site demonstrates the common femoral access. A minx device was deployed as the sheath was removed. Manual pressure was held. No immediate complications were identified. IMPRESSION: 1. Severe diffuse atherosclerotic vascular disease without apparent hemodynamically significant aortoiliac or femoropopliteal stenosis on the right. 2. Occlusion of all 3 vessels runoff vessels. Dominant blood supply to the foot is via reconstituted anterior tibial and peroneal arteries. The majority of the posterior tibial artery is not visualized. Predominant blood supply to the heel appears to be via peroneal artery collaterals into a very weak reconstituted distal posterior tibial artery. 3. Unsuccessful and vascularity recanalization of the peroneal and anterior tibial artery. Given the relatively short segment occlusion, would consider vascular surgical consultation for possible femoral or popliteal to peroneal bypass
--- NOTE | 2020-04-21 14:41 | NUR ---
Patient given instructions on sedation, incision care, PVD. Verbalized understanding. All belongings w/ patient at time of d/c including medications, foot boots. Patient's mother driving patient home. Taken to car via wheelchair. Minimal shadowing at groin site. Stable, no increased bleeding for more than 1.5 hours. Patient able to ambulate around unit w/ walker. No bleeding. Patient instructed to hold Metformin until Monday04/24/20. Verbalized understanding.
== END 2020-04-21 14:46 | disposition home or self-care (01) ==
LOC: INTRAD 06:47
PROVIDERS: ATTEND Emergency Medicine Undersea and Hyperbaric Medicine
DX: I70.201 Unspecified atherosclerosis of native arteries of extremities, right leg (principal); I77.1 Stricture of artery; Z98.890 Other specified postprocedural states; Z79.899 Other long term (current) drug therapy
CPT/HCPCS: 36415; 75625; 75710; 76937; 80048; 85025; 85610; 85730; 99152; 99153; C1713; C1760; C1769; C1892; C1894; G0269; J1644; J2250; J3010; J3490; Q9967

== ENCOUNTER 2020-12-11 07:30 | Emergency (ER) | payer OTHER ==
[~2020-12-11] VITALS: Ht 182.9 cm; Wt 148.0 kg
[~2020-12-11 07:30] MED LIST changes: +DOCU-148 PO; -DOCU-153 PO; +LISI10TA16 PO
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
[2020-12-11] MEDS ORDERED: FLUORESCEIN OPHTH TEST STRIP. OU ONE (08:00)
--- NOTE | 2020-12-11 08:41 | RAD ---
Exam performed: One view chest. Indication: Reason: eye pain, htn / Spl. Instructions: / History: Date of Service: 12/11/2020 8:08 AM Comparison: None available. Single AP upright portable view chest findings: Cardiomediastinal silhouette is within limits of normal. No acute infiltrates, effusion or pneumotho rax is detected. The bony structures are normal. Impression: No acute cardiopulmonary process is detected. Electronically signed by: Anais Grove MD (12/11/2020 8:38 AM) [id number]
[2020-12-11 09:10] LABS: BASO # 0.1 x10^3/uL (0.0-0.2); BASO % 1 % (0-3); EOS # 0.3 x10^3/uL (0.0-0.7); EOS % 3 % (0-3); HEMATOCRIT 41.3 % (39.0-53.0); HEMOGLOBIN 14.3 g/dL (13.0-17.5); LYMPH # 2.4 x10^3/uL (1.0-4.8); LYMPH % 22 % (24-48); MEAN CORPUSCULAR HEMOGLOBIN 32 pg (25-35); MEAN CORPUSCULAR HGB CONC 35 g/dL (31-37); MEAN CORPUSCULAR VOLUME 92 fL (79-100); MONO # 0.7 x10^3/uL (0.0-1.1); MONO % 7 % (0-9); NEUT # 7.5 x10^3/uL (1.8-7.7); NEUT % 68 % (31-73); PLATELET COUNT 290 x10^3/uL (140-400); RED CELL DISTRIBUTION WIDTH 14.1 % (11.5-14.5)
[2020-12-11 09:19] LABS: CALCIUM 9.3 mg/dL (8.5-10.1); CREATININE 1.2 mg/dL (0.7-1.3); GFR 61.8; POTASSIUM 4.4 mmol/L (3.5-5.1)
[2020-12-11 09:24] LABS: ALBUMIN 3.3 g/dL (3.4-5.0); TOTAL BILIRUBIN 0.3 mg/dL (0.2-1.0); TOTAL PROTEIN 6.5 g/dL (6.4-8.2)
[2020-12-11] MEDS ORDERED: IOHEXOL 300 MG/ML 100ML VIAL. IV ONE (10:00)
--- NOTE | 2020-12-11 10:28 | RAD ---
Exam performed: CT scan of the head and orbits without contrast. Date of Service: 12/11/2020. Comparison: None available. Clinical History: Right eye pain. Technique: Helical acquisitions are obtained from the foramen magnum to the vertex without intravenou s administration of contrast. In addition helical acquisitions also obtained through the orbits durin g intravenous and demonstration of 70 cc of Omnipaque 300. Sagittal and coronal reformatted images ar e obtained and reviewed. Findings: CT head: The ventricles are midline without evidence of dilatation. Normal ambrose-white differentiation is maint ained. There is no extra axial fluid collection, intraparenchymal hemorrhage or mass lesion. The vi sualized portions of the orbits, paranasal sinuses and the mastoid air cells appear clear. The deven rium is intact. CT orbits: The bony orbital margins and the intraorbital contents are bilaterally symmetric and unremarkable. No abnormal enhancement is seen. There is no significant soft tissue swelling. The paranasal sinuses ar e clear. No abnormal enhancing abnormality seen in the visualized portions. Impression: 1. No acute intracranial process detected. 2. No definite abnormality seen in the CT orbits. If symptoms persist, consider MRI of the orbits wit h contrast. PQRS Compliance Statement: One or more of the following individualized dose reduction techniques were utilized for this examinat ion: 1. Automated exposure control 2. Adjustment of the mA and/or kV according to patient size 3. Use of iterative reconstruction technique Electronically signed by: Anais Grove MD (12/11/2020 10:26 AM) [id number]
[2020-12-11] MEDS ORDERED: HYDROmorphone 2 MG/ML VIAL IVP ONE (11:00)
[2020-12-11] MEDS ORDERED: DEXAMETHASONE SOD PHOS 20 MG/5 ML VIAL. IV ONE (11:00)
[2020-12-11] MEDS ORDERED: hydrALAZINE 20 MG/ML VIAL. IVP ONE (11:45)
--- NOTE | 2020-12-11 14:11 | EKG ---
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 (Measurements might be questionable) RI6.02 No previous ECG available for comparison
[2020-12-11 16:46] VITALS: BP 147/71
== END 2020-12-11 17:08 | disposition short-term general hospital (02) ==
LOC: ER 07:30
DX: H54.61 Unqualified visual loss, right eye, normal vision left eye (principal); R51.9 Headache, unspecified; I10 Essential (primary) hypertension; E78.5 Hyperlipidemia, unspecified; E11.9 Type 2 diabetes mellitus without complications; F17.200 Nicotine dependence, unspecified, uncomplicated; Z20.822 Contact with and (suspected) exposure to COVID-19
CPT/HCPCS: 36415; 70450; 70481; 71045; 80053; 84484; 85025; 85651; 87426; 93005; 96374; 96375; 99285; J0360; J1100; J1170; Q9967